=== PATIENT | male | born 1940 | race Caucasian/White ===

== ENCOUNTER → 2018-05-23 09:36 | Outpatient (CLI) | payer OTHER, SELFPAY ==
--- NOTE | 2018-05-23 | DI.MRI.S_ITS ---
PROCEDURE: MR LUMBAR SPINE WO CON INDICATIONS: CHRONIC BILATERAL LOW BACK PAIN WITH SCIATICA TECHNIQUE: Noncontrast sagittal T1 spin echo and T2 fast echo, sagittal STIR, axial T1 and T2 fast spin echo through the lumbar spine. In cases with scoliosis, additional coronal T2 fast spin echo may be performed. COMPARISON: [facility], CT, IVP (ABD & PEL WWO CONTRAST), 01/14/2016, 11:52. [facility], MR, L-SPINE WITHOUT CONTRAST, 04/28/2015, 12:31. FINDINGS: Image quality: Excellent. Alignment and Curvature: Trace anterolisthesis of L2 on L3. Bone Marrow: Marrow is of normal overall signal. No acute vertebral body compression fractures. Spinal Cord: Conus medullaris terminates at the L1 level. Visualized cord demonstrates normal signal and size. Paraspinous Soft Tissues: No paravertebral masses. Partially visualized infrarenal aortic aneurysm as before. L1-L2: Broad-based posterior disc bulge facet disease. No canal narrowing which appears unchanged. No definite foraminal stenosis. L2-L3: Broad-based posterior disc bulge bilateral facet arthropathy. Mild canal narrowing which is accentuated by dorsal epidural fat. Mild bilateral foraminal stenoses. No interval change L3-L4: Broad-based posterior disc bulge and facet arthropathy. Mild canal narrowing which accentuated by dorsal epidural fat. Moderate left and mild right foraminal narrowing, no interval change. L4-L5: Broad-based posterior disc bulge bilateral facet disease. No definite canal narrowing. No foraminal stenosis L5-S1: Broad-based posterior disc bulge and bilateral facet arthropathy severe bilateral foraminal narrowing, as before. IMPRESSION: Overall, no interval change since 08/29/15. Severe bilateral L5-S1 foraminal stenoses. No high-grade canal stenosis. Multilevel dorsal epidural lipomatosis. Trace anterolisthesis of L2 on L3 as before. Dictated by: Johnnie Cabral M.D. on 05/23/2018 at 13:07 Approved by: Johnnie Cabral M.D. on 05/23/2018 at 13:16
== END ==
PROVIDERS: PCP Internal Medicine; Visit Provider Orthopaedic Surgery
DX: M54.41 Lumbago with sciatica, right side (principal); M54.42 Lumbago with sciatica, left side; M48.07 Spinal stenosis, lumbosacral region; E88.2 Lipomatosis, not elsewhere classified
CPT/HCPCS: 72148

== ENCOUNTER → 2019-04-20 08:08 | Outpatient (CLI) | payer OTHER, SELFPAY ==
--- NOTE | 2019-04-20 | DI.US.S_ITS ---
PROCEDURE: US RENAL COMPLETE INDICATIONS: HEMATURIA TECHNIQUE: Real-time scanning was performed of the kidneys and bladder, with image documentation. COMPARISON: None. FINDINGS: Kidneys: Kidneys are normal in size. Right kidney measures 11.7 cm long; left kidney measures 10.9 cm long. Right renal cortical thickness is 1.5 cm; left renal cortical thickness is 1.3 cm. Renal cortical echotexture is normal. No hydronephrosis or nephrolithiasis. No suspicious solid mass lesions. Bilateral renal cysts are present measuring up 1.6 cm on the right. Additional right renal cyst measuring 1.4 x 1.4 x 1.2 cm demonstrates mildly ill-defined margin, and could be followed up with 6 month ultrasound. Left renal cyst measuring up to 1.3 cm Bladder: Pre-void bladder volume is 57 mL. Post-void residual is one mL. Pre-void images demonstrate no intraluminal masses or stones. On pre-void images, both of the ureteral jets are noted with color Doppler interrogation. (Of note, ureteral jets may not be detectable in up to 25% of cases due to insufficient differences in specific gravity between ureteral and bladder urine). Miscellaneous: No free pelvic fluid. IMPRESSION: Bilateral renal cysts, minimally complex on the right (Bosniak 2F). Followup with ultrasound in 6 months could be performed as clinically warranted. No hydronephrosis. Dictated by: Johnnie Cabral M.D. on 04/20/2019 at 8:59 Approved by: Johnnie Cabral M.D. on 04/20/2019 at 9:02
== END ==
PROVIDERS: PCP Internal Medicine; Visit Provider Specialist
DX: R31.9 Hematuria, unspecified (principal); N28.1 Cyst of kidney, acquired
CPT/HCPCS: 76770

== ENCOUNTER → 2019-05-01 12:39 | Outpatient (CLI) | payer OTHER, SELFPAY ==
[2019-05-01 13:21] LABS: Estimated Glomerular Filt Rate > 60.0 mL/min (>60)
--- NOTE | 2019-05-01 13:58 | DI.CT.S_ITS ---
PROCEDURE: CT ABDOMEN PELVIS WO/W CON INDICATIONS: GROSS HEMATURIA TECHNIQUE: Optional 5 mm thick noncontrast images acquired from the diaphragm to the symphysis pubis. After the administration of intravenous contrast, 5 mm thick images acquired from the diaphragm to the symphysis pubis after a 10-minute delay. 2 mm thick coronal and sagittal reformats were then performed of the kidneys and ureters. For radiation dose reduction, the following was used: automated exposure control, adjustment of mA and/or kV according to patient size. COMPARISON: [facility], CT, IVP (ABD & PEL WWO CONTRAST), 01/14/2016, 11:52. [facility], MR, MR LUMBAR SPINE WO CON, 05/23/2018, 10:03. [facility], US, US RENAL COMPLETE, 04/20/2019, 8:18. FINDINGS: Image quality: Excellent. Lung bases: Lung bases are clear. Heart size is normal. Punctate calcification of the papillary muscle. Urinary system: Both kidneys are normal in size, without hydronephrosis. A few punctate nonobstructing calculi in the left kidney, (2/36, 32), one of which is new compared to 2016. There is normal bilateral renal enhancement. Mid right kidney a cyst measuring 1.6 cm with single septation, (5/113), and inferior pole cyst measuring 1.3 cm, (5/131). Of note, mild complexity of the cyst was seen on the prior ultrasound. Overall these appear similar to the CT from 2016. A few additional cortical hypodensities which are to small to further characterize. No solid renal mass. Renal calyces appear normal in morphology when filled with contrast. Opacified portions of both ureters demonstrate normal caliber. Bladder wall thickness is normal. No calcified bladder stones. Other solid organs: Hepatic steatosis. No focal lesions. Gallbladder is normal. Biliary system is non dilated. Pancreas enhances normally. Spleen is normal in size and enhancement. No adrenal nodules. Peritoneum and bowel: Sigmoid colon diverticulosis. Bowel loops demonstrate normal wall thickness and caliber. No free fluid or air. Nodes and vessels: No retroperitoneal or mesenteric adenopathy by size criteria. Aneurysmal of the infrarenal abdominal aorta measuring up to 3.6 cm, (4/400). Aneurysmal dilatation of the right common iliac artery measuring approximately 1.7 cm, (4/400). Abdominal wall: No ventral hernias. Pelvis: No pathologic free pelvic fluid. Prostatomegaly. Bilateral fat containing inguinal hernias. Bones: No suspicious bony lesions. No vertebral body compression fractures. IMPRESSION: 1. No renal mass or upper urinary tract filling defect. A few nonobstructing renal calculi in the left kidney. 2. Abdominal aortic aneurysm measuring 3.6 cm. 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 Dictated by: Hamlet Barber M.D. on 05/01/2019 at 14:30 Approved by: Hamlet Barber M.D. on 05/01/2019 at 14:58
== END ==
PROVIDERS: PCP Internal Medicine; Visit Provider Urology
DX: R31.0 Gross hematuria (principal); R10.9 Unspecified abdominal pain; N20.0 Calculus of kidney; N28.1 Cyst of kidney, acquired; K57.30 Diverticulosis of large intestine without perforation or abscess without bleeding; I71.4 Abdominal aortic aneurysm, without rupture
CPT/HCPCS: 36415; 74178; 82565; Q9967

== ENCOUNTER 2022-02-15 10:05 | Emergency (ER) | payer OTHER, SELFPAY ==
[2022-02-15] VITALS (10 sets, daily range): BP systolic 151–183; BP diastolic 67–92; PULSE 47–84; RESP 14–27; TEMP 36.8; O2SAT 94–96; BMI 28.1
[2022-02-15 11:02] LABS: Appearance Urine UA TURBID; Bilirubin Urine UA NEGATIVE (NEGATIVE); Color Urine UA RED; Glucose Urine UA NEGATIVE (Negative); Ketones Urine UA NEGATIVE (NEGATIVE); Leukocyte Esterase Urine UA TRACE (NEGATIVE); Nitrite Urine UA NEGATIVE (Negative); Occult Blood Urine UA 3+ (Negative); Protein Urine UA 3+ (Negative); Specific Gravity Urine UA 1.025 (1.000-1.035); Urobilinogen Urine UA 0.2 E.U./dL (0.2); pH Urine UA 6.5 (4.5-8.0)
[2022-02-15 11:05] LABS: Bacteria Urine Many (>30); RBC Urine >100/HPF (0-5/HPF); WBC Urine 1-5/HPF (0-5/HPF)
[2022-02-15 11:06] LABS: Culture Indicated Urine Specimen Cultured
[2022-02-15 12:03] LABS: Add Manual Diff / Slide Review NO; Basophils Absolute Auto 0 /uL (0-100); Basophils Percent Auto 0.5 % (0-2); Eosinophils Absolute Auto 200 /uL (0-450); Eosinophils Percent Auto 2.1 % (2-4); Hematocrit 45.6 % (41-53); Hemoglobin 15.9 g/dL (13.5-17.5); Lymphocytes Absolute Auto 2700 /uL (1100-4500); Lymphocytes Percent Auto 35.4 % (25-40); Mean Corpuscular HGB Conc 34.9 % (30-36); Mean Corpuscular Hemoglobin 33.7 PG (26-34); Mean Corpuscular Volume 96.6 fL (80-100); Monocytes Absolute Auto 900 /uL (0-900); Monocytes Percent Auto 11.1 % (3-14); Neutrophils Absolute Auto 4000 /uL (1500-7000); Neutrophils Percent Auto 50.9 % (50-75); Platelet Count 176 X10^3/uL (150-400); Red Blood Cell Count 4.72 X10^6/uL (4.5-5.9); Red Cell Distribution Width 12.9 % (11.6-14.8); White Blood Cell Count 7.8 X10^3/uL (4.5-11.0)
[2022-02-15] MEDS: LIDOCAINE 2% (GLYDO) 6 ML GEL TOP (12:21)
[2022-02-15 12:22] LABS: Alanine Aminotransferase 35 IU/L (<50); Albumin 4.5 g/dL (3.5-5.0); Albumin Globulin Ratio 1.6 (1.0-2.8); Alkaline Phosphatase 66 U/L (38-126); Aspartate Aminotransferase 40 IU/L (17-59); BUN Creatinine Ratio 19.7 (6-22); Bilirubin Total 0.7 mg/dL (0.2-1.3); Blood Urea Nitrogen 15 mg/dL (9-20); Calcium 9.4 mg/dL (8.4-10.2); Carbon Dioxide 33 mmol/L (22-32); Chloride 105 mmol/L (98-107); Estimated Glomerular Filt Rate > 60 mL/min (>60); Globulin 2.9 g/dL (1.7-4.1); Glucose 99 mg/dL (80-110); HEMOLYSIS < 15 (0-50); Potassium 4.1 mmol/L (3.4-5.1); Sodium 142 mmol/L (137-145); Total Protein 7.4 g/dL (6.3-8.2)
--- NOTE | 2022-02-15 12:44 | ED_ITS ---
HPI - Male Genitourinary General Chief complaint: Urogenital-Male Stated complaint: Hematuria Time Seen by Provider: 02/15/22 11:51 Source: patient Mode of arrival: Ambulatory History of Present Illness HPI Narrative: Patient is a 81-year-old male with hit remote history of bladder cancer presenting today with hematuria. He has actually had hematuria for about 1 week. He was seen and evaluated [facility] on 02/10/2022. He brings his discharge papers which include his CT report. CT states that there are 2 nonobstructing left intrarenal calculi measuring 3 mm and 4 mm there are several partial exophytic renal lesions than a small saccular 3.7 cm mid abdominal aortic aneurysm. He presents today with ongoing hematuria. He brings a jar filled with gross blood which he collected yesterday. He denies any dizziness or lightheadedness. Catheter was placed and complete irrigated with water. Bleeding now seems to have cleared. He denies any fever chills nausea vomiting . He is having some lower abdominal discomfort. Related Data Home Medications Medication Instructions Recorded Confirmed ASPIRIN (Aspir-Low) 81 mg PO Q DAY #0 07/31/12 CA PANTOTHENATE/FOLIC ACID/VIT 1 tab PO Q DAY #0 07/31/12 (MULTIVITAMIN) [TENS UNIT] PRN #0 07/31/12 Previous Rx's Medication Instructions Recorded ipratropium 0.5 mg-albuterol 3 mg 1 dose NEB Q4-6H PRN #60 08/01/12 (2.5 mg base)/3 mL nebulization soln Allergies Allergy/AdvReac Type Severity Reaction Status Date / Time nicotine Allergy Mild RASH Verified 02/15/22 12:21 amoxicillin [From Augmentin] AdvReac Mild DIARRHEA Verified 02/15/22 12:21 bupropion AdvReac Mild HALLUCINATION, Verified 02/15/22 12:21 INSOMNIA citalopram AdvReac Mild FELT LIKE Verified 02/15/22 12:21 A ZOMBIE clavulanic acid AdvReac Mild DIARRHEA Verified 02/15/22 12:21 [From Augmentin] diphenhydramine AdvReac Mild MUSCLE Verified 02/15/22 12:21 TWITCHING tamsulosin AdvReac Mild DRY NOSE, Verified 02/15/22 12:21 EPISTAXIS varenicline AdvReac Mild ANXIETY Verified 02/15/22 12:21 Review of Systems Review of Systems Narrative: GENERAL: Denies chills, fatigue, malaise, fever, sweats, travel HEENT: Denies sinus pain, ear pain, sore throat, difficulty swallowing, neck pain RESPIRATORY: Denies dyspnea, cough, wheezing, hemoptysis, sputum. CARDIOVASCULAR: Denies chest pain, palpitations, orthopnea, edema GASTROINTESTINAL: Denies nausea, vomiting, abdominal pain, diarrhea, constipation, melena. : See HPI MUSCULOSKELETAL: Denies weakness, joint pain, or bony pain SKIN: No rash, no erythema, no pruritus NEUROLOGIC: Denies weakness, dizziness, headache, numbness, change in speech, confusion PSYCHIATRIC: No concerning psychosocial issues. 12 point review of systems is negative except for those stated above and HPI Patient History Social History Smoking Status: Current every day smoker Smoking Status: Current every day smoker Substance Use Type: does not use Exam Initial Vital Signs Initial Vital Signs: Vital Signs Temperature 98.3 F 02/15/22 10:21 Pulse Rate 64 02/15/22 10:21 Respiratory Rate 22 02/15/22 10:21 Blood Pressure 174/84 H 02/15/22 10:21 Pulse Oximetry 96 02/15/22 10:21 GENERAL: Alert well-appearing 81-year-old and in no acute distress. HEENT: Head atraumatic,EOMI, pupils reactive, face symmetric, moist mucous membranes CARDIOVASCULAR: Regular rate and rhythm without murmurs, rubs or gallops. RESPIRATORY: Breath sounds equal bilaterally, no wheezes rales or rhonchi. ABDOMEN: Soft, mild suprapubic pain lower abdominal discomfort no guarding no rebound :24F catheter in place clear hematuria EXTREMITIES: Normal range of motion, no clubbing or edema. Neurovascularly intact NEUROLOGICAL: Alert and oriented x4. SKIN: Warm, dry, no laceration, no petechiae, no rashes or lesions. Course Orders Ordered: ED Orders 02/15/22 11:45 CBC Auto Diff [Complete Blood Count AUTO DIFF] Stat CMP [Comprehensive Metabolic Panel] Stat Discontinued Medications Lidocaine HCl (Lidocaine 2% (Glydo) 6 Ml Gel) 6 ml TOP NOW ONE Stop: 02/15/22 12:13 Last Admin: 02/15/22 12:21 Dose: 6 ml Documented by: KEVAN Vital Signs Vital signs: Vital Signs - 8 hr 02/15/22 12:30 02/15/22 13:00 02/15/22 13:01 Pulse Rate 47 L 51 L 50 L Respiratory Rate 23 18 16 Blood Pressure 163/85 H 151/67 H Pulse Oximetry 95 94 94 02/15/22 13:30 02/15/22 14:00 Pulse Rate 49 L 57 L Respiratory Rate 14 18 Blood Pressure 154/73 H 174/92 H Pulse Oximetry 95 95 MDM - Male Genitourinary Lab Data Result diagrams: 02/15/22 11:45 02/15/22 11:45 Labs: Lab Results 02/15/22 02/15/22 02/15/22 Range/Units 10:25 11:45 11:45 WBC 7.8 (4.5-11.0) X10^3/uL RBC 4.72 (4.5-5.9) X10^6/uL Hgb 15.9 (13.5-17.5) g/dL Hct 45.6 (41-53) % MCV 96.6 (80-100) fL MCH 33.7 (26-34) PG MCHC 34.9 (30-36) % RDW 12.9 (11.6-14.8) % Plt Count 176 (150-400) X10^3/uL Neut % (Auto) 50.9 (50-75) % Lymph % (Auto) 35.4 (25-40) % [place] % (Auto) 11.1 (3-14) % Eos % (Auto) 2.1 (2-4) % Baso % (Auto) 0.5 (0-2) % Neut # (Auto) 4000 (9901-9954) /uL Lymph # (Auto) 2700 (6055-3720) /uL [place] # (Auto) 900 (0-900) /uL Eos # (Auto) 200 (0-450) /uL Baso # (Auto) 0 (0-100) /uL Sodium 142 (137-145) mmol/L Potassium 4.1 (3.4-5.1) mmol/L Chloride 105 (98-107) mmol/L Carbon Dioxide 33 H (22-32) mmol/L BUN 15 (9-20) mg/dL Creatinine 0.76 (0.66-1.25) mg/dL Estimated GFR > 60 (>60) mL/min BUN/Creatinine Ratio 19.7 (6-22) Glucose 99 (80-110) mg/dL Calcium 9.4 (8.4-10.2) mg/dL Total Bilirubin 0.7 (0.2-1.3) mg/dL AST 40 (17-59) IU/L ALT 35 (<50) IU/L Alkaline Phosphatase 66 (38-126) U/L Total Protein 7.4 (6.3-8.2) g/dL Albumin 4.5 (3.5-5.0) g/dL Globulin 2.9 (1.7-4.1) g/dL Albumin/Globulin Ratio 1.6 (1.0-2.8) Urine Color Red Urine Appearance Turbid Urine pH 6.5 (4.5-8.0) Ur Specific [place] 1.025 (1.000-1.035) Urine Protein 3+ H (Negative) Urine Glucose (UA) Negative (Negative) g/dL Urine Ketones Negative (NEGATIVE) Urine Occult Blood 3+ H (Negative) Urine Nitrate Negative (Negative) Urine Bilirubin Negative (NEGATIVE) Urine Urobilinogen 0.2 (0.2) E.U./dL Ur Leukocyte Esterase Trace H (NEGATIVE) Urine RBC >100/hpf H (0-5/HPF) Urine WBC 1-5/hpf (0-5/HPF) Urine Bacteria Many (>30) H (None) Ur Culture Indicated? Specimen cultured MDM Narrative Medical decision making narrative: Patient blood work is overall reassuring no leukocytosis or significant anemia. Patient was irrigated with water 600mL manually. It did clear to with serosanguineous like fluid. Patient did have some irritation with the Sen catheter in place. 1 blood clot was removed only. Patient requesting Sen catheter to be removed. I have explained to him why it needs to be stay and he understands that it may need to be replaced if he has worsening problems. I have instructed patient that he needs to call Urology and I have given him strict return precautions. Discharge Plan Departure Patient Disposition: Home Clinical Impression: Hematuria Instructions: DI for Hematuria Activity Restrictions/Additional Instructions: *You have been diagnosed with hematuria *What to do: At this time you do need to follow-up with urology. Please continue to monitor bleeding very closely. If it is extremely dark or your passing blood clots or unable to urinate a please return to nearest emergency department. Sen catheter will likely need to be replaced. *Continue to take medications as directed Hold aspirin until further instructions *Follow up with your primary care provider in 2-3 days or call [phone] Dr[address] Hernández or Dr. Conrad for Urology, or the urology clinic for scheduled with *Return to ER if you should have increasing blood, increasing abdominal pain, inability to urinate fever or any new, worsening or concerning symptoms Prescriptions: No Action ASPIRIN (Aspir-Low) 81 mg PO Q DAY Qty: 0 0RF [TENS UNIT] PRN Qty: 0 0RF CA PANTOTHENATE/FOLIC ACID/VIT (MULTIVITAMIN) 1 tab PO Q DAY Qty: 0 0RF ipratropium-albuterol 3 ML solution for nebulization 1 dose NEB Q4-6H PRN Qty: 60 1RF Referrals: Zac Phillips MD [Primary Care Provider] - Emily Hernández MD [Physician] - Melchor Conrad MD [Physician] -
== END 2022-02-15 14:27 | disposition home or self-care (01) ==
PROVIDERS: Emergency Provider Emergency Medicine; PCP Internal Medicine
DX: R31.9 Hematuria, unspecified (principal); F17.200 Nicotine dependence, unspecified, uncomplicated; Z96.0 Presence of urogenital implants
CPT/HCPCS: 36415; 51700; 80053; 81001; 85025; 87086; 93005; 93010; 99284

== ENCOUNTER → 2022-02-17 14:05 | Outpatient (CLI) | payer OTHER, SELFPAY | PROVIDERS: PCP Internal Medicine; Visit Provider Urology | DX: R30.0 Dysuria (principal); R31.0 Gross hematuria; Z85.51 Personal history of malignant neoplasm of bladder; Z98.890 Other specified postprocedural states; Z90.79 Acquired absence of other genital organ(s); Z87.891 Personal history of nicotine dependence | CPT/HCPCS: 87086; 99214 ==

== ENCOUNTER → 2022-04-21 10:26 | Outpatient (CLI) | payer OTHER, SELFPAY ==
[2022-04-21 11:24] LABS: COVID19 -Nasal RAPID Negative (Negative)
== END ==
PROVIDERS: PCP Internal Medicine; Visit Provider Urology
DX: C67.9 Malignant neoplasm of bladder, unspecified (principal); R39.9 Unspecified symptoms and signs involving the genitourinary system; R30.0 Dysuria; Z98.890 Other specified postprocedural states; Z90.79 Acquired absence of other genital organ(s); Z87.891 Personal history of nicotine dependence; Z20.822 Contact with and (suspected) exposure to COVID-19
CPT/HCPCS: 81002; 87086; 87635; 99214

== ENCOUNTER 2022-04-23 10:49 | Day surgery (SDC) | payer OTHER, SELFPAY ==
[2022-04-21 08:45] VITALS: BMI 30.4
[2022-04-23] VITALS (7 sets, daily range): BP systolic 129–157; BP diastolic 66–78; PULSE 52–70; RESP 12–20; TEMP 36.2–36.5; O2SAT 92–96; BMI 30.4
--- NOTE | 2022-04-23 | PATH_ITS ---
[facility] Accession Number: [id number] . 01 Material submitted: . bladder - LEFT LATERAL WALL BLADDER TUMOR . 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 MRV 04/26/2022 1521 Local . 01 Comment: As part of routine manufacturing quality technician, this case was also reviewed by Dr. Sue, who agrees with the interpretation. . 01 Electronically signed: . Anya Lizama MD, Pathologist NPI- [id number] . 01 Gross description: . LEFT LATERAL WALL BLADDER TUMOR: Received in formalin is 1 fragment(s) of gomez, soft tissue measuring 0.3 x 0.2 x 0.1 cm submitted entirely in 1 cassette(s) /CPE 04/24/2022 0455 Local . 01 Pathologist provided ICD-10: C67.9 . 01 CPT . 935147 Specimen Comment: A courtesy copy of this report has been sent to [phone] Performed at: 01 [facility] [address] [place] [address], [place], [place] [id number] MD Wolfgang Eubanks MD Phone: [phone]
[2022-04-23] MEDS: LACTATED RINGERS 1,000 ML 42 ML IV (11:35)
--- NOTE | 2022-04-23 12:00 | PM.PREOP ---
Pre-operative Note COVID-19 COVID-19 status: Negative Result date/Date tested (Pos, Neg/Pending): 04/21/22 Criteria for continued procedure: Non-surgical alternatives not available or appropriate per current SOC Interval Note History & Physical reviewed/Exam performed by Physician: Yes Changes to H&P: No
[2022-04-23] MEDS: CIPROFLOXACIN 400 MG/200 ML PIGGYBACK 200 MG IV (12:15)
--- NOTE | 2022-04-23 12:34 | SUR.OPER ---
Lithotomy on padded OR bed, head on pillow, arms secured on padded arm boards at <90 degrees abduction. Legs secured in padded yellow fins stirrups. Blankets under bilateral wrists.
--- NOTE | 2022-04-23 12:46 | P.OP_ITS ---
Procedure & Clinicians Procedure: Transurethral resection of bladder tumor small Same procedure as scheduled: Yes Indications: This is a 81-year-old male who has a history of carcinoma of the bladder specifically urothelial carcinoma. He was in for surveillance cystoscopy and found to have a recurrence on the left lateral wall he presents this time for resection of this bladder tumor. Surgeon: Melchor Conrad Click Yes if Unassisted: Yes Anesthesia Type: General Operative Notes Findings: Findings: Urethral meatus is normal the urethra is normal along its length with normal mucosa. The sphincter is well coapted and the prostatic fossa exhibits minimal to moderate obstructive character. The ureteral orifices are in normal position with clear efflux. There is a large scar from a previous resection noted on the posterior right aspect of the bladder floor. On the left lateral wall there is a small papillary tumor consistent with recurrent urothelial carcinoma. There are no other abnormalities in the mucosa or bladder. At the end of the procedure the tumor was completely resected by appearance and hemostasis was excellent Closure Type: not applicable Specimen(s): other (Left lateral wall bladder tumor) Prosthetic devices, grafts, tissues, transplants, or devices: None Estimated Blood Loss (mL): 0 Procedure in detail: Procedure in detail: After informed consent was obtained, the patient was identified and brought to the operating room. He was placed in supine position and anesthesia was induced and maintained. After ensuring an adequate level of anesthesia the patient was transitioned to the lithotomy position where he was prepped, prepared, draped for transurethral procedure. After prepping draping and assuring an adequate level of anesthesia had after time-out a 21 Kiswahili cystoscope was passed through the urethra and into the bladder where cystoscopy was performed with the 30 and 70 degree lens with the findings and hand and the bladder tumor noted a biopsy forceps was inserted and the tumor was resected. Bugbee electrode was then inserted and the base of the tumor resection was cauterized establishing a hemostasis the margin was then fulgurated to establish an adequate margin of resection. The bladder was then filled and drained filled and drained and hemostasis remained good. The bladder was drained the scope was removed the patient was awakened and transition to the postanesthesia care unit having tolerated the procedure well. There were no complications and the patient is to be discharged to home today. Complications: none Post-operative Condition: stable Disposition: PACU Plan for aftercare: Patient to follow-up in my office 10-14 days
== END 2022-04-23 13:43 | disposition home or self-care (01) ==
PROVIDERS: PCP Internal Medicine; Referring Provider Urology; Visit Provider Urology
PROC: 0TBB8ZZ Excision of Bladder, Via Natural or Artificial Opening Endoscopic (ICD-10-PCS; CPT 52234; principal; 2022-04-23 12:15)
DX: D30.3 Benign neoplasm of bladder (principal); K21.9 Gastro-esophageal reflux disease without esophagitis; F17.210 Nicotine dependence, cigarettes, uncomplicated
CPT/HCPCS: 52234; 00912; J0744; J2250; J2704; J3010

== ENCOUNTER → 2023-01-05 10:03 | Outpatient (CLI) | payer OTHER, SELFPAY | PROVIDERS: PCP Internal Medicine; Visit Provider Urology | DX: R39.9 Unspecified symptoms and signs involving the genitourinary system (principal); Z85.51 Personal history of malignant neoplasm of bladder; C67.9 Malignant neoplasm of bladder, unspecified; Z72.0 Tobacco use | CPT/HCPCS: 51798; 52000; 87086; 99214 ==

== ENCOUNTER 2023-01-11 06:44 | Day surgery (SDC) | payer OTHER, SELFPAY ==
[2023-01-05 14:43] VITALS: BMI 31.4
[2023-01-11] VITALS (7 sets, daily range): BP systolic 138–185; BP diastolic 67–74; PULSE 43–58; RESP 14–18; TEMP 36.5–36.7; O2SAT 93–97; BMI 28.8
--- NOTE | 2023-01-11 | PATH_ITS ---
[facility] Accession Number: [id number] No. of containers..01 Tissue . 01 Material submitted: . bladder - RIGHT LATERAL WALL . 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 Negative for dysplasia, neoplasia, and malignancy. MRV 01/14/2023 1341 Local . 01 Comment: Initial and deeper sections are obtained and reviewed. . 01 Electronically signed: . Katalina Riddle MD, Pathologist NPI- [id number] . 01 Gross description: . The specimen is received in formalin labeled with the patient's name, , and right lateral wall consists of a gomez soft tissue fragment measuring 0.5 x 0.3 x 0.2 cm. The presumed margin is inked blue. The specimen is submitted intact in cassette A1. ([id number]) /MRV 01/12/2023 1248 Local . 01 Pathologist provided ICD-10: N32.9 . 01 CPT . 479609 Specimen Comment: A courtesy copy of this report has been sent to [phone] Performed at: 01 [facility] [address] [place] [address] [address], [place], [place] [id number] MD Wolfgang Eubanks MD Phone: [phone]
[2023-01-11] MEDS: LACTATED RINGERS 1,000 ML 21 ML IV (07:13)
--- NOTE | 2023-01-11 07:35 | PM.PREOP ---
Pre-operative Note COVID-19 COVID-19 status: Not tested Criteria for continued procedure: Delay expected to result in less-positive ultimate med/surg outcome and Non-surgical alternatives not available or appropriate per current SOC Interval Note History & Physical reviewed/Exam performed by Physician: Yes Changes to H&P: No
[2023-01-11] MEDS: CEFAZOLIN 2 GM/100 ML PREMIX 100 ML IV (07:50)
--- NOTE | 2023-01-11 08:04 | SUR.OPER ---
Lithotomy on padded OR bed, head on pillow, arms secured on padded arm boards at <90 degrees abduction. Legs secured in padded yellow fins stirrups. Pt positioned per direction and supervision of Dr Conrad.
--- NOTE | 2023-01-11 08:25 | P.OP_ITS ---
Procedure & Clinicians Procedure: Cystoscopy with bladder biopsy and fulguration Same procedure as scheduled: Yes Indications: This is a very pleasant 82-year-old male with a known history of bladder cancer presents for surveillance cystoscopy and was found to have a erythematous raised lesion on the right lateral wall. He presents this time for biopsy and fulguration of this lesion. Surgeon: Melchor Conrad Click Yes if Unassisted: Yes Anesthesia Type: General Operative Notes Findings: Urethral meatus is normal. Urethra is normal along its length with normal mucosa the sphincter as well coapted and the prostate is resected in widely patent. Ureteral orifices right and left are in the normal position with clear efflux. On the right lateral wall there is a raised erythematous lesion which is biopsied and fulgurated. They are stellate scars on the right posterior bladder and a smaller 1 on the left lateral wall. Otherwise there are no mucosal lesions within the bladder. The lesion appeared to be removed and or fulgurated in its entirety. Closure Type: not applicable Specimen(s): other (Right lateral wall erythematous raised lesion bladder) Prosthetic devices, grafts, tissues, transplants, or devices: None Estimated Blood Loss (mL): 0 Blood products transfused: none Procedure in detail: Procedure in detail: After informed consent was obtained, the patient was identified and brought to the operating room where he was placed in a supine position on the table. Patient then had anesthesia induced and maintained. Showing an adequate level of anesthesia the patient was transition to the lithotomy position where he was prepped, draped, prepared for Transurethral procedure. With the patient prepped and draped and after time-out ensuring an adequate level of anesthesia the 22 Romansh cystoscope was passed through the urethra prostate and bladder were cystoscopy was performed with the 30 and 70 degree lens. Biopsy forceps was then inserted and the erythematous lesion was biopsied. Bugbee electrode was then inserted and hemostasis was achieved and a margin was fulgurated. The 70 degree lens was once again inserted and the bladder surveyed and no other lesions were noted. The bladder was drained and filled drained and filled hemostasis was good and stable and so the bladder was drained the scope was removed the patient was awakened and taken to the postanesthesia care unit for recovery. He tolerated the procedure well and there were no complications the specimen was forwarded to pathology in formalin. Complications: none Post-operative Condition: stable Disposition: PACU Plan for aftercare: Discharge to home to follow up my office in approximately 10-14 days
[2023-01-11] MEDS: OXYBUTYNIN 5 MG TABLET PO (08:47)
[2023-01-11] MEDS: PHENAZOPYRIDINE 100 MG TABLET 200 MG PO (08:47)
== END 2023-01-11 09:50 | disposition home or self-care (01) ==
PROVIDERS: PCP Internal Medicine; Referring Provider Urology; Visit Provider Urology
PROC: 0TBB8ZZ Excision of Bladder, Via Natural or Artificial Opening Endoscopic (ICD-10-PCS; CPT 52234; principal; 2023-01-11 07:45)
DX: N30.20 Other chronic cystitis without hematuria (principal); Z85.51 Personal history of malignant neoplasm of bladder; N32.9 Bladder disorder, unspecified
CPT/HCPCS: 52234; J0690; J2704; J3010

== ENCOUNTER → 2023-09-30 16:18 | Outpatient (CLI) | payer OTHER, SELFPAY | PROVIDERS: PCP Internal Medicine; Visit Provider Urology | DX: R39.9 Unspecified symptoms and signs involving the genitourinary system (principal); Z85.51 Personal history of malignant neoplasm of bladder | CPT/HCPCS: 52000; 81002; 87086 ==

== ENCOUNTER → 2023-10-20 12:06 | Outpatient (CLI) | payer OTHER, SELFPAY | PROVIDERS: PCP Internal Medicine; Visit Provider Urology | DX: C67.9 Malignant neoplasm of bladder, unspecified (principal); R39.9 Unspecified symptoms and signs involving the genitourinary system; Z90.79 Acquired absence of other genital organ(s); Z98.890 Other specified postprocedural states; Z87.891 Personal history of nicotine dependence | CPT/HCPCS: 81002; 87086; 99214 ==

== ENCOUNTER 2023-10-25 08:09 | Day surgery (SDC) | payer OTHER, SELFPAY ==
[2023-10-21 10:55] VITALS: BMI 32.3
--- NOTE | 2023-10-25 | PATH_ITS ---
[facility] Accession Number: [id number] No. of containers..01 Tissue . 01 Material submitted: . bladder - TUMOR LEFT LATERAL WALL . 01 Diagnosis: Bladder, Left Lateral Wall, Excision: Papillary urothelial fragments with no significant pathologic alterations. No dysplasia or malignancy identified. See comment. MRV 10/28/2023 1416 Local . 01 Comment: Patient's history is noted. There is no significant cytologic atypia, mitotic figures or loss of polarity identified. Occasional umbrella cells are identified. The findings favor benign squamous papilloma. . As part of ongoing quality assurance test program manager, this case is also reviewed by Dr. Morgan Moore, who concurs with the given interpretation. . 01 Electronically signed: . Ana Laura Cabezas MD, Pathologist NPI- [id number] . 01 Gross description: . TUMOR LEFT LATERAL WALL: Received in formalin are 2 fragment(s) of gomez, soft tissue measuring 0.1 x 0.1 x 0.1 cm to 0.2 x 0.2 x 0.2 cm submitted entirely in 1 cassette(s) /BAY 10/26/2023 2251 Local . 01 Pathologist provided ICD-10: D30.3 . 01 CPT . 351930 Specimen Comment: A courtesy copy of this report has been sent to [phone] Performed at: 01 [facility] [address] [place] [id number] MD Wolfgang Eubanks MD Phone: [phone]
[2023-10-25 08:45] VITALS: BMI 31.9
[2023-10-25] MEDS: ACETAMINOPHEN 325 MG TABLET 975 MG PO (08:49)
[2023-10-25] MEDS: LACTATED RINGERS 1,000 ML 42 ML IV (08:51)
[2023-10-25] MEDS: ALBUTEROL/IPRATROPIUM 3 ML AMPUL INH (08:58)
--- NOTE | 2023-10-25 09:02 | PM.PREOP ---
Pre-operative Note COVID-19 COVID-19 status: Not tested Interval Note History & Physical reviewed/Exam performed by Physician: Yes Changes to H&P: No
[2023-10-25 09:05] VITALS: BP 173/83; PULSE 53; RESP 18; TEMP 36.3; O2SAT 96
[2023-10-25] MEDS: CEFAZOLIN 2 GM/100 ML PREMIX 100 ML IV (09:30)
--- NOTE | 2023-10-25 09:52 | SUR.OPER ---
Lithotomy on padded OR bed, head on pillow, arms secured on padded arm boards at <90 degrees abduction. Legs secured in padded yellow fins stirrups.
[2023-10-25 10:13] VITALS: BP 131/82; PULSE 55; RESP 12; TEMP 37; O2SAT 93
--- NOTE | 2023-10-25 10:16 | PM.OP.1 ---
Procedure & Clinicians Procedure: Transurethral resection of bladder tumor small Same procedure as scheduled: Yes Indications: This 83-year-old male who has a history of bladder cancer was in for surveillance cystoscopy and was found to have a recurrence on the left lateral wall. He presents this time for resection of this small bladder tumor with fulguration and cauterization of the base of the tumor. Surgeon: Melchor Conrad Click Yes if Unassisted: Yes Anesthesia Type: General Operative Notes Findings: Urethral meatus is normal. The urethra is normal along its Length with normal mucosa. Sphincter as well coapted. The prostate is resected with some nodular regrowth. Ureteral orifices in normal position with clear efflux. On the left lateral wall there are 2 small papillary lesions consistent with urothelial carcinoma. On the right posterior there is a large stellate scar multiple other scars throughout the bladder no evidence of recurrences noted elsewhere. No other abnormality is noted. Closure Type: not applicable Specimen(s): other (Left lateral wall tumor small.) Prosthetic devices, grafts, tissues, transplants, or devices: None Estimated Blood Loss (mL): 5 Blood products transfused: none Procedure in detail: Procedure in detail: After informed consent was obtained, the patient was identified and brought to the operating room where he is placed in supine position on the table. Once there anesthesia was induced to maintain. Ensuring an adequate level of anesthesia the patient was transitioned to the lithotomy position where he was prepped, draped, prepared for Transurethral procedure. After prepping, draping, ensuring an adequate level of anesthesia, time-out and administration of antibiotics 22 Ethiopian cystoscope was passed through the urethra prostate and into bladder where cystoscopy was performed with the 30 and 70 degree lens. Then using the biopsy forceps the small tumor was sequentially resected. Directable Bugbee electrode was inserted in the points of bleeding controlled and the base and margin of the tumor were cauterized and fulgurated. Cystoscopy with 30 and 70 degree lens was once again performed and no other tumors were noted. The bladder was then drained filled drained and filled hemostasis remained good the bladder was drained the scope was removed and the patient was awakened having tolerated the procedure well. There were no complications he was transferred to the postanesthesia care unit for recovery and subsequently discharged to home. Complications: none Post-operative Condition: stable Disposition: PACU Plan for aftercare: Patient to follow up my office in approximately 10-14 days.
[2023-10-25 10:18] VITALS: BP 161/90; PULSE 60; RESP 19; O2SAT 92
[2023-10-25] MEDS: OXYCODONE IR 5 MG TABLET PO ×2 (10:20→10:23)
[2023-10-25 10:23] VITALS: BP 165/82; PULSE 61; RESP 13; O2SAT 93
[2023-10-25 10:32] VITALS: BP 144/82; PULSE 60; RESP 93; O2SAT 18
== END 2023-10-25 10:43 | disposition home or self-care (01) ==
PROVIDERS: PCP Internal Medicine; Referring Provider Urology; Visit Provider Urology
PROC: 0TBB8ZZ Excision of Bladder, Via Natural or Artificial Opening Endoscopic (ICD-10-PCS; CPT 52234; principal; 2023-10-25 09:45)
DX: Z85.51 Personal history of malignant neoplasm of bladder (principal); Z87.891 Personal history of nicotine dependence
CPT/HCPCS: 52234; 82962; J0690; J1100; J2405; J3010

== ENCOUNTER 2024-04-12 10:20 | Emergency (ER) | payer OTHER, SELFPAY ==
[2024-04-12] VITALS (10 sets, daily range): BP systolic 160–239; BP diastolic 73–102; PULSE 44–55; RESP 20–28; TEMP 36.6; O2SAT 92–96
--- NOTE | 2024-04-12 10:46 | EKG_ITS ---
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
[2024-04-12 10:54] LABS: Add Manual Diff / Slide Review NO; Basophils Absolute Auto 100 /uL (0-100); Basophils Percent Auto 0.9 % (0-2); Eosinophils Absolute Auto 1600 /uL (0-450); Eosinophils Percent Auto 17.6 % (2-4); Hematocrit 45.1 % (41-53); Hemoglobin 15.5 g/dL (13.5-17.5); Lymphocytes Absolute Auto 2500 /uL (1100-4500); Lymphocytes Percent Auto 28.3 % (25-40); Mean Corpuscular HGB Conc 34.3 % (30-36); Mean Corpuscular Hemoglobin 33.8 PG (26-34); Mean Corpuscular Volume 98.7 fL (80-100); Monocytes Absolute Auto 700 /uL (0-900); Monocytes Percent Auto 7.6 % (3-14); Neutrophils Absolute Auto 4000 /uL (1500-7000); Neutrophils Percent Auto 45.6 % (50-75); Platelet Count 194 X10^3/uL (150-400); Red Blood Cell Count 4.57 X10^6/uL (4.5-5.9); Red Cell Distribution Width 12.7 % (11.6-14.8); White Blood Cell Count 8.9 X10^3/uL (4.5-11.0)
--- NOTE | 2024-04-12 10:54 | ED.GENADULT ---
HPI - General Adult General Chief complaint: Shortness of Breath/Dyspnea Stated complaint: trouble bresthing bad cough since june Time Seen by Provider: 04/12/24 10:41 Source: patient Mode of arrival: Ambulatory History of Present Illness HPI narrative: Patient is an 83-year-old male. Does have history of COPD. Does not currently smoke but does have a significant smoking history. Quit about 1.5 years ago. Patient is here for evaluation of trouble breathing and a cough since last June. Has seen his primary doctor. Has had a chest x-ray. Has been on courses of steroids without improvement. He states he has a heaviness in the left side of his chest. He states he is having significant short of breath that he can not do his activities that he used to be able to do without having to sit. He has not having a productive cough. No fevers. No belly pain. Is on a proton pump inhibitor. He stated that his primary doctor wanted him to have a CT scan of his chest but insurance company denied this. He also states that he was always had high blood pressure but his primary doctors have never started him on any medications. Related Data Home Medications Medication Instructions Recorded Confirmed CA PANTOTHENATE/FOLIC ACID/VIT 1 tab PO Q DAY ##0 07/31/12 02/29/24 (MULTIVITAMIN) aspirin 81 mg tablet,delayed 81 mg PO DAILY ##0 07/31/12 02/29/24 release hydrocodone 10 mg-acetaminophen 2 tab PO BID 04/23/22 02/29/24 325 mg tablet albuterol sulfate 90 mcg/actuation 2 inh inhalation 10/25/23 02/29/24 aerosol inhaler budesonide 0.5 mg/2 mL suspension 0.5 mg inhalation BID 10/25/23 02/29/24 for nebulization Previous Rx's Medication Instructions Recorded budesonide 160 mcg-glycopyr 9 2 inh inhalation BID #5.9 grams 02/29/24 mcg-formot 4.8 mcg/actuation HFA inhaler (Breztri Aerosphere) guaifenesin 1,200 mg tablet, 1,200 mg PO BID #30 tabs 02/29/24 extended release 12 hr (Mucinex) ipratropium 0.5 mg-albuterol 3 mg 3 ml inhalation BID #180 mL 02/29/24 (2.5 mg base)/3 mL nebulization soln finasteride 5 mg tablet 5 mg PO DAILY #90 tabs 03/05/24 losartan 25 mg tablet 25 mg PO DAILY #30 tabs 04/12/24 Allergies Allergy/AdvReac Type Severity Reaction Status Date / Time No Known Drug Allergies Allergy Verified 04/12/24 10:30 Review of Systems Review of Systems ROS Unobtainable: All systems reviewed & are unremarkable except as noted in HPI and below Patient History Medical History Easy bruisability Bleeds easily Tobacco use 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 History of tobacco use History of bladder cancer Lower urinary tract symptoms Male circumcision Rheumatoid arthritis Kidney stones High blood pressure Cancer of bladder Surgical History (Updated 10/21/23 @ 10:58 by Maritza Tavera RN) Hx of cystoscopy (01/11/23) Hx of appendectomy History of urologic surgery (04/23/22) Hx of cystoscopy History of transurethral resection of prostate H/O hernia repair Social History marital status: number of children: 4 household members: spouse Smoking Status: Former smoker alcohol intake: current Smoking Status: Former smoker alcohol intake frequency: 0-2 drinks per day Substance Use Type: does not use Exam Initial Vital Signs Initial Vital Signs: Vital Signs Temperature 97.8 F 04/12/24 10:23 Pulse Rate 55 L 04/12/24 10:23 Respiratory Rate 28 H 04/12/24 10:23 Blood Pressure 239/102 H 04/12/24 10:23 Pulse Oximetry 96 04/12/24 10:23 Oxygen Delivery Method Room Air 04/12/24 10:23 Const General: cooperative, comfortable and No ill appearing HENMT Head: normal to inspection and normocephalic Resp Effort & Inspection: normal respiratory effort, cough, no grunting and not labored Auscultation: clear to auscultation bilaterally Cardio Rate: bradycardic Rhythm: regular rhythm GI Inspection: normal to inspection Skin General: no rashes or lesions noted Neuro General: patient alert, patient awake and moves all extremities Extrem General: No edema Course Orders Ordered: ED Orders 04/12/24 10:45 Complete Blood Count AUTO DIFF Stat Comprehensive Metabolic Panel Stat Lipase Stat NT-proBNP (BNP-Adult 18+) Stat Procalcitonin Stat Troponin & CK Cardiac Panel Stat 04/12/24 10:46 EKG-12 Lead Stat RT Consult Eval and Treat Now 04/12/24 10:53 CT angio chest PE protocol Stat 04/12/24 11:10 Respiratory Panel (Film Array) Stat Vital Signs Vital signs: Vital Signs - 8 hr 04/12/24 10:23 04/12/24 10:30 04/12/24 10:54 Temperature 97.8 F Pulse Rate 55 L 52 L Respiratory Rate 28 H Blood Pressure 239/102 H 215/88 H Pulse Oximetry 96 Oxygen Delivery Method Room Air 04/12/24 10:55 04/12/24 10:55 04/12/24 11:00 Temperature Pulse Rate 53 L Respiratory Rate 20 Blood Pressure 160/79 H 164/73 H Pulse Oximetry 95 Oxygen Delivery Method 04/12/24 11:00 04/12/24 11:30 04/12/24 12:00 Temperature Pulse Rate 53 L 50 L 47 L Respiratory Rate 20 21 20 Blood Pressure Pulse Oximetry 95 92 95 Oxygen Delivery Method 04/12/24 12:30 04/12/24 13:00 04/12/24 13:18 Temperature Pulse Rate 44 L 45 L Respiratory Rate 20 21 Blood Pressure 189/77 H Pulse Oximetry 95 96 Oxygen Delivery Method Room Air 04/12/24 13:18 Temperature Pulse Rate 44 L Respiratory Rate 20 Blood Pressure Pulse Oximetry 96 Oxygen Delivery Method Medical Decision Making Lab Data Lab results reviewed: Yes I reviewed the patient's lab results. 04/12/24 10:45 04/12/24 10:45 Labs: Lab Results 04/12/24 04/12/24 Range/Units 10:45 11:10 WBC 8.9 (4.5-11.0) X10^3/uL RBC 4.57 (4.5-5.9) X10^6/uL Hgb 15.5 (13.5-17.5) g/dL Hct 45.1 (41-53) % MCV 98.7 (80-100) fL MCH 33.8 (26-34) PG MCHC 34.3 (30-36) % RDW 12.7 (11.6-14.8) % Plt Count 194 (150-400) X10^3/uL Neut % (Auto) 45.6 L (50-75) % Lymph % (Auto) 28.3 (25-40) % Woodruff % (Auto) 7.6 (3-14) % Eos % (Auto) 17.6 H (2-4) % Baso % (Auto) 0.9 (0-2) % Neut # (Auto) 4000 (8103-1648) /uL Lymph # (Auto) 2500 (6547-8398) /uL Woodruff # (Auto) 700 (0-900) /uL Eos # (Auto) 1600 H (0-450) /uL Baso # (Auto) 100 (0-100) /uL Sodium 141 (137-145) mmol/L Potassium 4.6 (3.4-5.1) mmol/L Chloride 106 (98-107) mmol/L Carbon Dioxide 30 (22-32) mmol/L BUN 15 (9-20) mg/dL Creatinine 0.76 (0.66-1.25) mg/dL Estimated GFR > 60 (>60) mL/min BUN/Creatinine Ratio 19.7 (6-22) Glucose 158 H (80-110) mg/dL Calcium 9.4 (8.4-10.2) mg/dL Total Bilirubin 0.7 (0.2-1.3) mg/dL AST 63 H (17-59) IU/L ALT 55 H (<50) IU/L Alkaline Phosphatase 112 (38-126) U/L Total Creatine Kinase 200 H (55-170) U/L Troponin I < 0.012 (0.01-0.034) ng/mL NT-Pro-B Natriuret Pep 177 (<450) pg/mL Total Protein 7.4 (6.3-8.2) g/dL Albumin 4.3 (3.5-5.0) g/dL Globulin 3.1 (1.7-4.1) g/dL Albumin/Globulin Ratio 1.4 (1.0-2.8) Lipase 104 (23-300) U/L Procalcitonin 0.087 (<0.5) ng/mL Chlamy pneumoniae PCR Not detected (Not Detect) Adenovirus (PCR) Not detected (Not Detect) B.parapertussis DNA PCR Not detected (Not Detecte) Coronavirus OC43 (PCR) Not detected (Not Detect) Coronavirus HKU1 (PCR) Not detected (Not Detect) Coronavirus 229E (PCR) Not detected (Not Detect) SARS-CoV-2 (PCR) Not detected (Not Detecte) Coronavirus NL63 (PCR) Not detected (Not Detect) Human Metapneumovir PCR Not detected (Not Detect) Influenza Type A (PCR) Not detected (Not Detect) Influenza Type B (PCR) Not detected (Not Detect) M. pneumoniae (PCR) Not detected (Not Detect) Parainfluenza 1 (PCR) Not detected (Not Detect) Parainfluenza 2 (PCR) Not detected (Not Detect) Parainfluenza 3 (PCR) Not detected (Not Detect) Parainfluenza 4 (PCR) Not detected (Not Detect) RSV (PCR) Not detected (Not Detect) Entero/Rhino (PCR) Not detected (Not Detect) Imaging Data CT scan - chest: Radiologist's Impression: PROCEDURE: CT ANGIO CHEST PE PROTOCOL INDICATIONS: Chest pain, shortness of breath, tachycardia TECHNIQUE: After the administration of intravenous contrast, 2 mm thick sections acquired from the pulmonary apices to the posterior costophrenic angles. 3-dimensional maximum intensity projection (MIP) coronal and sagittal reformats were then acquired through the thorax. For radiation dose reduction, the following was used: automated exposure control, adjustment of mA and/or kV according to patient size. COMPARISON: None. FINDINGS: Image quality: Diagnostic. Pulmonary arteries: Pulmonary arteries are normal in size, and demonstrate no intraluminal filling defects to suggest central pulmonary embolism. Lower Neck: No enlarged lymph nodes. Thyroid: No thyroid nodules which require sonographic follow up, per consensus guidelines. Axillae: No enlarged lymph nodes. Chest Wall: Unremarkable. Bones: Unremarkable. Lungs and Pleura: No pneumothorax or pleural effusions. No consolidation or suspicious nodules. Atelectasis or parenchymal scarring involving the left upper lobe and right upper lobe. Heart: Heart size is normal. Atherosclerotic calcifications in the coronary vasculature. No pericardial effusion. Thoracic Vessels: No aortic aneurysm. Mediastinum and Bridget: No enlarged lymph nodes. Esophagus: No wall thickening. No hiatal hernia. Upper Abdomen: No acute disease process in the visualized abdomen. Diffuse fatty infiltration of the liver. IMPRESSION: No pulmonary embolus or aortic dissection. No lung consolidation or pleural effusions. ECG Data Attestation: I personally reviewed and interpreted this ECG as follows: Interpretation: Sinus rhythm Ventricular rate of [address] T wave changes MDM Narrative Medical decision making narrative: Patient had an extensive workup today. There was no signs of pneumonia, he was not fluid overloaded, low suspicion for ACS. Low suspicion for pulmonary embolism. He has not in heart failure. He was on a proton pump inhibitor. He does have history of COPD but he has not having any wheezing today. He has tried a course of steroids without any improvement of his symptoms. He does have a follow-up with his primary administrative fellow at the beginning of next month. He was hypertensive today. He states he is always hypertensive when he goes to the doctor's office but has never been started on a medications. The plan will be for him to take his blood pressure at home on a daily basis for the next 7-14 days. If he is persistently greater than 140 he will start taking a new blood pressure medicine that I prescribed him today. He will continue to take his nebulizer as needed. He most likely would benefit from pulmonary function testing but he would need to talk with his primary doctor about this. He was given return precautions. He expressed understanding and agreement. Discharge Plan Departure Patient Disposition: Home Clinical Impression: Shortness of breath, Hypertension Instructions: High Blood Pressure, DI for Shortness of Breath Activity Restrictions/Additional Instructions: Keep your scheduled appointment that you have with the administrative fellow coming up with the beginning of next month. I do recommend that you take your blood pressure at home on a daily basis. If your top blood pressure number is greater than 140 more consistently over the next 7-10 days start taking the blood pressure medication as directed. Return to the emergency department for new symptoms. Prescriptions: New losartan 25 mg tablet 25 mg PO DAILY Qty: 30 0RF No Action aspirin 81 mg Tablet,Delayed Release (Dr/Ec) 81 mg PO DAILY Qty: 0 CA PANTOTHENATE/FOLIC ACID/VIT (MULTIVITAMIN) 1 tab PO Q DAY Qty: 0 finasteride 5 mg tablet 5 mg PO DAILY Qty: 90 3RF budesonide 0.5 mg/2 mL suspension for nebulization 0.5 mg inhalation BID albuterol sulfate 90 mcg/actuation HFA aerosol inhaler 2 inh inhalation hydrocodone-acetaminophen 10-325 mg tablet 2 tab PO BID Patient Comments: TAKE 2 TABLETS BY MOUTH TWICE DAILY NEEDED Breztri Aerosphere 160-9-4.8 mcg/actuation HFA aerosol inhaler 2 inh inhalation BID Qty: 5.9 11RF ipratropium-albuterol 0.5 mg-3 mg(2.5 mg base)/3 mL solution for nebulization 3 ml inhalation BID Qty: 180 11RF guaifenesin [Mucinex] 1,200 mg tablet extended release 12hr 1,200 mg PO BID Qty: 30 5RF Referrals: Zac Phillips MD [Primary Care Provider] - Stand Alone Forms: Patient Portal/API
[2024-04-12 11:06] LABS: Alanine Aminotransferase 55 IU/L (<50); Albumin 4.3 g/dL (3.5-5.0); Albumin Globulin Ratio 1.4 (1.0-2.8); Alkaline Phosphatase 112 U/L (38-126); Aspartate Aminotransferase 63 IU/L (17-59); BUN Creatinine Ratio 19.7 (6-22); Bilirubin Total 0.7 mg/dL (0.2-1.3); Blood Urea Nitrogen 15 mg/dL (9-20); Calcium 9.4 mg/dL (8.4-10.2); Carbon Dioxide 30 mmol/L (22-32); Chloride 106 mmol/L (98-107); Creatine Kinase 200 U/L (55-170); Estimated Glomerular Filt Rate > 60 mL/min (>60); Globulin 3.1 g/dL (1.7-4.1); Glucose 158 mg/dL (80-110); HEMOLYSIS 25 (0-50); Lipase 104 U/L (23-300); Potassium 4.6 mmol/L (3.4-5.1); Sodium 141 mmol/L (137-145); Total Protein 7.4 g/dL (6.3-8.2)
[2024-04-12 11:17] LABS: NT-proBNP (BNP-Adult 18+) 177 pg/mL (<450); Troponin I < 0.012 ng/mL (0.01-0.034)
[2024-04-12 11:22] LABS: Procalcitonin 0.087 ng/mL (<0.5)
[2024-04-12 12:19] LABS: Adenovirus Not Detected (Not Detect); B. parapertussis Not Detected (Not Detecte); Bordetella pertussis Not Detected (Not Detect); Chlamydophila pneumoniae Not Detected (Not Detect); Coronavirus 229E Not Detected (Not Detect); Coronavirus HKU1 Not Detected (Not Detect); Coronavirus NL 63 Not Detected (Not Detect); Coronavirus OC43 Not Detected (Not Detect); Human Metapneumovirus Not Detected (Not Detect); Human Rhinovirus/Enterovirus Not Detected (Not Detect); Influenza A Not Detected (Not Detect); Influenza B Not Detected (Not Detect); Mycoplasma pneumoniae Not Detected (Not Detect); Parainfluenza Virus 1 Not Detected (Not Detect); Parainfluenza Virus 2 Not Detected (Not Detect); Parainfluenza Virus 3 Not Detected (Not Detect); Parainfluenza Virus 4 Not Detected (Not Detect); Respiratory Syncytial Virus Not Detected (Not Detect); SARS- CoV-2 Not Detected (Not Detecte)
== END 2024-04-12 13:30 | disposition home or self-care (01) ==
PROVIDERS: Emergency Provider Emergency Medicine; PCP Internal Medicine
DX: R06.02 Shortness of breath (principal); I10 Essential (primary) hypertension; Z87.891 Personal history of nicotine dependence
CPT/HCPCS: 36415; 71275; 80053; 82550; 83690; 83880; 84145; 84484; 85025; 87633; 93005; 99284; Q9967

== ENCOUNTER 2024-07-19 08:43 | Emergency (ER) | payer OTHER, SELFPAY ==
[2024-07-19] VITALS (16 sets, daily range): BP systolic 151–188; BP diastolic 67–93; PULSE 51–75; RESP 21–36; TEMP 36.9; O2SAT 91–97; BMI 29.9
--- NOTE | 2024-07-19 08:51 | EKG_ITS ---
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
--- NOTE | 2024-07-19 08:51 | DI.RAD.S_ITS ---
PROCEDURE: XR CHEST 1V INDICATIONS: sob TECHNIQUE: One view of the chest was acquired. COMPARISON: [facility], CT, CT ANGIO CHEST PE PROTOCOL, 04/12/2024, 11:41. FINDINGS: Surgical changes and devices: None. Lungs and pleura: Lungs are clear. No pleural effusions or pneumothorax. Mediastinum: Mediastinal contours appear normal. Heart size is normal. Bones and chest wall: No suspicious bony lesions. Overlying soft tissues appear unremarkable. IMPRESSION: No acute cardiopulmonary abnormality is seen. Dictated by: Danyelle Bass MD, PhD on 07/19/2024 at 9:10 Approved by: Danyelle Bass MD, PhD on 07/19/2024 at 9:12
--- NOTE | 2024-07-19 08:53 | ED.SOB ---
HPI - SOB/Dyspnea General Chief Complaint: Shortness of Breath/Dyspnea Stated Complaint: SOB Time Seen by Provider: 07/19/24 08:50 History of Present Illness HPI Narrative: Patient is a 83-year-old male history COPD who follows with Dr. Onofre, comes into the ED from home via EMS for evaluation of shortness of breath started getting worse approximately 5 days ago, he states that he was treated with steroids and antibiotics several weeks ago which did help but 5 days ago started having shortness of breath again therefore called EMS. According to medics when they arrived his pulse ox was 83% on room air, was given 125 Solu-Medrol, as well as 1 albuterol inhaler, patient with improved symptoms but still requiring 4 L nasal cannula. Time of initial evaluation patient is tachypneic but is protecting airway speaking in short sentences tolerating secretions. Review of records show that patient did see house carpenter approximate 1 month ago for increased shortness of breath as well as hypoxemia. He was treated with prednisone and azithromycin at that time and instructed to follow up in 2 months. Related Data Home Medications Medication Instructions Recorded Confirmed CA PANTOTHENATE/FOLIC ACID/VIT 1 tab PO Q DAY ##0 07/31/12 06/20/24 (MULTIVITAMIN) aspirin 81 mg tablet,delayed 81 mg PO DAILY ##0 07/31/12 06/20/24 release hydrocodone 10 mg-acetaminophen 2 tab PO BID 04/23/22 06/20/24 325 mg tablet albuterol sulfate 90 mcg/actuation 2 inh inhalation 10/25/23 06/20/24 aerosol inhaler budesonide 0.5 mg/2 mL suspension 0.5 mg inhalation BID 10/25/23 06/20/24 for nebulization Previous Rx's Medication Instructions Recorded budesonide 160 mcg-glycopyr 9 2 inh inhalation BID #5.9 grams 02/29/24 mcg-formot 4.8 mcg/actuation HFA inhaler (Breztri Aerosphere) guaifenesin 1,200 mg tablet, 1,200 mg PO BID #30 tabs 02/29/24 extended release 12 hr (Mucinex) ipratropium 0.5 mg-albuterol 3 mg 3 ml inhalation BID #180 mL 02/29/24 (2.5 mg base)/3 mL nebulization soln finasteride 5 mg tablet 5 mg PO DAILY #90 tabs 03/05/24 losartan 25 mg tablet 25 mg PO DAILY #30 tabs 04/12/24 azithromycin 250 mg tablet See Rx Instructions PO .COMPLEX #6 06/20/24 tabs prednisone 20 mg tablet 40 mg (2 x 20 mg) PO DAILY #10 tabs 06/20/24 azithromycin 250 mg tablet 250 mg PO DAILY 5 days #6 tabs 07/19/24 prednisone 20 mg tablet 40 mg (2 x 20 mg) PO BID 5 days 07/19/24 #20 tabs Allergies Allergy/AdvReac Type Severity Reaction Status Date / Time No Known Drug Allergies Allergy Verified 06/20/24 13:13 Review of Systems Review of Systems Narrative: General: Denies fever, chills, weight loss HEENT: Denies headache, eye drainage, eye irritation, head trauma, sore throat, voice change Cardiovascular: Denies any chest pain, palpitations, shortness of breath, tachycardia Respiratory: Positive for shortness of breath, cough, wheeze GI/: Denies any abdominal pain, nausea, vomiting, diarrhea, bright red blood per rectum, melanotic stools, urinary frequency, urinary retention, dysuria, hematuria MSK: Denies any joint pain, muscle pains, swelling Skin: Denies any rashes, lesions, discoloration Neuro: Denies any headache, lightheadedness, dizziness, fainting, weakness Psych: Denies SI/HI Patient History Medical History Easy bruisability Bleeds easily Tobacco use 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 History of tobacco use History of bladder cancer Lower urinary tract symptoms Male circumcision Rheumatoid arthritis Kidney stones High blood pressure Cancer of bladder Surgical History (Updated 10/21/23 @ 10:58 by Maritza Tavera RN) Hx of cystoscopy (01/11/23) Hx of appendectomy History of urologic surgery (04/23/22) Hx of cystoscopy History of transurethral resection of prostate H/O hernia repair Social History marital status: number of children: 4 household members: spouse Smoking Status: Former smoker alcohol intake: current Smoking Status: Former smoker alcohol intake frequency: 0-2 drinks per day Substance Use Type: does not use Exam Narrative Exam Narrative: General: Cooperative, comfortable, well-developed, not in acute distress HEENT: Normocephalic, atraumatic, PERRLA, normal sclera, eyelids normal, Neck: Active full range of motion, atraumatic Chest: Normal to inspection, negative crepitus, no overlying erythema ecchymosis Respiratory: Patient with bilateral expiratory wheezes, is requiring 4 L nasal cannula, speaking in short sentences but protecting airway no voice changes no stridor no trismus tolerating secretions Cardiology: Regular rate rhythm negative gallop, murmur, rubs GI/: Normal to inspection, soft, nonrigid, no tenderness to palpation, exam deferred MSK: Full range of active range of motion of all 4 extremities, atraumatic Skin: No rashes lesions noted Neuro: Alert awake oriented x3, moves all 4 extremities spontaneously, cranial nerves intact, able to answer all questions appropriately follows commands appropriately Psych: Cooperative, negative suicidal or homicidal ideations Initial Vital Signs Initial Vital Signs: Vital Signs Temperature 98.4 F 07/19/24 08:49 Pulse Rate 52 L 07/19/24 08:49 Respiratory Rate 24 07/19/24 08:49 Blood Pressure 188/93 H 07/19/24 08:49 Pulse Oximetry 91 07/19/24 08:49 Oxygen Delivery Method Room Air 07/19/24 08:49 Course Orders Ordered: ED Orders 07/19/24 08:51 XR chest 1V Stat EKG-12 Lead Stat 07/19/24 08:52 Complete Blood Count AUTO DIFF Stat Comprehensive Metabolic Panel Stat Lactate (Lactic Acid) Stat Lipase Stat MAG [Magnesium] Stat NT-proBNP (BNP-Adult 18+) Stat PTT Partial Thromboplastin Fabrizio Stat Pathologist Review (for CBC) Stat Prothrombin Time INR Stat Troponin & CK Cardiac Panel Stat 07/19/24 08:57 CT angio chest PE protocol Stat 07/19/24 09:00 Covid-19 + FLU A/B + RSV - PCR Stat 07/19/24 09:03 Arterial Blood Gas STAT RT Consult Eval and Treat NOW 07/19/24 09:18 Blood Culture Stat 07/19/24 11:24 Consult to Hospitalist Service Stat Discontinued Medications Albuterol/Ipratropium (Albuterol/Ipratropium 3 Ml Ampul) 3 ml INH NOW ONE Stop: 07/19/24 08:51 Last Admin: 07/19/24 09:07 Dose: 3 ml Documented By: MARGIE Magnesium Sulfate (Magnesium Sulfate) 2 gm in 50 mls @ 150 mls/hr IV NOW ONE Stop: 07/19/24 09:09 Last Infusion: 07/19/24 09:48 Dose: Infused Documented By: VITA Co-signed By: YOANA Admin: 07/19/24 09:05 Dose: 150 mls/hr Documented By: YAIR Co-signed By: VITA Vital Signs Vital signs: Vital Signs - 8 hr 07/19/24 08:49 07/19/24 08:52 07/19/24 09:00 Temperature 98.4 F Pulse Rate 52 L 52 L 51 L Respiratory Rate 24 Blood Pressure 188/93 H Pulse Oximetry 91 91 91 Oxygen Delivery Method Room Air Oxygen Flow Rate 07/19/24 09:00 07/19/24 09:07 07/19/24 09:40 Temperature Pulse Rate 58 L 61 Respiratory Rate 22 25 H Blood Pressure 180/84 H Pulse Oximetry 92 92 Oxygen Delivery Method Nasal Cannula Nasal Cannula Oxygen Flow Rate 2.5 2.5 07/19/24 09:40 07/19/24 09:45 07/19/24 10:00 Temperature Pulse Rate 73 75 Respiratory Rate 28 H 27 H Blood Pressure 173/70 H Pulse Oximetry 94 96 Oxygen Delivery Method Nasal Cannula Oxygen Flow Rate 2.5 07/19/24 10:00 07/19/24 10:15 07/19/24 10:30 Temperature Pulse Rate 58 L 67 Respiratory Rate 36 H 34 H Blood Pressure 151/88 H Pulse Oximetry 97 97 Oxygen Delivery Method Oxygen Flow Rate 07/19/24 10:30 07/19/24 10:45 07/19/24 11:00 Temperature Pulse Rate 66 59 L Respiratory Rate 30 H 28 H Blood Pressure 178/80 H Pulse Oximetry 97 93 Oxygen Delivery Method Oxygen Flow Rate 07/19/24 11:01 07/19/24 11:01 Temperature Pulse Rate 61 Respiratory Rate 21 Blood Pressure 153/67 H Pulse Oximetry 95 Oxygen Delivery Method Oxygen Flow Rate MDM - SOB/Dyspnea Differential Diagnosis Differential diagnosis: Likely acute exacerbation of chronic obstructive airways disease, congestive heart failure, community acquired pneumonia, pulmonary embolism and other (Electrolyte abnormality, COVID, flu) Medical Records Attestation: I reviewed the patient's medical records. Lab Data 07/19/24 08:52 07/19/24 08:52 Labs: Lab Results 07/19/24 07/19/24 07/19/24 Range/Units 08:52 09:00 10:17 WBC 15.5 H (4.5-11.0) X10^3/uL RBC 4.67 (4.5-5.9) X10^6/uL Hgb 16.0 (13.5-17.5) g/dL Hct 46.6 (41-53) % MCV 99.9 (80-100) fL MCH 34.3 H (26-34) PG MCHC 34.3 (30-36) % RDW 13.0 (11.6-14.8) % Plt Count 195 (150-400) X10^3/uL Neut % (Auto) Not Reportable Lymph % (Auto) Not Reportable [place] % (Auto) Not Reportable Eos % (Auto) Not Reportable Baso % (Auto) Not Reportable Lymph # (Auto) Not Reportable [place] # (Auto) Not Reportable Baso # (Auto) Not Reportable Total Counted 100 Seg Neutrophils % 36.0 L (38-70) % Lymphocytes % (Manual) 23.0 L (25-45) % Monocytes % (Manual) 4.0 (2-11) % Eosinophils % (Manual) 37.0 H (2-4) % Neutrophils # (Manual) 5580 (0478-0467) /uL RBC Morphology Normal morphology PT 13.7 H (9.4-12.5) SECONDS INR 1.2 (0.9-1.3) APTT 34 (25.1-36.5) SECONDS D-Dimer Cancelled ABG pH 7.43 (7.35-7.45) ABG pCO2 50.1 H (35-45) mmHg ABG pO2 82 (80-100) mmHg ABG HCO3 33 H (23-27) mmol/L ABG Total CO2 34 H (23-27) mmol/L ABG O2 Saturation 96 (95-100) % ABG Base Excess 7.3 H (-2-3) mmol/L Sodium 138 (137-145) mmol/L Potassium 3.9 (3.4-5.1) mmol/L Chloride 101 (98-107) mmol/L Carbon Dioxide 33 H (22-32) mmol/L BUN 14 (9-20) mg/dL Creatinine 0.78 (0.66-1.25) mg/dL Estimated GFR > 60 (>60) mL/min BUN/Creatinine Ratio 17.9 (6-22) Glucose 139 H (80-110) mg/dL Lactate 1.5 (0.7-2.1) mmol/L Calcium 9.4 (8.4-10.2) mg/dL Magnesium 2.0 (1.6-2.3) mg/dL Total Bilirubin 1.0 (0.2-1.3) mg/dL AST 46 (17-59) IU/L ALT 46 (<50) IU/L Alkaline Phosphatase 71 (38-126) U/L Total Creatine Kinase 90 (55-170) U/L Troponin I 0.032 (0.01-0.034) ng/mL NT-Pro-B Natriuret Pep 304 (<450) pg/mL Total Protein 7.5 (6.3-8.2) g/dL Albumin 4.2 (3.5-5.0) g/dL Globulin 3.3 (1.7-4.1) g/dL Albumin/Globulin Ratio 1.3 (1.0-2.8) Lipase 50 (23-300) U/L SARS-CoV-2 (PCR) Negative (Negative) Influenza A (RT-PCR) Flu a negative (NEGATIVE) Influenza B (RT-PCR) Flu b negative (NEGATIVE) RSV (PCR) Negative (Negative) Imaging Data Chest x-ray: Radiologist's Impression: PROCEDURE: XR CHEST 1V INDICATIONS: sob TECHNIQUE: One view of the chest was acquired. COMPARISON: [facility], CT, CT ANGIO CHEST PE PROTOCOL, 04/12/2024, 11:41. FINDINGS: Surgical changes and devices: None. Lungs and pleura: Lungs are clear. No pleural effusions or pneumothorax. Mediastinum: Mediastinal contours appear normal. Heart size is normal. Bones and chest wall: No suspicious bony lesions. Overlying soft tissues appear unremarkable. IMPRESSION: No acute cardiopulmonary abnormality is seen. CTA chest: Radiologist's Impression: PROCEDURE: CT ANGIO CHEST PE PROTOCOL INDICATIONS: SOB. Rule out PE TECHNIQUE: After the administration of intravenous contrast, 2 mm thick sections acquired from the pulmonary apices to the posterior costophrenic angles. 3-dimensional maximum intensity projection (MIP) coronal and sagittal reformats were then acquired through the thorax. For radiation dose reduction, the following was used: automated exposure control, adjustment of mA and/or kV according to patient size. COMPARISON: [facility], CT, CT ANGIO CHEST PE PROTOCOL, 04/12/2024, 11:41. FINDINGS: Image quality: Diagnostic. Pulmonary arteries: Pulmonary arteries are normal in size, and demonstrate no intraluminal filling defects to suggest central pulmonary embolism. Lower Neck: No enlarged lymph nodes. Thyroid: 1.6 centimeter left thyroid nodule.. Axillae: No enlarged lymph nodes. Chest Wall: Unremarkable. Bones: Unremarkable. Lungs and Pleura: No pneumothorax or pleural effusions. Atelectasis or parenchymal scarring involving the upper lobes is without significant change. Heart: Heart size is normal. No pericardial effusion. Thoracic Vessels: No aortic aneurysm. Atherosclerotic calcifications are noted in the aorta, great vessels and the coronary vasculature. Mediastinum and Bridget: No enlarged lymph nodes. Esophagus: No wall thickening. No hiatal hernia. Upper Abdomen: Visualized upper abdomen solid organs and bowel loops appear normal. Fatty infiltration of the visualized liver. IMPRESSION: No pulmonary embolus. No acute cardiopulmonary process. ECG Data Attestation: I personally reviewed and interpreted this ECG as follows: Interpretation: EKG interpreted ED physician sinus 83 beats per minute, QTC 493, normal axis, occasional PVC noted, nonspecific ST changes no STEMI MDM Narrative Medical decision making narrative: Patient is a 83-year-old male with history of COPD, comes into the ED from home for evaluation of shortness of breath, states he has been struggling with this for awhile, does see a house carpenter, saw him approximately 1 month ago was treated with steroids and azithromycin, however he states that he had a flare-up of shortness of breath proximally 5 days ago, medics noted him to be 83% on room air, was given 125 Solu-Medrol prior to arrival as well as 1 albuterol breathing treatment. Patient is still requiring 4 L nasal cannula at time of initial evaluation in the emergency department. Lab work was remarkable for leukocytosis of 15.5 however most likely secondary to acute COPD exacerbation, imaging of chest x-ray without any pneumonia, CTA chest without PE. 1155: Patient was evaluated by hospitalist Dr. Curtis for possible admission versus discharge. Upon evaluation by Dr. Curtis patient no longer requiring any supplemental oxygen, breathing has improved, risks benefits were discussed with the patient and patient states that he would prefer to go home we will send home on steroids and azithromycin strict return precautions given patient verbalized understanding of this and agrees to being discharged home with outpatient follow up Discharge Plan Departure Patient Disposition: Home Clinical Impression: Acute exacerbation of chronic obstructive pulmonary disease Activity Restrictions/Additional Instructions: Please follow-up with your house carpenter and your PCP Please read the discharge instructions sheet carefully and bring all papers to all doctor follow-up visits, as it may contain information that your doctor may want to see. Disease processes change and evolve, if your symptoms worsen or if you develop any new symptoms that are concerning to you please return for evaluation. Your evaluation today does not show any evidence of any life-threatening/serious illnesses requiring admission to the hospital or surgery. Please follow-up with your doctor for re-evaluation in approximately 1 day. Seek immediate medical attention for any worrisome symptoms. Prescriptions: New prednisone 20 mg tablet 40 mg PO BID 5 Days Qty: 20 0RF azithromycin 250 mg tablet 250 mg PO DAILY 5 Days Qty: 6 0RF No Action aspirin 81 mg Tablet,Delayed Release (Dr/Ec) 81 mg PO DAILY Qty: 0 CA PANTOTHENATE/FOLIC ACID/VIT (MULTIVITAMIN) 1 tab PO Q DAY Qty: 0 finasteride 5 mg tablet 5 mg PO DAILY Qty: 90 3RF budesonide 0.5 mg/2 mL suspension for nebulization 0.5 mg inhalation BID albuterol sulfate 90 mcg/actuation HFA aerosol inhaler 2 inh inhalation losartan 25 mg tablet 25 mg PO DAILY Qty: 30 0RF hydrocodone-acetaminophen 10-325 mg tablet 2 tab PO BID Patient Comments: TAKE 2 TABLETS BY MOUTH TWICE DAILY NEEDED azithromycin 250 mg tablet See Rx Instructions PO .COMPLEX Qty: 6 0RF Rx Instructions: For 250 mg dose pack: take 500 mg today (day 1), then 250 mg for 4 days (days 2-5) PO prednisone 20 mg tablet 40 mg PO DAILY Qty: 10 0RF Breztri Aerosphere 160-9-4.8 mcg/actuation HFA aerosol inhaler 2 inh inhalation BID Qty: 5.9 11RF ipratropium-albuterol 0.5 mg-3 mg(2.5 mg base)/3 mL solution for nebulization 3 ml inhalation BID Qty: 180 11RF guaifenesin [Mucinex] 1,200 mg tablet extended release 12hr 1,200 mg PO BID Qty: 30 5RF Referrals: Zac Phillips MD [Primary Care Provider] - Stand Alone Forms: Patient Portal/API
--- NOTE | 2024-07-19 08:57 | DI.CT.S_ITS ---
PROCEDURE: CT ANGIO CHEST PE PROTOCOL INDICATIONS: SOB. Rule out PE TECHNIQUE: After the administration of intravenous contrast, 2 mm thick sections acquired from the pulmonary apices to the posterior costophrenic angles. 3-dimensional maximum intensity projection (MIP) coronal and sagittal reformats were then acquired through the thorax. For radiation dose reduction, the following was used: automated exposure control, adjustment of mA and/or kV according to patient size. COMPARISON: [facility], CT, CT ANGIO CHEST PE PROTOCOL, 04/12/2024, 11:41. FINDINGS: Image quality: Diagnostic. Pulmonary arteries: Pulmonary arteries are normal in size, and demonstrate no intraluminal filling defects to suggest central pulmonary embolism. Lower Neck: No enlarged lymph nodes. Thyroid: 1.6 centimeter left thyroid nodule.. Axillae: No enlarged lymph nodes. Chest Wall: Unremarkable. Bones: Unremarkable. Lungs and Pleura: No pneumothorax or pleural effusions. Atelectasis or parenchymal scarring involving the upper lobes is without significant change. Heart: Heart size is normal. No pericardial effusion. Thoracic Vessels: No aortic aneurysm. Atherosclerotic calcifications are noted in the aorta, great vessels and the coronary vasculature. Mediastinum and Bridget: No enlarged lymph nodes. Esophagus: No wall thickening. No hiatal hernia. Upper Abdomen: Visualized upper abdomen solid organs and bowel loops appear normal. Fatty infiltration of the visualized liver. IMPRESSION: No pulmonary embolus. No acute cardiopulmonary process. Dictated by: Danyelle Bass MD, PhD on 07/19/2024 at 10:19 Approved by: Danyelle Bass MD, PhD on 07/19/2024 at 10:26
[2024-07-19 09:02] LABS: Hematocrit 46.6 % (41-53); Mean Corpuscular HGB Conc 34.3 % (30-36); Mean Corpuscular Hemoglobin 34.3 PG (26-34); Mean Corpuscular Volume 99.9 fL (80-100); Platelet Count 195 X10^3/uL (150-400); Red Blood Cell Count 4.67 X10^6/uL (4.5-5.9); White Blood Cell Count 15.5 X10^3/uL (4.5-11.0)
[2024-07-19 09:03] LABS: Add Manual Diff / Slide Review YES
[2024-07-19] MEDS: MAGNESIUM SULFATE 2 GM/50 ML PIGGYBACK IV (09:05)
[2024-07-19] MEDS: ALBUTEROL/IPRATROPIUM 3 ML AMPUL INH (09:07)
[2024-07-19 09:09] LABS: INR 1.2 (0.9-1.3); Prothrombin Time 13.7 SECONDS (9.4-12.5)
[2024-07-19 09:11] LABS: PTT Partial Thromboplastin Tim 34 SECONDS (25.1-36.5)
[2024-07-19 09:13] LABS: Alanine Aminotransferase 46 IU/L (<50); Albumin 4.2 g/dL (3.5-5.0); Albumin Globulin Ratio 1.3 (1.0-2.8); Alkaline Phosphatase 71 U/L (38-126); Aspartate Aminotransferase 46 IU/L (17-59); BUN Creatinine Ratio 17.9 (6-22); Blood Urea Nitrogen 14 mg/dL (9-20); Calcium 9.4 mg/dL (8.4-10.2); Carbon Dioxide 33 mmol/L (22-32); Chloride 101 mmol/L (98-107); Creatine Kinase 90 U/L (55-170); Estimated Glomerular Filt Rate > 60 mL/min (>60); Globulin 3.3 g/dL (1.7-4.1); Glucose 139 mg/dL (80-110); HEMOLYSIS 17 (0-50); Lipase 50 U/L (23-300); Potassium 3.9 mmol/L (3.4-5.1); Sodium 138 mmol/L (137-145); Total Protein 7.5 g/dL (6.3-8.2)
[2024-07-19 09:18] LABS: Lactate (Lactic Acid) 1.5 mmol/L (0.7-2.1)
[2024-07-19 09:19] LABS: Neutrophils Absolute Manual 5580 /uL (3000-5900); Total Cells Counted 100
[2024-07-19 09:21] LABS: RBC Morphology Normal Morphology
[2024-07-19 09:25] LABS: NT-proBNP (BNP-Adult 18+) 304 pg/mL (<450); Troponin I 0.032 ng/mL (0.01-0.034)
--- NOTE | 2024-07-19 09:30 | RT ---
pt kenny neb tx well, on 2.5 lpm nc no distress noted
[2024-07-19 09:43] LABS: Influenza A - CEPHEID Flu A NEGATIVE (NEGATIVE); Influenza B - CEPHEID Flu B NEGATIVE (NEGATIVE); Respiratory Syncytial Virus Negative (Negative)
[2024-07-19 09:44] LABS: COVID-19 CEPHEID 4-PLEX PCR Negative (Negative)
[2024-07-19 10:39] LABS: Base Excess ABG 7.3 mmol/L (-2-3); HCO3 ABG 33 mmol/L (23-27); Oxygen Saturation ABG 96 % (95-100); PCO2 ABG 50.1 mmHg (35-45); PO2 ABG 82 mmHg (80-100); TCO2 ABG 34 mmol/L (23-27); pH ABG 7.43 (7.35-7.45)
--- NOTE | 2024-07-19 11:58 | PM.CN ---
History of Present Illness Consult details Date Patient Seen: 07/19/24 Time Patient Seen: 11:58 Chief complaint: SOB Reason for consult: COPD exacerbation Requesting provider: Chaitanya Montes Narrative: This is an 83 year old male with PMH of COPD with chronic hypoxic respiratory failure, HTN who presents with 3 days of dyspnea and productive cough. O2 was reportedly 83% with EMS. He denies fever, chills, nausea, vomiting, or rash. He has no chest pain or palpitations. Denies orthopnea or LE edema. He see Dr. Onofre in our pulmonology clinic recently and was treated for COPD exacerbation with steroids and an antibiotic at that time. After a couple of days he felt better than he had in a long time, and he reports since then only intermittently using his new inhaler (breztri). In the emergency room, the patient's blood pressure was mildly elevated. Initial O2 evaluation on triage is documented as 91% on room air. According to vital sign documentation he was 91-96% on 2.5 L. laboratory evaluation showed a mild leukocytosis WBC 15.5 though he did receive steroids with EMS. ABG showed a pH 7.43 with a pCO2 of 50. Other than an elevated bicarb at 33, his chemistries were unremarkable including a normal lactate. Was within normal limits. EKG was unremarkable showing normal sinus rhythm with occasional PVC and a chronic LAFB. CT angiogram showed no PE, along with no other acute findings including pulmonary infiltrates. COVID, RSV, and flu was negative. Medicine was asked to evaluate for admission. The patient appeared quite comfortable, and I was able to turn off his oxygen during my encounter with O2 saturations hovering between 93-96% on room air. He chronically requires oxygen with activity up to 2 L according to pulmonology notes. The patient felt improved, and after discussion was agreeable with plan for discharge home. Meds Home Medications and Allergies Home Medications Medication Instructions Recorded Confirmed Type CA PANTOTHENATE/FOLIC ACID/VIT 1 tab PO Q DAY ##0 07/31/12 06/20/24 History (MULTIVITAMIN) aspirin 81 mg tablet,delayed 81 mg PO DAILY ##0 07/31/12 06/20/24 History release hydrocodone 10 mg-acetaminophen 2 tab PO BID 04/23/22 06/20/24 History 325 mg tablet albuterol sulfate 90 mcg/actuation 2 inh inhalation 10/25/23 06/20/24 History aerosol inhaler budesonide 0.5 mg/2 mL suspension 0.5 mg inhalation BID 10/25/23 06/20/24 History for nebulization budesonide 160 mcg-glycopyr 9 2 inh inhalation BID #5.9 grams 02/29/24 06/20/24 Rx mcg-formot 4.8 mcg/actuation HFA inhaler (Breztri Aerosphere) guaifenesin 1,200 mg tablet, 1,200 mg PO BID #30 tabs 02/29/24 06/20/24 Rx extended release 12 hr (Mucinex) ipratropium 0.5 mg-albuterol 3 mg 3 ml inhalation BID #180 mL 02/29/24 06/20/24 Rx (2.5 mg base)/3 mL nebulization soln finasteride 5 mg tablet 5 mg PO DAILY #90 tabs 03/05/24 06/20/24 Rx losartan 25 mg tablet 25 mg PO DAILY #30 tabs 04/12/24 06/20/24 Rx azithromycin 250 mg tablet See Rx Instructions PO .COMPLEX #6 06/20/24 06/20/24 Rx tabs prednisone 20 mg tablet 40 mg (2 x 20 mg) PO DAILY #10 tabs 06/20/24 06/20/24 Rx azithromycin 250 mg tablet 250 mg PO DAILY 5 days #6 tabs 07/19/24 Rx prednisone 20 mg tablet 40 mg (2 x 20 mg) PO BID 5 days 07/19/24 Rx #20 tabs Allergies Allergy/AdvReac Type Severity Reaction Status Date / Time No Known Drug Allergies Allergy Verified 06/20/24 13:13 Review of Systems Review of Systems Narrative: All other systems reviewed with the patient and are negative unless otherwise stated. Exam Vital Signs (past 8 hours): - 07/19/24 08:49 07/19/24 08:52 07/19/24 09:00 Temperature 98.4 F Pulse Rate 52 L 52 L 51 L Respiratory Rate 24 Blood Pressure 188/93 H Pulse Oximetry 91 91 91 Oxygen Delivery Method Room Air Oxygen Flow Rate 07/19/24 09:00 07/19/24 09:07 07/19/24 09:40 Temperature Pulse Rate 58 L 61 Respiratory Rate 22 25 H Blood Pressure 180/84 H Pulse Oximetry 92 92 Oxygen Delivery Method Nasal Cannula Nasal Cannula Oxygen Flow Rate 2.5 2.5 07/19/24 09:40 07/19/24 09:45 07/19/24 10:00 Temperature Pulse Rate 73 75 Respiratory Rate 28 H 27 H Blood Pressure 173/70 H Pulse Oximetry 94 96 Oxygen Delivery Method Nasal Cannula Oxygen Flow Rate 2.5 07/19/24 10:00 07/19/24 10:15 07/19/24 10:30 Temperature Pulse Rate 58 L 67 Respiratory Rate 36 H 34 H Blood Pressure 151/88 H Pulse Oximetry 97 97 Oxygen Delivery Method Oxygen Flow Rate 07/19/24 10:30 07/19/24 10:45 07/19/24 11:00 Temperature Pulse Rate 66 59 L Respiratory Rate 30 H 28 H Blood Pressure 178/80 H Pulse Oximetry 97 93 Oxygen Delivery Method Oxygen Flow Rate 07/19/24 11:01 07/19/24 11:01 Temperature Pulse Rate 61 Respiratory Rate 21 Blood Pressure 153/67 H Pulse Oximetry 95 Oxygen Delivery Method Oxygen Flow Rate Oxygen Delivery Method Nasal Cannula Oxygen Flow Rate 2.5 Narrative Exam Narrative: General:? Patient is well developed and well nourished, in no distress at this time. Chest:? Normal AP diameter and contour without kyphoscoliosis, no tachypnea, equal chest rise bilaterally. Lungs:? diffuse mild wheezing, no distress. Cardio:? Bradycardic with regular rhythm, no murmurs, rubs, or gallops. Abdomen: S NT ND. Extremities: No edema or joint effusions. No cyanosis or clubbing. Neuro:? Alert and orientated x3,? sensation to touch intact in all extremities, no gross deficits noted of cranial nerves. Psych:? Patient has a well-kept appearance, appropriate affect, mental status attitude thought context and judgment are appropriate for age. Objective ECG Impression: Sinus rhythm with frequent premature ventricular complexes Left anterior fascicular block Labs 07/19/24 08:52 07/19/24 08:52 Labs: Laboratory Results - last 24 hr 07/19/24 07/19/24 07/19/24 08:52 09:00 10:17 WBC 15.5 H RBC 4.67 Hgb 16.0 Hct 46.6 MCV 99.9 MCH 34.3 H MCHC 34.3 RDW 13.0 Plt Count 195 Neut % (Auto) Not Reportable Lymph % (Auto) Not Reportable [place] % (Auto) Not Reportable Eos % (Auto) Not Reportable Baso % (Auto) Not Reportable Lymph # (Auto) Not Reportable [place] # (Auto) Not Reportable Baso # (Auto) Not Reportable Total Counted 100 Seg Neutrophils % 36.0 L Lymphocytes % (Manual) 23.0 L Monocytes % (Manual) 4.0 Eosinophils % (Manual) 37.0 H Neutrophils # (Manual) 5580 RBC Morphology Normal morphology PT 13.7 H INR 1.2 APTT 34 D-Dimer Cancelled ABG pH 7.43 ABG pCO2 50.1 H ABG pO2 82 ABG HCO3 33 H ABG Total CO2 34 H ABG O2 Saturation 96 ABG Base Excess 7.3 H Sodium 138 Potassium 3.9 Chloride 101 Carbon Dioxide 33 H BUN 14 Creatinine 0.78 Estimated GFR > 60 BUN/Creatinine Ratio 17.9 Glucose 139 H Lactate 1.5 Calcium 9.4 Magnesium 2.0 Total Bilirubin 1.0 AST 46 ALT 46 Alkaline Phosphatase 71 Total Creatine Kinase 90 Troponin I 0.032 NT-Pro-B Natriuret Pep 304 Total Protein 7.5 Albumin 4.2 Globulin 3.3 Albumin/Globulin Ratio 1.3 Lipase 50 SARS-CoV-2 (PCR) Negative Influenza A (RT-PCR) Flu a negative Influenza B (RT-PCR) Flu b negative RSV (PCR) Negative PFSH Medical History Easy bruisability Bleeds easily Tobacco use 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 History of tobacco use History of bladder cancer Lower urinary tract symptoms Male circumcision Rheumatoid arthritis Kidney stones High blood pressure Cancer of bladder Surgical History (Updated 10/21/23 @ 10:58 by Maritza Tavera RN) Hx of cystoscopy (01/11/23) Hx of appendectomy History of urologic surgery (04/23/22) Hx of cystoscopy History of transurethral resection of prostate H/O hernia repair Social History marital status: number of children: 4 household members: spouse Tobacco & Substance Use Smoking Status: Former smoker alcohol intake: current Assessment & Plan Assessment & Plan narrative: 1. COPD with exacerbation - patient is stable for outpatient treatment after improvement in the emergency room - discharge with 5-7 days of prednisone and azithromycin. - counseled on reason for chronic Breztri use, patient was agreeable to take as prescribed every day. - no changes to as needed inhalers and nebulizers - instructed on home O2 use as well 2. Acute on Chronic respiratory failure with hypoxia, acute portion resolved. Chronic hypercapnic respiratory failure. - appears to now be at or very near his baseline after initial therapies in the ER. He is stable for discharge home. - ABG with mild hypercapnea PCO2 of 50 but normal pH. Likely chronic. 3. HTN - continue home medications without change Code: Full, surrogate is patient's spouse I have utilized all available immediate resources to obtain, update, or review the patient's current medications. Dispo: Discharge home from the ER. Additional history obtained via discussions with the ER provider. These discussions contributed to the creation of the above assessment and plan. I have reviewed patient's presenting documentation, labs, and imaging personally. Time-Based Coding :: [TOTAL MINUTES] spent with patient and on the chart (including review of chart, obtaining history, exam, reviewing outside data, placing orders, documenting exam and treatment plan, and counseling patient) on [DATE].
== END 2024-07-19 12:20 | disposition home or self-care (01) ==
PROVIDERS: Emergency Provider Student in an Organized Health Care Education/Training Program; PCP Internal Medicine
DX: J44.1 Chronic obstructive pulmonary disease with (acute) exacerbation (principal); R79.89 Other specified abnormal findings of blood chemistry; Z11.52 Encounter for screening for COVID-19
CPT/HCPCS: 0241U; 36415; 36600; 71045; 71275; 80053; 82550; 83605; 83690; 83735; 83880; 84484; 85007; 85025; 85610; 85730; 87040; 93005; 94640; 96360; 99285; J3475; Q9967

== ENCOUNTER 2024-08-14 11:26 | Emergency (ER) | payer OTHER, SELFPAY ==
[2024-08-14] VITALS (15 sets, daily range): BP systolic 120–208; BP diastolic 62–99; PULSE 67–106; RESP 25–39; TEMP 36.8; O2SAT 88–95; BMI 28.8
--- NOTE | 2024-08-14 11:41 | EKG_ITS ---
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
--- NOTE | 2024-08-14 11:49 | ED.SOB ---
HPI - SOB/Dyspnea General Chief Complaint: Shortness of Breath/Dyspnea Stated Complaint: difficulty breathing Time Seen by Provider: 08/14/24 11:47 Source: patient, RN notes reviewed and old records reviewed Mode of arrival: Ambulatory Limitations: no limitations History of Present Illness HPI Narrative: 83-year-old male history of COPD, hypertension who follows with Dr. Onofre for pulmonology. Presents with complaint of shortness of breath. Patient states very similar to his episode earlier in July. States he has been having flares every couple weeks. States no fevers, he has had a cough with productive brown sputum but states that is normal for him he has been coughing more frequently. He states he feels very tight in his chest. Denies any pain. Feel short of breath. No orthopnea. Denies any swelling in his extremities. No diaphoresis, no lightheadedness or passing out, no nausea or vomiting. No diarrhea constipation, no urinary symptoms. Patient states was discharged home with prednisone felt much better for about 3 weeks and then symptoms restarted. He states very similar course of events from his prior flare. He was supposed to be taking a steroid inhaler but states he can not afford it so has not been using it. States it has not aspirin 81 mg daily, medication for hypertension and uses inhalers at home for his COPD. States prior surgeries. Denies any drug allergies. Smoked for about 55 years quit about 18-19 months ago. Denies any regular alcohol, no recreational drugs. Zac Phillips is his primary care physician. Dr. Onofre is his occupancy specialist he has follow up in October. Used to see Dr. Villarreal with Hematology for phlebotomy for elevated iron was having blood drawn off initially monthly and tapered down to once a year. Was told follow up with his primary care have this. Related Data Home Medications Medication Instructions Recorded Confirmed CA PANTOTHENATE/FOLIC ACID/VIT 1 tab PO Q DAY ##0 07/31/12 08/14/24 (MULTIVITAMIN) aspirin 81 mg tablet,delayed 81 mg PO DAILY ##0 07/31/12 08/14/24 release hydrocodone 10 mg-acetaminophen 2 tab PO BID 04/23/22 08/14/24 325 mg tablet albuterol sulfate 90 mcg/actuation 2 inh inhalation DIRECTED 10/25/23 08/14/24 aerosol inhaler Previous Rx's Medication Instructions Recorded guaifenesin 1,200 mg tablet, 1,200 mg PO BID #30 tabs 02/29/24 extended release 12 hr (Mucinex) ipratropium 0.5 mg-albuterol 3 mg 3 ml inhalation BID #180 mL 02/29/24 (2.5 mg base)/3 mL nebulization soln finasteride 5 mg tablet 5 mg PO DAILY #90 tabs 03/05/24 losartan 25 mg tablet 25 mg PO DAILY #30 tabs 04/12/24 azithromycin 250 mg tablet See Rx Instructions PO .COMPLEX #6 08/14/24 tabs beclomethasone dipropionate 80 1 inh inhalation BID #10.6 grams 08/14/24 mcg/actuation HFA breath activated aerosol (Qvar RediHaler) prednisone 10 mg tablets in a dose See Rx Instructions PO .COMPLEX 08/14/24 pack #31 ea Allergies Allergy/AdvReac Type Severity Reaction Status Date / Time No Known Drug Allergies Allergy Verified 08/02/24 11:16 Review of Systems Review of Systems ROS Unobtainable: All systems reviewed & are unremarkable except as noted in HPI and below Patient History Medical History Easy bruisability Bleeds easily Tobacco use 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 History of tobacco use History of bladder cancer Lower urinary tract symptoms Male circumcision Rheumatoid arthritis Kidney stones High blood pressure Cancer of bladder Surgical History Hx of cystoscopy (01/11/23) Hx of appendectomy History of urologic surgery (04/23/22) Hx of cystoscopy History of transurethral resection of prostate H/O hernia repair Social History marital status: number of children: 4 household members: spouse Smoking Status: Former smoker alcohol intake: current Smoking Status: Former smoker alcohol intake frequency: 0-2 drinks per day Substance Use Type: does not use Exam Narrative Exam Narrative: GEN: Well-nourished male, alert and oriented x 3, patient appears to be in moderate distress. HEENT: Atraumatic, pupils are equal round reactive to light, extraocular movements are intact, nares are clear, there is no conjunctival pallor. Throat is clear without any exudates, erythema, tonsillar enlargement or uvular deviation HEART: Tachycardic but regular rate and rhythm without murmur, clicks, rubs. Cap refill less than 2 seconds bilateral lower extremities. No edema bilateral lower extremities. LUNGS:Lungs patient is slightly decreased with expiratory wheeze throughout, no rales, crackles, chest moves symmetrically, positive for tachypnea. 3-4 words. Patient is receiving nebulizer treatment during evaluation. ABD:bowel sounds normal, soft, non-tender, no guarding, rebound, rigidity, no masses noted, no hepatosplenomegaly :No CVA tenderness MSCL: Non-tender, no muscle atrophy, muscles strength 5/5 upper and lower extremities, full range of motion, normal gait NEURO:CN 2-12 intact, sensation normal Initial Vital Signs Initial Vital Signs: Vital Signs Temperature 98.2 F 08/14/24 11:34 Pulse Rate 88 08/14/24 11:34 Respiratory Rate 30 H 08/14/24 11:34 Blood Pressure 208/99 H 08/14/24 11:34 Pulse Oximetry 88 L 08/14/24 11:34 Oxygen Delivery Method Room Air 08/14/24 11:34 Course Orders Ordered: ED Orders 08/14/24 11:40 Complete Blood Count AUTO DIFF Stat Comprehensive Metabolic Panel Stat Lactate (Lactic Acid) Stat NT-proBNP (BNP-Adult 18+) Stat Prothrombin Time INR Stat Troponin I Stat 08/14/24 11:55 XR chest 1V Stat EKG-12 Lead Stat Measure peak expiratory flow ONCE RT Consult Eval and Treat NOW Discontinued Medications Albuterol/Ipratropium (Albuterol/Ipratropium 3 Ml Ampul) 3 ml INH NOW ONE Stop: 08/14/24 11:45 Last Admin: 08/14/24 11:51 Dose: 3 ml Documented By: JOEL Albuterol/Ipratropium (Albuterol/Ipratropium 3 Ml Ampul) 3 ml INH Q20M [facility] Stop: 08/14/24 12:56 Last Admin: 08/14/24 13:02 Dose: 3 ml Documented By: Admin: 08/14/24 12:35 Dose: 3 ml Documented By: Admin: 08/14/24 12:10 Dose: 3 ml Documented By: JOEL Albuterol/Ipratropium (Albuterol/Ipratropium 3 Ml Ampul) 3 ml INH Q1H PRN PRN Reason: Shortness Of Breath Last Admin: 08/14/24 14:06 Dose: 3 ml Documented By: JOEL Budesonide (Budesonide 0.5 Mg/2 Ml Neb) 0.5 mg INH NOW ONE Stop: 08/14/24 14:00 Last Admin: 08/14/24 14:16 Dose: 0.5 mg Documented By: JOEL Magnesium Sulfate (Magnesium Sulfate) 2 gm in 50 mls @ 150 mls/hr IV NOW ONE Stop: 08/14/24 12:39 Last Infusion: 08/14/24 13:00 Dose: Infused Documented By: Co-signed By: LENCHO Admin: 08/14/24 12:35 Dose: 150 mls/hr Documented By: Co-signed By: YOANA Methylprednisolone (Methylprednisolone 125 Mg/2 Ml Vial) 125 mg IV NOW ONE Stop: 08/14/24 12:07 Last Admin: 08/14/24 12:17 Dose: 125 mg Documented By: Vital Signs Vital signs: Vital Signs - 8 hr 08/14/24 11:34 08/14/24 11:43 08/14/24 11:51 Temperature 98.2 F Pulse Rate 88 106 H Respiratory Rate 30 H 29 H Blood Pressure 208/99 H Pulse Oximetry 88 L 91 91 Oxygen Delivery Method Room Air Room Air Room Air 08/14/24 12:00 08/14/24 12:01 08/14/24 12:01 Temperature Pulse Rate 87 91 H Respiratory Rate 39 H 39 H Blood Pressure 140/75 Pulse Oximetry 93 93 Oxygen Delivery Method 08/14/24 12:14 08/14/24 12:30 08/14/24 12:30 Temperature Pulse Rate 89 Respiratory Rate 30 H Blood Pressure 120/70 Pulse Oximetry 92 93 Oxygen Delivery Method Room Air 08/14/24 12:35 08/14/24 13:00 08/14/24 13:00 Temperature Pulse Rate 67 Respiratory Rate 33 H Blood Pressure 124/67 Pulse Oximetry 93 91 Oxygen Delivery Method Room Air Room Air 08/14/24 13:02 08/14/24 13:30 08/14/24 13:30 Temperature Pulse Rate 70 Respiratory Rate 25 H Blood Pressure 136/62 Pulse Oximetry 93 93 Oxygen Delivery Method Room Air 08/14/24 14:00 08/14/24 14:00 08/14/24 14:07 Temperature Pulse Rate 69 Respiratory Rate 30 H Blood Pressure 162/74 H Pulse Oximetry 94 95 Oxygen Delivery Method Room Air 08/14/24 14:30 08/14/24 14:30 08/14/24 15:00 Temperature Pulse Rate 69 Respiratory Rate 26 H Blood Pressure 145/70 H Pulse Oximetry 93 90 L Oxygen Delivery Method MDM - SOB/Dyspnea Lab Data 08/14/24 11:40 08/14/24 11:40 Labs: Lab Results 08/14/24 08/14/24 Range/Units 11:40 13:45 WBC 15.3 H (4.5-11.0) X10^3/uL RBC 4.47 L (4.5-5.9) X10^6/uL Hgb 15.3 (13.5-17.5) g/dL Hct 45.0 (41-53) % MCV 100.5 H (80-100) fL MCH 34.2 H (26-34) PG MCHC 34.0 (30-36) % RDW 12.7 (11.6-14.8) % Plt Count 221 (150-400) X10^3/uL Neut % (Auto) Not Reportable Lymph % (Auto) Not Reportable [place] % (Auto) Not Reportable Eos % (Auto) Not Reportable Baso % (Auto) Not Reportable Lymph # (Auto) Not Reportable [place] # (Auto) Not Reportable Baso # (Auto) Not Reportable Total Counted 100 Seg Neutrophils % 35.0 L (38-70) % Lymphocytes % (Manual) 15.0 L (25-45) % Atypical Lymphs % 7.0 H ( - 0) % Monocytes % (Manual) 4.0 (2-11) % Eosinophils % (Manual) 39.0 H (2-4) % Neutrophils # (Manual) 5355 (5991-9000) /uL RBC Morphology Normal morphology PT 13.3 H (9.4-12.5) SECONDS INR 1.2 (0.9-1.3) Sodium 137 (137-145) mmol/L Potassium 3.9 (3.4-5.1) mmol/L Chloride 98 (98-107) mmol/L Carbon Dioxide 33 H (22-32) mmol/L BUN 11 (9-20) mg/dL Creatinine 0.77 (0.66-1.25) mg/dL Estimated GFR > 60 (>60) mL/min BUN/Creatinine Ratio 14.3 (6-22) Glucose 208 H (80-110) mg/dL Lactate 2.3 H 2.9 H (0.7-2.1) mmol/L Calcium 9.8 (8.4-10.2) mg/dL Total Bilirubin 0.9 (0.2-1.3) mg/dL AST 41 (17-59) IU/L ALT 40 (<50) IU/L Alkaline Phosphatase 77 (38-126) U/L Troponin I < 0.012 (0.01-0.034) ng/mL NT-Pro-B Natriuret Pep 250 (<450) pg/mL Total Protein 7.4 (6.3-8.2) g/dL Albumin 4.3 (3.5-5.0) g/dL Globulin 3.1 (1.7-4.1) g/dL Albumin/Globulin Ratio 1.4 (1.0-2.8) Imaging Data Chest x-ray: Radiologist's Impression: Constantino Sumner??83??M??1940 ? Allergy/Adv: No Known Drug Allergies (More??) Close Chest X-Ray (Signed) Tristan Schwartz - 08/14/24 Chest CTA (Signed) Danyelle Bass - 07/19/24 Chest X-Ray (Signed) Danyelle Bass - 07/19/24 Chest CTA (Signed) Danyelle Bass - 04/12/24 DI Result CC 02/10/22 DI Result CC 02/10/22 Abdomen/Pelvis CT (Signed) Hamlet Barber - 05/01/19 Renal Ultrasound (Signed) Johnnie Cabral - 04/20/19 Lumbar Spine MRI (Signed) Johnnie Cabral - 05/23/18 Launch?[address] [address] XRay Report Signed Patient: Constantino Sumner MR#: [id number] : 1940 Acct:[id number] Age/Sex: 83 / M Date of Service: 08/14/24 Loc: ED Accession Number: [id number] Procedure: XR chest 1V Ordering Provider: Ryann Hill D.O. PROCEDURE: XR CHEST 1V INDICATIONS: Shortness of breath TECHNIQUE: One view of the chest was acquired. COMPARISON: [facility], , XR CHEST 1V, 07/19/2024, 8:50. FINDINGS: Surgical changes and devices: None. Lungs and pleura: Lungs are clear. No pleural effusions or pneumothorax. Mediastinum: Mediastinal contours appear normal. Heart size is normal. Bones and chest wall: No suspicious bony lesions. Overlying soft tissues appear unremarkable. IMPRESSION: No acute cardiopulmonary pathology. Dictated by: Tristan Schwartz M.D. on 08/14/2024 at 12:53 Approved by: Tristan Schwartz M.D. on 08/14/2024 at 12:54 ECG Data Attestation: I personally reviewed and interpreted this ECG as follows: Interpretation: Sinus tachycardia with frequent PVCs rate of 109 [place] 144 QRS of 100 QTC of 500. QRS is down words was upwards in 1 in the past, some nonspecific change more prominent T-waves in V4 5 and 6. Compared to prior from 07/19/2023. MDM Narrative Medical decision making narrative: 83-year-old presents with complaint of increased shortness of breath feels that is likely his COPD flaring. Patient notes he has been off of his steroid inhaler been able to afford it but feels significantly better when he is on oral prednisone and for about a week or 2 afterwards and then symptoms reoccur. Patient arrives tachypneic, hypoxic at 88% on room air hypertensive. Labs show white count of 15.3 consistent with prior earlier this month, patient had steroids about 3 weeks ago but has not had any additional since then, hemoglobin 16.3 with platelets of 221 patient was 7% atypical lymphocytes low segmented neutrophils with low lymphocytes. Electrolytes are appropriate except for a CO2 of 33 was similar on prior on 07/19/2024, creatinine 0.77 glucose is 208 with a lactate of 2.3 LFTs are normal troponins less than 0.012 with a BNP of 250. EKG shows sinus tachycardia with frequent PVCs right axis deviation, patient's QRS is downward rather than upward in 1 which has a change but otherwise similar appearing. Chest x-ray shows no acute change Patient politely refuses respiratory panel. Patient received Duoneb x 3, Albuterol x1, Solu-Medrol 125 mg, magnesium 2grams. On recheck patient is wheeze is improving in his able to speak for longer periods of time. Patient's workup seems most consistent with COPD exacerbation. Patient had to adjust himself from minor amount of the bed dropped his O2 sat became tachypneic again. Had 1 additional neb with budesonide. On recheck patient is feeling improved he would like to return home we did discuss observation. He states he has home O2, typically uses about 2 L, on room air he was able to ambulate at 90% states his breathing feels much better. He prefers for discharge home and felt appropriate this time with home O2 we will send for with prednisone taper, we will send with an alternative steroid inhaler as his insurance has been quite expensive. Discussed return precautions all questions answered. Discharge Plan Departure Patient Disposition: Home Clinical Impression: Acute exacerbation of chronic obstructive pulmonary disease Instructions: Chronic Obstructive Pulmonary Disease Activity Restrictions/Additional Instructions: Please follow up, I hope you continue to feel improved. Included as a prescription for prednisone, take daily until completed. There is also prescription for an antibiotic as this is sometimes helpful and COPD exacerbations. There has also an alternative steroid inhaler included, this 1 maybe better covered by insurance if it is not you can also call your primary care or your occupancy specialist to see if they can send prescriptions for alternatives as well. Prescriptions were printed included in your discharge packet. Please return for fevers, new or worsening chest pain, increasing shortness of breath, lightheadedness or passing out, vomiting, new swelling of your extremities or other new or concerning changes. Prescriptions: New prednisone 10 mg tablets,dose pack See Rx Instructions .ROUTE .COMPLEX Qty: 31 0RF Rx Instructions: Take 6 tablets p.o. x1 day, then 5 tablets p.o. x1 day, then 4 tablets p.o. x1 day, then 3 tablets p.o. x 2 days, then 2 tablets p.o. x2 days, then 1 tablet p.o. x2 days azithromycin 250 mg tablet See Rx Instructions .ROUTE .COMPLEX Qty: 6 0RF Rx Instructions: For 250 mg dose pack: take 500 mg today (day 1), then 250 mg for 4 days (days 2-5) Qvar RediHaler 80 mcg/actuation HFA aerosol breath activated 1 inh inhalation BID Qty: 10.6 0RF No Action aspirin 81 mg Tablet,Delayed Release (Dr/Ec) 81 mg PO DAILY Qty: 0 CA PANTOTHENATE/FOLIC ACID/VIT (MULTIVITAMIN) 1 tab PO Q DAY Qty: 0 finasteride 5 mg tablet 5 mg PO DAILY Qty: 90 3RF albuterol sulfate 90 mcg/actuation HFA aerosol inhaler 2 inh inhalation DIRECTED losartan 25 mg tablet 25 mg PO DAILY Qty: 30 0RF hydrocodone-acetaminophen 10-325 mg tablet 2 tab PO BID Patient Comments: TAKE 2 TABLETS BY MOUTH TWICE DAILY NEEDED ipratropium-albuterol 0.5 mg-3 mg(2.5 mg base)/3 mL solution for nebulization 3 ml inhalation BID Qty: 180 11RF guaifenesin [Mucinex] 1,200 mg tablet extended release 12hr 1,200 mg PO BID Qty: 30 5RF Referrals: Zac Phillips MD [Primary Care Provider] - Stand Alone Forms: Patient Portal/API/Survey
[2024-08-14] MEDS: ALBUTEROL/IPRATROPIUM 3 ML AMPUL INH ×5 (11:51→14:06)
--- NOTE | 2024-08-14 11:55 | DI.RAD.S_ITS ---
PROCEDURE: XR CHEST 1V INDICATIONS: Shortness of breath TECHNIQUE: One view of the chest was acquired. COMPARISON: [facility], CR, XR CHEST 1V, 07/19/2024, 8:50. FINDINGS: Surgical changes and devices: None. Lungs and pleura: Lungs are clear. No pleural effusions or pneumothorax. Mediastinum: Mediastinal contours appear normal. Heart size is normal. Bones and chest wall: No suspicious bony lesions. Overlying soft tissues appear unremarkable. IMPRESSION: No acute cardiopulmonary pathology. Dictated by: Tristan Schwartz M.D. on 08/14/2024 at 12:53 Approved by: Tristan Schwartz M.D. on 08/14/2024 at 12:54
[2024-08-14 12:04] LABS: INR 1.2 (0.9-1.3); Prothrombin Time 13.3 SECONDS (9.4-12.5)
[2024-08-14 12:07] LABS: Hemoglobin 15.3 g/dL (13.5-17.5); Mean Corpuscular Hemoglobin 34.2 PG (26-34); Mean Corpuscular Volume 100.5 fL (80-100); Platelet Count 221 X10^3/uL (150-400); Red Blood Cell Count 4.47 X10^6/uL (4.5-5.9); Red Cell Distribution Width 12.7 % (11.6-14.8); White Blood Cell Count 15.3 X10^3/uL (4.5-11.0)
[2024-08-14 12:08] LABS: Add Manual Diff / Slide Review YES
[2024-08-14 12:09] LABS: Alanine Aminotransferase 40 IU/L (<50); Albumin 4.3 g/dL (3.5-5.0); Albumin Globulin Ratio 1.4 (1.0-2.8); Alkaline Phosphatase 77 U/L (38-126); Aspartate Aminotransferase 41 IU/L (17-59); BUN Creatinine Ratio 14.3 (6-22); Bilirubin Total 0.9 mg/dL (0.2-1.3); Blood Urea Nitrogen 11 mg/dL (9-20); Calcium 9.8 mg/dL (8.4-10.2); Carbon Dioxide 33 mmol/L (22-32); Chloride 98 mmol/L (98-107); Estimated Glomerular Filt Rate > 60 mL/min (>60); Globulin 3.1 g/dL (1.7-4.1); Glucose 208 mg/dL (80-110); HEMOLYSIS < 15 (0-50); Lactate (Lactic Acid) 2.3 mmol/L (0.7-2.1); Potassium 3.9 mmol/L (3.4-5.1); Sodium 137 mmol/L (137-145); Total Protein 7.4 g/dL (6.3-8.2)
[2024-08-14] MEDS: methylPREDNISolone 125 MG/2 ML VIAL IV (12:17)
[2024-08-14 12:21] LABS: NT-proBNP (BNP-Adult 18+) 250 pg/mL (<450); Troponin I < 0.012 ng/mL (0.01-0.034)
[2024-08-14 12:32] LABS: Neutrophils Absolute Manual 5355 /uL (3000-5900); RBC Morphology Normal Morphology; Total Cells Counted 100
[2024-08-14] MEDS: MAGNESIUM SULFATE 2 GM/50 ML PIGGYBACK IV (12:35)
[2024-08-14 13:35] LABS: Reflexed Lactate in 2 Hours Y
[2024-08-14 14:10] LABS: Lactate 2HR (Lactic Acid Rflx) 2.9 mmol/L (0.7-2.1)
[2024-08-14] MEDS: BUDESONIDE 0.5 MG/2 ML NEB INH (14:16)
== END 2024-08-14 15:27 | disposition home or self-care (01) ==
PROVIDERS: Emergency Provider Emergency Medicine; PCP Internal Medicine
DX: J44.1 Chronic obstructive pulmonary disease with (acute) exacerbation (principal); R00.0 Tachycardia, unspecified; R79.89 Other specified abnormal findings of blood chemistry; Z79.899 Other long term (current) drug therapy
CPT/HCPCS: 36415; 71045; 80053; 83605; 83880; 84484; 85007; 85025; 85610; 93005; 94640; 96374; 99284; J2919; J3475

== ENCOUNTER → 2024-09-05 09:50 | Outpatient (CLI) | payer OTHER, SELFPAY | PROVIDERS: PCP Internal Medicine; Visit Provider Urology | DX: R39.9 Unspecified symptoms and signs involving the genitourinary system (principal) | CPT/HCPCS: 87086 ==

== ENCOUNTER 2024-09-14 09:59 | Observation (INO) | payer OTHER, SELFPAY ==
[2024-09-14] VITALS (24 sets, daily range): BP systolic 123–199; BP diastolic 56–93; PULSE 69–100; RESP 18–42; TEMP 36.4–36.8; O2SAT 90–98; BMI 28.8
--- NOTE | 2024-09-14 10:03 | DI.RAD.S_ITS ---
PROCEDURE: XR CHEST 1V INDICATIONS: Shortness of breath TECHNIQUE: One view of the chest was acquired. COMPARISON: [facility], CR, XR CHEST 1V, 08/14/2024, 12:07. [facility], CR, XR CHEST 1V, 07/19/2024, 8:50. FINDINGS: Surgical changes and devices: Postsurgical changes partially seen projecting over the lower neck. Lungs and pleura: Low lung volumes. Mild bibasilar opacities. No pleural effusions. Mediastinum: Heart size is at the upper limit of normal, unchanged. Prominent gas in the upper abdomen. Bones and chest wall: Degenerative findings. IMPRESSION: Mild bibasilar opacities could represent atelectasis or early airspace disease. Consider future imaging surveillance to assess for resolution. Prominent gas in the upper abdomen likely a distended stomach. Dictated by: Joaquín Dorsey M.D. on 09/14/2024 at 10:41 Approved by: Joaquín Dorsey M.D. on 09/14/2024 at 10:42
--- NOTE | 2024-09-14 10:08 | ED_ITS ---
HPI - URI/Sore Throat General Chief Complaint: Shortness of Breath/Dyspnea Stated Complaint: COPD Exacerbation Time Seen by Provider: 09/14/24 10:07 History of Present Illness HPI Narrative: 84-year-old male with history of COPD, prescribed 2 liters/minute oxygen at home, recent cough productive of clear white-yellow sputum recent days, increasing shortness of breath, this morning decided to take his oxygen off since he had a reassuring reading of 93%, then felt more short of breath, started his oxygen backup but still felt more short of breath, called 911. EMS arrival with DuoNeb treatment EN route, also given IV Solu-Medrol bolus, noted to be wheezing throughout. Transported on arrival with facemask transition to 2 L baseline nasal cannula oxygen. Related Data Home Medications Medication Instructions Recorded Confirmed CA PANTOTHENATE/FOLIC ACID/VIT 1 tab PO Q DAY ##0 07/31/12 09/14/24 (MULTIVITAMIN) aspirin 81 mg tablet,delayed 81 mg PO DAILY ##0 07/31/12 09/14/24 release hydrocodone 10 mg-acetaminophen 2 tab PO BID 04/23/22 09/14/24 325 mg tablet albuterol sulfate 90 mcg/actuation 2 inh inhalation DIRECTED 10/25/23 09/14/24 aerosol inhaler budesonide 160 mcg-glycopyr 9 2 inh inhalation BID 09/14/24 09/14/24 mcg-formot 4.8 mcg/actuation HFA inhaler (Breztri Aerosphere) Previous Rx's Medication Instructions Recorded guaifenesin 1,200 mg tablet, 1,200 mg PO BID #30 tabs 02/29/24 extended release 12 hr (Mucinex) ipratropium 0.5 mg-albuterol 3 mg 3 ml inhalation BID #180 mL 02/29/24 (2.5 mg base)/3 mL nebulization soln finasteride 5 mg tablet 5 mg PO DAILY #90 tabs 03/05/24 losartan 25 mg tablet 25 mg PO DAILY #30 tabs 04/12/24 beclomethasone dipropionate 80 1 inh inhalation BID #10.6 grams 08/14/24 mcg/actuation HFA breath activated aerosol (Qvar RediHaler) doxycycline hyclate 100 mg capsule 100 mg PO BID 10 days #20 caps 09/14/24 Allergies Allergy/AdvReac Type Severity Reaction Status Date / Time No Known Drug Allergies Allergy Verified 09/05/24 09:48 Review of Systems Review of Systems Narrative: See HPI Patient History Medical History Easy bruisability Bleeds easily Tobacco use 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 History of tobacco use History of bladder cancer Lower urinary tract symptoms Male circumcision Rheumatoid arthritis Kidney stones High blood pressure Cancer of bladder Surgical History Hx of cystoscopy (01/11/23) Hx of appendectomy History of urologic surgery (04/23/22) Hx of cystoscopy History of transurethral resection of prostate H/O hernia repair Social History marital status: number of children: 4 household members: spouse Smoking Status: Former smoker alcohol intake: current Smoking Status: Former smoker alcohol intake frequency: 0-2 drinks per day Substance Use Type: does not use Exam Narrative Exam Narrative: GENERAL: Well-developed patient, in mild distress. HEAD: Atraumatic. Normocephalic. EYES: Pupils equal round and reactive. Extraocular motions intact. No scleral icterus. No injection or drainage. ENT: Nose without bleeding, purulent drainage. Throat without erythema, tonsillar hypertrophy or exudate. Airway patent. NECK: Trachea midline. Non tender CARDIOVASCULAR: Regular rate and rhythm without murmurs, gallops, or rubs. RESPIRATORY: Wheezes bilateral, speaking in phrases just short of full, alert looking around, some intercostal and suprasternal retractions, no stridor GASTROINTESTINAL: Abdomen soft, non-tender, nondistended. EXTREMITIES: No edema or joint tenderness. BACK: Nontender without deformity or crepitance. No flank tenderness. NEURO: AOx3. Motor functions grossly nonfocal SKIN: No rash or erythema of visible areas Initial Vital Signs Initial Vital Signs: Vital Signs Pulse Rate 70 09/14/24 10:03 Pulse Oximetry 95 09/14/24 10:03 Oxygen Delivery Method Nasal Cannula 09/14/24 10:03 Oxygen Flow Rate 2 09/14/24 10:03 Course Orders Ordered: ED Orders 09/14/24 15:19 RT Consult Eval and Treat NOW 09/15/24 05:00 Basic Metabolic Panel DAILY Complete Blood Count AUTO DIFF DAILY Magnesium DAILY 09/16/24 05:00 Basic Metabolic Panel DAILY Complete Blood Count AUTO DIFF DAILY Magnesium DAILY 09/17/24 05:00 Basic Metabolic Panel DAILY Complete Blood Count AUTO DIFF DAILY Magnesium DAILY Acetaminophen (Acetaminophen 325 Mg Tablet) 650 mg PO Q6H PRN PRN Reason: Fever/Mild Pain (1-3) Hydrocodone Bitart/Acetaminophen (Hydrocodone/Acet 5/325 Tablet) 2 tab PO Q4H PRN PRN Reason: Pain, Severe (7-10) Albuterol (Albuterol 2.5 Mg/3 Ml Neb (Adult)) 2.5 mg INH [id number] PRN PRN Reason: Shortness Of Breath Last Admin: 09/14/24 16:45 Dose: 2.5 mg Documented By: JUAN LUIS Albuterol/Ipratropium (Albuterol/Ipratropium 3 Ml Ampul) 3 ml INH [id number] [facility] Last Admin: 09/14/24 19:13 Dose: 3 ml Documented By: JUAN LUIS Budesonide (Budesonide 0.5 Mg/2 Ml Neb) 0.5 mg INH RTBID [facility] Last Admin: 09/14/24 19:13 Dose: 0.5 mg Documented By: JUAN LUIS Doxycycline Hyclate (Doxycycline Hyclate 100 Mg Tablet) 100 mg PO BID [facility] Stop: 09/19/24 20:59 Enoxaparin Sodium (Enoxaparin 40 Mg/0.4 Ml Syringe) 40 mg SUBCUT DAILY [facility] Naloxone HCl (Naloxone 0.4 Mg/Ml Vial) 0.2 mg IV Q2MIN PRN PRN Reason: Opiate Reversal Ondansetron HCl (Ondansetron 4 Mg Odt) 4 mg PO Q8HR PRN PRN Reason: Nausea And Vomiting Prednisone (Prednisone 20 Mg Tablet) 40 mg PO DAILY MICKY Discontinued Medications Albuterol (Albuterol 2.5 Mg/3 Ml Neb (Adult)) 20 mg INH NOW ONE Stop: 09/14/24 10:08 Last Admin: 09/14/24 10:13 Dose: 20 mg Documented By: JUAN LUIS Albuterol/Ipratropium (Albuterol/Ipratropium 3 Ml Ampul) 3 ml INH NOW ONE Stop: 09/14/24 12:42 Last Admin: 09/14/24 13:04 Dose: Not Given Documented By: YOANA Doxycycline Hyclate (Doxycycline Hyclate 100 Mg Tablet) 100 mg PO NOW ONE Stop: 09/14/24 11:55 Last Admin: 09/14/24 12:16 Dose: 100 mg Documented By: YOANA Magnesium Sulfate (Magnesium Sulfate) 2 gm in 50 mls @ 150 mls/hr IV NOW ONE Stop: 09/14/24 10:27 Last Infusion: 09/14/24 10:25 Dose: Infused Documented By: YOANA Co-signed By: ANDREEA Infusion: 09/14/24 10:25 Dose: 0 mls/hr Documented By: YOANA Co-signed By: YAIR Admin: 09/14/24 10:14 Dose: 150 mls/hr Documented By: YAIR Co-signed By: ANDREEA Vital Signs Vital signs: Vital Signs - 8 hr 09/14/24 12:15 09/14/24 12:15 09/14/24 12:30 Pulse Rate 84 95 H Respiratory Rate 39 H 37 H Blood Pressure 153/85 H Pulse Oximetry 95 94 Oxygen Delivery Method Nasal Cannula Nasal Cannula Oxygen Flow Rate 2 2 09/14/24 12:31 09/14/24 12:31 09/14/24 12:46 Pulse Rate 95 H 86 Respiratory Rate 37 H 27 H Blood Pressure 184/81 H Pulse Oximetry 94 95 Oxygen Delivery Method Nasal Cannula Nasal Cannula Oxygen Flow Rate 2 2 09/14/24 12:46 09/14/24 13:00 09/14/24 13:00 Pulse Rate 100 H Respiratory Rate 36 H Blood Pressure 169/73 H 151/75 H Pulse Oximetry 95 Oxygen Delivery Method Nasal Cannula Oxygen Flow Rate 2 09/14/24 13:30 09/14/24 13:31 09/14/24 14:00 Pulse Rate 97 H 88 89 Respiratory Rate 36 H 35 H 42 H Blood Pressure 157/84 H Pulse Oximetry 90 L 95 91 Oxygen Delivery Method Nasal Cannula Nasal Cannula Room Air Oxygen Flow Rate 2 2 09/14/24 14:00 Pulse Rate Respiratory Rate Blood Pressure 161/90 H Pulse Oximetry Oxygen Delivery Method Oxygen Flow Rate MDM - URI/Sore Throat Lab Data Attestation: I reviewed the patient's lab results. Lab results narrative: White blood cell count 84673, hemoglobin 16, platelets [id number], basic metabolic panel unremarkable. Liver functions unremarkable. Respiratory panel negative. 09/14/24 10:07 09/14/24 10:07 Labs: Lab Results 09/14/24 Range/Units 10:07 WBC 15.8 H (4.5-11.0) X10^3/uL RBC 4.70 (4.5-5.9) X10^6/uL Hgb 16.0 (13.5-17.5) g/dL Hct 47.4 (41-53) % MCV 100.8 H (80-100) fL MCH 34.1 H (26-34) PG MCHC 33.8 (30-36) % RDW 12.9 (11.6-14.8) % Plt Count 193 (150-400) X10^3/uL Neut % (Auto) Not Reportable Lymph % (Auto) Not Reportable [place] % (Auto) Not Reportable Eos % (Auto) Not Reportable Baso % (Auto) Not Reportable Lymph # (Auto) Not Reportable [place] # (Auto) Not Reportable Baso # (Auto) Not Reportable Total Counted 100 Seg Neutrophils % 38.0 (38-70) % Lymphocytes % (Manual) 26.0 (25-45) % Monocytes % (Manual) 4.0 (2-11) % Eosinophils % (Manual) 31.0 H (2-4) % Basophils % (Manual) 1.0 (0-1) % Neutrophils # (Manual) 6004 H (1419-0376) /uL Smudge Cells 1+ H RBC Morphology See below Anisocytosis 1+ H PT 13.8 H (9.4-12.5) SECONDS INR 1.2 (0.9-1.3) Sodium 139 (137-145) mmol/L Potassium 4.4 (3.4-5.1) mmol/L Chloride 98 (98-107) mmol/L Carbon Dioxide 34 H (22-32) mmol/L BUN 15 (9-20) mg/dL Creatinine 0.87 (0.66-1.25) mg/dL Estimated GFR > 60 (>60) mL/min BUN/Creatinine Ratio 17.2 (6-22) Glucose 125 H (80-110) mg/dL Lactate 2.0 (0.7-2.1) mmol/L Calcium 9.6 (8.4-10.2) mg/dL Total Bilirubin 1.3 (0.2-1.3) mg/dL AST 73 H (17-59) IU/L ALT 61 H (<50) IU/L Alkaline Phosphatase 83 (38-126) U/L Troponin I 0.020 (0.01-0.034) ng/mL NT-Pro-B Natriuret Pep 491 H (<450) pg/mL Total Protein 7.8 (6.3-8.2) g/dL Albumin 4.4 (3.5-5.0) g/dL Globulin 3.4 (1.7-4.1) g/dL Albumin/Globulin Ratio 1.3 (1.0-2.8) Chlamy pneumoniae PCR Not detected (Not Detect) Adenovirus (PCR) Not detected (Not Detect) B. pertussis DNA (PCR) Not detected (Not Detect) B.parapertussis DNA PCR Not detected (Not Detecte) Coronavirus OC43 (PCR) Not detected (Not Detect) Coronavirus HKU1 (PCR) Not detected (Not Detect) Coronavirus 229E (PCR) Not detected (Not Detect) SARS-CoV-2 (PCR) Not detected (Not Detecte) Coronavirus NL63 (PCR) Not detected (Not Detect) Human Metapneumovir PCR Not detected (Not Detect) Influenza Type A (PCR) Not detected (Not Detect) Influenza Type B (PCR) Not detected (Not Detect) M. pneumoniae (PCR) Not detected (Not Detect) Parainfluenza 1 (PCR) Not detected (Not Detect) Parainfluenza 2 (PCR) Not detected (Not Detect) Parainfluenza 3 (PCR) Not detected (Not Detect) Parainfluenza 4 (PCR) Not detected (Not Detect) RSV (PCR) Not detected (Not Detect) Entero/Rhino (PCR) Not detected (Not Detect) Imaging Data Chest x-ray: Radiologist's Impression: [address] [address] XRay Report Signed Patient: Constantino Sumner MR#: [id number] : 1940 Acct:[id number] Age/Sex: 84 / M Date of Service: 09/14/24 Loc: ED Accession Number: [id number] Procedure: XR chest 1V Ordering Provider: Braden Velarde MD PROCEDURE: XR CHEST 1V INDICATIONS: Shortness of breath TECHNIQUE: One view of the chest was acquired. COMPARISON: [facility], CR, XR CHEST 1V, 08/14/2024, 12:07. [facility], CR, XR CHEST 1V, 07/19/2024, 8:50. FINDINGS: Surgical changes and devices: Postsurgical changes partially seen projecting over the lower neck. Lungs and pleura: Low lung volumes. Mild bibasilar opacities. No pleural effusions. Mediastinum: Heart size is at the upper limit of normal, unchanged. Prominent gas in the upper abdomen. Bones and chest wall: Degenerative findings. IMPRESSION: Mild bibasilar opacities could represent atelectasis or early airspace disease. Consider future imaging surveillance to assess for resolution. Prominent gas in the upper abdomen likely a distended stomach. Dictated by: Joaquín Dorsey M.D. on 09/14/2024 at 10:41 Approved by: Joaquín Dorsey M.D. on 09/14/2024 at 10:42 ECG Data Interpretation: Sinus rhythm likely sinus arrhythmia, ventricular rate 97, no obvious ST segment elevation or depression changes. Left anterior fascicular block. Artifact significant lateral leads. QRS 106, QTC 497. MDM Narrative Medical decision making narrative: 84-year-old male with history of COPD on chronic home oxygen 2 L baseline flow rate, increasing shortness of breath with productive cough last few days, took his oxygen off apparently due to reassuring 93% home pulse ox reading, then felt more short of breath, despite recurrence of oxygen, called 911, arrival by EMS given SVN DuoNeb and IV steroid en route. We will hold BiPAP for now, but start continuous SVN albuterol, add IV magnesium. Labs pending, EKG and chest x-ray pending, respiratory panel requested. Patient currently on his usual 2 L baseline with 93-95% sat noted. Chest x-ray with bibasilar atelectasis versus early infiltrate, per Radiology report. We will add oral doxycycline antibiotic for now. Respiratory panel negative. 1220, patient feels much improved, would like to go home, now at bedside seems unsure if he is well enough to go home, trial of oral fluids, trial of walking flat surface in the emergency department, he is on his usual 2 L nasal cannula now. 1300, wanted to go home, attempted ambulation, quite dyspneic even with just trying to get out of his gurney to walk around, placed back on [facility], additional SVN given. 1330, another trial post SVN, again becomes quite dyspneic with minimal exertion even trying to get down from the gurney and walk around within his room, reluctant to go home, we will contact hospitalist. PCP Alan. Discussed case with hospitalist Dr. Curtis, who will review case for possible admission, accepts patient for admission Discharge Plan Departure Patient Disposition: Admitted as Observation Clinical Impression: COPD exacerbation, Exertional shortness of breath Admit Date/Time: 09/14/24 14:02 Admit Provider: Chaitanya Curtis
[2024-09-14] MEDS: ALBUTEROL 2.5 MG/3 ML NEB (ADULT) 20 MG INH (10:13)
[2024-09-14] MEDS: MAGNESIUM SULFATE 2 GM/50 ML PIGGYBACK IV (10:14)
--- NOTE | 2024-09-14 10:17 | EKG_ITS ---
[address] [address] [place] [address] Test Date: 2024-09-14 Pat Name: Constantino Sumner Department: [facility] Room: Gender: Male Piece Hand: GREG : 1940 Requested By: Order Number: [id number] Reading MD: Chaitanya Curtis Measurements Intervals [place] Rate: 97 P: AL: QRS: -58 QRSD: 106 T: 83 QT: 392 QTc: 497 Interpretive Statements Sinus arrythmia Left anterior fascicular block Prolonged QT Electronically Signed On 09-15-2024 15:32:36 PST by Chaitanya Curtis
[2024-09-14 10:19] LABS: Hematocrit 47.4 % (41-53); Mean Corpuscular HGB Conc 33.8 % (30-36); Mean Corpuscular Hemoglobin 34.1 PG (26-34); Mean Corpuscular Volume 100.8 fL (80-100); Platelet Count 193 X10^3/uL (150-400); Red Cell Distribution Width 12.9 % (11.6-14.8); White Blood Cell Count 15.8 X10^3/uL (4.5-11.0)
[2024-09-14 10:22] LABS: Add Manual Diff / Slide Review YES
--- NOTE | 2024-09-14 10:22 | PC.NURSE ---
Pt arrived via [facility] for COPD exacerbation. Arrived to dept on 2L NC with o2 sat 96% and tachypneic w/RR 29. Pursed lip breathing and tripoding during triage. Bilateral wheezing on auscultation. Cannot speak in full sentences during triage. Dr Velarde and RT at bedside during triage. Pt states that he started feeling SOB 2 days ago and has been using his home duonebs without relief. Pt c/o chest congestion and cough with clear white-barbara mucus. Hx COPD, HTN, & AFib.
[2024-09-14 10:23] LABS: INR 1.2 (0.9-1.3); Prothrombin Time 13.8 SECONDS (9.4-12.5)
[2024-09-14 10:49] LABS: Neutrophils Absolute Manual 6004 /uL (3000-5900); Smudge Cells 1+; Total Cells Counted 100
[2024-09-14 10:50] LABS: Anisocytosis 1+
[2024-09-14 11:28] LABS: Adenovirus Not Detected (Not Detect); B. parapertussis Not Detected (Not Detecte); Bordetella pertussis Not Detected (Not Detect); Chlamydophila pneumoniae Not Detected (Not Detect); Coronavirus 229E Not Detected (Not Detect); Coronavirus HKU1 Not Detected (Not Detect); Coronavirus NL 63 Not Detected (Not Detect); Coronavirus OC43 Not Detected (Not Detect); Human Metapneumovirus Not Detected (Not Detect); Human Rhinovirus/Enterovirus Not Detected (Not Detect); Influenza A Not Detected (Not Detect); Influenza B Not Detected (Not Detect); Mycoplasma pneumoniae Not Detected (Not Detect); Parainfluenza Virus 1 Not Detected (Not Detect); Parainfluenza Virus 2 Not Detected (Not Detect); Parainfluenza Virus 3 Not Detected (Not Detect); Parainfluenza Virus 4 Not Detected (Not Detect); Respiratory Syncytial Virus Not Detected (Not Detect); SARS- CoV-2 Not Detected (Not Detecte)
[2024-09-14 11:53] LABS: Alanine Aminotransferase 61 IU/L (<50); Albumin 4.4 g/dL (3.5-5.0); Albumin Globulin Ratio 1.3 (1.0-2.8); Alkaline Phosphatase 83 U/L (38-126); Aspartate Aminotransferase 73 IU/L (17-59); BUN Creatinine Ratio 17.2 (6-22); Bilirubin Total 1.3 mg/dL (0.2-1.3); Blood Urea Nitrogen 15 mg/dL (9-20); Calcium 9.6 mg/dL (8.4-10.2); Carbon Dioxide 34 mmol/L (22-32); Chloride 98 mmol/L (98-107); Estimated Glomerular Filt Rate > 60 mL/min (>60); Globulin 3.4 g/dL (1.7-4.1); Glucose 125 mg/dL (80-110); HEMOLYSIS < 15 (0-50); Potassium 4.4 mmol/L (3.4-5.1); Sodium 139 mmol/L (137-145); Total Protein 7.8 g/dL (6.3-8.2)
[2024-09-14 12:05] LABS: NT-proBNP (BNP-Adult 18+) 491 pg/mL (<450)
[2024-09-14] MEDS: DOXYCYCLINE HYCLATE 100 MG TABLET PO ×2 (12:16→20:14)
--- NOTE | 2024-09-14 13:04 | PC.NURSE ---
Patient tolerated PO trial for fluid and food, took PO doxycycline first dose.
--- NOTE | 2024-09-14 13:29 | PC.NURSE ---
Patient attempted ambulation trial on 2L O2 via NC. Patient able to sit on EOB independently, then used FWW to stand. This exertion to just stand made patient remarkably SOB and patient unable to catch breath while standing and patient returned to sitting position. spO2 dropped to 89-90% on 2 L while standing. Patient reports his breathing has minimally improved while resting and states he is unable to ambulate because of the dyspnea. MD was updated on this failed ambulation trial and patient updated on plan to pursue hospitalization. Patient returned to lying on stretcher, placed back on cardiac monitoring.
--- NOTE | 2024-09-14 14:05 | PM.HP.1 ---
History of Present Illness History of Present Illness Date Patient Seen: 09/14/24 Time Patient Seen: 14:05 Chief complaint: COPD Exacerbation Narrative: This is an 84 year old male with PMH of COPD with chronic hypoxic respiratory failure, HTN who presents with 3 days of dyspnea and productive cough. He has had frequent ER visits, I saw him early last month and he was recommended for discharge from the ER at that time. He denies recent weight gain, LE edema or orthopnea. His shortness of breath kept worsening despite albuterol and duo-nebs at home so he came to the ER with EMS. He was given solumedrol en route. He feels improved, but is still severely dyspnic with minimal movement. He feels worse than the last time he was here. He is still at baseline O2 use, saturating in the mid 90s. I was able to turn off his supplemental O2 at rest and he was in the low 90s in the ER still. He continues to use his Breztri twice daily. He reports compliance with medications. The patient does not smoke however his spouse still does. Denies fever, chills, recent sick contacts or travel. 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 History of tobacco use History of bladder cancer Lower urinary tract symptoms Male circumcision Rheumatoid arthritis Kidney stones High blood pressure Cancer of bladder Surgical History Hx of cystoscopy (01/11/23) Hx of appendectomy History of urologic surgery (04/23/22) Hx of cystoscopy History of transurethral resection of prostate H/O hernia repair Social History marital status: number of children: 4 household members: spouse Smoking Status: Former smoker alcohol intake: current Meds Home Medications and Allergies Home Medications Medication Instructions Recorded Confirmed Type CA PANTOTHENATE/FOLIC ACID/VIT 1 tab PO Q DAY ##0 07/31/12 09/05/24 History (MULTIVITAMIN) aspirin 81 mg tablet,delayed 81 mg PO DAILY ##0 07/31/12 09/05/24 History release hydrocodone 10 mg-acetaminophen 2 tab PO BID 04/23/22 09/05/24 History 325 mg tablet albuterol sulfate 90 mcg/actuation 2 inh inhalation DIRECTED 10/25/23 09/05/24 History aerosol inhaler guaifenesin 1,200 mg tablet, 1,200 mg PO BID #30 tabs 02/29/24 09/05/24 Rx extended release 12 hr (Mucinex) ipratropium 0.5 mg-albuterol 3 mg 3 ml inhalation BID #180 mL 02/29/24 09/05/24 Rx (2.5 mg base)/3 mL nebulization soln finasteride 5 mg tablet 5 mg PO DAILY #90 tabs 03/05/24 09/05/24 Rx losartan 25 mg tablet 25 mg PO DAILY #30 tabs 04/12/24 09/05/24 Rx beclomethasone dipropionate 80 1 inh inhalation BID #10.6 grams 08/14/24 09/05/24 Rx mcg/actuation HFA breath activated aerosol (Qvar RediHaler) doxycycline hyclate 100 mg capsule 100 mg PO BID #20 caps 09/14/24 Rx doxycycline hyclate 100 mg capsule 100 mg PO BID 10 days #20 caps 09/14/24 Rx methylprednisolone 4 mg tablets in See Rx Instructions PO .COMPLEX 09/14/24 Rx a dose pack (Medrol (Devyn)) #21 ea methylprednisolone 4 mg tablets in See Rx Instructions PO .COMPLEX 09/14/24 Rx a dose pack (Medrol (Devyn)) #21 ea Allergies Allergy/AdvReac Type Severity Reaction Status Date / Time No Known Drug Allergies Allergy Verified 09/05/24 09:48 Review of Systems Review of Systems Narrative: All other systems reviewed with the patient and are negative unless otherwise stated. Exam Vital Signs (past 8 hours): - 09/14/24 10:03 09/14/24 10:05 09/14/24 10:05 Temperature Pulse Rate 70 77 Respiratory Rate Blood Pressure 199/92 H Pulse Oximetry 95 96 Oxygen Delivery Method Nasal Cannula Nasal Cannula Oxygen Flow Rate 2 2 09/14/24 10:09 09/14/24 10:09 09/14/24 10:09 Temperature 98.2 F Pulse Rate 71 80 Respiratory Rate 27 H 32 H Blood Pressure 199/92 H 154/81 H Pulse Oximetry 98 94 Oxygen Delivery Method Nasal Cannula Nasal Cannula Oxygen Flow Rate 2 2 09/14/24 10:14 09/14/24 10:30 09/14/24 10:30 Temperature Pulse Rate 83 69 Respiratory Rate 20 25 H Blood Pressure 152/74 H Pulse Oximetry 95 95 Oxygen Delivery Method Nasal Cannula Nasal Cannula Oxygen Flow Rate 2 2 09/14/24 10:45 09/14/24 10:45 09/14/24 11:00 Temperature Pulse Rate 72 76 Respiratory Rate 30 H 22 Blood Pressure 131/63 Pulse Oximetry 95 95 Oxygen Delivery Method Nasal Cannula Oxygen Flow Rate 2 09/14/24 11:00 09/14/24 11:15 09/14/24 11:15 Temperature Pulse Rate 71 Respiratory Rate 25 H Blood Pressure 155/70 H 162/72 H Pulse Oximetry 94 Oxygen Delivery Method Nasal Cannula Oxygen Flow Rate 2 09/14/24 11:30 09/14/24 11:30 09/14/24 11:45 Temperature Pulse Rate 76 78 Respiratory Rate 26 H 26 H Blood Pressure 163/93 H Pulse Oximetry 96 95 Oxygen Delivery Method Nasal Cannula Nasal Cannula Oxygen Flow Rate 2 2 09/14/24 11:45 09/14/24 12:00 09/14/24 12:00 Temperature Pulse Rate 78 Respiratory Rate 29 H Blood Pressure 167/79 H 154/70 H Pulse Oximetry 96 Oxygen Delivery Method Nasal Cannula Oxygen Flow Rate 2 09/14/24 12:15 09/14/24 12:15 09/14/24 12:30 Temperature Pulse Rate 84 95 H Respiratory Rate 39 H 37 H Blood Pressure 153/85 H Pulse Oximetry 95 94 Oxygen Delivery Method Nasal Cannula Nasal Cannula Oxygen Flow Rate 2 2 09/14/24 12:31 09/14/24 12:31 09/14/24 12:46 Temperature Pulse Rate 95 H 86 Respiratory Rate 37 H 27 H Blood Pressure 184/81 H Pulse Oximetry 94 95 Oxygen Delivery Method Nasal Cannula Nasal Cannula Oxygen Flow Rate 2 2 09/14/24 12:46 09/14/24 13:00 09/14/24 13:00 Temperature Pulse Rate 100 H Respiratory Rate 36 H Blood Pressure 169/73 H 151/75 H Pulse Oximetry 95 Oxygen Delivery Method Nasal Cannula Oxygen Flow Rate 2 09/14/24 13:30 09/14/24 13:31 Temperature Pulse Rate 97 H 88 Respiratory Rate 36 H 35 H Blood Pressure 157/84 H Pulse Oximetry 90 L 95 Oxygen Delivery Method Nasal Cannula Nasal Cannula Oxygen Flow Rate 2 2 Oxygen Delivery Method Nasal Cannula Oxygen Flow Rate 2 Narrative Exam Narrative: General:? Patient is well developed and well nourished, in no distress at this time. Chest:? Normal AP diameter and contour without kyphoscoliosis, no tachypnea, equal chest rise bilaterally. Lungs:? Clear to auscultation bilaterally, without wheezes, rhonchi, or rales. Slightly tachypnea, short of breath with prolonged sentences. Cardio:? RRR, no murmurs, rubs, or gallops. Abdomen: S NT ND. Extremities: No edema or joint effusions. No cyanosis or clubbing. Neuro:? Alert and orientated x3,? sensation to touch intact in all extremities, no gross deficits noted of cranial nerves. Psych:? Patient has a well-kept appearance, appropriate affect, mental status attitude thought context and judgment are appropriate for age. Objective ECG Impression: Likely sinus arrythmia, no acute ischemia as interpreted by me. Labs 09/14/24 10:07 09/14/24 10:07 Labs: Laboratory Results - last 24 hr 09/14/24 10:07 WBC 15.8 H RBC 4.70 Hgb 16.0 Hct 47.4 MCV 100.8 H MCH 34.1 H MCHC 33.8 RDW 12.9 Plt Count 193 Neut % (Auto) Not Reportable Lymph % (Auto) Not Reportable [place] % (Auto) Not Reportable Eos % (Auto) Not Reportable Baso % (Auto) Not Reportable Lymph # (Auto) Not Reportable [place] # (Auto) Not Reportable Baso # (Auto) Not Reportable Total Counted 100 Seg Neutrophils % 38.0 Lymphocytes % (Manual) 26.0 Monocytes % (Manual) 4.0 Eosinophils % (Manual) 31.0 H Basophils % (Manual) 1.0 Neutrophils # (Manual) 6004 H Smudge Cells 1+ H RBC Morphology See below Anisocytosis 1+ H PT 13.8 H INR 1.2 Sodium 139 Potassium 4.4 Chloride 98 Carbon Dioxide 34 H BUN 15 Creatinine 0.87 Estimated GFR > 60 BUN/Creatinine Ratio 17.2 Glucose 125 H Lactate 2.0 Calcium 9.6 Total Bilirubin 1.3 AST 73 H ALT 61 H Alkaline Phosphatase 83 Troponin I 0.020 NT-Pro-B Natriuret Pep 491 H Total Protein 7.8 Albumin 4.4 Globulin 3.4 Albumin/Globulin Ratio 1.3 Chlamy pneumoniae PCR Not detected Adenovirus (PCR) Not detected B. pertussis DNA (PCR) Not detected B.parapertussis DNA PCR Not detected Coronavirus OC43 (PCR) Not detected Coronavirus HKU1 (PCR) Not detected Coronavirus 229E (PCR) Not detected SARS-CoV-2 (PCR) Not detected Coronavirus NL63 (PCR) Not detected Human Metapneumovir PCR Not detected Influenza Type A (PCR) Not detected Influenza Type B (PCR) Not detected M. pneumoniae (PCR) Not detected Parainfluenza 1 (PCR) Not detected Parainfluenza 2 (PCR) Not detected Parainfluenza 3 (PCR) Not detected Parainfluenza 4 (PCR) Not detected RSV (PCR) Not detected Entero/Rhino (PCR) Not detected Assessment & Plan Assessment & Plan narrative: 1. COPD with exacerbation - respiratory panel is negative. - continue prednisone 40 mg daily - replace home inhalers with formulary nebs - albuterol as needed - continue doxycycline for antiinflammatory effect. - check TTE to rule out possible cardiac component to his recurrent exacerbations. - troponin within normal limits, no chest pain and unremarkable EKG. ACS is deemed ruled out. - counseled patient and spouse on second hand smoke - mild leukocytosis, but appears somewhat chronic with intermittent steroid use. Given no fever, and presentation will hold on empiric antibiotics at this time other than above doxycycline. 2. Acute on Chronic respiratory failure with hypoxia, acute portion resolved. Chronic hypercapnic respiratory failure. - appears to now be at or very near his baseline after initial therapies in the ER. - goal O2 89-96% on supplemental therapy. - intermittently on 2L at home. 3. HTN - continue home medications without change, losartan 25 mg daily Code: Full, surrogate is patient's spouse I have utilized all available immediate resources to obtain, update, or review the patient's current medications. Dispo: Admit observation. Hopeful for discharge home tomorrow. Additional history obtained via discussions with the ER provider. These discussions contributed to the creation of the above assessment and plan. I have reviewed patient's presenting documentation, labs, and imaging personally. Time-Based Coding :: [TOTAL MINUTES] spent with patient and on the chart (including review of chart, obtaining history, exam, reviewing outside data, placing orders, documenting exam and treatment plan, and counseling patient) on [DATE].
--- NOTE | 2024-09-14 14:56 | PC.NURSE ---
attempted to call with update patient is going upstairs and which room, Unable to reach . Called [phone] twice first attempt phone answered/picked up but no person came online/talked, second attempt call not answered and went immediatly to voicemailbox. no message left. Then called [phone] no answer and message from cell # stated voicemail not set up.
[2024-09-14] MEDS: ALBUTEROL 2.5 MG/3 ML NEB (ADULT) INH (16:45)
[2024-09-14] MEDS: BUDESONIDE 0.5 MG/2 ML NEB INH (19:13)
[2024-09-14] MEDS: ALBUTEROL/IPRATROPIUM 3 ML AMPUL INH (19:13)
[2024-09-14] MEDS: ZOLPIDEM 5 MG TABLET PO (20:58)
[2024-09-14] MEDS: SODIUM CHLORIDE 0.9% FLUSH 10 ML IV (20:58)
[2024-09-15] VITALS (9 sets, daily range): BP systolic 127–150; BP diastolic 59–80; PULSE 61–94; RESP 16–26; TEMP 36.2–36.6; O2SAT 94–97
[2024-09-15 05:59] LABS: Add Manual Diff / Slide Review NO; Basophils Absolute Auto 100 /uL (0-100); Basophils Percent Auto 0.5 % (0-2); Eosinophils Absolute Auto 0 /uL (0-450); Eosinophils Percent Auto 0.1 % (2-4); Hematocrit 45.3 % (41-53); Hemoglobin 15.2 g/dL (13.5-17.5); Lymphocytes Absolute Auto 2200 /uL (1100-4500); Lymphocytes Percent Auto 14.9 % (25-40); Mean Corpuscular HGB Conc 33.6 % (30-36); Mean Corpuscular Volume 101.2 fL (80-100); Monocytes Absolute Auto 1000 /uL (0-900); Monocytes Percent Auto 6.9 % (3-14); Neutrophils Absolute Auto 11400 /uL (1500-7000); Neutrophils Percent Auto 77.6 % (50-75); Platelet Count 204 X10^3/uL (150-400); Red Blood Cell Count 4.47 X10^6/uL (4.5-5.9); Red Cell Distribution Width 12.8 % (11.6-14.8); White Blood Cell Count 14.7 X10^3/uL (4.5-11.0)
[2024-09-15 06:19] LABS: BUN Creatinine Ratio 29.6 (6-22); Blood Urea Nitrogen 24 mg/dL (9-20); Calcium 9.5 mg/dL (8.4-10.2); Carbon Dioxide 33 mmol/L (22-32); Chloride 100 mmol/L (98-107); Estimated Glomerular Filt Rate > 60 mL/min (>60); Glucose 140 mg/dL (80-110); HEMOLYSIS < 15 (0-50); Magnesium 2.4 mg/dL (1.6-2.3); Potassium 4.5 mmol/L (3.4-5.1); Sodium 136 mmol/L (137-145)
--- NOTE | 2024-09-15 06:19 | PC.NURSE ---
Pt. SPO2 in 2 liters 98%, turned 02 down to 1 liter & SPO2 93-94%. Did not C/O pain, still sleepy from the 5 mg. of Ambien. But he roused with verbal & tactile stimuli. Been sleeping prone position all shift, will monitor.
[2024-09-15] MEDS: ALBUTEROL/IPRATROPIUM 3 ML AMPUL INH ×3 (08:52→19:31)
[2024-09-15] MEDS: BUDESONIDE 0.5 MG/2 ML NEB INH ×2 (08:52→19:31)
[2024-09-15] MEDS: ENOXAPARIN 40 MG/0.4 ML SYRINGE SUBCUT (10:15)
[2024-09-15] MEDS: DOXYCYCLINE HYCLATE 100 MG TABLET PO (10:15)
[2024-09-15] MEDS: predniSONE 20 MG TABLET 40 MG PO (10:15)
[2024-09-15] MEDS: SODIUM CHLORIDE 0.9% FLUSH 10 ML IV ×2 (10:16→20:04)
--- NOTE | 2024-09-15 14:56 | PM.PN.1 ---
Subjective Subjective Interval history: Maybe slight improvement today per patient but he still is severely dyspnic with ambulation to the bathroom. Continues to have mild productive cough. No dizziness or chest pain. No nausea and he is tolerating a diet. Exam Vital Signs (past 8 hours): - 09/15/24 08:00 09/15/24 08:53 09/15/24 10:00 Temperature 97.4 F L Pulse Rate 62 94 H Respiratory Rate 18 20 Blood Pressure 135/59 L Pulse Oximetry 94 94 Oxygen Delivery Method Nasal Cannula Nasal Cannula Oxygen Flow Rate 2 1 09/15/24 12:00 09/15/24 13:23 Temperature 97.8 F Pulse Rate 61 70 Respiratory Rate 16 20 Blood Pressure 127/65 Pulse Oximetry 96 96 Oxygen Delivery Method Nasal Cannula Oxygen Flow Rate 2 1 Oxygen Delivery Method Nasal Cannula Oxygen Flow Rate 1 Narrative Exam Narrative: General:? Patient is well developed and well nourished, in no distress at this time. Chest:? Normal AP diameter and contour without kyphoscoliosis, no tachypnea, equal chest rise bilaterally. Lungs:? Clear to auscultation bilaterally, without wheezes, rhonchi, or rales. Slightly tachypnea, short of breath with prolonged sentences. Cardio:? RRR, no murmurs, rubs, or gallops. Abdomen: S NT ND. Extremities: No edema or joint effusions. No cyanosis or clubbing. Neuro:? Alert and orientated x3,? sensation to touch intact in all extremities, no gross deficits noted of cranial nerves. Psych:? Patient has a well-kept appearance, appropriate affect, mental status attitude thought context and judgment are appropriate for age. Objective Labs 09/15/24 05:24 09/15/24 05:24 Labs: Laboratory Results - last 24 hr 09/15/24 05:24 WBC 14.7 H RBC 4.47 L Hgb 15.2 Hct 45.3 MCV 101.2 H MCH 34.0 MCHC 33.6 RDW 12.8 Plt Count 204 Neut % (Auto) 77.6 H Lymph % (Auto) 14.9 L [place] % (Auto) 6.9 Eos % (Auto) 0.1 L Baso % (Auto) 0.5 Neut # (Auto) 49950 H Lymph # (Auto) 2200 [place] # (Auto) 1000 H Eos # (Auto) 0 Baso # (Auto) 100 Sodium 136 L Potassium 4.5 Chloride 100 Carbon Dioxide 33 H BUN 24 H Creatinine 0.81 Estimated GFR > 60 BUN/Creatinine Ratio 29.6 H Glucose 140 H Calcium 9.5 Magnesium 2.4 H PFSH Medical History Easy bruisability Bleeds easily Tobacco use 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 COPD with exacerbation - respiratory panel is negative. - continue prednisone 40 mg daily - replace home inhalers with formulary nebs - albuterol as needed - continue doxycycline for antiinflammatory effect. - check TTE to rule out possible cardiac component to his recurrent exacerbations. - troponin within normal limits, no chest pain and unremarkable EKG. ACS is deemed ruled out. - counseled patient and spouse on second hand smoke - mild leukocytosis, but appears somewhat chronic with intermittent steroid use. Given continued symptoms today will change to oral levofloxacin for possible bacterial pneumonia. 2. Acute on Chronic respiratory failure with hypoxia, acute portion resolved. Chronic hypercapnic respiratory failure. - appears to now be at or very near his baseline after initial therapies in the ER. - goal O2 89-96% on supplemental therapy. - intermittently on 2L at home. 3. HTN - continue home medications without change, losartan 25 mg daily 4. Possible bacterial pneumonia - with mild leukocytosis on presentation, will cover for CAP with change from doxy to levofloxacin for 5 days. Code: Full, surrogate is patient's spouse I have utilized all available immediate resources to obtain, update, or review the patient's current medications. Dispo: Admitted observation. Hopeful for discharge home tomorrow depending on TTE and improvement still in dyspnea. Additional history obtained via discussions with case management and bedside nurse. These discussions contributed to the creation of the above assessment and plan. I have reviewed patient's presenting documentation, labs, and imaging personally. Time-Based Coding :: [TOTAL MINUTES] spent with patient and on the chart (including review of chart, obtaining history, exam, reviewing outside data, placing orders, documenting exam and treatment plan, and counseling patient) on [DATE].
--- NOTE | 2024-09-15 14:58 | DI.ECHO.S_ITS ---
[facility] : : [id number] : [place] : : [id number] : : Phone: [phone] Echocardiogram Report + + :Name: ANA ZAFAR Study Date: 09/16/2024 Height: 68 in : :[facility] ReadingLocation: Weight: 190 lb: : Gender: Male BSA: 2.0 m2 : :: 1940 Age: 84 yrs : :Reason For Study: DYSPNEA : : Performed By: Anh Carlos : :Referring: LOIDA BURCH : + + Interpretation Summary Left ventricular systolic function is normal. The ejection fraction is estimated to be 60-65%. Diastolic function could not be accurately assessed due to atrial fibrillation. The right ventricle is not well visualized. The right ventricle grossly appears normal in size with probable normal systolic function. The right ventricular systolic pressure is estimated to be at least 32 mmHg based on an estimated right atrial pressure of 8 mm Hg. There is significant lipomatous interatrial septum more likely than myoxma in right atrial chamber whic is best visualized in subcostal window. It measures 2.1 cm x 2.5 cm. This is should not be the cause of dyspnea but does require outpatient BIRD or follow up with cardiology. There is no Doppler evidence for an interatrial shunt. The aortic root is normal size. Procedure: A two-dimensional transthoracic echocardiogram with color flow and Doppler was performed. The study quality is difficult and somewhat limited due to COPD. There is no prior echocardiogram noted for this patient. The patient was in atrial fibrillation with heart rates between 77-117 bpm during the exam. Left Ventricle: Unable to accurately measure left ventricular inner dimensions due to beat to beat variability and poor image quality. Left ventricular systolic function is normal. The ejection fraction is estimated to be 60-65%. Diastolic function could not be accurately assessed due to atrial fibrillation. Right Ventricle: The right ventricle is not well visualized. The right ventricle grossly appears normal in size with probable normal systolic function. Atria: The left atrium is not well visualized. Right atrium not well visualized. There is no Doppler evidence for an interatrial shunt. There is significant lipomatous interatrial septum more likely than myoxma in right atrial chamber whic is best visualized in subcostal window. It measures 2.1 cm x 2.5 cm. This is should not be the cause of dyspnea but does require outpatient BIRD or follow up with cardiology. Mitral Valve: The mitral valve is grossly normal. Aortic Valve: The aortic valve is trileaflet. The aortic valve is moderately calcified. No aortic regurgitation is present. Tricuspid Valve: The tricuspid valve is normal in structure and function. There is mild tricuspid regurgitation. The right ventricular systolic pressure is estimated to be at least 32 mmHg based on an estimated right atrial pressure of 8 mm Hg. Pulmonic Valve: The pulmonic valve is not well visualized. Great Vessels: The aortic root is normal size. The ascending aorta could not be visualized. The aortic arch could not be visualized. The pulmonary is not well visualized. The IVC is dilated (diameter is greater than 2.1 cm) yet it collapses greater than 50% with a sniff. This suggests a right atrial pressure of 8 mm Hg. Pericardium/ Pleura There is a trivial pericardial effusion noted. MMode/2D Measurements & Calculations EPSS: 0.14 cm LVOT diam: 2.0 cm Ao root diam: 3.5 cm Doppler Measurements & Calculations Ao V2 max: 154.7 cm/sec LVOT Max Yoandy: 125.9 cm/sec Ao V2 mean: 104.7 cm/sec LV V1 max P.4 mmHg Ao max P.8 mmHg LV V1 VTI: 20.9 cm Ao mean P.8 mmHg JENN(I,D): 2.7 cm2 Ao V2 VTI: 23.4 cm JENN(V,D): 2.5 cm2 sev ratio: 0.89 JENN indexed to BSA (cm^2/m^2): 1.4 TR max yoandy: 243.0 cm/sec SV(LVOT): 63.3 ml TR max P.8 mmHg Reading Physician:10:14 AM
--- NOTE | 2024-09-15 15:29 | CM.DANOTE ---
Patient is an 84 yo male who was admitted OBS Status on 09/14/24 for COPD Exac. Pt has REG MCR ADV for insurance and his PCP is Dr. Zac Phillips. EMR was reviewed. Per MD, pt with hx of COPD and has home O2 2L at baseline and currently close to baseline O2 but still very dyspnic with exertion. Pt not yet medically stable to discharge yet today. Per RN, currently no PT needs identified today and between 1-2LO2 currently when resting. No concerns noted. SW met briefly bedside with pt and explained role and he confirms he lives in [place] with his and both are fairly independent at baseline and pt has his home oxygen he thinks with [facility]. Pt does not recall any hx of HH or SNF and his preference is to d/c home when medically stable and does not anticipate any discharge planning needs at this time. SW encouraged pt to bring in a copy of his POA pwk to scan into his EMR and pt will talk to his spouse about it. Plan: SW to follow for plan of discharge home when medically stable and any further identified discharge planning needs. ANDREW Yu Discharge Planning/Care Management CM Discharge Assessment Start: 09/15/24 15:25 Freq: Status: Active Protocol: Document 09/15/24 15:25 BF (Rec: 09/15/24 15:29 BF [id number]) Discharge Planning Assessment Assigned Neuroscientist ANDREW Curiel DPOA/Assigned Designee Name spouse Leslee Contact Information [phone] Advance Directives? No Advance Directives on File No History Provided By Patient,Medical Record Has Patient been admitted in last 30 No days? Prior Living Arrangements House Household Members spouse Type of transporation used prior to Drives own vehicle admit Independent with ADL's Yes Is patient alert and oriented? Yes Needs Assistance With Home Chores / Shopping Caregiver for Another No Barriers to Discharge No Discharge Plan Home Transportation Arrangement Likely spouse to transport home at d/c Referrals Initiated None needed Additional Comment Pending progress Whiteboard Updated in Patient Room with Yes name and ext. # of Neuroscientist Review Status In Process Please Provide Date Initial DC 09/15/24 Assessment Was Performed Next Review Type Continued Stay Review
[2024-09-15] MEDS: levoFLOXacin 250 MG TABLET 750 MG PO (15:32)
[2024-09-15] MEDS: HYDROCODONE/ACET 5/325 TABLET 2 TAB PO (17:35)
[2024-09-15] MEDS: ZOLPIDEM 5 MG TABLET PO (20:04)
[2024-09-16] VITALS (10 sets, daily range): BP systolic 125–148; BP diastolic 65–81; PULSE 64–80; RESP 16–22; TEMP 36.2–36.8; O2SAT 93–98
[2024-09-16] MEDS: levoFLOXacin 250 MG TABLET 750 MG PO (06:16)
[2024-09-16] MEDS: HYDROCODONE/ACET 5/325 TABLET 2 TAB PO ×2 (06:19→17:41)
[2024-09-16 06:22] LABS: Add Manual Diff / Slide Review NO; Basophils Absolute Auto 0 /uL (0-100); Basophils Percent Auto 0.3 % (0-2); Eosinophils Absolute Auto 100 /uL (0-450); Eosinophils Percent Auto 0.7 % (2-4); Hematocrit 46.6 % (41-53); Hemoglobin 15.8 g/dL (13.5-17.5); Lymphocytes Absolute Auto 3200 /uL (1100-4500); Lymphocytes Percent Auto 25.1 % (25-40); Mean Corpuscular HGB Conc 33.9 % (30-36); Mean Corpuscular Hemoglobin 34.4 PG (26-34); Mean Corpuscular Volume 101.3 fL (80-100); Monocytes Absolute Auto 1000 /uL (0-900); Neutrophils Absolute Auto 8500 /uL (1500-7000); Neutrophils Percent Auto 65.9 % (50-75); Platelet Count 211 X10^3/uL (150-400)
[2024-09-16 06:39] LABS: BUN Creatinine Ratio 31.9 (6-22); Blood Urea Nitrogen 29 mg/dL (9-20); Calcium 9.4 mg/dL (8.4-10.2); Carbon Dioxide 33 mmol/L (22-32); Chloride 99 mmol/L (98-107); Estimated Glomerular Filt Rate > 60 mL/min (>60); Glucose 122 mg/dL (80-110); HEMOLYSIS 17 (0-50); Magnesium 2.3 mg/dL (1.6-2.3); Potassium 4.1 mmol/L (3.4-5.1); Sodium 137 mmol/L (137-145)
[2024-09-16] MEDS: ALBUTEROL/IPRATROPIUM 3 ML AMPUL INH ×3 (09:06→19:33)
[2024-09-16] MEDS: BUDESONIDE 0.5 MG/2 ML NEB INH ×2 (09:06→19:33)
[2024-09-16] MEDS: ENOXAPARIN 40 MG/0.4 ML SYRINGE SUBCUT (10:02)
[2024-09-16] MEDS: predniSONE 20 MG TABLET 40 MG PO (10:02)
[2024-09-16] MEDS: SODIUM CHLORIDE 0.9% FLUSH 10 ML IV ×2 (10:02→20:13)
[2024-09-16] MEDS: CODEINE/GUAIFENESIN LIQUID 5ML UDC 10 ML PO ×2 (11:35→17:41)
--- NOTE | 2024-09-16 13:22 | CM.DPNOTE ---
DCP note HUMAN RESOURCE CONSULTANT reviewed EMR. per hospitalist in morning rounds, pt nauseated overnight. no new DCP/CM concerns from provider/RN report. per chart, currently on 1.5ltrs. (2ltrs O2 at baseline?) Per UR RN, changed to INPT status as of today, 09/16. P: anticipate return home when medically stable with spouse support. no CM needs at this time. CM team will continue to follow as needed ANDREW Coates
--- NOTE | 2024-09-16 13:39 | P.PN_ITS ---
Subjective Subjective Interval history: Maybe slight improvement today per patient but he still is severely dyspnic with ambulation to the bathroom. Continues to have mild productive cough. No dizziness or chest pain. No nausea and he is tolerating a diet. Exam Vital Signs (past 8 hours): - 09/16/24 08:00 09/16/24 09:06 09/16/24 10:00 Temperature 97.6 F Pulse Rate 69 80 Respiratory Rate 16 20 Blood Pressure 148/77 H Pulse Oximetry 93 98 Oxygen Delivery Method Nasal Cannula Nasal Cannula Oxygen Flow Rate 1.5 1 09/16/24 11:40 Temperature 98.2 F Pulse Rate 66 Respiratory Rate 18 Blood Pressure 147/80 H Pulse Oximetry 93 Oxygen Delivery Method Oxygen Flow Rate 1.5 Oxygen Delivery Method Nasal Cannula Oxygen Flow Rate 1.5 Narrative Exam Narrative: General:? Patient is well developed and well nourished, in no distress at this time. Chest:? Normal AP diameter and contour without kyphoscoliosis, no tachypnea, equal chest rise bilaterally. Lungs:? Clear to auscultation bilaterally, without wheezes, rhonchi, or rales. Slightly tachypnea, short of breath with prolonged sentences. Cardio:? RRR, no murmurs, rubs, or gallops. Abdomen: S NT ND. Extremities: No edema or joint effusions. No cyanosis or clubbing. Neuro:? Alert and orientated x3,? sensation to touch intact in all extremities, no gross deficits noted of cranial nerves. Psych:? Patient has a well-kept appearance, appropriate affect, mental status attitude thought context and judgment are appropriate for age. Objective Labs 09/16/24 05:38 09/16/24 05:38 Labs: Laboratory Results - last 24 hr 09/16/24 05:38 WBC 13.0 H RBC 4.60 Hgb 15.8 Hct 46.6 MCV 101.3 H MCH 34.4 H MCHC 33.9 RDW 13.0 Plt Count 211 Neut % (Auto) 65.9 Lymph % (Auto) 25.1 [place] % (Auto) 8.0 Eos % (Auto) 0.7 L Baso % (Auto) 0.3 Neut # (Auto) 8500 H Lymph # (Auto) 3200 [place] # (Auto) 1000 H Eos # (Auto) 100 Baso # (Auto) 0 Sodium 137 Potassium 4.1 Chloride 99 Carbon Dioxide 33 H BUN 29 H Creatinine 0.91 Estimated GFR > 60 BUN/Creatinine Ratio 31.9 H Glucose 122 H Calcium 9.4 Magnesium 2.3 PFSH Medical History Easy bruisability Bleeds easily Tobacco use 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 COPD with exacerbation - respiratory panel is negative. - continue prednisone 40 mg daily - replace home inhalers with formulary nebs - albuterol as needed - changed from doxycycline to levofloxacin for CAP as noted below. - check TTE to rule out possible cardiac component to his recurrent exacerbations. Ordered but not done yet. - troponin within normal limits, no chest pain and unremarkable EKG. ACS is deemed ruled out. - counseled patient and spouse on second hand smoke - mild leukocytosis, but appears somewhat chronic with intermittent steroid use. Given continued symptoms added levofloxacin will continue 2. Acute on Chronic respiratory failure with hypoxia, acute portion resolved. Chronic hypercapnic respiratory failure. - appears to now be at or very near his baseline after initial therapies in the ER. - goal O2 89-96% on supplemental therapy. - intermittently on 2L at home. 3. HTN - continue home medications without change, losartan 25 mg daily 4. Possible bacterial pneumonia - with mild leukocytosis on presentation, will cover for CAP with change from doxy to levofloxacin for 5 days. WBC is slightly improved today. Code: Full, surrogate is patient's spouse I have utilized all available immediate resources to obtain, update, or review the patient's current medications. Dispo: Change to inpatient, likely home in 1-3 more days, he is slow to improve from his COPD exacerbation. Additional history obtained via discussions with case management and bedside nurse. These discussions contributed to the creation of the above assessment and plan. I have reviewed patient's presenting documentation, labs, and imaging personally. Time-Based Coding :: [TOTAL MINUTES] spent with patient and on the chart (including review of chart, obtaining history, exam, reviewing outside data, placing orders, documenting exam and treatment plan, and counseling patient) on [DATE].
[2024-09-16] MEDS: ZOLPIDEM 5 MG TABLET PO (20:13)
[2024-09-17 03:00] VITALS: BP 136/75; PULSE 61; RESP 20; TEMP 36.6; O2SAT 96
[2024-09-17 05:58] LABS: Add Manual Diff / Slide Review NO; Basophils Absolute Auto 100 /uL (0-100); Basophils Percent Auto 0.7 % (0-2); Eosinophils Absolute Auto 100 /uL (0-450); Eosinophils Percent Auto 0.8 % (2-4); Hematocrit 46.9 % (41-53); Hemoglobin 15.8 g/dL (13.5-17.5); Lymphocytes Absolute Auto 3300 /uL (1100-4500); Lymphocytes Percent Auto 27.6 % (25-40); Mean Corpuscular HGB Conc 33.7 % (30-36); Mean Corpuscular Hemoglobin 34.1 PG (26-34); Mean Corpuscular Volume 101.3 fL (80-100); Monocytes Absolute Auto 1200 /uL (0-900); Monocytes Percent Auto 10.3 % (3-14); Neutrophils Absolute Auto 7200 /uL (1500-7000); Neutrophils Percent Auto 60.6 % (50-75); Platelet Count 198 X10^3/uL (150-400); Red Blood Cell Count 4.63 X10^6/uL (4.5-5.9); Red Cell Distribution Width 13.1 % (11.6-14.8); White Blood Cell Count 11.8 X10^3/uL (4.5-11.0)
[2024-09-17 06:19] LABS: BUN Creatinine Ratio 37.5 (6-22); Blood Urea Nitrogen 33 mg/dL (9-20); Calcium 9.5 mg/dL (8.4-10.2); Carbon Dioxide 34 mmol/L (22-32); Chloride 101 mmol/L (98-107); Estimated Glomerular Filt Rate > 60 mL/min (>60); Glucose 115 mg/dL (80-110); HEMOLYSIS 16 (0-50); Magnesium 2.3 mg/dL (1.6-2.3); Potassium 4.3 mmol/L (3.4-5.1); Sodium 138 mmol/L (137-145)
[2024-09-17] MEDS: levoFLOXacin 250 MG TABLET 750 MG PO (06:30)
[2024-09-17] MEDS: ALBUTEROL/IPRATROPIUM 3 ML AMPUL INH (06:37)
[2024-09-17] MEDS: BUDESONIDE 0.5 MG/2 ML NEB INH (06:37)
[2024-09-17 06:38] VITALS: PULSE 72; RESP 18; O2SAT 95
[2024-09-17 07:00] VITALS: BP 128/70; PULSE 75; RESP 18; TEMP 35.6; O2SAT 94
--- NOTE | 2024-09-17 08:22 | P.DS_ITS ---
History of Present Illness History of Present Illness Date Patient Seen: 09/17/24 Time Patient Seen: 08:24 Chief complaint: COPD Exacerbation Narrative: This is an 84 year old male with PMH of COPD with chronic hypoxic respiratory failure, HTN who presents with 3 days of dyspnea and productive cough. He has had frequent ER visits, I saw him early last month and he was recommended for discharge from the ER at that time. He denies recent weight gain, LE edema or orthopnea. His shortness of breath kept worsening despite albuterol and duo-nebs at home so he came to the ER with EMS. He was given solumedrol en route. He feels improved, but is still severely dyspnic with minimal movement. He feels worse than the last time he was here. He is still at baseline O2 use, saturating in the mid 90s. I was able to turn off his supplemental O2 at rest and he was in the low 90s in the ER still. He continues to use his Breztri twice daily. He reports compliance with medications. The patient does not smoke however his spouse still does. Denies fever, chills, recent sick contacts or travel. Discharge Providers Provider Date of admission: 09/16/24 10:14 Discharge Date: 09/17/24 Primary care physician: Zac Phillips MD Discharge provider: Chaitanya Curtis DO Summary Hospital Course Discharge Diagnosis: 1. COPD with exacerbation 2. Acute on Chronic respiratory failure with hypoxia, acute portion resolved. Chronic hypercapnic respiratory failure. 3. HTN 4. Possible bacterial pneumonia Hospital Course: This is an 84 year old male with PMH of COPD with chronic hypoxic respiratory failure, HTN who presented with 3 days of dyspnea and productive cough. He was slightly more hypoxic than his usual baseline, but severely dyspnic and tachypnic on admission. He was started on steroids with slow but minimal improvement. Doxycycline was started on admission, but was changed to levofloxacin given lack of improvement and leukocytosis that had not resolved. After levofloxacin was intiated he did begin to feel a bit better. TTE was performed which showed a normal EF. 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 Simmons. He was discharged feeling improved, almost near his baseline dyspnea. 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 Another possibility for his recurrent exacerbations may be that his spouse still smokes, both were counseled on importance of avoiding second hand smoke exposure on admission. No other changes to his home medications were recommended at the time of discharge. Time Spent with Patient Time spent: Greater than 30 minutes Exam Vital Signs (past 8 hours): - 09/17/24 03:00 09/17/24 06:38 09/17/24 07:00 Temperature 97.9 F 96.0 F L Pulse Rate 61 72 75 Respiratory Rate 20 18 18 Blood Pressure 136/75 128/70 Pulse Oximetry 96 95 94 Oxygen Delivery Method Nasal Cannula Oxygen Flow Rate 1.5 1.5 1.5 Oxygen Delivery Method Nasal Cannula Oxygen Flow Rate 1.5 Narrative Exam Narrative: General:? Patient is well developed and well nourished, in no distress at this time. Chest:? Normal AP diameter and contour without kyphoscoliosis, no tachypnea, equal chest rise bilaterally. Lungs:? Clear to auscultation bilaterally, without wheezes, rhonchi, or rales. Slightly tachypnea, short of breath with prolonged sentences. Cardio:? RRR, no murmurs, rubs, or gallops. Abdomen: S NT ND. Extremities: No edema or joint effusions. No cyanosis or clubbing. Neuro:? Alert and orientated x3,? sensation to touch intact in all extremities, no gross deficits noted of cranial nerves. Psych:? Patient has a well-kept appearance, appropriate affect, mental status attitude thought context and judgment are appropriate for age. Objective Labs 09/17/24 05:31 09/17/24 05:31 Labs: Laboratory Results - last 24 hr 09/17/24 05:31 WBC 11.8 H RBC 4.63 Hgb 15.8 Hct 46.9 MCV 101.3 H MCH 34.1 H MCHC 33.7 RDW 13.1 Plt Count 198 Neut % (Auto) 60.6 Lymph % (Auto) 27.6 [place] % (Auto) 10.3 Eos % (Auto) 0.8 L Baso % (Auto) 0.7 Neut # (Auto) 7200 H Lymph # (Auto) 3300 [place] # (Auto) 1200 H Eos # (Auto) 100 Baso # (Auto) 100 Sodium 138 Potassium 4.3 Chloride 101 Carbon Dioxide 34 H BUN 33 H Creatinine 0.88 Estimated GFR > 60 BUN/Creatinine Ratio 37.5 H Glucose 115 H Calcium 9.5 Magnesium 2.3 PFSH Medical History Easy bruisability Bleeds easily Tobacco use 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 History of tobacco use History of bladder cancer Lower urinary tract symptoms Male circumcision Rheumatoid arthritis Kidney stones High blood pressure Cancer of bladder Surgical History Hx of cystoscopy (01/11/23) Hx of appendectomy History of urologic surgery (04/23/22) Hx of cystoscopy History of transurethral resection of prostate H/O hernia repair Social History marital status: number of children: 4 household members: spouse Smoking Status: Former smoker alcohol intake: current Discharge Plan Discharge Plan Patient Disposition: Home Provider Discharge Comment: You were admitted to the hospital with a COPD exacerbation, improved with time. 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 Keep in mind any smoke exposure can lead to exacerbations. 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 Discharge orders & Medications Prescriptions: New levofloxacin 750 mg tablet 750 mg PO 0700 5 Days Qty: 5 0RF prednisone 10 mg tablet See Rx Instructions .ROUTE .COMPLEX Qty: 50 0RF Rx Instructions: take 40 mg daily x5 days, 30 mg daily x5 days, 20 mg daily x5 days, 10 mg daily x 5 days Continued aspirin 81 mg Tablet,Delayed Release (Dr/Ec) 81 mg PO DAILY Qty: 0 CA PANTOTHENATE/FOLIC ACID/VIT (MULTIVITAMIN) 1 tab PO Q DAY Qty: 0 finasteride 5 mg tablet 5 mg PO DAILY Qty: 90 3RF albuterol sulfate 90 mcg/actuation HFA aerosol inhaler 2 inh inhalation DIRECTED losartan 25 mg tablet 25 mg PO DAILY Qty: 30 0RF hydrocodone-acetaminophen 10-325 mg tablet 2 tab PO BID Patient Comments: TAKE 2 TABLETS BY MOUTH TWICE DAILY NEEDED Qvar RediHaler 80 mcg/actuation HFA aerosol breath activated 1 inh inhalation BID Qty: 10.6 0RF Breztri Aerosphere 160-9-4.8 mcg/actuation HFA aerosol inhaler 2 inh INHALATION BID ipratropium-albuterol 0.5 mg-3 mg(2.5 mg base)/3 mL solution for nebulization 3 ml inhalation BID Qty: 180 11RF guaifenesin [Mucinex] 1,200 mg tablet extended release 12hr 1,200 mg PO BID Qty: 30 5RF Follow up/Referrals: Zac Phillips MD [Primary Care Provider] - Diet/Activity/Treatments Diet: Diet as Tolerated and Regular Activity: As tolerated, no restriction Visit Report/Discharge Packet Instructions: DI for Chronic Obstructive Pulmonary Disease Stand Alone Forms: Patient Portal/API, Stroke Signs & Symptoms Discharge Data Primary Care Provider: Zac Phillips
[2024-09-17] MEDS: predniSONE 20 MG TABLET 40 MG PO (09:50)
[2024-09-17] MEDS: SODIUM CHLORIDE 0.9% FLUSH 10 ML IV (09:51)
--- NOTE | 2024-09-17 13:13 | CM.DPC ---
DCP Discharge Home Per MD, pt back to his home O2 needs and medically stable to discharge home today and no identified barriers to discharge. SW met bedside and confirmed pt agreeable with d/c home today and spouse will provide transport and pt does not anticipate any further needs at this time. RN provided d/c instructions and no concerns noted. ANDREW Yu
== END 2024-09-17 11:34 | disposition home or self-care (01) ==
LOC: ED 13:59 → AC 14:08
PROVIDERS: Admitting Provider Internal Medicine; Emergency Provider Emergency Medicine; PCP Internal Medicine; Referring Provider Emergency Medicine; Visit Provider Internal Medicine
DX: J44.1 Chronic obstructive pulmonary disease with (acute) exacerbation (principal); J15.9 Unspecified bacterial pneumonia; J96.21 Acute and chronic respiratory failure with hypoxia; J96.12 Chronic respiratory failure with hypercapnia; I10 Essential (primary) hypertension; Z77.22 Contact with and (suspected) exposure to environmental tobacco smoke (acute) (chronic); Z87.891 Personal history of nicotine dependence
CPT/HCPCS: 36415; 71045; 80048; 80053; 83605; 83735; 83880; 84484; 85007; 85025; 85610; 87633; 93005; 93306; 94640; 94762; 96374; 99285; G0378; J1650; J3475; J7613

== ENCOUNTER 2025-02-28 10:54 | Emergency (ER) | payer MEDICARE, SELFPAY ==
[2024-09-14 15:19] VITALS: BMI 28.8
[2025-02-28 11:08] VITALS: BP 139/99; PULSE 60; RESP 18; TEMP 36.6; O2SAT 97; BMI 27.3
--- NOTE | 2025-02-28 11:16 | DI.RAD.S_ITS ---
PROCEDURE: XR ANKLE RT MIN 3V INDICATIONS: felt a pop/can't walk x 4 days TECHNIQUE: 3 views of the ankle were acquired. COMPARISON: None. FINDINGS: Bones: No acute fractures or dislocations. Ankle mortise is normally aligned. No suspicious bony lesions. Small plantar calcaneal enthesophyte. Soft tissues: No tibiotalar joint effusion. Achilles tendon appears normal. IMPRESSION: No acute osseous abnormality. If there is continued clinical concern or persistent symptoms, repeat radiographs or cross-sectional imaging (e.g. CT, MRI) may be helpful for further evaluation. Approved by: Leno Anaya M.D. on 02/28/2025 at 11:55
--- NOTE | 2025-02-28 13:06 | ED.LOWEXIN ---
HPI - Extremity Injury (Lower) <Micaela Friedman PA-C - Last Filed: 02/28/25 14:38> General Chief Complaint: Extremity Injury, Lower Stated Complaint: Hurt Achilles non Weight bearing right foot x 4 Time Seen by Provider: 02/28/25 12:44 Source: patient Mode of arrival: Wheelchair History of Present Illness HPI Narrative: Mr. Sumner is a pleasant 84-year-old male with a past medical history of COPD on 2 L nasal cannula at home, prior left ankle fracture, hypertension who presents to the emergency department for right ankle pain and pop that occurred on Tuesday. Patient states that he was stepping down when he heard and felt a pop of his right ankle and has been having pain in his Achilles tendon ever since. Describes pain on the back of the right ankle that is worse with plantar flexion and dorsiflexion. No open wounds. He has been using a wheelchair and is normal chronic pain medications. His noticed some bruising in the lateral aspect of the right ankle. No fall or other injuries. Related Data Home Medications Medication Instructions Recorded Confirmed CA PANTOTHENATE/FOLIC ACID/VIT 1 tab PO Q DAY ##0 07/31/12 09/14/24 (MULTIVITAMIN) aspirin 81 mg tablet,delayed 81 mg PO DAILY ##0 07/31/12 09/14/24 release hydrocodone 10 mg-acetaminophen 2 tab PO BID 04/23/22 09/14/24 325 mg tablet albuterol sulfate 90 mcg/actuation 2 inh inhalation DIRECTED 10/25/23 09/14/24 aerosol inhaler budesonide 160 mcg-glycopyr 9 2 inh inhalation BID 09/14/24 09/14/24 mcg-formot 4.8 mcg/actuation HFA inhaler (Breztri Aerosphere) Previous Rx's Medication Instructions Recorded guaifenesin 1,200 mg tablet, 1,200 mg PO BID #30 tabs 02/29/24 extended release 12 hr (Mucinex) ipratropium 0.5 mg-albuterol 3 mg 3 ml inhalation BID #180 mL 02/29/24 (2.5 mg base)/3 mL nebulization soln finasteride 5 mg tablet 5 mg PO DAILY #90 tabs 03/05/24 losartan 25 mg tablet 25 mg PO DAILY #30 tabs 06/27/24 beclomethasone dipropionate 80 1 inh inhalation BID #10.6 grams 08/14/24 mcg/actuation HFA breath activated aerosol (Qvar RediHaler) prednisone 10 mg tablet See Rx Instructions .Route 09/17/24 .COMPLEX #50 tabs Allergies Allergy/AdvReac Type Severity Reaction Status Date / Time No Known Drug Allergies Allergy Verified 09/05/24 09:48 Review of Systems <Micaela Friedman PA-C - Last Filed: 02/28/25 14:38> Review of Systems ROS Unobtainable: All systems reviewed & are unremarkable except as noted in HPI and below Patient History <Micaela Friedman PA-C - Last Filed: 02/28/25 14:38> Medical History Easy bruisability Bleeds easily Tobacco use 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 History of tobacco use History of bladder cancer Lower urinary tract symptoms Male circumcision Rheumatoid arthritis Kidney stones High blood pressure Cancer of bladder Surgical History Hx of cystoscopy (01/11/23) Hx of appendectomy History of urologic surgery (04/23/22) Hx of cystoscopy History of transurethral resection of prostate H/O hernia repair Social History marital status: number of children: 4 household members: spouse alcohol intake: current Smoking Status: Never smoker alcohol intake frequency: 0-2 drinks per day Alcohol type: hard liquor Exam <Micaela Friedman PA-C - Last Filed: 02/28/25 14:38> Narrative Exam Narrative: GENERAL: 84 year old patient appears stated age. In no acute distress, sitting in wheelchair, does not want to be moved from wheelchair HEAD: Atraumatic. Normocephalic. RESPIRATORY: ?Nonlabored respirations. ?Speaking in clear, full sentences. ? EXTREMITIES: Patient has ecchymosis on the lateral aspect of the right ankle and foot. There is tenderness to palpation of the right Achilles tendon, there is somewhat of a soft defect in the posterior right ankle, unable to do proper Velarde test as patient is unable to tolerate a prone position. Patient is able to actively dorsiflex and plantar flex his right ankle however. No focal tenderness to palpation of the lateral or medial ankle, foot or phalanxes. He has a strong DP and PT pulse and brisk capillary refill on both feet. No right calf tenderness. No wounds. NEURO: AOx3. ?Clear speech. ?Moves all 4 extremities appropriately. SKIN: No rash or erythema of visible areas Initial Vital Signs Initial Vital Signs: Vital Signs Temperature 98 F 02/28/25 11:08 Pulse Rate 60 02/28/25 11:08 Respiratory Rate 18 02/28/25 11:08 Blood Pressure 139/99 H 02/28/25 11:08 Pulse Oximetry 97 02/28/25 11:08 Oxygen Delivery Method Room Air 02/28/25 11:08 <Melchor Hernández MD - Last Filed: 03/05/25 10:26> Initial Vital Signs Initial Vital Signs: Vital Signs Temperature 98 F 02/28/25 11:08 Pulse Rate 60 02/28/25 11:08 Respiratory Rate 18 02/28/25 11:08 Blood Pressure 139/99 H 02/28/25 11:08 Pulse Oximetry 97 02/28/25 11:08 Oxygen Delivery Method Room Air 02/28/25 11:08 Course <Micaela Friedman PA-C - Last Filed: 02/28/25 14:38> Orders Ordered: ED Orders 02/28/25 11:16 XR ankle RT min 3V Stat Vital Signs Vital signs: Vital Signs - 8 hr 02/28/25 11:08 02/28/25 13:47 02/28/25 13:47 Temperature 98 F Pulse Rate 60 89 Pulse Rate [Right Dorsalis Pedis] 64 Respiratory Rate 18 20 Blood Pressure 139/99 H 146/76 H Pulse Oximetry 97 95 Oxygen Delivery Method Room Air Room Air <Melchor Hernández MD - Last Filed: 03/05/25 10:26> Orders Ordered: ED Orders 02/28/25 11:16 XR ankle RT min 3V Stat Vital Signs Vital signs: Vital Signs - 8 hr 02/28/25 11:08 02/28/25 13:47 02/28/25 13:47 Temperature 98 F Pulse Rate 60 89 Pulse Rate [Right Dorsalis Pedis] 64 Respiratory Rate 18 20 Blood Pressure 139/99 H 146/76 H Pulse Oximetry 97 95 Oxygen Delivery Method Room Air Room Air MDM - Extremity Injury (Lower) <Micaela Friedman PA-C - Last Filed: 02/28/25 14:38> Medical Records Attestation: I reviewed the patient's medical records. Imaging Data Right Ankle X-Ray: My Impression: On my independent interpretation of right ankle x-ray, I do not see a fracture of the medial or lateral malleolus. Radiologist's Impression: PROCEDURE: XR ANKLE RT MIN 3V INDICATIONS: felt a pop/can't walk x 4 days TECHNIQUE: 3 views of the ankle were acquired. COMPARISON: None. FINDINGS: Bones: No acute fractures or dislocations. Ankle mortise is normally aligned. No suspicious bony lesions. Small plantar calcaneal enthesophyte. Soft tissues: No tibiotalar joint effusion. Achilles tendon appears normal. IMPRESSION: No acute osseous abnormality. If there is continued clinical concern or persistent symptoms, repeat radiographs or cross-sectional imaging (e.g. CT, MRI) may be helpful for further evaluation. Approved by: Leno Anaya M.D. on 02/28/2025 at 11:55 [facility] Narrative Medical decision making narrative: 84-year-old male with a past medical history of COPD on 2 L nasal cannula at home, prior left ankle fracture, hypertension who presents to the emergency department for right ankle pain and pop that occurred on Tuesday. Differential diagnosis includes but is not limited to right ankle ligament sprain, strain, fracture, Achilles tendon rupture, etc. On exam the patient is in no acute distress, nontoxic appearing, vital signs appropriate. His lower extremities are neurovascularly intact with good sensation and pulses. He does have some chronic changes of his left ankle because of prior surgeries, his right ankle reveals ecchymosis on the lateral aspect, tenderness to palpation of the posterior Achilles tendon. Unable to place patient in the prone position to do proper Velarde test however he still does have plantar dorsiflexion intact of the right ankle but I do feel perhaps a small defect in the Achilles tendon. X-ray obtained reveals no acute osseous abnormality, Achilles tendon appears normal. At this time I suspect patient's pain is related to right ankle sprain, possible injury to Achilles tendon this well. Discussed splinting versus orthopedic boot with the patient and his , he will do best with an orthopedic boot which he was placed into in the emergency department. He has not interested in crutches and will instead use a wheelchair at home. Advised prompt follow up with Orthopedics for further evaluation of right ankle soft tissue injury. Discussed strict ED return precautions, rice therapy. Patient his verbalized understanding of all information agreeable with the plan. He is stable for discharge home. Discharge Plan Departure Patient Disposition: Home Clinical Impression: Achilles tendon pain Right ankle sprain Qualifiers: Encounter type: initial encounter Involved ligament of ankle: unspecified ligament Qualified Code(s): S93.401A - Sprain of unspecified ligament of right ankle, initial encounter Instructions: DI for Ankle Sprain, DI for Achilles Tendon Rupture Activity Restrictions/Additional Instructions: Dear Mr. Sumner, Thank you for coming to the emergency department. Today you were evaluated for right ankle injury. X-ray revealed no bony abnormalities, and your Achilles tendon appears normal on x-ray however ligaments and tendons are best visualized on more advanced imaging such as MRI. You do have some bruising on the lateral aspect of your ankle that is concerning for possible ankle ligament sprain. It is very important to follow up with the orthopedic surgeon for further management evaluation of your right ankle injury. Please use the orthopedic boot and avoid bearing weight on the right ankle if possible. Please use RICE therapy for your pain in addition to ibuprofen/acetaminophen. Rest the painful area. Ice the area of pain/swelling for at least 15 minutes, 4x a day. Compress the area of swelling using a brace, wrap, or splint if applied. Elevate the painful or swollen extremity by supporting it above the level of the heart with pillows when sitting or laying. You may call to schedule an appointment with [facility], I did send your information to their office. Please follow up with your primary care doctor within the next 2-3 days for ER follow-up. (If you do not have a PCP you can call [phone]. ?to schedule an appointment with an [facility] Primary Care Provider) IF YOU DEVELOP ANY NEW OR WORSENING SYMPTOMS, RETURN TO THE ER! Please read the attached instructions, they highlight more specific treatments and interventions for you at home. Thank you for letting me participate in your care, Micaela Friedman PA-C Prescriptions: No Action aspirin 81 mg Tablet,Delayed Release (Dr/Ec) 81 mg PO DAILY Qty: 0 CA PANTOTHENATE/FOLIC ACID/VIT (MULTIVITAMIN) 1 tab PO Q DAY Qty: 0 finasteride 5 mg tablet 5 mg PO DAILY Qty: 90 3RF albuterol sulfate 90 mcg/actuation HFA aerosol inhaler 2 inh inhalation DIRECTED losartan 25 mg tablet 25 mg PO DAILY Qty: 30 0RF hydrocodone-acetaminophen 10-325 mg tablet 2 tab PO BID Patient Comments: TAKE 2 TABLETS BY MOUTH TWICE DAILY NEEDED Qvar RediHaler 80 mcg/actuation HFA aerosol breath activated 1 inh inhalation BID Qty: 10.6 0RF Breztri Aerosphere 160-9-4.8 mcg/actuation HFA aerosol inhaler 2 inh INHALATION BID prednisone 10 mg tablet See Rx Instructions .ROUTE .COMPLEX Qty: 50 0RF Rx Instructions: take 40 mg daily x5 days, 30 mg daily x5 days, 20 mg daily x5 days, 10 mg daily x 5 days ipratropium-albuterol 0.5 mg-3 mg(2.5 mg base)/3 mL solution for nebulization 3 ml inhalation BID Qty: 180 11RF guaifenesin [Mucinex] 1,200 mg tablet extended release 12hr 1,200 mg PO BID Qty: 30 5RF Referrals: Zac Phillips MD [Primary Care Provider] - Marty Sam MD [Physician] - (R ankle injury seen in ER, sprain or possible Achilles injury ) Stand Alone Forms: Patient Portal/API/Survey ED Sign-out <Melchor Hernández MD - Last Filed: 03/05/25 10:26> Cosign ED Attending Cosignature Attestation: I was immediately available in the department for consultation. ?This documentation has been reviewed and I agree with assessment and plan. Supervised by Melchor Hernández MD
[2025-02-28 13:47] VITALS: BP 146/76; PULSE 64; PULSE 89; RESP 20; O2SAT 95
== END 2025-02-28 13:55 | disposition home or self-care (01) ==
PROVIDERS: Emergency Provider Physician Assistant; PCP Internal Medicine
DX: S93.401A Sprain of unspecified ligament of right ankle, initial encounter (principal); X58.XXXA Exposure to other specified factors, initial encounter
CPT/HCPCS: 73610; 99282; 99283

== ENCOUNTER → 2025-03-22 11:08 | Outpatient (CLI) | payer MEDICARE, SELFPAY ==
[2024-09-14 15:19] VITALS: BMI 28.8
--- NOTE | 2025-03-22 11:09 | EKG_ITS ---
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
== END ==
PROVIDERS: PCP Internal Medicine; Referring Provider Orthopaedic Surgery; Visit Provider Orthopaedic Surgery
DX: Z01.818 Encounter for other preprocedural examination (principal)
CPT/HCPCS: 93005

== ENCOUNTER 2025-07-23 08:04 | Inpatient (IN) | payer MEDICARE, SELFPAY ==
[2024-09-14 15:19] VITALS: BMI 28.8
[2025-07-23] VITALS (145 sets, daily range): BP systolic 63–175; BP diastolic 38–126; PULSE 84–180; RESP 16–40; TEMP 36.7–36.8; O2SAT 87–99; BMI 30.4
--- NOTE | 2025-07-23 08:13 | EKG_ITS ---
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
--- NOTE | 2025-07-23 08:13 | ED_ITS ---
HPI - SOB/Dyspnea General Chief Complaint: Shortness of Breath/Dyspnea Stated Complaint: COPD Exacerbation Time Seen by Provider: 07/23/25 08:05 History of Present Illness HPI Narrative: 84-year-old gentleman past medical history of COPD on 2 L nasal cannula, chronic respiratory failure, prior left ankle fracture, hypertension presents with shortness breath, dyspnea on exertion, palpation, diarrhea for the past few days brought in via EMS given dilatiazem and solumedrol prior to arrival here in ER. Other than what is stated 14 pt ROS is negative. Related Data Home Medications ?Medication ?Instructions ?Recorded ?Confirmed CA PANTOTHENATE/FOLIC ACID/VIT 1 tab PO Q DAY ##0 07/1704/11/25 (MULTIVITAMIN) aspirin 81 mg tablet,delayed 81 mg PO DAILY ##0 04/11/25 release hydrocodone 10 mg-acetaminophen 2 tab PO BID 04/23/22 04/11/25 325 mg tablet albuterol sulfate 90 mcg/actuation 2 inh inhalation DIRECTED 10/25/23 04/11/25 aerosol inhaler Previous Rx's ?Medication ?Instructions ?Recorded guaifenesin 1,200 mg tablet, 1,200 mg PO BID #30 tabs 02/29/24 extended release 12 hr (Mucinex) ipratropium 0.5 mg-albuterol 3 mg 3 ml inhalation BID #180 mL 02/29/24 (2.5 mg base)/3 mL nebulization soln losartan 25 mg tablet 25 mg PO DAILY #30 tabs 03/18 05/09 beclomethasone dipropionate 80 1 inh inhalation BID #1 0.6 grams 08/14/24 mcg/actuation HFA breath activated aerosol (Qvar RediHaler) prednisone 10 mg tablet See Rx Instructions .Route 1 11/18/23 .COMPLEX #50 tabs budesonide 160 mcg-glycopyr 9 2 inh PO BID #10.7 grams 03/22/25 mcg-formot 4.8 mcg/actuation HFA inhaler (Breztri Aerosphere) finasteride 5 mg tablet 5 mg PO DAILY #90 tabs 06/03 Allergies Allergy/AdvReac Type Severity Reaction Status Date / Time No Known Drug Allergies Allergy Verified 07/23/25 08:16 Review of Systems Review of Systems ROS Unobtainable: All systems reviewed & are unremarkable except as noted in HPI and below Patient History Medical History (Updated 07/23/25 @ 12:06 by George Eugene DO) History of shortness of breath Left anterior fascicular block Atrial tachycardia Heart failure with mid-range ejection fraction Anesthesia complication Easy bruisability Bleeds easily Tobacco use 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 History of tobacco use History of bladder cancer Lower urinary tract symptoms Male circumcision Rheumatoid arthritis Kidney stones High blood pressure Cancer of bladder Surgical History (Updated 03/22/25 @ 10:03 by Maritza Tavera RN) S/P cervical spinal fusion History of ankle surgery (10/2024) H/O transurethral resection of bladder tumor (TURBT) (10/25/23) Hx of cystoscopy (01/11/23) Hx of appendectomy History of urologic surgery (04/23/22) Hx of cystoscopy History of transurethral resection of prostate H/O hernia repair Social History marital status: number of children: 4 household members: spouse alcohol intake: current alcohol intake frequency: 0-2 drinks per day Alcohol type: hard liquor Exam Narrative Exam Narrative: GENERAL: [84] year old patient appears stated age. Well-developed patient, in mild distress. HEAD: Atraumatic. Normocephalic. EYES: Pupils equal round and reactive. Extraocular motions intact. No scleral icterus. No injection or drainage. ENT: Nose without bleeding, purulent drainage. Throat without erythema, tonsillar hypertrophy or exudate. Airway patent. NECK: Trachea midline. Non tender CARDIOVASCULAR: Tachycardic irregularly irregular rate and rhythm without murmurs, gallops, or rubs. RESPIRATORY: Clear to auscultation. Breath sounds equal bilaterally. No wheezes, rales, or rhonchi. GASTROINTESTINAL: Abdomen soft, non-tender, nondistended. EXTREMITIES: No edema or joint tenderness. BACK: Nontender without deformity or crepitance. No flank tenderness. NEURO: AOx3. SKIN: No rash or erythema of visible areas Initial Vital Signs Initial Vital Signs: Vital Signs Pulse Rate 174 H 07/23/25 08:09 Respiratory Rate 36 H 07/23/25 08:09 Pulse Oximetry 87 L 07/23/25 08:09 Procedures Cardioversion Time of Cardioversion: 15:09 Consent Signed: Yes Indication: Rapid Afib RVR Stability: Unstable Number of attempts (shocks): 3 Joules used: 100, 150 and 200 Cardiac rhythm post-cardioversion: Afib Additional Comments: Patient tolerated procedure with no complication Course Orders Ordered: ED Orders 07/23/25 08:25 XR chest 1V Stat [facility] Creatine Kinase MB Routine EKG-12 Lead Stat 07/23/25 08:26 CT angio chest PE protocol Stat Venous Blood Gas STAT 07/23/25 08:30 Complete Blood Count AUTO DIFF Stat Comprehensive Metabolic Panel Stat Covid-19 + FLU A/B + RSV - PCR Stat Lactate (Lactic Acid) Stat Lipase Stat Magnesium Stat NT-proBNP (BNP-Adult 18+) Stat Troponin I Stat 07/23/25 09:10 BiPAP Ventilatory Support RT PROTOCOL 07/23/25 09:37 Blood Culture Stat 07/23/25 10:30 Urine Culture Stat Urine Microscopic Stat 07/23/25 10:36 Trop I [Troponin I] Stat 07/23/25 11:03 Trop I [Troponin I] Stat Diltiazem HCl 125 mg/ Sodium (Chloride) 125 mls @ 5 mls/hr IV TITRATE MICKY; Protocol Last Titration: 07/23/25 09:30 Dose: 15 mg/hr, 15 mls/hr Documented By: Titration: 07/23/25 09:23 Dose: 0 mg/hr, 0 mls/hr Documented By: Titration: 07/23/25 09:04 Dose: 15 mg/hr, 15 mls/hr Documented By: Titration: 07/23/25 08:59 Dose: 10 mg/hr, 10 mls/hr Documented By: Admin: 07/23/25 08:58 Dose: 5 mg/hr, 5 mls/hr Documented By: ANAMARIA Heparin Sodium/Dextrose (Heparin Drip) 25,000 unit in 500 mls @ 20.139 mls/hr IV CONT MICKY; Protocol Last Admin: 07/23/25 10:30 Dose: 11.1 units/kg/hr, 20.139 mls/hr Documented By: ANAMARIA Co-signed By: YISSEL Discontinued Medications Adenosine (Adenosine 6 Mg/2 Ml Vial) 6 mg IV NOW ONE Stop: 07/23/25 08:25 Last Admin: 07/23/25 08:41 Dose: 6 mg Documented By: ES Adenosine (Adenosine 6 Mg/2 Ml Vial) 12 mg IV NOW ONE Stop: 07/23/25 08:25 Last Admin: 07/23/25 08:42 Dose: 12 mg Documented By: ES Adenosine (Adenosine 6 Mg/2 Ml Vial) 12 mg IV NOW ONE Stop: 07/23/25 09:03 Last Admin: 07/23/25 08:46 Dose: 12 mg Documented By: ES Albuterol/Ipratropium (Albuterol/Ipratropium 3 Ml Ampul) 3 ml INH Q20M MICKY Stop: 07/23/25 09:41 Last Admin: 07/23/25 09:39 Dose: 3 ml Documented By: Admin: 07/23/25 09:25 Dose: 3 ml Documented By: Admin: 07/23/25 09:11 Dose: 3 ml Documented By: JOEL Diltiazem HCl (Diltiazem 25 Mg/5 Ml Sdv) 10 mg IV NOW ONE Stop: 07/23/25 08:49 Last Admin: 07/23/25 08:52 Dose: 10 mg Documented By: ANAMARIA Furosemide (Furosemide 40 Mg/4 Ml Vial) 40 mg IV NOW ONE Stop: 07/23/25 08:56 Last Admin: 07/23/25 08:59 Dose: 40 mg Documented By: ANAMARIA Heparin Sodium (Porcine) (Heparin 5,000 Unit/Ml Vial) 4,500 unit 50 unit/kg (4500 unit) IV NOW ONE Stop: 07/23/25 09:38 Last Admin: 07/23/25 10:29 Dose: 4,500 unit Documented By: ANAMARIA Amiodarone HCl/Dextrose (Nexterone) 150 mg in 100 mls @ 600 mls/hr IV NOW ONE; Protocol Stop: 07/23/25 09:26 Last Infusion: 07/23/25 10:15 Dose: Infused Documented By: Admin: 07/23/25 09:20 Dose: 600 mls/hr Documented By: YISSEL Vital Signs Vital signs: Vital Signs - 8 hr 07/23/25 08:09 07/23/25 08:11 07/23/25 08:11 Temperature Pulse Rate 174 H 174 H Respiratory Rate 36 H 31 H Blood Pressure 134/94 H Pulse Oximetry 87 L 90 L Oxygen Delivery Method Nasal Cannula Oxygen Flow Rate 2 Fraction of Inspired Oxygen 07/23/25 08:16 07/23/25 08:30 07/23/25 08:38 Temperature 98.0 F Pulse Rate 171 H 176 H Respiratory Rate 24 30 H Blood Pressure 134/94 H 142/93 H Pulse Oximetry 92 94 Oxygen Delivery Method Nasal Cannula Nasal Cannula Oxygen Flow Rate 2 2 Fraction of Inspired Oxygen 07/23/25 08:38 07/23/25 08:52 07/23/25 08:58 Temperature Pulse Rate 174 H 180 H 180 H Respiratory Rate 38 H Blood Pressure 142/90 H 142/93 H Pulse Oximetry 94 Oxygen Delivery Method Nasal Cannula Oxygen Flow Rate 4 Fraction of Inspired Oxygen 07/23/25 09:00 07/23/25 09:00 07/23/25 09:01 Temperature Pulse Rate 178 H Respiratory Rate 29 H Blood Pressure 154/111 H 175/90 H Pulse Oximetry Oxygen Delivery Method Oxygen Flow Rate Fraction of Inspired Oxygen 07/23/25 09:01 07/23/25 09:06 07/23/25 09:06 Temperature Pulse Rate 180 H 179 H Respiratory Rate 26 H 28 H Blood Pressure 131/88 Pulse Oximetry 90 L 95 Oxygen Delivery Method Oxygen Flow Rate Fraction of Inspired Oxygen 07/23/25 09:10 07/23/25 09:12 07/23/25 09:14 Temperature Pulse Rate 176 H Respiratory Rate 24 Blood Pressure 131/88 136/108 H Pulse Oximetry 94 Oxygen Delivery Method Oxygen Flow Rate Fraction of Inspired Oxygen 35 07/23/25 09:14 07/23/25 09:15 07/23/25 09:15 Temperature Pulse Rate 177 H 176 H Respiratory Rate 29 H 29 H Blood Pressure 134/112 H Pulse Oximetry 94 94 Oxygen Delivery Method BiPAP Oxygen Flow Rate Fraction of Inspired Oxygen 07/23/25 09:21 07/23/25 09:21 07/23/25 09:30 Temperature Pulse Rate 176 H 166 H Respiratory Rate 29 H 28 H Blood Pressure 149/126 H Pulse Oximetry 94 93 Oxygen Delivery Method BiPAP Oxygen Flow Rate Fraction of Inspired Oxygen 07/23/25 09:30 07/23/25 09:35 07/23/25 09:35 Temperature Pulse Rate 162 H Respiratory Rate 29 H Blood Pressure 138/88 120/85 Pulse Oximetry 93 Oxygen Delivery Method BiPAP Oxygen Flow Rate Fraction of Inspired Oxygen 07/23/25 09:40 07/23/25 09:40 07/23/25 09:46 Temperature Pulse Rate 161 H 163 H Respiratory Rate 31 H 31 H Blood Pressure 121/94 H Pulse Oximetry 94 91 Oxygen Delivery Method BiPAP Oxygen Flow Rate Fraction of Inspired Oxygen 07/23/25 09:46 07/23/25 09:50 07/23/25 09:50 Temperature Pulse Rate 163 H Respiratory Rate 30 H Blood Pressure 132/103 H 140/105 H Pulse Oximetry Oxygen Delivery Method Oxygen Flow Rate Fraction of Inspired Oxygen 07/23/25 09:55 07/23/25 09:55 07/23/25 09:59 Temperature Pulse Rate 166 H 164 H Respiratory Rate 31 H 29 H Blood Pressure 135/94 H Pulse Oximetry 95 97 Oxygen Delivery Method BiPAP Oxygen Flow Rate Fraction of Inspired Oxygen 07/23/25 09:59 07/23/25 10:00 07/23/25 10:10 Temperature Pulse Rate 165 H 157 H Respiratory Rate 32 H 25 H Blood Pressure 157/117 H Pulse Oximetry 96 94 Oxygen Delivery Method Oxygen Flow Rate Fraction of Inspired Oxygen 07/23/25 10:10 07/23/25 10:16 07/23/25 10:16 Temperature Pulse Rate 160 H Respiratory Rate 30 H Blood Pressure 114/83 159/91 H Pulse Oximetry 92 Oxygen Delivery Method BiPAP Oxygen Flow Rate Fraction of Inspired Oxygen 07/23/25 10:20 07/23/25 10:20 07/23/25 10:24 Temperature Pulse Rate 166 H 156 H Respiratory Rate 38 H 24 Blood Pressure 145/98 H Pulse Oximetry 95 Oxygen Delivery Method Oxygen Flow Rate Fraction of Inspired Oxygen 07/23/25 10:30 07/23/25 10:36 07/23/25 10:36 Temperature Pulse Rate 164 H 168 H Respiratory Rate 22 21 Blood Pressure 121/90 Pulse Oximetry 93 94 Oxygen Delivery Method BiPAP Oxygen Flow Rate Fraction of Inspired Oxygen 07/23/25 10:40 07/23/25 10:40 Temperature Pulse Rate 162 H Respiratory Rate 25 H Blood Pressure 110/86 Pulse Oximetry 94 Oxygen Delivery Method BiPAP Oxygen Flow Rate Fraction of Inspired Oxygen MDM - SOB/Dyspnea Lab Data 07/23/25 08:30 07/23/25 08:30 Labs: Lab Results 07/23/25 07/23/25 07/23/25 Range/Units 08:30 10:30 11:03 WBC 15.0 H (4.5-11.0) X10^3/uL RBC 4.67 (4.5-5.9) X10^6/uL Hgb 14.4 (13.5-17.5) g/dL Hct 44.2 (41-53) % MCV 94.6 (80-100) fL MCH 30.8 (26-34) PG MCHC 32.6 (30-36) % RDW 15.2 H (11.6-14.8) % Plt Count 281 (150-400) X10^3/uL Neut % (Auto) 73.0 (50-75) % Lymph % (Auto) 18.8 L (25-40) % [place] % (Auto) 7.4 (3-14) % Eos % (Auto) 0.4 L (2-4) % Baso % (Auto) 0.4 (0-2) % Neut # (Auto) 38493 H (2450-5594) /uL Lymph # (Auto) 2800 (8869-6339) /uL [place] # (Auto) 1100 H (0-900) /uL Eos # (Auto) 100 (0-450) /uL Baso # (Auto) 100 (0-100) /uL Sodium 138 (137-145) mmol/L Potassium 4.2 (3.4-5.1) mmol/L Chloride 96 L (98-107) mmol/L Carbon Dioxide 34 H (22-32) mmol/L BUN 29 H (9-20) mg/dL Creatinine 0.80 (0.66-1.25) mg/dL Estimated GFR > 60 (>60) mL/min BUN/Creatinine Ratio 36.3 H (6-22) Glucose 165 H (70-99) mg/dL Lactate 1.7 (0.7-2.1) mmol/L Calcium 9.7 (8.4-10.2) mg/dL Magnesium 2.1 (1.6-2.3) mg/dL Total Bilirubin 1.3 (0.2-1.3) mg/dL AST 53 (17-59) IU/L ALT 63 H (<50) IU/L Alkaline Phosphatase 89 (38-126) U/L Troponin I 0.191 H* 0.180 H* (0.01-0.034) ng/mL NT-Pro-B Natriuret Pep 4150 H (<450) pg/mL Total Protein 7.5 (6.3-8.2) g/dL Albumin 4.5 (3.5-5.0) g/dL Globulin 3.0 (1.7-4.1) g/dL Albumin/Globulin Ratio 1.5 (1.0-2.8) Lipase 57 (23-300) U/L Urine RBC 10-30/hpf H (0-5/HPF) Urine WBC 1-5/hpf (0-5/HPF) Ur Squamous Epith Cells 0-1 /hpf (0-5/HPF) Urine Bacteria None seen (None) Ur Culture Indicated? Cult not indicated Vol Urine Centrifuged 10ml (spun) SARS-CoV-2 (PCR) Negative (Negative) Influenza A (RT-PCR) Flu a negative (NEGATIVE) Influenza B (RT-PCR) Flu b negative (NEGATIVE) RSV (PCR) Negative (Negative) Urine Dip Bedside Urine Glucose Negative Bedside Urine Bilirubin - Negative Bedside Urine Ketone - Negative Urine Specific [place] 1.015 Bedside Urine Occult Blood +++ Bedside Urine pH 5.5 Bedside Urine Protein - Negative Bedside Urine Urobilinogen - Negative Bedside Urine Nitrite - Negative Bedside Urine Leukocytes - Negative Esterase Imaging Data Chest x-ray: Radiologist's Impression: [address] [address] XRay Report Signed Patient: Constantino Sumner MR#: [id number] : 1940 Acct:[id number] Age/Sex: 84 / M Date of Service: 07/23/25 Loc: ED Accession Number: [id number] Procedure: XR chest 1V Ordering Provider: George Eugene D.O. PROCEDURE: XR CHEST 1V INDICATIONS: sob TECHNIQUE: One view of the chest was acquired. COMPARISON: [facility], , XR CHEST 1V, 09/14/2024, 10:20. FINDINGS: Surgical changes and devices: None. Lungs and pleura: Minimal appearance of increased pulmonary vascularity. No pleural effusions or pneumothorax. Mediastinum: Mediastinal contours appear normal. Heart size is enlarged. Bones and chest wall: No suspicious bony lesions. Overlying soft tissues appear unremarkable. IMPRESSION: Minimal increased vascularity suggestive of edema. CT scan - chest: Radiologist's Impression: [address] [place] [address] CT Scan Report Signed Patient: Constantino Sumner MR#: [id number] : 1940 Acct:[id number] Age/Sex: 84 / M Date of Service: 07/23/25 Loc: ED Accession Number: [id number] Procedure: CT angio chest PE protocol Ordering Provider: George Eugene D.O. PROCEDURE: CT ANGIO CHEST PE PROTOCOL INDICATIONS: sob afib TECHNIQUE: After the administration of intravenous contrast, 2 mm thick sections acquired from the pulmonary apices to the posterior costophrenic angles. 3-dimensional maximum intensity projection (MIP) coronal and sagittal reformats were then acquired through the thorax. For radiation dose reduction, the following was used: automated exposure control, adjustment of mA and/or kV according to patient size. COMPARISON: [facility], CT, CT ANGIO CHEST PE PROTOCOL, 07/19/2024, 9:19. FINDINGS: Image quality: Diagnostic. Some images are limited by beam hardening, patient motion or other artifacts. Pulmonary arteries: Pulmonary arteries are normal in size, and demonstrate no intraluminal filling defects to suggest central pulmonary embolism. Pulmonary venous congestion, CHF with mild right greater than left bilateral pleural effusions and mild interstitial edema. Moderate cardiomegaly with four-chamber enlargement. Moderate calcifications of the aortic valve, coronary arteries, aortic arch and descending aorta. Moderate bilateral diffuse peribronchial thickening and mild patchy right middle lobe, inferior lingula and bilateral lower lobe opacities with subsegmental atelectasis, some of which may be related expiratory result; however, bronchitis, viral infection, bronchopneumonia, or other process should be considered. Lower Neck: No enlarged lymph nodes. Thyroid: No thyroid nodules which require sonographic follow up, per consensus guidelines. Axillae: No enlarged lymph nodes. Chest Wall: Unremarkable. Bones: Moderate degenerative changes lower cervical, thoracic spine. Decreased height with sclerotic changes superior endplate of T11 vertebral body compression fracture likely chronic but has occurred in the interval since the prior CT. Mild dextroscoliosis unchanged. Lungs and Pleura: No pneumothorax. Thoracic Vessels: No aortic aneurysm. Mediastinum and Bridget: No enlarged lymph nodes. Esophagus: No wall thickening. No hiatal hernia. Upper Abdomen: Visualized upper abdomen solid organs and bowel loops appear normal. IMPRESSION: No CT evidence of pulmonary embolism. Cardiomegaly, pulmonary vascular congestion, CHF with mild bilateral pleural effusions. Peribronchial thickening and patchy opacities as discussed above. Follow-up is needed ECG Data Interpretation: Afib RVR HR 158 CA undetermined QRS [address]-t wave change Change compared to 09/14/24 MDM Narrative Medical decision making narrative: All lab work, vital signs, nurse triage note, medication list, previous ER visits, and all imaging studies reviewed. Chest x-ray minimal increased vascularity suggestive of edema. CTA chest no evidence of pulmonary embolism. Cardiomegaly or pulmonary vascular congestion CHF with mild bilateral pleural effusion. Peribronchial thickening and patchy opacities as discussed above. WBC 15 hemoglobin 14.4 platelet 281 sodium 138 potassium 4.2 chloride 96 BUN 29 creatinine 0.8 glucose 165 lactic acid 1.7 magnesium 2.1 troponin 0.191 and second trop 0.180 BNP 41 50 urine shows 10 30 RBC otherwise normal. Patient was given 125 of Solu-Medrol and 22 mg of diltiazem by EMS prior to arrival here. Patient was in AFib RVR when he came in heart rate 150s to 180s he was initially given 6 mg of adenosine followed by 12 mg and another repeat a 12 mg at this did not convert to sinus rhythm. He was given an additional 10 mg IV bolus of diltiazem and started on a diltiazem drip at 5,10, and now [address] Buckner consulted requesting amiodarone 150 mg over 10 minutes. And now started on heparin bolus and drip as well. Differential diagnosis CHF COPD NSTEMI STEMI unstable angina PE pneumonia sepsis. Case discussed with who has graciously accepted the patient for inpatient admission Airway assessed prior to start of procedure? 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] Bedside and IV Secured: [Y] Fentanyl Dose (mcg): [] IV Propofol Dose (mg): 100 ED Sedation Level: [moderate] Patient Tolerated Procedure: [well] Complications: [none] Discharge Plan Departure Patient Disposition: Admitted As Inpatient Clinical Impression: Acute non-ST elevation myocardial infarction (NSTEMI), Atrial fibrillation with rapid ventricular response CHF (congestive heart failure) Qualifiers: Heart failure type: unspecified Heart failure chronicity: acute Qualified Code(s): I50.9 - Heart failure, unspecified Pneumonia Qualifiers: Pneumonia type: due to unspecified organism Laterality: bilateral Lung location: lower lobe of lung Qualified Code(s): J18.9 - Pneumonia, unspecified organism Admit Date/Time: 07/23/25 12:08 Admit Provider: Rhett Cabral
--- NOTE | 2025-07-23 08:25 | DI.RAD.S_ITS ---
PROCEDURE: XR CHEST 1V INDICATIONS: sob TECHNIQUE: One view of the chest was acquired. COMPARISON: [facility], CR, XR CHEST 1V, 09/14/2024, 10:20. FINDINGS: Surgical changes and devices: None. Lungs and pleura: Minimal appearance of increased pulmonary vascularity. No pleural effusions or pneumothorax. Mediastinum: Mediastinal contours appear normal. Heart size is enlarged. Bones and chest wall: No suspicious bony lesions. Overlying soft tissues appear unremarkable. IMPRESSION: Minimal increased vascularity suggestive of edema. Dictated by: Palak Cruz M.D. on 07/23/2025 at 8:49 Approved by: Palak Cruz M.D. on 07/23/2025 at 8:49
--- NOTE | 2025-07-23 08:26 | DI.CT.S_ITS ---
PROCEDURE: CT ANGIO CHEST PE PROTOCOL INDICATIONS: sob afib TECHNIQUE: After the administration of intravenous contrast, 2 mm thick sections acquired from the pulmonary apices to the posterior costophrenic angles. 3-dimensional maximum intensity projection (MIP) coronal and sagittal reformats were then acquired through the thorax. For radiation dose reduction, the following was used: automated exposure control, adjustment of mA and/or kV according to patient size. COMPARISON: [facility], CT, CT ANGIO CHEST PE PROTOCOL, 07/19/2024, 9:19. FINDINGS: Image quality: Diagnostic. Some images are limited by beam hardening, patient motion or other artifacts. Pulmonary arteries: Pulmonary arteries are normal in size, and demonstrate no intraluminal filling defects to suggest central pulmonary embolism. Pulmonary venous congestion, CHF with mild right greater than left bilateral pleural effusions and mild interstitial edema. Moderate cardiomegaly with four-chamber enlargement. Moderate calcifications of the aortic valve, coronary arteries, aortic arch and descending aorta. Moderate bilateral diffuse peribronchial thickening and mild patchy right middle lobe, inferior lingula and bilateral lower lobe opacities with subsegmental atelectasis, some of which may be related expiratory result; however, bronchitis, viral infection, bronchopneumonia, or other process should be considered. Lower Neck: No enlarged lymph nodes. Thyroid: No thyroid nodules which require sonographic follow up, per consensus guidelines. Axillae: No enlarged lymph nodes. Chest Wall: Unremarkable. Bones: Moderate degenerative changes lower cervical, thoracic spine. Decreased height with sclerotic changes superior endplate of T11 vertebral body compression fracture likely chronic but has occurred in the interval since the prior CT. Mild dextroscoliosis unchanged. Lungs and Pleura: No pneumothorax. Thoracic Vessels: No aortic aneurysm. Mediastinum and Bridget: No enlarged lymph nodes. Esophagus: No wall thickening. No hiatal hernia. Upper Abdomen: Visualized upper abdomen solid organs and bowel loops appear normal. IMPRESSION: No CT evidence of pulmonary embolism. Cardiomegaly, pulmonary vascular congestion, CHF with mild bilateral pleural effusions. Peribronchial thickening and patchy opacities as discussed above. Follow-up is needed Dictated by: Alex Pastrana M.D. on 07/23/2025 at 10:45 Approved by: Alex Pastrana M.D. on 07/23/2025 at 10:57
[2025-07-23] MEDS: ADENOSINE 6 MG/2 ML VIAL IV (08:41)
[2025-07-23] MEDS: ADENOSINE 6 MG/2 ML VIAL 12 MG IV ×2 (08:42→08:46)
[2025-07-23 08:56] LABS: Add Manual Diff / Slide Review NO; Hematocrit 44.2 % (41-53); Hemoglobin 14.4 g/dL (13.5-17.5); Lymphocytes Absolute Auto 2800 /uL (1100-4500); Mean Corpuscular HGB Conc 32.6 % (30-36); Mean Corpuscular Hemoglobin 30.8 PG (26-34); Mean Corpuscular Volume 94.6 fL (80-100); Platelet Count 281 X10^3/uL (150-400)
[2025-07-23] MEDS: FUROSEMIDE 40 MG/4 ML VIAL IV (08:59)
[2025-07-23] MEDS: ALBUTEROL/IPRATROPIUM 3 ML AMPUL INH ×4 (09:11→19:04)
[2025-07-23 09:15] LABS: Alanine Aminotransferase 63 IU/L (<50); Albumin 4.5 g/dL (3.5-5.0); Albumin Globulin Ratio 1.5 (1.0-2.8); Alkaline Phosphatase 89 U/L (38-126); Blood Urea Nitrogen 29 mg/dL (9-20); Calcium 9.7 mg/dL (8.4-10.2); Carbon Dioxide 34 mmol/L (22-32); Chloride 96 mmol/L (98-107); Estimated Glomerular Filt Rate > 60 mL/min (>60); Globulin 3.0 g/dL (1.7-4.1); Glucose 165 mg/dL (70-99); HEMOLYSIS < 15 (0-50); Lactate (Lactic Acid) 1.7 mmol/L (0.7-2.1); Lipase 57 U/L (23-300); Magnesium 2.1 mg/dL (1.6-2.3); Potassium 4.2 mmol/L (3.4-5.1); Sodium 138 mmol/L (137-145); Total Protein 7.5 g/dL (6.3-8.2)
--- NOTE | 2025-07-23 09:16 | PC.NURSE ---
Addendum entered by Mere Arroyo RN 07/23/25 09:33: Correction: Pt given adenosine 03/28/12 not amiodarone Original Note: Pt presents to ED with COPD exacerbation with A fib and RVR. Tachy in 170s-180s on arrival. Received Amiodarone 6mg/12mg/12mg (see MAR for times). Received Dilt bolus and started on drip, titrated up to 15mg per MD order at bedside (see MAR for time). On 2L O2 at home and place on 2L on arrival, RT increased to 4L, then placed on BiPAP (see RT/VS charting for times). Pt received bolus of Lasix as well. Remains in 170s/180s at this time.
[2025-07-23] MEDS: AMIODARONE 150 MG/100 ML PIGGYBACK 600 MG IV (09:20)
[2025-07-23 09:26] LABS: NT-proBNP (BNP-Adult 18+) 4150 pg/mL (<450)
[2025-07-23 09:27] LABS: Troponin I 0.191 ng/mL (0.01-0.034)
[2025-07-23 09:31] LABS: Influenza A - CEPHEID Flu A NEGATIVE (NEGATIVE); Influenza B - CEPHEID Flu B NEGATIVE (NEGATIVE)
[2025-07-23 09:32] LABS: COVID-19 CEPHEID 4-PLEX PCR Negative (Negative)
[2025-07-23] MEDS: HEPARIN 5,000 UNIT/ML VIAL 4500 UNIT IV (10:29)
[2025-07-23] MEDS: HEPARIN DRIP 25,000 UNIT/500 ML IV.SOLN 20.139 UNIT IV (10:30)
[2025-07-23 11:00] LABS: Culture Indicated Urine Cult Not Indicated
[2025-07-23 11:42] LABS: Troponin I 0.180 ng/mL (0.01-0.034)
[2025-07-23] MEDS: AZITHROMYCIN 500 MG in DEXTROSE 5% IN WATER 250 ML 250 MG IV (13:05)
[2025-07-23] MEDS: SODIUM CHLORIDE 0.9% 500 ML 1000 ML IV (13:50)
--- NOTE | 2025-07-23 14:05 | EKG_ITS ---
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
--- NOTE | 2025-07-23 14:10 | EKG_ITS ---
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
[2025-07-23] MEDS: AMIODARONE 360 MG/200 ML PIGGYBACK 33.33 MG IV (14:51)
--- NOTE | 2025-07-23 16:05 | DI.ECHO.S_ITS ---
[facility] : : [id number] : : [place] : : [id number] : : Phone: [phone] Echocardiogram Report + + :Name: ANA ZAFAR Study Date: 07/24/2025 Height: 68 in : :[facility] ReadingLocation: Weight: 200 lb : : Gender: Male BSA: 2.0 m2 : :: 1940 Age: 84 yrs BP: 134/83 mmHg: :Reason For Study: ATRIAL FIBRILLATION WITH RAPID VENTRICULAR : :RESPONSE : :Ordering Physician: CATHRYN : :ANISHA Performed By: Marielena Gleason : :Referring: ANISHA LOCKETT : + + Interpretation Summary The left ventricle is moderately dilated. The ejection fraction is estimated to be 20-25%. Left ventricular function has markedly worsened compared to the previous exam. There is severe global hypokinesis of the left ventricle. Diastolic function could not be accurately assessed due to atrial fibrillation. The right ventricle is normal size. Right ventricular systolic function is mildly reduced. Right ventricular systolic pressure is estimated to be 38 mmHg plus the clinically estimated CVP which cannot be estimated on this exam. The left atrium is moderately dilated. There is no Doppler evidence for an interatrial shunt. Lipomatous hypertrophy of the interatrial septum is noted and chronic since prior study. There is mild mitral regurgitation. There is discrete nodular thickening of the right coronary cusp. There is no aortic valve stenosis. The ascending aorta is mildly enlarged. Procedure: A two-dimensional transthoracic echocardiogram with color flow and Doppler was performed. The study quality was technically difficult. Comparison is made with the echocardiogram of 09/16/2024. The patient was in atrial fibrillation with heart rates between 75-111 bpm during the exam. Left Ventricle: The left ventricle is moderately dilated. Left ventricular wall thickness is mildly increased. The ejection fraction is estimated to be 20-25%. Left ventricular function has markedly worsened compared to the previous exam. There is severe global hypokinesis of the left ventricle. Diastolic function could not be accurately assessed due to atrial fibrillation. Right Ventricle: The right ventricle is normal size. Right ventricular systolic function is mildly reduced. Atria: The left atrium is moderately dilated. Right atrial size is normal. Lipomatous hypertrophy of the interatrial septum is noted. There is no Doppler evidence for an interatrial shunt. Mitral Valve: The mitral valve leaflets appear mildly thickened. There is mild mitral annular calcification. There is mild mitral regurgitation. Aortic Valve: The aortic valve is trileaflet. There is discrete nodular thickening of the right coronary cusp. The aortic valve is mildly calcified. There is no aortic valve stenosis. Tricuspid Valve: The tricuspid valve leaflets are thin and pliable. There is mild tricuspid regurgitation. Right ventricular systolic pressure is estimated to be 38 mmHg plus the clinically estimated CVP which cannot be estimated on this exam. Pulmonic Valve: The pulmonic valve leaflets are thin and pliable; valve motion is normal. There is no pulmonic valvular regurgitation. Great Vessels: The aortic root is normal size. The ascending aorta is mildly enlarged. The inferior vena cava was not visualized. Pericardium/ Pleura There is no pericardial effusion. There is no pleural effusion. MMode/2D Measurements & Calculations LVIDd: 6.8 cm LVOT diam: 2.0 cm LVIDs: 6.1 cm Ao root diam: 3.4 cm FS: 10.0 % asc Aorta Diam: 3.9 cm EPSS: 2.3 cm IVSd: 1.0 cm LVPWd: 1.1 cm LV leos. diameter/BSA (cm/m^2): 3.3 LV sys. diameter/BSA (cm/m^2): 3.0 LA A2 area: 27.6 cm2 RA long axis: 6.2 cm LA A4 area: 24.3 cm2 RA area: 22.3 cm2 LA length (vol): 6.9 cm RA vol: 67.9 ml LA vol: 82.4 ml RA : 33.2 ml/m2 LA vol index: 40.3 ml/m2 RVD1 (basal): 3.5 cm RVD2 (mid): 2.4 cm TAPSE: 1.7 cm Doppler Measurements & Calculations Ao V2 max: 146.2 cm/sec LVOT Max Yoandy: 65.3 cm/sec Ao V2 mean: 101.1 cm/sec LV V1 max P.7 mmHg Ao max P.6 mmHg LV V1 VTI: 11.6 cm Ao mean P.6 mmHg JENN(I,D): 1.5 cm2 Ao V2 VTI: 24.2 cm JENN(V,D): 1.4 cm2 sev ratio: 0.48 JENN indexed to BSA (cm^2/m^2): 0.72 MV E max yoandy: 99.4 cm/sec TR max yoandy: 307.0 cm/sec Med Peak E' Yoandy: 3.5 cm/sec TR max P.7 mmHg E/E' med: 28.1 PA V2 max: 82.4 cm/sec Lat Peak E' Yoandy: 4.8 cm/sec PA V2 mean: 56.6 cm/sec E/E' lat: 20.5 PA mean P.4 mmHg E/e' average: 24.3 PA pr(Accel): 43.9 mmHg MV dec time: 0.19 sec SV(LVOT): 35.7 ml Reading Physician:08:21 AM
--- NOTE | 2025-07-23 16:08 | P.HP_ITS ---
History of Present Illness History of Present Illness Date Patient Seen: 07/23/25 Chief complaint: COPD Exacerbation Narrative: Chief complaint: Dyspnea palpitations shortness for breath with pulmonary infiltrate and AFib rapid ventricular response History of present illness: 07/23: 84-year-old male with a history of COPD on chronic oxygen had increasing shortness of breath dyspnea on exertion palpitations and diarrhea for the past few days EMS was called and gave IV diltiazem for tachycardia rate greater than 170 and Solu-Medrol on route. Placed on BiPAP in the emergency department Patient had refractory tachycardia with atrial fibrillation despite IV diltiazem titrated up to 15 milligrams/hour and bolus with IV amiodarone. Patient was given IV heparin and cardioverted taking 3 DC cardioversions at increasing current. The patient remained in atrial fibrillation but the rate was controlled at about 70-110. Patient was admitted to the intensive care unit Findings in the emergency department workup significant for: Chest x-ray showing enlarged cardiac silhouette bilateral airspace opacities suggesting infiltrates and or pulmonary edema EKG showing atrial fibrillation rapid ventricular response with ST segment and T-wave changes related to rate CT angio negative for pulmonary edema but shows multifocal infiltrates and [place] [address] with 73% neutrophils Sodium 138 potassium 4.2 BUN 34 creatinine 29 Lactate 1.7 Initial troponin 0.19 3-hour 0.18 Review of systems: Patient unable to give a review of systems as sedated on BiPAP Physical exam: Obese elderly male chronically ill-appearing on BiPAP sedated HEENT unremarkable Heart irregularly irregular rhythm Lungs was shortened respiratory phases with rhonchus bilaterally and rales at lower 1/2 bilaterally Abdomen is obese distended nontender scant bowel sounds 2 to 3+ lower extremity edema from the knee distally Patient's moves all limbs nonfocal unable to participate mental status Assessment and plan: Acute hypoxic respiratory failure with multiple factors component: * Bilateral pneumonia * 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 atrial fibrillation * Acute pulmonary edema * COPD exacerbation * Non STEMI likely related to perfusion demand mismatch * Morbid obesity * Ceftriaxone and doxycycline * Solu-Medrol 40 q.12 * Amiodarone and diltiazem infusion * Heparin infusion * Aspirin * BiPAP support until patient can be weaned * Consult with cardiology * Echocardiogram * Gentle diuresis DVT prophylaxis: * Covered with heparin infusion Code status: * Full code blue Disposition: * Admit to ICU inpatient expect 3 days or more of hospitalization Time based billing: * 75 minutes were involved in the evaluation of this patient including participating in acute management of initial ER stabilization discussion with Cardiology and ER provider direct evaluation of the patient [id number] review of records and current objective laboratory and imaging findings including direct viewing of images, discussion with treatment staff nursing staff in ICU [facility] Medical History (Updated 07/23/25 @ 12:06 by George Eugene, ) History of shortness of breath Left anterior fascicular block Atrial tachycardia Heart failure with mid-range ejection fraction Anesthesia complication Easy bruisability Bleeds easily Tobacco use 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 History of tobacco use History of bladder cancer Lower urinary tract symptoms Male circumcision Rheumatoid arthritis Kidney stones High blood pressure Cancer of bladder Surgical History (Updated 03/22/25 @ 10:03 by Maritza Tavera RN) S/P cervical spinal fusion History of ankle surgery (10/2024) H/O transurethral resection of bladder tumor (TURBT) (10/25/23) Hx of cystoscopy (01/11/23) Hx of appendectomy History of urologic surgery (04/23/22) Hx of cystoscopy History of transurethral resection of prostate H/O hernia repair Social History marital status: number of children: 4 household members: spouse alcohol intake: current Meds Home Medications and Allergies Home Medications ?Medication ?Instructions ?Recorded ?Confirmed ?Type CA PANTOTHENATE/FOLIC ACID/VIT 1 tab PO Q DAY ##0 07/1704/11/25 History (MULTIVITAMIN) aspirin 81 mg tablet,delayed 81 mg PO DAILY ##0 04/11/25 History release hydrocodone 10 mg-acetaminophen 2 tab PO BID 04/23/22 04/11/25 History 325 mg tablet albuterol sulfate 90 mcg/actuation 2 inh inhalation DIRECTED 10/25/23 04/11/25 History aerosol inhaler guaifenesin 1,200 mg tablet, 1,200 mg PO BID #30 tabs 02/29/24 04/11/25 Rx extended release 12 hr (Mucinex) ipratropium 0.5 mg-albuterol 3 mg 3 ml inhalation BID #180 mL 02/29/24 04/11/25 Rx (2.5 mg base)/3 mL nebulization soln losartan 25 mg tablet 25 mg PO DAILY #30 tabs 03/1804/11/25 Rx beclomethasone dipropionate 80 1 inh inhalation BID #1 0.6 grams 08/14/24 04/11/25 Rx mcg/actuation HFA breath activated aerosol (Qvar RediHaler) prednisone 10 mg tablet See Rx Instructions .Route 1 11/18/23 04/11/25 Rx .COMPLEX #50 tabs budesonide 160 mcg-glycopyr 9 2 inh PO BID #10.7 grams 03/22/25 04/11/25 Rx mcg-formot 4.8 mcg/actuation HFA inhaler (Breztri Aerosphere) finasteride 5 mg tablet 5 mg PO DAILY #90 tabs 06/03 Rx Allergies Allergy/AdvReac Type Severity Reaction Status Date / Time No Known Drug Allergies Allergy Verified 07/23/25 08:16 Exam Vital Signs (past 8 hours): - 07/23/25 08:09 07/23/25 08:11 07/23/25 08:11 Temperature Pulse Rate 174 H 174 H Respiratory Rate 36 H 31 H Blood Pressure 134/94 H Pulse Oximetry 87 L 90 L Oxygen Delivery Method Nasal Cannula Oxygen Flow Rate 2 Fraction of Inspired Oxygen 07/23/25 08:16 07/23/25 08:30 07/23/25 08:38 Temperature 98.0 F Pulse Rate 171 H 176 H Respiratory Rate 24 30 H Blood Pressure 134/94 H 142/93 H Pulse Oximetry 92 94 Oxygen Delivery Method Nasal Cannula Nasal Cannula Oxygen Flow Rate 2 2 Fraction of Inspired Oxygen 07/23/25 08:38 07/23/25 08:52 07/23/25 08:58 Temperature Pulse Rate 174 H 180 H 180 H Respiratory Rate 38 H Blood Pressure 142/90 H 142/93 H Pulse Oximetry 94 Oxygen Delivery Method Nasal Cannula Oxygen Flow Rate 4 Fraction of Inspired Oxygen 07/23/25 09:00 07/23/25 09:00 07/23/25 09:01 Temperature Pulse Rate 178 H Respiratory Rate 29 H Blood Pressure 154/111 H 175/90 H Pulse Oximetry Oxygen Delivery Method Oxygen Flow Rate Fraction of Inspired Oxygen 07/23/25 09:01 07/23/25 09:06 07/23/25 09:06 Temperature Pulse Rate 180 H 179 H Respiratory Rate 26 H 28 H Blood Pressure 131/88 Pulse Oximetry 90 L 95 Oxygen Delivery Method Oxygen Flow Rate Fraction of Inspired Oxygen 07/23/25 09:10 07/23/25 09:12 07/23/25 09:14 Temperature Pulse Rate 176 H Respiratory Rate 24 Blood Pressure 131/88 136/108 H Pulse Oximetry 94 Oxygen Delivery Method Oxygen Flow Rate Fraction of Inspired Oxygen 35 07/23/25 09:14 07/23/25 09:15 07/23/25 09:15 Temperature Pulse Rate 177 H 176 H Respiratory Rate 29 H 29 H Blood Pressure 134/112 H Pulse Oximetry 94 94 Oxygen Delivery Method BiPAP Oxygen Flow Rate Fraction of Inspired Oxygen 07/23/25 09:21 07/23/25 09:21 07/23/25 09:30 Temperature Pulse Rate 176 H 166 H Respiratory Rate 29 H 28 H Blood Pressure 149/126 H Pulse Oximetry 94 93 Oxygen Delivery Method BiPAP Oxygen Flow Rate Fraction of Inspired Oxygen 07/23/25 09:30 07/23/25 09:35 07/23/25 09:35 Temperature Pulse Rate 162 H Respiratory Rate 29 H Blood Pressure 138/88 120/85 Pulse Oximetry 93 Oxygen Delivery Method BiPAP Oxygen Flow Rate Fraction of Inspired Oxygen 07/23/25 09:40 07/23/25 09:40 07/23/25 09:46 Temperature Pulse Rate 161 H 163 H Respiratory Rate 31 H 31 H Blood Pressure 121/94 H Pulse Oximetry 94 91 Oxygen Delivery Method BiPAP Oxygen Flow Rate Fraction of Inspired Oxygen 07/23/25 09:46 07/23/25 09:50 07/23/25 09:50 Temperature Pulse Rate 163 H Respiratory Rate 30 H Blood Pressure 132/103 H 140/105 H Pulse Oximetry Oxygen Delivery Method Oxygen Flow Rate Fraction of Inspired Oxygen 07/23/25 09:55 07/23/25 09:55 07/23/25 09:59 Temperature Pulse Rate 166 H 164 H Respiratory Rate 31 H 29 H Blood Pressure 135/94 H Pulse Oximetry 95 97 Oxygen Delivery Method BiPAP Oxygen Flow Rate Fraction of Inspired Oxygen 07/23/25 09:59 07/23/25 10:00 07/23/25 10:10 Temperature Pulse Rate 165 H 157 H Respiratory Rate 32 H 25 H Blood Pressure 157/117 H Pulse Oximetry 96 94 Oxygen Delivery Method Oxygen Flow Rate Fraction of Inspired Oxygen 07/23/25 10:10 07/23/25 10:16 07/23/25 10:16 Temperature Pulse Rate 160 H Respiratory Rate 30 H Blood Pressure 114/83 159/91 H Pulse Oximetry 92 Oxygen Delivery Method BiPAP Oxygen Flow Rate Fraction of Inspired Oxygen 07/23/25 10:20 07/23/25 10:20 07/23/25 10:24 Temperature Pulse Rate 166 H 156 H Respiratory Rate 38 H 24 Blood Pressure 145/98 H Pulse Oximetry 95 Oxygen Delivery Method Oxygen Flow Rate Fraction of Inspired Oxygen 07/23/25 10:30 07/23/25 10:36 07/23/25 10:36 Temperature Pulse Rate 164 H 168 H Respiratory Rate 22 21 Blood Pressure 121/90 Pulse Oximetry 93 94 Oxygen Delivery Method BiPAP Oxygen Flow Rate Fraction of Inspired Oxygen 07/23/25 10:40 07/23/25 10:40 07/23/25 10:45 Temperature Pulse Rate 162 H Respiratory Rate 25 H Blood Pressure 110/86 108/92 H Pulse Oximetry 94 Oxygen Delivery Method BiPAP Oxygen Flow Rate Fraction of Inspired Oxygen 07/23/25 10:45 07/23/25 10:50 07/23/25 10:50 Temperature Pulse Rate 166 H 165 H Respiratory Rate 22 24 Blood Pressure 119/92 H Pulse Oximetry 94 96 Oxygen Delivery Method BiPAP Oxygen Flow Rate Fraction of Inspired Oxygen 07/23/25 10:56 07/23/25 10:56 07/23/25 11:00 Temperature Pulse Rate 171 H 171 H Respiratory Rate 21 22 Blood Pressure 154/85 H Pulse Oximetry 95 93 Oxygen Delivery Method BiPAP Oxygen Flow Rate Fraction of Inspired Oxygen 07/23/25 11:01 07/23/25 11:01 07/23/25 11:06 Temperature Pulse Rate 168 H 173 H Respiratory Rate 24 24 Blood Pressure 126/86 Pulse Oximetry 93 93 Oxygen Delivery Method BiPAP Oxygen Flow Rate Fraction of Inspired Oxygen 07/23/25 11:06 07/23/25 11:11 07/23/25 11:11 Temperature Pulse Rate 170 H Respiratory Rate 24 Blood Pressure 141/79 H 153/99 H Pulse Oximetry 94 Oxygen Delivery Method Oxygen Flow Rate Fraction of Inspired Oxygen 07/23/25 11:15 07/23/25 11:15 07/23/25 11:20 Temperature Pulse Rate 171 H Respiratory Rate 21 Blood Pressure 137/75 135/77 Pulse Oximetry 93 Oxygen Delivery Method BiPAP Oxygen Flow Rate Fraction of Inspired Oxygen 07/23/25 11:20 07/23/25 11:30 07/23/25 11:30 Temperature Pulse Rate 169 H 164 H Respiratory Rate 22 24 Blood Pressure 122/85 Pulse Oximetry 93 95 Oxygen Delivery Method Oxygen Flow Rate Fraction of Inspired Oxygen 07/23/25 11:37 07/23/25 11:37 07/23/25 11:45 Temperature Pulse Rate 168 H 173 H Respiratory Rate 25 H 21 Blood Pressure 118/78 Pulse Oximetry 95 93 Oxygen Delivery Method BiPAP Oxygen Flow Rate Fraction of Inspired Oxygen 07/23/25 11:45 07/23/25 11:51 07/23/25 11:51 Temperature Pulse Rate 170 H Respiratory Rate 27 H Blood Pressure 123/96 H 117/80 Pulse Oximetry 96 Oxygen Delivery Method Oxygen Flow Rate Fraction of Inspired Oxygen 07/23/25 12:00 07/23/25 12:09 07/23/25 12:09 Temperature Pulse Rate 177 H 170 H Respiratory Rate 27 H 25 H Blood Pressure 100/82 Pulse Oximetry 95 96 Oxygen Delivery Method BiPAP Oxygen Flow Rate Fraction of Inspired Oxygen 07/23/25 12:11 07/23/25 12:15 07/23/25 12:15 Temperature Pulse Rate 166 H Respiratory Rate 25 H Blood Pressure 123/96 H 112/84 Pulse Oximetry 96 Oxygen Delivery Method BiPAP Oxygen Flow Rate Fraction of Inspired Oxygen 30 07/23/25 12:20 07/23/25 12:20 07/23/25 12:25 Temperature Pulse Rate 170 H 170 H Respiratory Rate 23 27 H Blood Pressure 105/81 Pulse Oximetry 94 95 Oxygen Delivery Method BiPAP Oxygen Flow Rate Fraction of Inspired Oxygen 07/23/25 12:25 07/23/25 12:30 07/23/25 12:30 Temperature Pulse Rate 176 H Respiratory Rate 22 Blood Pressure 108/85 119/97 H Pulse Oximetry 95 Oxygen Delivery Method Oxygen Flow Rate Fraction of Inspired Oxygen 07/23/25 12:35 07/23/25 12:35 07/23/25 12:40 Temperature Pulse Rate 163 H Respiratory Rate 23 Blood Pressure 107/90 111/95 H Pulse Oximetry 94 Oxygen Delivery Method BiPAP Oxygen Flow Rate Fraction of Inspired Oxygen 07/23/25 12:40 07/23/25 12:45 07/23/25 12:45 Temperature Pulse Rate 171 H 165 H Respiratory Rate 27 H 25 H Blood Pressure 123/88 Pulse Oximetry 95 94 Oxygen Delivery Method BiPAP Oxygen Flow Rate Fraction of Inspired Oxygen 07/23/25 12:50 07/23/25 12:50 07/23/25 12:55 Temperature Pulse Rate 170 H Respiratory Rate 23 Blood Pressure 111/80 117/80 Pulse Oximetry 93 Oxygen Delivery Method Oxygen Flow Rate Fraction of Inspired Oxygen 07/23/25 12:55 07/23/25 13:00 07/23/25 13:00 Temperature Pulse Rate 166 H 173 H Respiratory Rate 26 H 24 Blood Pressure 114/89 Pulse Oximetry 94 95 Oxygen Delivery Method BiPAP Oxygen Flow Rate Fraction of Inspired Oxygen 07/23/25 13:05 07/23/25 13:05 07/23/25 13:20 Temperature Pulse Rate 169 H Respiratory Rate 25 H Blood Pressure 103/86 119/95 H Pulse Oximetry 95 Oxygen Delivery Method BiPAP Oxygen Flow Rate Fraction of Inspired Oxygen 07/23/25 13:20 07/23/25 13:26 07/23/25 13:26 Temperature Pulse Rate 167 H 166 H Respiratory Rate 27 H 25 H Blood Pressure 135/86 Pulse Oximetry 94 95 Oxygen Delivery Method BiPAP Oxygen Flow Rate Fraction of Inspired Oxygen 07/23/25 13:30 07/23/25 13:33 07/23/25 13:33 Temperature Pulse Rate 169 H 166 H Respiratory Rate 22 23 Blood Pressure 136/88 Pulse Oximetry 95 95 Oxygen Delivery Method Oxygen Flow Rate Fraction of Inspired Oxygen 07/23/25 13:35 07/23/25 13:35 07/23/25 13:40 Temperature Pulse Rate 170 H 167 H Respiratory Rate 23 23 Blood Pressure 101/63 Pulse Oximetry 93 93 Oxygen Delivery Method Oxygen Flow Rate Fraction of Inspired Oxygen 07/23/25 13:40 07/23/25 13:45 07/23/25 13:45 Temperature Pulse Rate 167 H Respiratory Rate 23 Blood Pressure 108/79 110/88 Pulse Oximetry 94 Oxygen Delivery Method BiPAP Oxygen Flow Rate Fraction of Inspired Oxygen 07/23/25 13:51 07/23/25 13:51 07/23/25 13:54 Temperature Pulse Rate 164 H 164 H Respiratory Rate 31 H 29 H Blood Pressure 91/75 Pulse Oximetry 94 95 Oxygen Delivery Method Nasal Cannula Oxygen Flow Rate 4 Fraction of Inspired Oxygen 07/23/25 13:54 07/23/25 13:56 07/23/25 13:56 Temperature Pulse Rate 96 H Respiratory Rate 31 H Blood Pressure 111/71 103/76 Pulse Oximetry 92 Oxygen Delivery Method Nasal Cannula Oxygen Flow Rate 6 Fraction of Inspired Oxygen 07/23/25 14:00 07/23/25 14:01 07/23/25 14:01 Temperature Pulse Rate 120 H 111 H Respiratory Rate 26 H 27 H Blood Pressure 129/57 L Pulse Oximetry 94 96 Oxygen Delivery Method BiPAP Oxygen Flow Rate Fraction of Inspired Oxygen 07/23/25 14:03 07/23/25 14:03 07/23/25 14:05 Temperature Pulse Rate 101 H 103 H Respiratory Rate 22 Blood Pressure 129/63 Pulse Oximetry 98 98 Oxygen Delivery Method BiPAP Nasal Cannula Oxygen Flow Rate 6 Fraction of Inspired Oxygen 07/23/25 14:05 07/23/25 14:08 07/23/25 14:08 Temperature Pulse Rate 113 H Respiratory Rate Blood Pressure 101/55 L 120/66 Pulse Oximetry 97 Oxygen Delivery Method BiPAP Oxygen Flow Rate Fraction of Inspired Oxygen 07/23/25 14:11 07/23/25 14:11 07/23/25 14:12 Temperature Pulse Rate 99 H 102 H Respiratory Rate 25 H Blood Pressure 124/72 Pulse Oximetry 90 L 94 Oxygen Delivery Method BiPAP Oxygen Flow Rate Fraction of Inspired Oxygen 07/23/25 14:12 07/23/25 14:16 07/23/25 14:16 Temperature Pulse Rate 116 H Respiratory Rate 24 Blood Pressure 117/64 119/86 Pulse Oximetry 99 Oxygen Delivery Method BiPAP Oxygen Flow Rate Fraction of Inspired Oxygen 07/23/25 14:20 07/23/25 14:20 07/23/25 14:23 Temperature Pulse Rate 113 H 110 H Respiratory Rate 24 16 Blood Pressure 129/77 Pulse Oximetry 97 Oxygen Delivery Method BiPAP Oxygen Flow Rate Fraction of Inspired Oxygen 07/23/25 14:24 07/23/25 14:24 07/23/25 14:29 Temperature Pulse Rate 126 H 119 H Respiratory Rate 27 H 23 Blood Pressure 130/66 Pulse Oximetry 98 98 Oxygen Delivery Method BiPAP BiPAP Oxygen Flow Rate Fraction of Inspired Oxygen 07/23/25 14:29 07/23/25 14:30 07/23/25 14:33 Temperature Pulse Rate 116 H Respiratory Rate 22 Blood Pressure 91/72 124/95 H Pulse Oximetry 98 Oxygen Delivery Method Oxygen Flow Rate Fraction of Inspired Oxygen 07/23/25 14:33 07/23/25 14:37 07/23/25 14:37 Temperature Pulse Rate 109 H 112 H Respiratory Rate 22 23 Blood Pressure 126/67 Pulse Oximetry 98 98 Oxygen Delivery Method Oxygen Flow Rate Fraction of Inspired Oxygen 07/23/25 14:40 07/23/25 14:40 07/23/25 14:44 Temperature Pulse Rate 111 H 115 H Respiratory Rate 22 22 Blood Pressure 138/71 Pulse Oximetry 98 97 Oxygen Delivery Method BiPAP Oxygen Flow Rate Fraction of Inspired Oxygen 07/23/25 14:44 07/23/25 14:48 07/23/25 14:48 Temperature Pulse Rate 106 H Respiratory Rate 23 Blood Pressure 133/73 141/65 H Pulse Oximetry 97 Oxygen Delivery Method Oxygen Flow Rate Fraction of Inspired Oxygen 07/23/25 14:53 07/23/25 14:53 07/23/25 14:56 Temperature Pulse Rate 103 H 97 H Respiratory Rate 21 22 Blood Pressure 103/72 Pulse Oximetry 98 98 Oxygen Delivery Method BiPAP Oxygen Flow Rate Fraction of Inspired Oxygen 07/23/25 14:56 07/23/25 15:00 07/23/25 15:01 Temperature Pulse Rate 113 H 109 H Respiratory Rate 22 24 Blood Pressure 111/74 Pulse Oximetry 97 97 Oxygen Delivery Method BiPAP Oxygen Flow Rate Fraction of Inspired Oxygen 07/23/25 15:01 07/23/25 15:05 07/23/25 15:05 Temperature Pulse Rate 111 H Respiratory Rate 23 Blood Pressure 117/66 147/78 H Pulse Oximetry 97 Oxygen Delivery Method Oxygen Flow Rate Fraction of Inspired Oxygen 07/23/25 15:08 07/23/25 15:08 Temperature Pulse Rate 111 H Respiratory Rate 24 Blood Pressure 128/71 Pulse Oximetry 97 Oxygen Delivery Method BiPAP Oxygen Flow Rate Fraction of Inspired Oxygen Fraction of Inspired Oxygen 30 Oxygen Delivery Method BiPAP Oxygen Flow Rate 6 Objective Labs 07/23/25 08:30 07/23/25 08:30 Labs: Laboratory Results - last 24 hr 07/23/25 07/23/25 07/23/25 08:30 10:30 11:03 WBC 15.0 H RBC 4.67 Hgb 14.4 Hct 44.2 MCV 94.6 MCH 30.8 MCHC 32.6 RDW 15.2 H Plt Count 281 Neut % (Auto) 73.0 Lymph % (Auto) 18.8 L Tama % (Auto) 7.4 Eos % (Auto) 0.4 L Baso % (Auto) 0.4 Neut # (Auto) 14048 H Lymph # (Auto) 2800 Tama # (Auto) 1100 H Eos # (Auto) 100 Baso # (Auto) 100 Sodium 138 Potassium 4.2 Chloride 96 L Carbon Dioxide 34 H BUN 29 H Creatinine 0.80 Estimated GFR > 60 BUN/Creatinine Ratio 36.3 H Glucose 165 H Lactate 1.7 Calcium 9.7 Magnesium 2.1 Total Bilirubin 1.3 AST 53 ALT 63 H Alkaline Phosphatase 89 Troponin I 0.191 H* 0.180 H* NT-Pro-B Natriuret Pep 4150 H Total Protein 7.5 Albumin 4.5 Globulin 3.0 Albumin/Globulin Ratio 1.5 Lipase 57 Urine RBC 10-30/hpf H Urine WBC 1-5/hpf Ur Squamous Epith Cells 0-1 /hpf Urine Bacteria None seen Ur Culture Indicated? Cult not indicated Vol Urine Centrifuged 10ml (spun) SARS-CoV-2 (PCR) Negative Influenza A (RT-PCR) Flu a negative Influenza B (RT-PCR) Flu b negative RSV (PCR) Negative Assessment & Plan Time-Based Coding :: [TOTAL MINUTES] spent with patient and on the chart (including review of chart, obtaining history, exam, reviewing outside data, placing orders, documenting exam and treatment plan, and counseling patient) on [DATE].
[2025-07-23 17:00] LABS: PTT Partial Thromboplastin Tim 49 SECONDS (25.1-36.5)
[2025-07-23 17:16] LABS: Troponin I 0.174 ng/mL (0.01-0.034)
--- NOTE | 2025-07-23 18:41 | PC.NURSE ---
Pt brought up from ED on BIPAP 16/ 50%. Able to come off BIPAP and on 5L NC for food and water. Heparin, dilt and amio gtt. HR afib with rate 100-140. BP stable. Pt voiding in urinal. at bedside. 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
[2025-07-23] MEDS: DOXYCYCLINE HYCLATE 100 MG TABLET PO (20:04)
[2025-07-23] MEDS: AMIODARONE 360 MG/200 ML PIGGYBACK 16.7 MG IV (20:09)
[2025-07-23] MEDS: BUDESONIDE 0.5 MG/2 ML NEB INH (20:29)
--- NOTE | 2025-07-23 20:45 | RT ---
Dr. Beltrán notified regarding pt's current respiratory status at 2020. No ABGs or VBGs ordered. The pt is currently declining BiPAP at time of 2028 stating that it would be difficult to sleep with it on. Mental status: A&Ox4. He is currently supported on 3L NC with SpO2 WNLs. Noting improvement in WOB. RN notified. Will continue to monitor pt closely.
[2025-07-23] MEDS: methylPREDNISolone succ 40 MG/ML VIAL IV (23:52)
[2025-07-24] VITALS (117 sets, daily range): BP systolic 88–160; BP diastolic 51–99; PULSE 47–149; RESP 15–43; TEMP 36.4–36.9; O2SAT 87–100
[2025-07-24 00:17] LABS: PTT Partial Thromboplastin Tim 53 SECONDS (25.1-36.5)
[2025-07-24 00:30] LABS: Troponin I 0.156 ng/mL (0.01-0.034)
[2025-07-24 01:16] LABS: MRSA (Nasal) PCR NOT DETECTED (Not Detect)
[2025-07-24 06:36] LABS: Labcorp Creatine Kinase MB 6.9 ng/mL (0.0-10.4)
[2025-07-24 06:52] LABS: Add Manual Diff / Slide Review NO; Hematocrit 40.9 % (41-53); Hemoglobin 13.2 g/dL (13.5-17.5); Lymphocytes Absolute Auto 1100 /uL (1100-4500); Mean Corpuscular HGB Conc 32.3 % (30-36); Mean Corpuscular Hemoglobin 30.6 PG (26-34); Mean Corpuscular Volume 94.5 fL (80-100); Platelet Count 263 X10^3/uL (150-400)
[2025-07-24] MEDS: ALBUTEROL/IPRATROPIUM 3 ML AMPUL INH ×4 (07:00→22:37)
[2025-07-24] MEDS: BUDESONIDE 0.5 MG/2 ML NEB INH ×2 (07:00→19:32)
[2025-07-24 07:03] LABS: PTT Partial Thromboplastin Tim 54 SECONDS (25.1-36.5)
[2025-07-24 07:04] LABS: Blood Urea Nitrogen 34 mg/dL (9-20); Calcium 9.4 mg/dL (8.4-10.2); Carbon Dioxide 34 mmol/L (22-32); Chloride 93 mmol/L (98-107); Estimated Glomerular Filt Rate > 60 mL/min (>60); Glucose 203 mg/dL (70-99); HEMOLYSIS < 15 (0-50); Potassium 4.6 mmol/L (3.4-5.1); Sodium 135 mmol/L (137-145)
--- NOTE | 2025-07-24 07:46 | PM.PN.1 ---
Subjective Subjective Interval history: Summary: 07/23: 84-year-old male with a history of COPD on chronic oxygen had increasing shortness of breath dyspnea on exertion palpitations and diarrhea for the past few days EMS was called and gave IV diltiazem for tachycardia rate greater than 170 and Solu-Medrol on route. Placed on BiPAP in the emergency department Patient had refractory tachycardia with atrial fibrillation despite IV diltiazem titrated up to 15 milligrams/hour and bolus with IV amiodarone. Patient was given IV heparin and cardioverted taking 3 DC cardioversions at increasing current. The patient remained in atrial fibrillation but the rate was controlled at about 70-110. Patient was admitted to the intensive care unit Findings in the emergency department workup significant for: Chest x-ray showing enlarged cardiac silhouette bilateral airspace opacities suggesting infiltrates and or pulmonary edema EKG showing atrial fibrillation rapid ventricular response with ST segment and T-wave changes related to rate CT angio negative for pulmonary edema but shows multifocal infiltrates and [place] [id number] with 73% neutrophils Sodium 138 potassium 4.2 BUN 34 creatinine 29 Lactate 1.7 Initial troponin 0.19 3-hour 0.18 S: Sitting in chair, some dyspnea with transitioning. His legs are improved. His breathing feels somewhat better. He continues on adjuvant antibiotics, amiodarone drip, and a heparin infusion. O: NAD, alert and oriented. Fluent speech. Lungs are clear, normal rate and effort. Heart is regular, no murmur gallop or rub. Abdomen is soft, non distended. Extremities are free of edema. ECHO: The left ventricle is moderately dilated. The ejection fraction is estimated to be 20-25%. Left ventricular function has markedly worsened compared to the previous exam. There is severe global hypokinesis of the left ventricle. Diastolic function could not be accurately assessed due to atrial fibrillation. The right ventricle is normal size. Right ventricular systolic function is mildly reduced. Right ventricular systolic pressure is estimated to be 38 mmHg plus the clinically estimated CVP which cannot be estimated on this exam. The left atrium is moderately dilated. There is no Doppler evidence for an interatrial shunt. Lipomatous hypertrophy of the interatrial septum is noted and chronic since prior study. There is mild mitral regurgitation. There is discrete nodular thickening of the right coronary cusp. There is no aortic valve stenosis. The ascending aorta is mildly enlarged. A/P: Acute hypoxic respiratory failure with multiple factors component: Bilateral pneumonia Acute systolic heart failure Atrial fibrillation with RVR, improved. Acute pulmonary edema NSTEMI Morbid obesity PLAN: Ceftriaxone and doxycycline, continue. Solu-Medrol 40 q.12, continue. Amiodarone and diltiazem infusion, transition to PO amiodarone today, Heparin infusion Aspirin daily. BiPAP support until patient can be weaned Consult with cardiology, appreciated. Echocardiogram Gentle diuresis BRADLY; 07/26. DVT prophylaxis: Covered with heparin infusion Exam Vital Signs (past 8 hours): - 07/24/25 00:00 07/24/25 00:00 07/24/25 00:15 Pulse Rate 114 H 109 H Respiratory Rate 23 24 Blood Pressure 127/77 Pulse Oximetry 91 90 L Oxygen Delivery Method Oxygen Flow Rate Fraction of Inspired Oxygen 07/24/25 00:30 07/24/25 00:31 07/24/25 00:31 Pulse Rate 123 H 117 H Respiratory Rate 23 23 Blood Pressure 145/93 H Pulse Oximetry 90 L 89 L Oxygen Delivery Method Oxygen Flow Rate Fraction of Inspired Oxygen 07/24/25 00:45 07/24/25 00:47 07/24/25 01:00 Pulse Rate 125 H Respiratory Rate 31 H Blood Pressure Pulse Oximetry 89 L Oxygen Delivery Method Oxygen Flow Rate Fraction of Inspired Oxygen 30 35 07/24/25 01:00 07/24/25 01:00 07/24/25 01:15 Pulse Rate 105 H 125 H Respiratory Rate 22 Blood Pressure 131/87 131/87 Pulse Oximetry 89 L Oxygen Delivery Method Oxygen Flow Rate Fraction of Inspired Oxygen 07/24/25 01:15 07/24/25 01:30 07/24/25 01:31 Pulse Rate 120 H 118 H 123 H Respiratory Rate 21 20 20 Blood Pressure Pulse Oximetry 91 93 93 Oxygen Delivery Method Oxygen Flow Rate Fraction of Inspired Oxygen 07/24/25 01:31 07/24/25 01:45 07/24/25 02:00 Pulse Rate 118 H 118 H Respiratory Rate 21 22 Blood Pressure 117/92 H Pulse Oximetry 92 92 Oxygen Delivery Method Oxygen Flow Rate Fraction of Inspired Oxygen 07/24/25 02:01 07/24/25 02:01 07/24/25 02:15 Pulse Rate 108 H 101 H Respiratory Rate 20 23 Blood Pressure 145/90 H Pulse Oximetry 92 93 Oxygen Delivery Method Oxygen Flow Rate Fraction of Inspired Oxygen 07/24/25 02:30 07/24/25 02:31 07/24/25 02:31 Pulse Rate 106 H 117 H Respiratory Rate 21 20 Blood Pressure 140/75 Pulse Oximetry 92 92 Oxygen Delivery Method Oxygen Flow Rate Fraction of Inspired Oxygen 07/24/25 02:45 07/24/25 03:00 07/24/25 03:00 Pulse Rate 101 H 105 H Respiratory Rate 21 23 Blood Pressure 108/76 Pulse Oximetry 94 92 Oxygen Delivery Method Oxygen Flow Rate Fraction of Inspired Oxygen 07/24/25 03:09 07/24/25 03:15 07/24/25 03:30 Pulse Rate 118 H 126 H Respiratory Rate 22 19 Blood Pressure Pulse Oximetry 92 92 Oxygen Delivery Method Oxygen Flow Rate Fraction of Inspired Oxygen 35 07/24/25 03:35 07/24/25 03:35 07/24/25 03:45 Pulse Rate 103 H 96 H Respiratory Rate 22 22 Blood Pressure 118/75 Pulse Oximetry 92 91 Oxygen Delivery Method Oxygen Flow Rate Fraction of Inspired Oxygen 07/24/25 04:00 07/24/25 04:00 07/24/25 04:01 Pulse Rate 87 Respiratory Rate 21 Blood Pressure 129/70 Pulse Oximetry 91 Oxygen Delivery Method BiPAP Oxygen Flow Rate Fraction of Inspired Oxygen 07/24/25 04:01 07/24/25 04:15 07/24/25 04:30 Pulse Rate 93 H 101 H 103 H Respiratory Rate 22 20 23 Blood Pressure Pulse Oximetry 91 92 93 Oxygen Delivery Method Oxygen Flow Rate Fraction of Inspired Oxygen 07/24/25 04:31 07/24/25 04:31 07/24/25 04:45 Pulse Rate 96 H 91 H Respiratory Rate 22 22 Blood Pressure 130/61 Pulse Oximetry 93 92 Oxygen Delivery Method Oxygen Flow Rate Fraction of Inspired Oxygen 07/24/25 05:00 07/24/25 05:00 07/24/25 05:15 Pulse Rate 93 H 82 Respiratory Rate 24 23 Blood Pressure 122/81 Pulse Oximetry 90 L 91 Oxygen Delivery Method Oxygen Flow Rate Fraction of Inspired Oxygen 07/24/25 05:19 07/24/25 05:30 07/24/25 05:30 Pulse Rate 89 92 H Respiratory Rate 24 25 H Blood Pressure 127/72 Pulse Oximetry 91 91 Oxygen Delivery Method Nasal Cannula Oxygen Flow Rate 3 Fraction of Inspired Oxygen 32 07/24/25 05:45 07/24/25 06:00 07/24/25 06:00 Pulse Rate 92 H 93 H Respiratory Rate 24 21 Blood Pressure 134/83 Pulse Oximetry 88 L 90 L Oxygen Delivery Method Oxygen Flow Rate Fraction of Inspired Oxygen 07/24/25 06:15 07/24/25 06:30 07/24/25 06:30 Pulse Rate 96 H 93 H Respiratory Rate 23 22 Blood Pressure 128/73 Pulse Oximetry 91 90 L Oxygen Delivery Method Oxygen Flow Rate Fraction of Inspired Oxygen 07/24/25 07:00 07/24/25 07:00 07/24/25 07:00 Pulse Rate 89 90 Respiratory Rate 22 25 H Blood Pressure 125/91 H Pulse Oximetry 92 90 L Oxygen Delivery Method Nasal Cannula Oxygen Flow Rate 4 Fraction of Inspired Oxygen 36 07/24/25 07:15 Pulse Rate 86 Respiratory Rate 23 Blood Pressure Pulse Oximetry 92 Oxygen Delivery Method Oxygen Flow Rate Fraction of Inspired Oxygen Fraction of Inspired Oxygen 36 SaO2/FiO2 Ratio 250 Oxygen Delivery Method Nasal Cannula Oxygen Flow Rate 4 Objective Labs 07/24/25 06:40 07/24/25 06:40 Labs: Laboratory Results - last 24 hr 07/23/25 07/23/25 07/23/25 08:30 10:30 11:03 WBC 15.0 H RBC 4.67 Hgb 14.4 Hct 44.2 MCV 94.6 MCH 30.8 MCHC 32.6 RDW 15.2 H Plt Count 281 Neut % (Auto) 73.0 Lymph % (Auto) 18.8 L Dougherty % (Auto) 7.4 Eos % (Auto) 0.4 L Baso % (Auto) 0.4 Neut # (Auto) 17747 H Lymph # (Auto) 2800 Dougherty # (Auto) 1100 H Eos # (Auto) 100 Baso # (Auto) 100 APTT Sodium 138 Potassium 4.2 Chloride 96 L Carbon Dioxide 34 H BUN 29 H Creatinine 0.80 Estimated GFR > 60 BUN/Creatinine Ratio 36.3 H Glucose 165 H POC Whole Bld Glucose Lactate 1.7 Calcium 9.7 Magnesium 2.1 Total Bilirubin 1.3 AST 53 ALT 63 H Alkaline Phosphatase 89 CK-MB (CK-2) 6.9 Troponin I 0.191 H* 0.180 H* NT-Pro-B Natriuret Pep 4150 H Total Protein 7.5 Albumin 4.5 Globulin 3.0 Albumin/Globulin Ratio 1.5 Lipase 57 Urine RBC 10-30/hpf H Urine WBC 1-5/hpf Ur Squamous Epith Cells 0-1 /hpf Urine Bacteria None seen Ur Culture Indicated? Cult not indicated Vol Urine Centrifuged 10ml (spun) Nasal Screen MRSA (PCR) SARS-CoV-2 (PCR) Negative Influenza A (RT-PCR) Flu a negative Influenza B (RT-PCR) Flu b negative RSV (PCR) Negative 07/23/25 07/23/25 07/23/25 16:40 17:18 23:30 WBC RBC Hgb Hct MCV MCH MCHC RDW Plt Count Neut % (Auto) Lymph % (Auto) Dougherty % (Auto) Eos % (Auto) Baso % (Auto) Neut # (Auto) Lymph # (Auto) Dougherty # (Auto) Eos # (Auto) Baso # (Auto) APTT 49 H 53 H Sodium Potassium Chloride Carbon Dioxide BUN Creatinine Estimated GFR BUN/Creatinine Ratio Glucose POC Whole Bld Glucose 223 H 195 H Lactate Calcium Magnesium Total Bilirubin AST ALT Alkaline Phosphatase CK-MB (CK-2) Troponin I 0.174 H* 0.156 H* NT-Pro-B Natriuret Pep Total Protein Albumin Globulin Albumin/Globulin Ratio Lipase Urine RBC Urine WBC Ur Squamous Epith Cells Urine Bacteria Ur Culture Indicated? Vol Urine Centrifuged Nasal Screen MRSA (PCR) Not detected SARS-CoV-2 (PCR) Influenza A (RT-PCR) Influenza B (RT-PCR) RSV (PCR) 07/24/25 06:40 WBC 14.2 H RBC 4.32 L Hgb 13.2 L Hct 40.9 L MCV 94.5 MCH 30.6 MCHC 32.3 RDW 14.9 H Plt Count 263 Neut % (Auto) 89.3 H Lymph % (Auto) 7.5 L Dougherty % (Auto) 2.9 L Eos % (Auto) 0.1 L Baso % (Auto) 0.2 Neut # (Auto) 64228 H Lymph # (Auto) 1100 Dougherty # (Auto) 400 Eos # (Auto) 0 Baso # (Auto) 0 APTT 54 H Sodium 135 L Potassium 4.6 Chloride 93 L Carbon Dioxide 34 H BUN 34 H Creatinine 0.79 Estimated GFR > 60 BUN/Creatinine Ratio 43.0 H Glucose 203 H POC Whole Bld Glucose Lactate Calcium 9.4 Magnesium Total Bilirubin AST ALT Alkaline Phosphatase CK-MB (CK-2) Troponin I NT-Pro-B Natriuret Pep Total Protein Albumin Globulin Albumin/Globulin Ratio Lipase Urine RBC Urine WBC Ur Squamous Epith Cells Urine Bacteria Ur Culture Indicated? 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 History of tobacco use History of bladder cancer Lower urinary tract symptoms Male circumcision Rheumatoid arthritis Kidney stones High blood pressure Cancer of bladder Surgical History (Updated 03/22/25 @ 10:03 by Maritza Tavera RN) S/P cervical spinal fusion History of ankle surgery (10/2024) H/O transurethral resection of bladder tumor (TURBT) (10/25/23) Hx of cystoscopy (01/11/23) Hx of appendectomy History of urologic surgery (04/23/22) Hx of cystoscopy History of transurethral resection of prostate H/O hernia repair Social History marital status: number of children: 4 household members: spouse alcohol intake: current Assessment & Plan Time-Based Coding :: [TOTAL MINUTES] spent with patient and on the chart (including review of chart, obtaining history, exam, reviewing outside data, placing orders, documenting exam and treatment plan, and counseling patient) on [DATE].
[2025-07-24] MEDS: AMIODARONE 180 MG/100 ML PIGGYBACK 16.7 MG IV (08:05)
--- NOTE | 2025-07-24 08:31 | CM.DANOTE ---
Initial DCP Assessment Note. Review EMR and PT Interview. Met with patient at bedside to discuss discharge needs.PT is alert x 4. Per patient, he spends most of his time on the couch or WC, home oxygen and nebulizer next to his couch. Patient sleeps on the couch. Lives with his . will be able to take patient home upon discharge. Payor:? [employer]AN[employer] PCP: Dr. Phillips Summary & Plan:?84 y/o Male arrived to ED via EMS. Admitted INPT ICU Dx. NSTEMI, COPD, A. Fib w/ RVR. Plan: Cardiology consult, Dilt gtt, Heparin gtt, PT and OT eval. Prior ankle injury. Discharge Planning/Care Management CM Discharge Assessment Start: 07/23/25 12:10 Freq: Status: Active Protocol: Document 07/24/25 08:24 SM (Rec: 07/24/25 08:30 SM [id number]) Discharge Planning Assessment Assigned Discharge Bridget Alcaraz RN CM Taxation Consultant Provider Dr. Phillips [facility] Advance Directives? No Advance Directives No on File History Provided By Patient,Family Member,Medical Record Prior Living House Arrangements Household Members spouse Type of Relies on Others transporation used prior to admit Comment usually drives Independent with ADL No 's Is patient alert and Yes oriented? Needs Assistance Bathing,Meal Prep,Toileting,Home Chores / Shopping With Caregiver for No Another Community Services Oxygen Therapy used prior to admission: DME Already Rented / Bath Bench,Wheelchair,FWW / Walker,Cane,Oxygen, Owned Nebulizer Comment Patient not able to recall the name of Oxygen supply company Barriers to No Discharge Discharge Plan Home Community Services Oxygen Therapy Transportation Likely spouse to transport home at d/c Arrangement Referrals Initiated None needed Additional Comment Pending progress. Likely HH at minimum Review Status In Process Please Provide Date 07/24/25 Initial DC Assessment Was Performed Next Review Type Continued Stay Review
[2025-07-24] MEDS: ASPIRIN EC 81 MG TABLET PO (09:05)
[2025-07-24] MEDS: FINASTERIDE 5 MG TABLET PO (09:05)
[2025-07-24] MEDS: PANTOPRAZOLE DR 40 MG TABLET PO (09:05)
[2025-07-24] MEDS: LOSARTAN 25 MG TABLET PO (09:05)
[2025-07-24] MEDS: DOXYCYCLINE HYCLATE 100 MG TABLET PO ×2 (09:05→20:36)
[2025-07-24] MEDS: SODIUM CHLORIDE 0.9% FLUSH 10 ML IV ×2 (09:08→20:38)
[2025-07-24] MEDS: HEPARIN DRIP 25,000 UNIT/500 ML IV.SOLN 20.139 UNIT IV (10:44)
[2025-07-24] MEDS: methylPREDNISolone succ 40 MG/ML VIAL IV (12:01)
[2025-07-24] MEDS: METOPROLOL IR 25 MG TABLET PO ×2 (13:42→21:32)
[2025-07-24] MEDS: AMIODARONE 200 MG TABLET 400 MG PO (14:07)
[2025-07-24] MEDS: INSULIN GLARGINE 100 UNIT/ML 3ML PEN 10 UNIT SUBCUT (15:27)
[2025-07-24] MEDS: FUROSEMIDE 40 MG/4 ML VIAL IV (15:27)
[2025-07-24] MEDS: INSULIN LISPRO 100 UNIT/ML 3ML VIAL SUBCUT ×2 (16:59→20:23)
[2025-07-24] MEDS: ATORVASTATIN 20 MG TABLET PO (20:36)
[2025-07-25] VITALS (110 sets, daily range): BP systolic 87–141; BP diastolic 53–77; PULSE 41–116; RESP 13–38; TEMP 36.1–36.9; O2SAT 87–96
[2025-07-25] MEDS: methylPREDNISolone succ 40 MG/ML VIAL IV ×2 (00:50→12:09)
[2025-07-25] MEDS: ALBUTEROL/IPRATROPIUM 3 ML AMPUL INH ×6 (03:17→23:37)
[2025-07-25 05:16] LABS: Hemoglobin A1C% w Est Avg Glu 6.9 % (4.0-6.0)
[2025-07-25 05:27] LABS: PTT Partial Thromboplastin Tim 52 SECONDS (25.1-36.5)
[2025-07-25 05:28] LABS: Blood Urea Nitrogen 58 mg/dL (9-20); Calcium 9.3 mg/dL (8.4-10.2); Carbon Dioxide 30 mmol/L (22-32); Chloride 92 mmol/L (98-107); Estimated Glomerular Filt Rate 46 mL/min (>60); Glucose 210 mg/dL (70-99); HEMOLYSIS < 15 (0-50); Potassium 4.6 mmol/L (3.4-5.1); Sodium 130 mmol/L (137-145)
[2025-07-25] MEDS: FUROSEMIDE 40 MG/4 ML VIAL IV ×2 (05:43→17:29)
--- NOTE | 2025-07-25 07:37 | PM.PN.1 ---
Subjective Subjective Interval history: Interval history: Summary: 07/23: 84-year-old male with a history of COPD on chronic oxygen had increasing shortness of breath dyspnea on exertion palpitations and diarrhea for the past few days EMS was called and gave IV diltiazem for tachycardia rate greater than 170 and Solu-Medrol on route. Placed on BiPAP in the emergency department Patient had refractory tachycardia with atrial fibrillation despite IV diltiazem titrated up to 15 milligrams/hour and bolus with IV amiodarone. Patient was given IV heparin and cardioverted taking 3 DC cardioversions at increasing current. The patient remained in atrial fibrillation but the rate was controlled at about 70-110. Patient was admitted to the intensive care unit Findings in the emergency department workup significant for: Chest x-ray showing enlarged cardiac silhouette bilateral airspace opacities suggesting infiltrates and or pulmonary edema EKG showing atrial fibrillation rapid ventricular response with ST segment and T-wave changes related to rate CT angio negative for pulmonary edema but shows multifocal infiltrates [place] [address] with 73% neutrophils Sodium 138 potassium 4.2 BUN 34 creatinine 29 Lactate 1.7 Initial troponin 0.19 3-hour 0.18 07/24: Chest x-ray reveals pulmonary edema, diuresis started. Patient had persistent RVR despite diltiazem drip at 15 mg an hour and amiodarone infusion. He was converted to amiodarone tablets of 400 b.i.d., and IV diuretics were started with Lasix 40 IV q.12 hours. Metoprolol 20 5q8 was added with improved rate control. The patient does have a depressed EF of 20-25% which appears to be a change from his prior echo. S: He feels better this morning. Less dyspneic. He does use home oxygen at 2 L. He denies any chest pain. He was less leg edema. O: NAD, alert and oriented. Fluent speech. Lungs minimal rhonchi and wheezing. Heart is regular, no murmur gallop or rub. Abdomen is soft, non distended. Extremities are free of edema. IMAGING: ECHO: The left ventricle is moderately dilated. The ejection fraction is estimated to be 20-25%. Left ventricular function has markedly worsened compared to the previous exam. There is severe global hypokinesis of the left ventricle. Diastolic function could not be accurately assessed due to atrial fibrillation. The right ventricle is normal size. Right ventricular systolic function is mildly reduced. Right ventricular systolic pressure is estimated to be 38 mmHg plus the clinically estimated CVP which cannot be estimated on this exam. The left atrium is moderately dilated. There is no Doppler evidence for an interatrial shunt. Lipomatous hypertrophy of the interatrial septum is noted and chronic since prior study. There is mild mitral regurgitation. There is discrete nodular thickening of the right coronary cusp. There is no aortic valve stenosis. The ascending aorta is mildly enlarged. CXR: Pulmonary edema. Chest CTA: No CT evidence of pulmonary embolism. Cardiomegaly, pulmonary vascular congestion, CHF with mild bilateral pleural effusions. Peribronchial thickening and patchy opacities as discussed above. A/P: 1. Acute hypoxic respiratory failure, active. 2. Acute systolic heart failure, active. 3. Atrial fibrillation with rapid response, improving. 4. NSTEMI, active. 5. Doubt COPD exacerbation or pneumonia. 6. COPD, stable. 7. Obesity class 1 with BMI of 31.6. PLAN: -continue diuresis and wean oxygen as able. -stop heparin and convert to apixaban. -cardiology is consulted and recommend continuing amiodarone at 400 b.i.d., and adding Jardiance 10 daily. We will consolidate metoprolol to 50 b.i.d. and stopped diltiazem altogether. Exam Vital Signs (past 8 hours): - 07/24/25 23:45 07/25/25 00:00 07/25/25 00:00 Temperature 98.3 F Pulse Rate 63 61 59 L Respiratory Rate 19 18 18 Blood Pressure 114/72 Pulse Oximetry 94 95 94 Oxygen Delivery Method Fraction of Inspired Oxygen 35 07/25/25 00:02 07/25/25 00:02 07/25/25 00:15 Temperature Pulse Rate 70 64 Respiratory Rate 16 19 Blood Pressure 114/72 Pulse Oximetry 95 95 Oxygen Delivery Method Fraction of Inspired Oxygen 07/25/25 00:30 07/25/25 00:45 07/25/25 01:00 Temperature Pulse Rate 74 60 74 Respiratory Rate 17 19 18 Blood Pressure 110/66 Pulse Oximetry 95 95 95 Oxygen Delivery Method Fraction of Inspired Oxygen 35 07/25/25 01:00 07/25/25 01:00 07/25/25 01:15 Temperature Pulse Rate 74 64 Respiratory Rate 17 19 Blood Pressure 110/66 Pulse Oximetry 95 94 Oxygen Delivery Method Fraction of Inspired Oxygen 07/25/25 01:30 07/25/25 01:45 07/25/25 02:00 Temperature Pulse Rate 61 56 L 56 L Respiratory Rate 25 H 16 16 Blood Pressure Pulse Oximetry 94 92 95 Oxygen Delivery Method Fraction of Inspired Oxygen 35 07/25/25 02:00 07/25/25 02:01 07/25/25 02:01 Temperature Pulse Rate 65 64 Respiratory Rate 17 16 Blood Pressure 105/61 Pulse Oximetry 94 94 Oxygen Delivery Method Fraction of Inspired Oxygen 07/25/25 02:15 07/25/25 02:30 07/25/25 02:45 Temperature Pulse Rate 62 50 L 64 Respiratory Rate 19 20 18 Blood Pressure Pulse Oximetry 92 92 93 Oxygen Delivery Method Fraction of Inspired Oxygen 07/25/25 03:00 07/25/25 03:00 07/25/25 03:00 Temperature 98.4 F Pulse Rate 49 L 54 L Respiratory Rate 16 15 Blood Pressure 120/72 120/72 Pulse Oximetry 96 92 Oxygen Delivery Method Fraction of Inspired Oxygen 35 07/25/25 03:15 07/25/25 03:18 07/25/25 03:22 Temperature Pulse Rate 53 L 63 Respiratory Rate 15 16 Blood Pressure 120/72 Pulse Oximetry 93 93 Oxygen Delivery Method BiPAP Fraction of Inspired Oxygen 35 35 07/25/25 03:30 07/25/25 03:45 07/25/25 04:00 Temperature Pulse Rate 65 58 L 67 Respiratory Rate 20 29 H 18 Blood Pressure 98/62 Pulse Oximetry 94 96 96 Oxygen Delivery Method Fraction of Inspired Oxygen 35 07/25/25 04:00 07/25/25 04:00 07/25/25 04:01 Temperature Pulse Rate 65 51 L Respiratory Rate 17 17 Blood Pressure Pulse Oximetry 94 95 Oxygen Delivery Method BiPAP Fraction of Inspired Oxygen 07/25/25 04:01 07/25/25 04:15 07/25/25 04:30 Temperature Pulse Rate 56 L 65 Respiratory Rate 19 17 Blood Pressure 98/62 Pulse Oximetry 96 96 Oxygen Delivery Method Fraction of Inspired Oxygen 07/25/25 04:45 07/25/25 05:00 07/25/25 05:06 Temperature Pulse Rate 53 L 76 Respiratory Rate 19 16 Blood Pressure 106/61 Pulse Oximetry 96 95 Oxygen Delivery Method Fraction of Inspired Oxygen 07/25/25 05:06 07/25/25 05:15 07/25/25 05:30 Temperature Pulse Rate 64 59 L 58 L Respiratory Rate 16 20 18 Blood Pressure Pulse Oximetry 95 93 95 Oxygen Delivery Method Fraction of Inspired Oxygen 07/25/25 05:45 07/25/25 07:00 07/25/25 07:15 Temperature Pulse Rate 41 L 51 L 42 L Respiratory Rate 16 19 22 Blood Pressure 106/61 Pulse Oximetry 96 95 96 Oxygen Delivery Method Fraction of Inspired Oxygen 35 07/25/25 07:30 Temperature Pulse Rate 62 Respiratory Rate 18 Blood Pressure Pulse Oximetry 93 Oxygen Delivery Method Fraction of Inspired Oxygen Fraction of Inspired Oxygen 35 SaO2/FiO2 Ratio 265 Oxygen Delivery Method BiPAP Oxygen Flow Rate 3 Objective Labs 07/24/25 06:40 07/25/25 05:01 Labs: Laboratory Results - last 24 hr 07/24/25 07/24/25 07/24/25 08:06 11:54 16:38 APTT Sodium Potassium Chloride Carbon Dioxide BUN Creatinine Estimated GFR BUN/Creatinine Ratio Glucose POC Whole Bld Glucose 204 H 204 H 229 H Hemoglobin A1c Calcium 07/24/25 07/25/25 20:17 05:01 APTT 52 H Sodium 130 L Potassium 4.6 Chloride 92 L Carbon Dioxide 30 BUN 58 H Creatinine 1.50 H Estimated GFR 46 L BUN/Creatinine Ratio 38.7 H Glucose 210 H POC Whole Bld Glucose 242 H Hemoglobin A1c 6.9 H Calcium 9.3 PFSH Medical History (Updated 07/25/25 @ 10:36 by Sanket Buckner MD) History of shortness of breath Left anterior fascicular block Atrial tachycardia Heart failure with mid-range ejection fraction Anesthesia complication Easy bruisability Bleeds easily Tobacco use 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 History of tobacco use History of bladder cancer Lower urinary tract symptoms Male circumcision Rheumatoid arthritis Kidney stones High blood pressure Cancer of bladder Surgical History S/P cervical spinal fusion History of ankle surgery (10/2024) H/O transurethral resection of bladder tumor (TURBT) (10/25/23) Hx of cystoscopy (01/11/23) Hx of appendectomy History of urologic surgery (04/23/22) Hx of cystoscopy History of transurethral resection of prostate H/O hernia repair Social History marital status: number of children: 4 household members: spouse Smoking Status: Former smoker Tobacco: How many years used: 50 alcohol intake: former Type(s) of exercise: independent ambulation Assessment & Plan Time-Based Coding :: [TOTAL MINUTES] spent with patient and on the chart (including review of chart, obtaining history, exam, reviewing outside data, placing orders, documenting exam and treatment plan, and counseling patient) on [DATE].
[2025-07-25] MEDS: BUDESONIDE 0.5 MG/2 ML NEB INH ×2 (07:55→20:05)
[2025-07-25] MEDS: INSULIN LISPRO 100 UNIT/ML 3ML VIAL SUBCUT ×5 (08:15→20:50)
[2025-07-25] MEDS: DOXYCYCLINE HYCLATE 100 MG TABLET PO ×2 (08:16→20:49)
[2025-07-25] MEDS: ASPIRIN EC 81 MG TABLET PO (08:16)
[2025-07-25] MEDS: FINASTERIDE 5 MG TABLET PO (08:17)
[2025-07-25] MEDS: PANTOPRAZOLE DR 40 MG TABLET PO (08:17)
[2025-07-25] MEDS: SODIUM CHLORIDE 0.9% FLUSH 10 ML IV ×2 (08:21→21:00)
--- NOTE | 2025-07-25 09:48 | P.CONS_ITS ---
History of Present Illness Consult details Date Patient Seen: 07/25/25 Time Patient Seen: 10:15 Chief complaint: COPD Exacerbation Reason for consult: NSTEMI Requesting provider: Harvey Lyles Narrative: This is a 84-year-old man past medical history of chronic smoking quit smoking 3 years ago, COPD on bronchodilators, paroxysmal atrial fibrillation, hypertension, hyperlipidemia, status post left ankle surgery, right Achilles tendon repair recent hospitalization to [facility]. Patient reported that he sees Dr. Braden Simmons from [facility]. He manages his paroxysmal atrial fibrillation and atrial arrhythmias. He informed me that he had a recent workup in February of 2025 with an echocardiogram and a myocardial perfusion scintigraphic study. Patient states that approximately a week ago he was started feeling poorly complaints of nausea vomiting generalized weakness and shortness of breath. Day prior to admission to the hospital he was experiencing respiratory distress with rapid ventricular rate and heart palpitations. On Tuesday night he took his to call 911. He was brought here in acute respiratory distress atrial fibrillation with rapid ventricular rate. Hospital course: Patient was admitted yesterday by Dr. Rhett Cabral for COPD exacerbation, atrial fibrillation, AFib with rapid ventricular rate. He was cardioverted in the emergency room.. Patient was started on IV antibiotics, steroids, IV heparin drip. I consulted this morning and reviewed his history and his medical records from [facility]. I also spoke to Dr. Harvey Lyles to ask me to consult the management of atrial fibrillation and new onset systolic heart failure. As noted above patient has progressive symptoms of nausea vomiting exhaustion fatigue shortness of breath and respiratory distress prior to arriving to the hospital. He denied any fever no dysuria of blood per rectum though PND orthopnea. Day prior to admission he had intermittent episodes of chest discomfort we which he did not pay much attention however did speak to his about it. When his respiratory distress got to a point where he could not tolerate 911 was called. He did report history of intermittent leg swelling prior to this admission. Meds Home Medications and Allergies Home Medications ?Medication ?Instructions ?Recorded ?Confirmed ?Type CA PANTOTHENATE/FOLIC ACID/VIT 1 tab PO Q DAY ##0 07/1707/23/25 History (MULTIVITAMIN) aspirin 81 mg tablet,delayed 81 mg PO DAILY ##0 07/23/25 History release hydrocodone 10 mg-acetaminophen 2 tab PO BID 04/23/22 07/23/25 History 325 mg tablet albuterol sulfate 90 mcg/actuation 2 inh inhalation DIRECTED 10/25/23 07/23/25 History aerosol inhaler guaifenesin 1,200 mg tablet, 1,200 mg PO BID #30 tabs 02/29/24 07/23/25 Rx extended release 12 hr (Mucinex) Held on 07/23/25. Instructions: Order Change ipratropium 0.5 mg-albuterol 3 mg 3 ml inhalation BID #180 mL 02/29/24 07/23/25 Rx (2.5 mg base)/3 mL nebulization soln losartan 25 mg tablet 25 mg PO DAILY #30 tabs 03/1807/23/25 Rx beclomethasone dipropionate 80 1 inh inhalation BID #1 0.6 grams 08/14/24 07/23/25 Rx mcg/actuation HFA breath activated aerosol (Qvar RediHaler) prednisone 10 mg tablet See Rx Instructions .Route 1 11/18/23 07/23/25 Rx .COMPLEX #50 tabs budesonide 160 mcg-glycopyr 9 2 inh PO BID #10.7 grams 03/22/25 07/23/25 Rx mcg-formot 4.8 mcg/actuation HFA inhaler (Breztri Aerosphere) finasteride 5 mg tablet 5 mg PO DAILY #90 tabs 06/0307/23/25 Rx atorvastatin 20 mg tablet 20 mg PO QPM 07/23/25 History diltiazem HCl 180 mg 180 mg PO DAILY 07/23/2505/10 History capsule,extended release 24 hr empagliflozin 10 mg tablet 10 mg PO DAILY 07/23/2505/10 History (Jardiance) Allergies Allergy/AdvReac Type Severity Reaction Status Date / Time No Known Drug Allergies Allergy Verified 07/23/25 08:16 Review of Systems Review of Systems ROS: Yes All systems reviewed with the patient and are negative except as otherwise documented Cardiovascular Cardiovascular: Reports chest pain at rest, Reports dyspnea, Reports dyspnea on exertion and Reports orthopnea Respiratory Respiratory: Reports system reviewed and no additional complaints, except as documented, Reports cough, Reports dyspnea and Reports dyspnea on exertion Gastrointestinal Gastrointestinal: Reports vomiting Genitourinary Genitourinary: Reports nocturia Musculoskeletal Musculoskeletal: Reports arthralgias Comments: Left ankle surgery, Right heel tendon tear Exam Vital Signs (past 8 hours): - 07/25/25 02:00 07/25/25 02:00 07/25/25 02:01 Temperature Pulse Rate 56 L 65 64 Respiratory Rate 16 17 16 Blood Pressure Pulse Oximetry 95 94 94 Oxygen Delivery Method Oxygen Flow Rate Fraction of Inspired Oxygen 35 07/25/25 02:01 07/25/25 02:15 07/25/25 02:30 Temperature Pulse Rate 62 50 L Respiratory Rate 19 20 Blood Pressure 105/61 Pulse Oximetry 92 92 Oxygen Delivery Method Oxygen Flow Rate Fraction of Inspired Oxygen 07/25/25 02:45 07/25/25 03:00 07/25/25 03:00 Temperature 98.4 F Pulse Rate 64 49 L Respiratory Rate 18 16 Blood Pressure 120/72 120/72 Pulse Oximetry 93 96 Oxygen Delivery Method Oxygen Flow Rate Fraction of Inspired Oxygen 35 07/25/25 03:00 07/25/25 03:15 07/25/25 03:18 Temperature Pulse Rate 54 L 53 L Respiratory Rate 15 15 Blood Pressure 120/72 Pulse Oximetry 92 93 Oxygen Delivery Method Oxygen Flow Rate Fraction of Inspired Oxygen 35 07/25/25 03:22 07/25/25 03:30 07/25/25 03:45 Temperature Pulse Rate 63 65 58 L Respiratory Rate 16 20 29 H Blood Pressure Pulse Oximetry 93 94 96 Oxygen Delivery Method BiPAP Oxygen Flow Rate Fraction of Inspired Oxygen 35 07/25/25 04:00 07/25/25 04:00 07/25/25 04:00 Temperature Pulse Rate 67 65 Respiratory Rate 18 17 Blood Pressure 98/62 Pulse Oximetry 96 94 Oxygen Delivery Method BiPAP Oxygen Flow Rate Fraction of Inspired Oxygen 35 07/25/25 04:01 07/25/25 04:01 07/25/25 04:15 Temperature Pulse Rate 51 L 56 L Respiratory Rate 17 19 Blood Pressure 98/62 Pulse Oximetry 95 96 Oxygen Delivery Method Oxygen Flow Rate Fraction of Inspired Oxygen 07/25/25 04:30 07/25/25 04:45 07/25/25 05:00 Temperature Pulse Rate 65 53 L 76 Respiratory Rate 17 19 16 Blood Pressure Pulse Oximetry 96 96 95 Oxygen Delivery Method Oxygen Flow Rate Fraction of Inspired Oxygen 07/25/25 05:06 07/25/25 05:06 07/25/25 05:15 Temperature Pulse Rate 64 59 L Respiratory Rate 16 20 Blood Pressure 106/61 Pulse Oximetry 95 93 Oxygen Delivery Method Oxygen Flow Rate Fraction of Inspired Oxygen 07/25/25 05:30 07/25/25 05:45 07/25/25 07:00 Temperature Pulse Rate 58 L 41 L 51 L Respiratory Rate 18 16 19 Blood Pressure 106/61 Pulse Oximetry 95 96 95 Oxygen Delivery Method Oxygen Flow Rate Fraction of Inspired Oxygen 35 07/25/25 07:15 07/25/25 07:30 07/25/25 07:45 Temperature 97.0 F L Pulse Rate 42 L 62 66 Respiratory Rate 22 18 20 Blood Pressure Pulse Oximetry 96 93 94 Oxygen Delivery Method Oxygen Flow Rate Fraction of Inspired Oxygen 07/25/25 07:48 07/25/25 08:00 07/25/25 08:00 Temperature 97.0 F L Pulse Rate 69 Respiratory Rate 29 H Blood Pressure Pulse Oximetry 93 Oxygen Delivery Method Nasal Cannula Oxygen Flow Rate Fraction of Inspired Oxygen 07/25/25 08:02 07/25/25 08:15 07/25/25 08:20 Temperature Pulse Rate 55 L 66 Respiratory Rate 25 H 28 H Blood Pressure Pulse Oximetry 91 93 93 Oxygen Delivery Method Nasal Cannula Oxygen Flow Rate 5 Fraction of Inspired Oxygen 40 07/25/25 08:20 07/25/25 08:30 07/25/25 08:45 Temperature Pulse Rate 95 H 71 Respiratory Rate 35 H 31 H Blood Pressure 109/55 L Pulse Oximetry 89 L 91 Oxygen Delivery Method Oxygen Flow Rate Fraction of Inspired Oxygen 07/25/25 09:00 Temperature Pulse Rate 55 L Respiratory Rate 28 H Blood Pressure Pulse Oximetry 91 Oxygen Delivery Method Oxygen Flow Rate Fraction of Inspired Oxygen Fraction of Inspired Oxygen 40 SaO2/FiO2 Ratio 227 Oxygen Delivery Method Nasal Cannula Oxygen Flow Rate 5 Const General: cooperative, well developed and in distress Nutritional Appearance: average body habitus, well nourished and obese [facility] Head: normal to inspection Eyes General: appearance normal, both eyes and all related structures Neck Neck: normal visual inspection Chest Chest: normal inspection of the chest Other: Barrel shaped chest with increased AP diameter Resp Effort & Inspection: nasal flaring, uses accessory muscles and prolonged expiratory phase Auscultation: bronchial breath sounds Cardio Palpation: normal PMI Rate: other Rhythm: regular rhythm Heart Sounds: S1 normal and S2 normal GI Inspection: normal to inspection Other: Large pendulous belly. Back/Spine/Pelvis Back: normal to inspection Skin General: no rashes or lesions noted Neuro General: patient oriented x3 Objective Labs 07/24/25 06:40 07/25/25 05:01 Labs: Laboratory Results - last 24 hr 07/24/25 07/24/25 07/24/25 11:54 16:38 20:17 APTT Sodium Potassium Chloride Carbon Dioxide BUN Creatinine Estimated GFR BUN/Creatinine Ratio Glucose POC Whole Bld Glucose 204 H 229 H 242 H Hemoglobin A1c Calcium 07/25/25 07/25/25 05:01 07:37 APTT 52 H Sodium 130 L Potassium 4.6 Chloride 92 L Carbon Dioxide 30 BUN 58 H Creatinine 1.50 H Estimated GFR 46 L BUN/Creatinine Ratio 38.7 H Glucose 210 H POC Whole Bld Glucose 191 H Hemoglobin A1c 6.9 H Calcium 9.3 PFSH Medical History (Updated 07/25/25 @ 10:36 by Sanket Buckner MD) History of shortness of breath Left anterior fascicular block Atrial tachycardia Heart failure with mid-range ejection fraction Anesthesia complication Easy bruisability Bleeds easily Tobacco use 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 History of tobacco use History of bladder cancer Lower urinary tract symptoms Male circumcision Rheumatoid arthritis Kidney stones High blood pressure Cancer of bladder Surgical History S/P cervical spinal fusion History of ankle surgery (10/2024) H/O transurethral resection of bladder tumor (TURBT) (10/25/23) Hx of cystoscopy (01/11/23) Hx of appendectomy History of urologic surgery (04/23/22) Hx of cystoscopy History of transurethral resection of prostate H/O hernia repair Social History marital status: number of children: 4 household members: spouse Tobacco & Substance Use Smoking Status: Former smoker Tobacco: How many years used: 50 alcohol intake: former Diet and Exercise Type(s) of exercise: independent ambulation Assessment & Plan Assessment and plan (1) Pneumonia: Qualifiers: Laterality: bilateral Lung location: lower lobe of lung Pneumonia type: due to unspecified organism Qualified Code(s): J18.9 - Pneumonia, unspecified organism Status: Acute (2) Atrial fibrillation with rapid ventricular response: Status: Acute (3) Acute non-ST elevation myocardial infarction (NSTEMI): Status: Acute (4) COPD exacerbation: Status: Acute (5) Chronic respiratory failure: Qualifiers: Respiratory failure complication: unspecified whether with hypoxia or hypercapnia Qualified Code(s): J96.10 - Chronic respiratory failure, unspecified whether with hypoxia or hypercapnia Status: Acute (6) Tobacco use: Status: Acute Plan Heparin can be stopped Apixaban 5 mg twice daily Amiodarone 400 mg b.i.d. Jardiance 10 mg daily Metoprolol succinate 50 mg twice daily Diltiazem can be stopped given his underlying acute systolic heart failure. Continue with bronchodilator therapy Lasix 40 mg IV twice daily Patient informed me that he had an extensive cardiac workup at [facility] including echocardiogram, pharmacological stress test-Lexiscan. Obtain records from [facility]: Addendum: February 2025 ejection fraction 57% Nuclear medicine stress test a moderate-sized 3 segment perfusion defect summed stress score of 4 sum rest score of 2. Total percentage deficit was 3% distal anterior, distal septum, apex infarct with kenn-infarct ischemia post-stress ejection fraction of 51%. History of atrial arrhythmias and PACs. Previous ZIO patch evaluation showed 13% PAC load. Assessment & Plan narrative: 1. Atrial fibrillation with rapid ventricular rate status post cardioversion times. Patient is currently in sinus rhythm with atrial bigeminy atrial couplets. Clinically stable 2. New onset acute systolic heart failure: Ischemic heart disease can not be ruled out. 3. Non ST-elevation myocardial infarction. Patient had elevated troponin levels and are now trending down. Patient reported an episode of chest discomfort prior to coming to the hospital. Based on his presentation patient needs a diagnostic coronary angiography perhaps getting this hospital admission or as an outpatient when clinically stable. Personally I prefer patient to be stable prior to any taken for coronary angiography procedure. Patient is currently in COPD exacerbation and community-acquired pneumonia on antibiotics. 4. COPD exacerbation: Patient is currently on bronchodilators, antibiotics, Solu-Medrol. He seems to be responding to therapy. Will follow up to titrate his medication tomorrow. Time-Based Coding :: [TOTAL MINUTES] spent with patient and on the chart (including review of chart, obtaining history, exam, reviewing outside data, placing orders, documenting exam and treatment plan, and counseling patient) on [DATE].
[2025-07-25] MEDS: APIXABAN 5 MG TABLET PO ×2 (10:17→20:49)
[2025-07-25] MEDS: HEPARIN DRIP 25,000 UNIT/500 ML IV.SOLN 20.139 UNIT IV (10:27)
--- NOTE | 2025-07-25 12:08 | CM.DPNOTE ---
DCP note [facility] reviewed EMR per cardiology note, will titrate meds tomorrow. per RN, HR better today but not quite ready for DC. per RN hasn't been able to mobilize much besides to bedside chair. per provider in rounds, okay with adding PT/OT today. PT/OT evals pending. uses WC at baseline. P: anticipate dc home pending therapy evals/when rate controlled. home with spouse support. CM team will continue to follow closely for DCP coordination ANDREW Coates
--- NOTE | 2025-07-25 13:54 | OT.IPNOTE ---
Pt refusing OT eval at this time due to states able to do it prior and insists that he is fine. Able to convince pt to do PT eval later. OT to check on pt again tomorrow for OT eval.
--- NOTE | 2025-07-25 16:16 | PT.IIE ---
Current Diagnoses Non-ST elevation (NSTEMI) myocardial infarction (07/23/25) Unspecified atrial fibrillation (07/23/25) Pneumonia, unspecified organism (07/23/25) Chronic obstructive pulmonary disease with (acute) exacerbation (07/23/25) Acute respiratory failure with hypoxia (07/23/25) Chronic respiratory failure, unspecified whether with hypoxia or hypercapnia (07/23/25) Tobacco use (07/23/25) Surgical History (Last Reviewed 07/25/25 @ 10:27 by Sanket Buckner MD) H/O hernia repair H/O transurethral resection of bladder tumor (TURBT) (10/25/23) History of ankle surgery (10/2024) History of transurethral resection of prostate History of urologic surgery (04/23/22) Hx of appendectomy Hx of cystoscopy Hx of cystoscopy (01/11/23) S/P cervical spinal fusion Medical History Anesthesia complication Atrial tachycardia Bleeds easily Cancer of bladder Easy bruisability Heart failure with mid-range ejection fraction High blood pressure History of bladder cancer History of shortness of breath History of tobacco use Inverted papilloma of bladder Kidney stones 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 Pt rides a riding network strategist in his yard Activities of Daily Pt was IND with all ADL's including cooking Living and IADL's Social History Household Members spouse Living Arrangements House Number of Floors ( One Floor Floors) Home Equipment Front Wheel Walker,Straight Cane,Manual Wheelchair Employment Status Retired M2 PT-IP Current Condition Start: 07/25/25 15:50 Freq: NEEDED Status: Active Protocol: Document 07/25/25 15:51 [facility] (Rec: 07/25/25 16:16 [facility] [id number]) Physical Therapy Current Condition Current Condition Evaluation Date 07/25/25 Treatment Diagnosis COPD exacerbation, NSTEMI, BPNA Onset Date 07/23/25 M3 PT-IP Subjective Start: 07/25/25 15:50 Freq: NEEDED Status: Active Protocol: Document 07/25/25 15:51 [facility] (Rec: 07/25/25 16:16 [facility] [id number]) Subjective Physical Therapy Visit Type Type Initial Evaluation Visit Start Time 15:15 Visit Stop Time 15:45 Physical Therapy Visit Comments Patient Comments Constantino reports his mobility has not changed with this COPD exacerbation and MO. He reports hx of left ankle fx and right Achilles tendon so for mobility he primarily uses a wheel chair at home and riding network strategist in the yard. He states he uses a cane and fww to ambulate in a store parking lot to store where he will then use an electric cart if available. M4 PT-IP Mobility and Gait Start: 07/25/25 15:50 Freq: NEEDED Status: Active Protocol: Document 07/25/25 15:51 [facility] (Rec: 07/25/25 16:16 [facility] [id number]) PT-Transfer Assessment Sit to and From Stand Sit to and from Contact Guard Assistance Stand Equipment Transfer Assistive Gait Belt,Front Wheeled Walker Device Orthotic/Prosthetic No Devices or Brace: Transfers Transfer Destination Chair Transfer Technique Stand Step Pivot Transfer Ability Level of Assist Contact Guard Assistance Comments Mobility Comments pt is CGA for transfers and is on 3 liters of O2 so needs assist for set up Gait Assessment Gait Gait Assistance Contact Guard Assist Required: Distance (Feet) 5 Able to Maintain Yes Weight Bearing Status During Gait Assistive Devices Assistive Device Gait Belt,Front Wheeled Walker Gait Deviations General Gait Pattern Wide Based Gait Factors Limiting Gait Function Factors Limiting Respiratory Distress Gait Function Comments Gait Comments some SOB with standing but feels he is better than yesterday, needs CGA for support at this time with gait PT-Balance Assessment Sitting Balance and Reactions Static Sitting Good Balance Ability Dynamic Sitting Good Balance Ability Standing Balance and Reactions Static Standing Poor Balance Ability Dynamic Standing Poor Balance Ability M5 PT-IP Objective Assessments Start: 07/25/25 15:50 Freq: NEEDED Status: Active Protocol: Document 07/25/25 15:51 [facility] (Rec: 07/25/25 16:16 [facility] [id number]) Orientation Orientation/Cognition Level of Alertness Alert Orientation Name,Age,Birthday,Month,Date,Year,Day of Week,Place, Situation Language Function No Deficits Noted Ability Safety Awareness Understands Safety Issues Gross Range of Motion Upper Extremity ROM Assessment Within Functional Limits Lower Extremity ROM Assessment Bilaterally Impaired Impairments B ankle weakness with decreased ankle DF ROM Strength Upper Extremity Strength Assessment Within Functional Limits Lower Extremity Strength Assessment Bilaterally Impaired Ankle decreased ankle strength B Comments Strength Comments Decreased ankle strength B with DF 2+/5 due to hx of left ankle fx and right achilles repair Coordination Assessment Gross Coordination Gross Coordination WNL Sensation Assessment Sensation Light Touch Impaired Comments Sensation Comments decreased sensation to light touch B plantar aspect of the feet B Muscle Tone Muscle Tone WNL Yes M7 PT-IP Assessment and Plan Start: 07/25/25 15:50 Freq: NEEDED Status: Active Protocol: Document 07/25/25 15:51 [facility] (Rec: 07/25/25 16:16 [facility] [id number]) PT Summary Assessment and Plan Potential Rehabilitation Good Potential Status of Condition Evolving at Evaluation Summary Impairments ROM,Strength,Balance,Sensation,Activity Tolerance Assessment Summary 84 year old male with exacerbation of COPD and NSTEMI. Pt's prior level of function was using a WC at home primarily and a fww and cane for transfers and community ambulation as needed. He prefers to use a electric cart at the grocery stores but will walk in with a cane or FWW. Pt also enjoys riding on his riding network strategist in his yard. Pt has a history of left ankle fracture and right achilles repair and weakness in his ankles is his primary strength deficit. He agreed to PT today but did not feel he needed PT. I did talk to him about 1 xm per day PT to keep up his cardio and strength when in the hospital. He is on chronic O2 at home and is at 3 liters now. Pt is CGA for transfers and gait with fww and gait belt and requires assist for set up at this time with O2 to portable tank. Pt would benefit from PT 1 time per day for strength and exercise and balance. Goals Bed Mobility Goal Independent Transfer Goal Independent Gait Goal Independent Days to Meet Goals 10 Frequency of Treatment Frequency Of Once a Day Treatment Treatment Plan Physical Therapy Gait Training,Therapeutic Exercise,Balance Retraining Treatment Plan Weight Bearing Status Weight Bearing Full Weight Bearing Status Recommendations To Nursing Amount of Assist 1 Person Assist Needed Discharge Recommendations PT Discharge Home Recommendations Transportation Needs Private Vehicle at Discharge
[2025-07-25] MEDS: AMIODARONE 200 MG TABLET 400 MG PO (17:28)
[2025-07-25] MEDS: METOPROLOL IR 50 MG TABLET PO (20:48)
[2025-07-25] MEDS: ATORVASTATIN 20 MG TABLET PO (20:49)
[2025-07-25] MEDS: INSULIN GLARGINE 100 UNIT/ML 3ML PEN 10 UNIT SUBCUT (20:50)
[2025-07-26] VITALS (21 sets, daily range): BP systolic 88–126; BP diastolic 54–78; PULSE 48–107; RESP 16–41; TEMP 36.1–36.8; O2SAT 89–96
[2025-07-26] MEDS: methylPREDNISolone succ 40 MG/ML VIAL IV (01:05)
[2025-07-26] MEDS: FUROSEMIDE 40 MG/4 ML VIAL IV ×2 (05:35→17:16)
[2025-07-26] MEDS: BUDESONIDE 0.5 MG/2 ML NEB INH ×2 (06:38→18:21)
[2025-07-26] MEDS: ALBUTEROL/IPRATROPIUM 3 ML AMPUL INH ×4 (06:38→23:45)
[2025-07-26] MEDS: METOPROLOL IR 50 MG TABLET PO ×2 (08:04→20:06)
[2025-07-26] MEDS: PANTOPRAZOLE DR 40 MG TABLET PO (08:05)
[2025-07-26] MEDS: LOSARTAN 25 MG TABLET PO (08:05)
[2025-07-26] MEDS: APIXABAN 5 MG TABLET PO ×2 (08:05→20:06)
[2025-07-26] MEDS: DOXYCYCLINE HYCLATE 100 MG TABLET PO (08:05)
[2025-07-26] MEDS: FINASTERIDE 5 MG TABLET PO (08:05)
[2025-07-26] MEDS: ASPIRIN EC 81 MG TABLET PO (08:05)
--- NOTE | 2025-07-26 08:09 | P.PN_ITS ---
Subjective Subjective Interval history: Hospital course: 84-year-old male with COPD and chronic hypoxia was admitted with question of COPD and pneumonia. X-ray indicated pulmonary edema. He initially received bronchodilators and steroids. He was in atrial fibrillation with rapid response and was cardioverted for a heart rate of greater than 170. He was on BiPAP in the ED. he would refractory tachycardia in IV diltiazem was attempted with minimal improvement. He was also heparinized and placed on amiodarone infusion. 07/24: Amiodarone infusions were completed and he was converted to oral amiodarone. Metoprolol orally was started and up titrated. Diltiazem drip was stopped. Oral diltiazem was continued. Cardiology consultation was requested. Echo revealed systolic heart failure with an EF of 20-25%. Lasix started. 07/25: Much improved and in sinus bradycardia. Metoprolol dose adjusted to 50 b.i.d.. Amiodarone adjusted to 400 b.i.d.. IV diuresis continued. Heparin stopped and apixaban started. S: He continues to improve, no chest pain. Less dyspnea. He would like to try to go home by Tuesday. Records were reviewed from [facility] and he underwent a catheterization in April of 2025 revealing 50 % mid RCA lesion and a 40% lad lesion. O: NAD, alert and oriented. Fluent speech. Comfortable on O2. Lungs are clear, normal rate and effort. Heart is regular, no murmur gallop or rub. Abdomen is soft, non distended. Extremities with 1+ edema. IMAGING: A/P: 1. Acute hypoxic respiratory failure, improved. 2. Acute systolic heart failure, active. 3. Atrial fibrillation with rapid response, improving. 4. NSTEMI, active. 5. Doubt COPD exacerbation or pneumonia. 6. COPD, stable. 7. Obesity class 1 with BMI of 31.6. PLAN: -continue diuresis and wean oxygen as able. 2L chronically. -Continue apixaban. -stop PO diltiazem. -Stop Abx -PO prednisone -bronchodilators. BRADLY: 07/27. Exam Vital Signs (past 8 hours): - 07/26/25 00:15 07/26/25 00:30 07/26/25 00:45 Pulse Rate 71 75 78 Respiratory Rate 21 20 18 Blood Pressure Pulse Oximetry 95 94 94 07/26/25 01:00 07/26/25 01:00 07/26/25 01:15 Pulse Rate 88 89 Respiratory Rate 18 19 Blood Pressure 88/54 L Pulse Oximetry 94 95 07/26/25 01:30 07/26/25 01:45 07/26/25 02:00 Pulse Rate 73 107 H 85 Respiratory Rate 28 H 28 H 26 H Blood Pressure Pulse Oximetry 95 89 L 92 07/26/25 02:01 07/26/25 02:01 07/26/25 02:15 Pulse Rate 98 H 90 Respiratory Rate 27 H 25 H Blood Pressure 106/55 L Pulse Oximetry 92 93 07/26/25 02:30 07/26/25 02:45 07/26/25 05:00 Pulse Rate 80 63 77 Respiratory Rate 21 20 18 Blood Pressure 95/69 Pulse Oximetry 93 95 95 Fraction of Inspired Oxygen 35 SaO2/FiO2 Ratio 290 Oxygen Delivery Method Nasal Cannula,BiPAP Oxygen Flow Rate 3 Objective Labs 07/26/25 08:49 07/26/25 09:10 Labs: Laboratory Results - last 24 hr 07/25/25 07/25/25 07/25/25 11:35 16:35 20:22 POC Whole Bld Glucose 205 H 195 H 223 H 07/26/25 07:46 POC Whole Bld Glucose 174 H PFSH Medical History (Updated 07/25/25 @ 10:36 by Sanket Buckner MD) History of shortness of breath Left anterior fascicular block Atrial tachycardia Heart failure with mid-range ejection fraction Anesthesia complication Easy bruisability Bleeds easily Tobacco use 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 History of tobacco use History of bladder cancer Lower urinary tract symptoms Male circumcision Rheumatoid arthritis Kidney stones High blood pressure Cancer of bladder Surgical History S/P cervical spinal fusion History of ankle surgery (10/2024) H/O transurethral resection of bladder tumor (TURBT) (10/25/23) Hx of cystoscopy (01/11/23) Hx of appendectomy History of urologic surgery (04/23/22) Hx of cystoscopy History of transurethral resection of prostate H/O hernia repair Social History marital status: number of children: 4 household members: spouse Smoking Status: Former smoker Tobacco: How many years used: 50 alcohol intake: former Type(s) of exercise: independent ambulation Assessment & Plan Time-Based Coding :: [TOTAL MINUTES] spent with patient and on the chart (including review of chart, obtaining history, exam, reviewing outside data, placing orders, documenting exam and treatment plan, and counseling patient) on [DATE].
[2025-07-26] MEDS: INSULIN LISPRO 100 UNIT/ML 3ML VIAL SUBCUT ×6 (08:10→17:00)
[2025-07-26] MEDS: SODIUM CHLORIDE 0.9% FLUSH 10 ML IV ×2 (08:25→20:10)
[2025-07-26] MEDS: AMIODARONE 200 MG TABLET 400 MG PO ×2 (08:43→17:16)
[2025-07-26 09:28] LABS: Add Manual Diff / Slide Review NO; Hematocrit 40.8 % (41-53); Hemoglobin 13.8 g/dL (13.5-17.5); Lymphocytes Absolute Auto 700 /uL (1100-4500); Mean Corpuscular HGB Conc 33.7 % (30-36); Mean Corpuscular Hemoglobin 31.3 PG (26-34); Mean Corpuscular Volume 92.7 fL (80-100); Platelet Count 259 X10^3/uL (150-400)
--- NOTE | 2025-07-26 09:31 | OT.IPNOTE ---
Checked on pt for OT needs and pt insistent no OT needs. Therefore discharge OT eval orders.
[2025-07-26 09:33] LABS: PTT Partial Thromboplastin Tim 29 SECONDS (25.1-36.5)
[2025-07-26 09:35] LABS: Blood Urea Nitrogen 71 mg/dL (9-20); Calcium 9.4 mg/dL (8.4-10.2); Carbon Dioxide 32 mmol/L (22-32); Chloride 89 mmol/L (98-107); Estimated Glomerular Filt Rate 51 mL/min (>60); Glucose 215 mg/dL (70-99); HEMOLYSIS 17 (0-50); Magnesium 2.0 mg/dL (1.6-2.3); Potassium 4.2 mmol/L (3.4-5.1); Sodium 131 mmol/L (137-145)
--- NOTE | 2025-07-26 10:19 | CM.DPNOTE ---
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 per PT, rec home at this time. per provider in morning rounds, anticipate dc home tomorrow. P: no new needs identified at this time. will continue to follow closely in case any additional DCP needs should arise ANDREW Coates
--- NOTE | 2025-07-26 13:09 | PT.IPTN ---
Current Diagnoses Non-ST elevation (NSTEMI) myocardial infarction (07/23/25) Unspecified atrial fibrillation (07/23/25) Pneumonia, unspecified organism (07/23/25) Chronic obstructive pulmonary disease with (acute) exacerbation (07/23/25) Acute respiratory failure with hypoxia (07/23/25) Chronic respiratory failure, unspecified whether with hypoxia or hypercapnia (07/23/25) Tobacco use (07/23/25) Physical Therapy Treatment Note M2 PT-IP Current Condition Start: 07/25/25 15:50 Freq: NEEDED Status: Active Protocol: Document 07/25/25 15:51 [facility] (Rec: 07/25/25 16:16 AM[facility] [id number]) Physical Therapy Current Condition Current Condition Evaluation Date 07/25/25 Treatment Diagnosis COPD exacerbation, NSTEMI, BPNA Onset Date 07/23/25 M3 PT-IP Subjective Start: 07/25/25 15:50 Freq: NEEDED Status: Active Protocol: Document 07/26/25 13:07 AB (Rec: 07/26/25 13:09 AB [id number]) Subjective Physical Therapy Visit Type Type Administrative Note Notes checked on pt and pt refused PT. pt stated that he does not need PT and wants to be d/c'd from PT. informed pt regarding benefits PT and pt stated that there is nothing wrong with his mobility and continues to refuse PT. nurse and case managers aware. M7 PT-IP Assessment and Plan Start: 07/25/25 15:50 Freq: NEEDED Status: Active Protocol: Document 07/26/25 13:07 AB (Rec: 07/26/25 13:09 AB [id number]) PT Summary Assessment and Plan Frequency of Treatment Frequency Of Discharge Treatment
--- NOTE | 2025-07-26 13:10 | PT-IP ANOTE ---
pt refused PT want does not want any PT. will d/c PT as per pt's request.
[2025-07-26] MEDS: ATORVASTATIN 20 MG TABLET PO (20:06)
[2025-07-26] MEDS: INSULIN GLARGINE 100 UNIT/ML 3ML PEN 12 UNIT SUBCUT (20:10)
[2025-07-27] VITALS (8 sets, daily range): BP systolic 104–138; BP diastolic 51–69; PULSE 40–73; RESP 17–24; TEMP 36.2–36.7; O2SAT 90–96
[2025-07-27] MEDS: FUROSEMIDE 40 MG/4 ML VIAL IV ×2 (05:53→17:52)
[2025-07-27 07:13] LABS: Add Manual Diff / Slide Review NO; Hematocrit 39.7 % (41-53); Hemoglobin 13.1 g/dL (13.5-17.5); Lymphocytes Absolute Auto 1000 /uL (1100-4500); Mean Corpuscular HGB Conc 33.0 % (30-36); Mean Corpuscular Hemoglobin 30.9 PG (26-34); Mean Corpuscular Volume 93.6 fL (80-100); Platelet Count 263 X10^3/uL (150-400)
[2025-07-27 07:26] LABS: Blood Urea Nitrogen 79 mg/dL (9-20); Calcium 9.3 mg/dL (8.4-10.2); Carbon Dioxide 34 mmol/L (22-32); Chloride 90 mmol/L (98-107); Estimated Glomerular Filt Rate 50 mL/min (>60); Glucose 139 mg/dL (70-99); HEMOLYSIS < 15 (0-50); Potassium 3.9 mmol/L (3.4-5.1); Sodium 134 mmol/L (137-145)
[2025-07-27] MEDS: ASPIRIN EC 81 MG TABLET PO (08:34)
[2025-07-27] MEDS: AMIODARONE 200 MG TABLET 400 MG PO (08:34)
[2025-07-27] MEDS: APIXABAN 5 MG TABLET PO ×2 (08:34→20:51)
[2025-07-27] MEDS: FINASTERIDE 5 MG TABLET PO (08:34)
[2025-07-27] MEDS: INSULIN LISPRO 100 UNIT/ML 3ML VIAL SUBCUT ×6 (08:35→20:52)
[2025-07-27] MEDS: PANTOPRAZOLE DR 40 MG TABLET PO (08:36)
[2025-07-27] MEDS: ALBUTEROL/IPRATROPIUM 3 ML AMPUL INH ×3 (09:50→18:13)
[2025-07-27] MEDS: BUDESONIDE 0.5 MG/2 ML NEB INH ×2 (09:51→18:13)
--- NOTE | 2025-07-27 11:47 | PM.PN.1 ---
Subjective Subjective Date Patient Seen: 07/27/25 Time Patient Seen: 11:47 Interval history: This is a 84-year-old man past medical history of chronic smoking quit smoking 3 years ago, COPD on bronchodilators, paroxysmal atrial fibrillation, hypertension, hyperlipidemia, status post left ankle surgery, right Achilles tendon repair recent hospitalization to [facility]. History: In the interim patient has responded well to therapy steroid treatment. He was cardioverted and has maintained sinus rhythm. He was started on metoprolol and amiodarone 400 mg twice daily. I received a phone call regarding his rhythm strip and concerns for bradycardia. Exam Vital Signs (past 8 hours): - 07/27/25 05:00 07/27/25 07:00 07/27/25 08:00 Temperature 97.2 F L 97.6 F Pulse Rate 42 L 44 L Respiratory Rate 18 17 Blood Pressure 104/51 L 105/57 L Pulse Oximetry 92 94 Oxygen Delivery Method Nasal Cannula BiPAP Oximask Oxygen Flow Rate 3 3 Fraction of Inspired Oxygen 07/27/25 09:55 Temperature Pulse Rate 55 L Respiratory Rate 20 Blood Pressure Pulse Oximetry 92 Oxygen Delivery Method Nasal Cannula Oxygen Flow Rate 3 Fraction of Inspired Oxygen 32 Fraction of Inspired Oxygen 32 SaO2/FiO2 Ratio 284 Oxygen Delivery Method Nasal Cannula Oxygen Flow Rate 3 Const General: cooperative and comfortable HENUT Head: normal to inspection Eyes General: appearance normal, both eyes and all related structures Neck Neck: normal visual inspection Chest Other: Barrel shaped chest with increased AP diameter. Resp Effort & Inspection: uses accessory muscles and prolonged expiratory phase Cardio Palpation: normal PMI Rate: regular rate Other: Telemetry shows underlying sinus rhythm with sinus bradycardia, PACs, atrial bigeminy, atrial couplets and triplets. Patient is asymptomatic. Back/Spine/Pelvis Back: normal to inspection Skin General: no rashes or lesions noted Objective Labs 07/27/25 06:55 07/27/25 06:55 Labs: Laboratory Results - last 24 hr 07/26/25 07/26/25 07/27/25 16:49 20:08 06:55 WBC 17.0 H RBC 4.25 L Hgb 13.1 L Hct 39.7 L MCV 93.6 MCH 30.9 MCHC 33.0 RDW 14.5 Plt Count 263 Neut % (Auto) 85.5 H Lymph % (Auto) 6.0 L [place] % (Auto) 8.2 Eos % (Auto) 0.0 L Baso % (Auto) 0.3 Neut # (Auto) 36056 H Lymph # (Auto) 1000 L [place] # (Auto) 1400 H Eos # (Auto) 0 Baso # (Auto) 0 Sodium 134 L Potassium 3.9 Chloride 90 L Carbon Dioxide 34 H BUN 79 H Creatinine 1.40 H Estimated GFR 50 L BUN/Creatinine Ratio 56.4 H Glucose 139 H POC Whole Bld Glucose 212 H 165 H Calcium 9.3 07/27/25 08:27 WBC RBC Hgb Hct MCV MCH MCHC RDW Plt Count Neut % (Auto) Lymph % (Auto) [place] % (Auto) Eos % (Auto) Baso % (Auto) Neut # (Auto) Lymph # (Auto) [place] # (Auto) Eos # (Auto) Baso # (Auto) Sodium Potassium Chloride Carbon Dioxide BUN Creatinine Estimated GFR BUN/Creatinine Ratio Glucose POC Whole Bld Glucose 117 H Calcium PFSH Medical History History of shortness of breath Left anterior fascicular block Atrial tachycardia Heart failure with mid-range ejection fraction Anesthesia complication Easy bruisability Bleeds easily Tobacco use 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 History of tobacco use History of bladder cancer Lower urinary tract symptoms Male circumcision Rheumatoid arthritis Kidney stones High blood pressure Cancer of bladder Surgical History S/P cervical spinal fusion History of ankle surgery (10/2024) H/O transurethral resection of bladder tumor (TURBT) (10/25/23) Hx of cystoscopy (01/11/23) Hx of appendectomy History of urologic surgery (04/23/22) Hx of cystoscopy History of transurethral resection of prostate H/O hernia repair Social History marital status: number of children: 4 household members: spouse Smoking Status: Former smoker Tobacco: How many years used: 50 alcohol intake: former Type(s) of exercise: independent ambulation Assessment & Plan Assessment and plan (1) Atrial fibrillation with rapid ventricular response: Status: Acute (2) Acute non-ST elevation myocardial infarction (NSTEMI): Status: Acute (3) COPD exacerbation: Status: Acute (4) Chronic respiratory failure: Qualifiers: Respiratory failure complication: unspecified whether with hypoxia or hypercapnia Qualified Code(s): J96.10 - Chronic respiratory failure, unspecified whether with hypoxia or hypercapnia Status: Acute (5) Acute systolic heart failure: Status: Acute (6) Pneumonia: Qualifiers: Laterality: bilateral Lung location: lower lobe of lung Pneumonia type: due to unspecified organism Qualified Code(s): J18.9 - Pneumonia, unspecified organism Status: Acute Plan Reduce Amiodarone to 200mg PO BID Lasix 20mg PO daily Assessment & Plan narrative: 1. Atrial fibrillation status post cardioversion. Currently on amiodarone 400 mg b.i.d. and metoprolol. Patient is having sinus bradycardia with PAC, atrial bigeminy and atrial couplets and triplets. 2. Azotemia. Patient is having rising BUN and creatinine probably due to prerenal azotemia and medications. 3. Non ST-elevation myocardial infarction. Patient was admitted to the hospital with elevated troponins that was initially thought to be due to respiratory distress and demand ischemia. However we reviewed his notes from [facility]. He had a normal LV systolic function along with a small perfusion defect consistent with infarct with kenn-infarct ischemia. Troponins have trended down. Patient is asymptomatic at this point if clinically indicated by his outpatient dye range feeder, coronary angiography can be offered. 4. COPD exacerbation: Patient is clinically much improved and demonstrates no respiratory distress. Total time spent 25 minutes which include seen the patient, reviewing his telemetry, interval diagnostic lab results and clinical decision-making. Time-Based Coding :: [TOTAL MINUTES] spent with patient and on the chart (including review of chart, obtaining history, exam, reviewing outside data, placing orders, documenting exam and treatment plan, and counseling patient) on [DATE].
--- NOTE | 2025-07-27 13:14 | CM.DPNOTE ---
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 no plans to dc today. cardiology input pending. P: no new needs identified at this time. will continue to follow closely in case any additional DCP needs should arise. anticipate eventual dc home when medically stable with family support ANDREW Coates
--- NOTE | 2025-07-27 18:04 | PC.NURSE ---
Pt declines to have his PIV changed, states that he is leaving tomorrow and doesn't want to have it changed. This nurse educated pt on the importance of changing PIV every 4 days, pt states that he understands and still does not want to change PIV. No further needs at this time, call light within reach, care ongoing
--- NOTE | 2025-07-27 19:23 | P.PN_ITS ---
Subjective Subjective Interval history: 84-year-old gentleman with hypertension, COPD, history of tobacco dependence, hyperlipidemia, admitted with acute hypoxic respiratory failure, acute systolic congestive heart failure, AFib with RVR, and acute non ST elevation PA. CT and chest x-ray revealed evidence of congestive heart failure. He was placed empirically on Rocephin and doxy cyclin for possible underlying pneumonia. He was also initiated on steroids. He is now on oral prednisone 40 mg. Cardiology consulted and placed him on a high-dose amiodarone as well as metoprolol for rate control. Over the past 2 days he has had episodes of bradycardia down into the 30s. He denies any specific symptomatology, but these have been occurring while he has been in bed. This morning, his heart rate is 27-35. It is sustained. He was initially asleep upon my arrival into his room. After a awakened him, he denied any chest pain, shortness and breath, dizziness or lightheadedness. He insisted he would be discharging home today. He stated that ?for doctors? told him he could go home. I discussed with him that his bradycardia was dangerous and that he would need to remain in the hospital until this was improved. He remained quite irritable and insistent that he would be discharging home. Exam Vital Signs (past 8 hours): - 07/27/25 12:00 07/27/25 15:16 07/27/25 16:00 Temperature 97.6 F 97.8 F Pulse Rate 61 40 L 49 L Respiratory Rate 24 18 24 Blood Pressure 135/63 109/51 L Pulse Oximetry 95 90 L 95 Oxygen Delivery Method Nasal Cannula Oxygen Flow Rate 3 3 3 Fraction of Inspired Oxygen 32 07/27/25 18:13 Temperature Pulse Rate 73 Respiratory Rate 18 Blood Pressure Pulse Oximetry 91 Oxygen Delivery Method Nasal Cannula Oxygen Flow Rate 3 Fraction of Inspired Oxygen 32 Fraction of Inspired Oxygen 32 SaO2/FiO2 Ratio 284 Oxygen Delivery Method Nasal Cannula Oxygen Flow Rate 3 Narrative Exam Narrative: GEN: Elderly male, appears chronically ill, Alert and oriented x 3, NAD HEENT:NC, Face symmetric CHEST: Respiratory excursions symmetric, CTAB CV: Severely bradycardic with regular rhythm, no M/R/G ABD: Soft, NT/moderately distended with tinkling bowel tones, body habitus limits exam EXTR: warm, well perfused, no C/C/1+ bilateral lower extremity edema SKIN: warm and dry, no rash NEURO: Alert and oriented x 3, nonfocal Objective Labs 07/27/25 06:55 07/27/25 06:55 Labs: Laboratory Results - last 24 hr 07/26/25 07/27/25 07/27/25 20:08 06:55 08:27 WBC 17.0 H RBC 4.25 L Hgb 13.1 L Hct 39.7 L MCV 93.6 MCH 30.9 MCHC 33.0 RDW 14.5 Plt Count 263 Neut % (Auto) 85.5 H Lymph % (Auto) 6.0 L [place] % (Auto) 8.2 Eos % (Auto) 0.0 L Baso % (Auto) 0.3 Neut # (Auto) 78923 H Lymph # (Auto) 1000 L [place] # (Auto) 1400 H Eos # (Auto) 0 Baso # (Auto) 0 Sodium 134 L Potassium 3.9 Chloride 90 L Carbon Dioxide 34 H BUN 79 H Creatinine 1.40 H Estimated GFR 50 L BUN/Creatinine Ratio 56.4 H Glucose 139 H POC Whole Bld Glucose 165 H 117 H Calcium 9.3 07/27/25 07/27/25 12:16 16:44 WBC RBC Hgb Hct MCV MCH MCHC RDW Plt Count Neut % (Auto) Lymph % (Auto) [place] % (Auto) Eos % (Auto) Baso % (Auto) Neut # (Auto) Lymph # (Auto) [place] # (Auto) Eos # (Auto) Baso # (Auto) Sodium Potassium Chloride Carbon Dioxide BUN Creatinine Estimated GFR BUN/Creatinine Ratio Glucose POC Whole Bld Glucose 172 H 279 H D Calcium PFSH Medical History History of shortness of breath Left anterior fascicular block Atrial tachycardia Heart failure with mid-range ejection fraction Anesthesia complication Easy bruisability Bleeds easily Tobacco use 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 History of tobacco use History of bladder cancer Lower urinary tract symptoms Male circumcision Rheumatoid arthritis Kidney stones High blood pressure Cancer of bladder Surgical History S/P cervical spinal fusion History of ankle surgery (10/2024) H/O transurethral resection of bladder tumor (TURBT) (10/25/23) Hx of cystoscopy (01/11/23) Hx of appendectomy History of urologic surgery (04/23/22) Hx of cystoscopy History of transurethral resection of prostate H/O hernia repair Social History marital status: number of children: 4 household members: spouse Smoking Status: Former smoker Tobacco: How many years used: 50 alcohol intake: former Type(s) of exercise: independent ambulation Assessment & Plan Assessment & Plan narrative: 1. Paroxysmal atrial fibrillation now with significant bradycardia Will hold metoprolol this morning. I did contact Dr. Buckner with regard to the patient's severe bradycardia. I discussed with him my concern regarding the patient's being adamant that he would go home today. Dr. Buckner kindly agreed to speak with him further. At this point, he believes the cause of the profound bradycardia may be the higher dose of amiodarone. He plans to decrease the dose from 400 mg twice daily to 200 mg twice daily. We will continue to monitor and hold metoprolol as well as needed. 2. Acute systolic congestive heart failure He is getting progressively more azotemic. Concern for contraction alkalosis. Will discontinue IV diuresis and transition to oral furosemide 40 mg. He did receive both IV doses of furosemide today. Therefore, his labs tomorrow morning may reflect ongoing evidence of contraction alkalosis. 3. Acute hypoxic respiratory failure O2 sats remain on the lower side at 91% on 3 L of oxygen. Will likely need to discharge on supplemental O2. 4. NSTEMI Likely will need an outpatient heart catheterization. Ongoing management per Dr. Buckner. 5. COPD No evidence of exacerbation. Tomorrow will be day 5 of steroids. Plan to discontinue prednisone after that 6. Class 1 obesity BMI is 31.6. He would benefit from weight reduction once his cardiac status has been cleared. Might benefit from cardiac rehab. 7. Steroid induced hyperglycemia Will check a hemoglobin A1c. Anticipate blood sugars will improve off steroids. Code status Full Prophylaxis On apixaban Disposition Discharged home once his bradycardia has improved Time-Based Coding :: [TOTAL MINUTES] spent with patient and on the chart (including review of chart, obtaining history, exam, reviewing outside data, placing orders, documenting exam and treatment plan, and counseling patient) on [DATE].
[2025-07-27] MEDS: ATORVASTATIN 20 MG TABLET PO (20:51)
[2025-07-27] MEDS: INSULIN GLARGINE 100 UNIT/ML 3ML PEN 12 UNIT SUBCUT (20:52)
[2025-07-27] MEDS: SODIUM CHLORIDE 0.9% FLUSH 10 ML IV (20:53)
[2025-07-28] VITALS (7 sets, daily range): BP systolic 100–144; BP diastolic 55–85; PULSE 34–104; RESP 17–38; TEMP 36.4; O2SAT 88–98
[2025-07-28 05:20] LABS: Add Manual Diff / Slide Review NO; Hematocrit 40.0 % (41-53); Hemoglobin 13.3 g/dL (13.5-17.5); Lymphocytes Absolute Auto 1100 /uL (1100-4500); Mean Corpuscular HGB Conc 33.4 % (30-36); Mean Corpuscular Hemoglobin 31.1 PG (26-34); Mean Corpuscular Volume 93.3 fL (80-100); Platelet Count 239 X10^3/uL (150-400)
[2025-07-28 05:24] LABS: Blood Urea Nitrogen 70 mg/dL (9-20); Calcium 9.1 mg/dL (8.4-10.2); Chloride 93 mmol/L (98-107); Estimated Glomerular Filt Rate > 60 mL/min (>60); Glucose 145 mg/dL (70-99); Potassium 3.7 mmol/L (3.4-5.1); Sodium 137 mmol/L (137-145)
[2025-07-28 05:30] LABS: Carbon Dioxide 37 mmol/L (22-32); HEMOLYSIS 25 (0-50)
--- NOTE | 2025-07-28 06:29 | PC.NURSE ---
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
[2025-07-28] MEDS: ALBUTEROL/IPRATROPIUM 3 ML AMPUL INH ×2 (07:25→13:25)
[2025-07-28] MEDS: BUDESONIDE 0.5 MG/2 ML NEB INH (07:25)
[2025-07-28] MEDS: APIXABAN 5 MG TABLET PO (08:55)
[2025-07-28] MEDS: FUROSEMIDE 40 MG TABLET PO (08:55)
[2025-07-28] MEDS: PANTOPRAZOLE DR 40 MG TABLET PO (08:55)
[2025-07-28] MEDS: AMIODARONE 200 MG TABLET PO (08:55)
[2025-07-28] MEDS: FINASTERIDE 5 MG TABLET PO (08:56)
[2025-07-28] MEDS: ASPIRIN EC 81 MG TABLET PO (08:56)
[2025-07-28] MEDS: INSULIN LISPRO 100 UNIT/ML 3ML VIAL SUBCUT ×4 (08:57→12:25)
[2025-07-28] MEDS: SODIUM CHLORIDE 0.9% FLUSH 10 ML IV (12:28)
--- NOTE | 2025-07-28 12:35 | P.DS_ITS ---
History of Present Illness History of Present Illness Chief complaint: COPD Exacerbation Narrative: Per H&P: 07/23: 84-year-old male with a history of COPD on chronic oxygen had increasing shortness of breath dyspnea on exertion palpitations and diarrhea for the past few days EMS was called and gave IV diltiazem for tachycardia rate greater than 170 and Solu-Medrol on route. Placed on BiPAP in the emergency department Patient had refractory tachycardia with atrial fibrillation despite IV diltiazem titrated up to 15 milligrams/hour and bolus with IV amiodarone. Patient was given IV heparin and cardioverted taking 3 DC cardioversions at increasing current. The patient remained in atrial fibrillation but the rate was controlled at about 70-110. Patient was admitted to the intensive care unit Findings in the emergency department workup significant for: Chest x-ray showing enlarged cardiac silhouette bilateral airspace opacities suggesting infiltrates and or pulmonary edema EKG showing atrial fibrillation rapid ventricular response with ST segment and T-wave changes related to rate CT angio negative for pulmonary edema but shows multifocal infiltrates and [place] [address] with 73% neutrophils Sodium 138 potassium 4.2 BUN 34 creatinine 29 Lactate 1.7 Initial troponin 0.19 3-hour 0.18 Discharge Providers Provider Date of admission: 07/23/25 12:08 Discharge Date: 07/28/25 Primary care physician: Zac Phillips MD Consults: 07/23/25 21:28 Consult to Pharmacy Routine Comment: Protocol 07/25/25 10:13 Consult to Cardiology Routine Comment: Consulting Provider: Harvey Lyles Reason for consultation: NEW AFIB 07/25/25 10:53 Consult to Occupational Therapy Evaluate & Treat Comment: Physician Instructions: Evaluate and treat Consult to Physical Therapy Evaluate & Treat Comment: Physician Instructions: Evaluate and Treat Discharge provider: Abbi Lopez MD Summary Hospital Course Discharge Diagnosis: 1. Paroxysmal atrial fibrillation 2. Medication induced sinus bradycardia with PACs, couplets and triplets 3. Acute systolic congestive heart failure 4. Acute hypoxic respiratory failure 5. NSTEMI 6. COPD without exacerbation 7. Class 1 obesity with BMI of 31.6 8. Steroid induced hyperglycemia in the setting of diabetes mellitus type 2 Hospital Course: 84-year-old gentleman with hypertension, COPD, history of tobacco dependence, hyperlipidemia, admitted with acute hypoxic respiratory failure, acute systolic congestive heart failure, AFib with RVR, and acute non ST elevation MS. CT and chest x-ray revealed evidence of congestive heart failure. He was placed empirically on Rocephin and doxy cyclin for possible underlying pneumonia. He was also initiated on steroids. He was then transitioned to oral prednisone 40 mg. Cardiology consulted and placed him on a high-dose amiodarone as well as metoprolol for rate control. In the 72 hours prior to hospital discharge, he developed episodes of bradycardia down into the 20s and 30s. He denied any symptoms related to the bradycardia, but had not been out of bed. It was felt the bradycardia was related to high dose amiodarone and metoprolol. The metoprolol was discontinued and the amiodarone was decreased from 400 mg twice daily to 200 mg twice daily. His discharge from the hospital was delayed in additional 24 hours. His heart rate did show some improvement up from the 20s and 30s to the 40s at the lowest. He remained asymptomatic. He was able to mobilize without symptoms. After further discussion with Dr. Buckner, cardiology, it was felt he was safe to discharge. He is discharged in stable condition and will follow-up w/Dr. Buckner on an outpatient basis in the next week or so. Status at Discharge Cognitive/behavioral status at discharge: at baseline, oriented Functional status at discharge: independent ambulation Overall status at discharge: patient is progressing back to baseline Time Spent with Patient Time spent: Greater than 30 minutes Exam Vital Signs (past 8 hours): - 07/27/25 12:00 07/27/25 15:16 07/27/25 16:00 Temperature 97.6 F 97.8 F Pulse Rate 61 40 L 49 L Respiratory Rate 24 18 24 Blood Pressure 135/63 109/51 L Pulse Oximetry 95 90 L 95 Oxygen Delivery Method Nasal Cannula Oxygen Flow Rate 3 3 3 Fraction of Inspired Oxygen 32 07/27/25 18:13 Temperature Pulse Rate 73 Respiratory Rate 18 Blood Pressure Pulse Oximetry 91 Oxygen Delivery Method Nasal Cannula Oxygen Flow Rate 3 Fraction of Inspired Oxygen 32 Fraction of Inspired Oxygen 32 SaO2/FiO2 Ratio 284 Oxygen Delivery Method Nasal Cannula Oxygen Flow Rate 3 Narrative Exam Narrative: GEN: Elderly male, appears chronically ill, Alert and oriented x 3, NAD HEENT:NC, Face symmetric CHEST: Respiratory excursions symmetric, CTAB CV: Severely bradycardic with regular rhythm, no M/R/G ABD: Soft, NT/moderately distended with tinkling bowel tones, body habitus limits exam EXTR: warm, well perfused, no C/C/1+ bilateral lower extremity edema SKIN: warm and dry, no rash NEURO: Alert and oriented x 3, nonfocal Objective Labs 07/28/25 04:12 07/28/25 04:12 Labs: Laboratory Results - last 24 hr 07/26/25 07/27/25 07/27/25 20:08 06:55 08:27 WBC 17.0 H RBC 4.25 L Hgb 13.1 L Hct 39.7 L MCV 93.6 MCH 30.9 MCHC 33.0 RDW 14.5 Plt Count 263 Neut % (Auto) 85.5 H Lymph % (Auto) 6.0 L [place] % (Auto) 8.2 Eos % (Auto) 0.0 L Baso % (Auto) 0.3 Neut # (Auto) 79722 H Lymph # (Auto) 1000 L [place] # (Auto) 1400 H Eos # (Auto) 0 Baso # (Auto) 0 Sodium 134 L Potassium 3.9 Chloride 90 L Carbon Dioxide 34 H BUN 79 H Creatinine 1.40 H Estimated GFR 50 L BUN/Creatinine Ratio 56.4 H Glucose 139 H POC Whole Bld Glucose 165 H 117 H Calcium 9.3 07/27/25 07/27/25 12:16 16:44 WBC RBC Hgb Hct MCV MCH MCHC RDW Plt Count Neut % (Auto) Lymph % (Auto) [place] % (Auto) Eos % (Auto) Baso % (Auto) Neut # (Auto) Lymph # (Auto) [place] # (Auto) Eos # (Auto) Baso # (Auto) Sodium Potassium Chloride Carbon Dioxide BUN Creatinine Estimated GFR BUN/Creatinine Ratio Glucose POC Whole Bld Glucose 172 H 279 H D Calcium [facility] Medical History History of shortness of breath Left anterior fascicular block Atrial tachycardia Heart failure with mid-range ejection fraction Anesthesia complication Easy bruisability Bleeds easily Tobacco use 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 History of tobacco use History of bladder cancer Lower urinary tract symptoms Male circumcision Rheumatoid arthritis Kidney stones High blood pressure Cancer of bladder Surgical History S/P cervical spinal fusion History of ankle surgery (10/2024) H/O transurethral resection of bladder tumor (TURBT) (10/25/23) Hx of cystoscopy (01/11/23) Hx of appendectomy History of urologic surgery (04/23/22) Hx of cystoscopy History of transurethral resection of prostate H/O hernia repair Social History marital status: number of children: 4 household members: spouse Smoking Status: Former smoker Tobacco: How many years used: 50 alcohol intake: former Type(s) of exercise: independent ambulation Discharge Plan Discharge Plan Patient Disposition: Home Provider Discharge Comment: You were admitted with atrial fibrillation with a fast heart rate. You have been placed on amiodarone which helps control that fast heart rate. He will continue that twice a day. Atrial fibrillation puts you at an increased risk for stroke. You have therefore been placed on anticoagulation (blood thinners). This does increase your risk for bleeding. Please monitor your stool for occult blood. If you observe black or tarry stool, maroon stools or clot in your stool, please hold your anticoagulation and present to the emergency department right away. You were also diagnosed with congestive heart failure. You have been initiated on a diuretic, furosemide. You should take this each morning as early as possible as it will make you have increased urination. You have also been initiated on potassium as the diuretic will cause your potassium levels to go down. You were on steroids while you were in the hospital which pause your blood sugar to run high. Your hemoglobin A1c was 6.9%, consistent with overall good control of your diabetes. You are now off of the steroids, so your blood sugars should normalize. You will not need any insulin when you return home. Return to the ED: Increased shortness of breath/chest pain. Inability to hold down food/fluids/medications. Fevers/chills. Discharge orders & Medications Prescriptions: New furosemide 40 mg Tablet 40 mg PO DAILY Qty: 30 0RF amiodarone 200 mg Tablet 200 mg PO BIDWM Qty: 60 0RF Eliquis 5 mg Tablet 5 mg PO BID Qty: 60 0RF potassium chloride 20 mEq tablet extended release 20 meq PO DAILY Qty: 30 0RF Continued aspirin 81 mg Tablet,Delayed Release (Dr/Ec) 81 mg PO DAILY Qty: 0 CA PANTOTHENATE/FOLIC ACID/VIT (MULTIVITAMIN) 1 tab PO Q DAY Qty: 0 Breztri Aerosphere 160-9-4.8 mcg/actuation HFA aerosol inhaler 2 inh PO BID Qty: 10.7 11RF finasteride 5 mg tablet 5 mg PO DAILY Qty: 90 0RF albuterol sulfate 90 mcg/actuation HFA aerosol inhaler 2 inh inhalation DIRECTED losartan 25 mg tablet 25 mg PO DAILY Qty: 30 0RF hydrocodone-acetaminophen 10-325 mg tablet 2 tab PO BID Patient Comments: TAKE 2 TABLETS BY MOUTH TWICE DAILY NEEDED Qvar RediHaler 80 mcg/actuation HFA aerosol breath activated 1 inh inhalation BID Qty: 10.6 0RF atorvastatin 20 mg tablet 20 mg PO QPM Jardiance 10 mg tablet 10 mg PO DAILY ipratropium-albuterol 0.5 mg-3 mg(2.5 mg base)/3 mL solution for nebulization 3 ml inhalation BID Qty: 180 11RF Discontinued prednisone 10 mg tablet See Rx Instructions .ROUTE .COMPLEX Qty: 50 0RF Rx Instructions: take 40 mg daily x5 days, 30 mg daily x5 days, 20 mg daily x5 days, 10 mg daily x 5 days diltiazem HCl 180 mg capsule,extended release 24hr 180 mg PO DAILY guaifenesin [Mucinex] 1,200 mg tablet extended release 12hr 1,200 mg PO BID Qty: 30 5RF Follow up/Referrals: Sanket Buckner MD [Physician, Cardiology] - 1 Week Zac Phillips MD [Primary Care Provider, Internal Medicine] Discharge Health Status Multidrug resistant organism: No MDRO Diet/Activity/Treatments Diet: Diet as Tolerated and Low-sodium Diet comment: 2000 CC fluid restriction Activity: As tolerated Oxygen: N/A Visit Report/Discharge Packet Instructions: DI for Heart Failure, Low-Sodium Diet Stand Alone Forms: Patient Portal/API, Stroke Signs & Symptoms Discharge Data Primary Care Provider: Zac Phillips
--- NOTE | 2025-07-28 15:45 | PC.NURSE ---
Discharge: Pt and spouse agreeable to discharge. Confirmed pt uses home oxygen at baseline, supplies brought to bedside by spouse. Education provided to pt on low sodium diet, fluid restriction diet, weight monitoring d/t CHF, CHF information and warning signs to return to the ED, stroke s/s, and questions answered. Pt and spouse given paper scripts by provider, pt spouse ensured prescription availability at preferred pharmacy. IV discontinued, telemetry removed. O2 tubing attached to pt's home portable oxygen concentrator. Pt wheeled to private vehicle via w/c by PCT and spouse at approximately 1515.
== END 2025-07-28 15:15 | disposition home or self-care (01) | DRG 280 ==
LOC: ED 12:06 → AC 12:09 → ICU 12:30
PROVIDERS: Family Medicine; Hospitalist; Admitting Provider Internal Medicine; Emergency Provider Family Medicine; PCP Internal Medicine; Referring Provider Family Medicine; Visit Provider Internal Medicine
DX: I48.0 Paroxysmal atrial fibrillation (principal); I50.21 Acute systolic (congestive) heart failure; I21.4 Non-ST elevation (NSTEMI) myocardial infarction; J96.21 Acute and chronic respiratory failure with hypoxia; I11.0 Hypertensive heart disease with heart failure; E66.01 Morbid (severe) obesity due to excess calories; E66.811 Obesity, class 1; R00.1 Bradycardia, unspecified; J44.9 Chronic obstructive pulmonary disease, unspecified; T38.0X5A Adverse effect of glucocorticoids and synthetic analogues, initial encounter; I49.1 Atrial premature depolarization; E11.65 Type 2 diabetes mellitus with hyperglycemia; M06.9 Rheumatoid arthritis, unspecified; Z99.81 Dependence on supplemental oxygen; Z68.31 Body mass index [BMI] 31.0-31.9, adult; Z79.84 Long term (current) use of oral hypoglycemic drugs; Z87.891 Personal history of nicotine dependence
CPT/HCPCS: 36415; 71045; 71275; 80048; 80053; 81003; 81015; 82553; 82962; 83036; 83605; 83690; 83735; 83880; 84484; 85025; 85730; 87040; 87086; 87637; 87797; 92960; 93005; 93306; 94640; 94660; 94762; 96365; 96367; 96375; 97162; 99152; 99285; J0153; J0282; J0696; J1644; J1815; J1938; J2704; J2919; J7040; J7050; J7060; Q9967

== ENCOUNTER 2025-09-19 10:11 | Inpatient (IN) | payer MEDICARE, SELFPAY ==
[2025-07-23 12:10] VITALS: BMI 30.4
[2025-07-26 00:05] VITALS: PULSE 69; RESP 19; O2SAT 95
[2025-09-19] VITALS (30 sets, daily range): BP systolic 107–160; BP diastolic 42–75; PULSE 34–91; RESP 17–25; TEMP 35.9–36.9; O2SAT 91–99; BMI 25.8
[2025-09-19 11:09] LABS: Appearance Urine UA CLOUDY; Bilirubin Urine UA NEGATIVE (NEGATIVE); Color Urine UA RED; Glucose Urine UA 3+ g/dL (Negative); Ketones Urine UA 2+ (NEGATIVE); Leukocyte Esterase Urine UA 2+ (NEGATIVE); Nitrite Urine UA POSITIVE (Negative); Occult Blood Urine UA 3+ (Negative); Protein Urine UA 3+ (Negative); Specific Gravity Urine UA 1.010 (1.000-1.035); Urobilinogen Urine UA >=8.0 E.U./dL (0.2); pH Urine UA 7.0 (4.5-8.0)
[2025-09-19 11:15] LABS: Culture Indicated Urine Specimen Cultured
--- NOTE | 2025-09-19 11:48 | ED.MALEGU ---
HPI - Male Genitourinary General Chief complaint: Urogenital-Male Stated complaint: Peeing blood, 4 days Time Seen by Provider: 09/19/25 11:02 Source: patient Mode of arrival: Family Vehicle History of Present Illness HPI Narrative: Mr. Sumner is a pleasant 85-year-old male with a past medical history of NSTEMI, AFib on Eliquis, COPD, CHF, bladder cancer who presents to the emergency department for 5 days of urinating blood and small clots. He is urinating more frequently but is still able to relieve himself and denies any difficulties passing the clots. States that this did happen to him in the past and he was supposed to have a cystoscopy for bladder cancer last November but due to other medical problems he never had a cystoscopy. He is having some mild left-sided flank pain. He denies fevers, chills, chest pain, shortness of breath or any other concerns. He does take Eliquis. Related Data Home Medications ?Medication ?Instructions ?Recorded ?Confirmed CA PANTOTHENATE/FOLIC ACID/VIT 1 tab PO Q DAY ##0 07/31/12 07/23/25 (MULTIVITAMIN) aspirin 81 mg tablet,delayed 81 mg PO DAILY ##0 07/31/12 07/23/25 release hydrocodone 10 mg-acetaminophen 2 tab PO BID 04/23/22 07/23/25 325 mg tablet albuterol sulfate 90 mcg/actuation 2 inh inhalation DIRECTED 10/25/23 07/23/25 aerosol inhaler atorvastatin 20 mg tablet 20 mg PO QPM 07/23/25 07/23/25 empagliflozin 10 mg tablet 10 mg PO DAILY 07/23/25 07/23/25 (Jardiance) Previous Rx's ?Medication ?Instructions ?Recorded ipratropium 0.5 mg-albuterol 3 mg 3 ml inhalation BID #180 mL 02/29/24 (2.5 mg base)/3 mL nebulization soln losartan 25 mg tablet 25 mg PO DAILY #30 tabs 04/12/24 beclomethasone dipropionate 80 1 inh inhalation BID #10.6 grams 08/14/24 mcg/actuation HFA breath activated aerosol (Qvar RediHaler) budesonide 160 mcg-glycopyr 9 2 inh PO BID #10.7 grams 03/22/25 mcg-formot 4.8 mcg/actuation HFA inhaler (Breztri Aerosphere) finasteride 5 mg tablet 5 mg PO DAILY #90 tabs 06/03/25 amiodarone 200 mg tablet 200 mg PO BIDWM #60 tabs 07/28/25 apixaban 5 mg tablet (Eliquis) 5 mg PO BID #60 tabs 07/28/25 furosemide 40 mg tablet 40 mg PO DAILY #30 tabs 07/28/25 potassium chloride 20 mEq 20 meq PO DAILY #30 tabs 07/28/25 tablet,extended release Allergies Allergy/AdvReac Type Severity Reaction Status Date / Time No Known Drug Allergies Allergy Verified 09/19/25 10:34 Review of Systems Review of Systems ROS Unobtainable: All systems reviewed & are unremarkable except as noted in HPI and below Patient History Medical History History of shortness of breath Left anterior fascicular block Atrial tachycardia Heart failure with mid-range ejection fraction Anesthesia complication Easy bruisability Bleeds easily Tobacco use 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 History of tobacco use History of bladder cancer Lower urinary tract symptoms Male circumcision Rheumatoid arthritis Kidney stones High blood pressure Cancer of bladder Surgical History S/P cervical spinal fusion History of ankle surgery (10/2024) H/O transurethral resection of bladder tumor (TURBT) (10/25/23) Hx of cystoscopy (01/11/23) Hx of appendectomy History of urologic surgery (04/23/22) Hx of cystoscopy History of transurethral resection of prostate H/O hernia repair Social History marital status: number of children: 4 household members: spouse Smoking Status: Former smoker Tobacco: How many years used: 50 alcohol intake: former Type(s) of exercise: independent ambulation Smoking Status: Former smoker tobacco type: cigarettes alcohol intake frequency: 0-2 drinks per day Alcohol type: hard liquor Exam Narrative Exam Narrative: GENERAL: 85 year old patient appears stated age. Well-developed patient, in no acute distress. HEAD: Atraumatic. Normocephalic. EYES: No scleral icterus. No injection or drainage. NECK: Trachea midline. Cervical ROM intact. CARDIOVASCULAR: Regular rate and rhythm. RESPIRATORY: ?Nonlabored respirations. ?Speaking in clear, full sentences. Normal inspiratory breath sounds, occasional mild expiratory wheeze. GASTROINTESTINAL: Abdomen soft, non-tender. Abdomen is protuberant. Bowel sounds are present. EXTREMITIES: No LE edema. BACK: BL CVA tenderness present. NEURO: AOx3. ?Clear speech. ?Moves all 4 extremities appropriately. SKIN: No rash or erythema of visible areas Initial Vital Signs Initial Vital Signs: Vital Signs Temperature 98.4 F 09/19/25 10:34 Pulse Rate 53 L 09/19/25 10:34 Respiratory Rate 17 09/19/25 10:34 Blood Pressure 132/62 09/19/25 10:34 Pulse Oximetry 96 09/19/25 10:34 Oxygen Delivery Method Room Air 09/19/25 10:34 Course Orders Ordered: ED Orders 09/19/25 10:49 Urinalysis and Microscopic Stat Urine Culture Stat 09/19/25 12:00 CT abdomen pelvis w con Stat 09/19/25 12:40 Complete Blood Count AUTO DIFF Stat Comprehensive Metabolic Panel Stat Lipase Stat PT [Prothrombin Time INR] Stat PTT Partial Thromboplastin Fabrizio Stat 09/19/25 13:46 EKG-12 Lead Stat 09/19/25 13:59 XR chest 1V Stat 09/19/25 14:04 CT angio chest PE protocol Stat 09/19/25 14:20 Blood Culture Stat 09/19/25 14:30 BNP [NT-proBNP (BNP-Adult 18+)] Stat Lactate (Lactic Acid) Stat MG [Magnesium] Stat Procalcitonin Stat Troponin & CK Cardiac Panel Stat Discontinued Medications Hydrocodone Bitart/Acetaminophen (Hydrocodone/Acet 10/325 Tablet) 1 tab PO NOW ONE Stop: 09/19/25 15:55 Last Admin: 09/19/25 16:15 Dose: 1 tab Documented By: JERI Sodium Chloride (Normal Saline 0.9%) 1,000 mls @ 1,000 mls/hr IV BOLUS ONE Stop: 09/19/25 14:58 Last Infusion: 09/19/25 17:20 Dose: Infused Documented By: Admin: 09/19/25 15:12 Dose: 1,000 mls/hr Documented By: GABBI Ceftriaxone Sodium 2,000 mg/ (Sodium Chloride) 100 mls @ 200 mls/hr IV NOW ONE Stop: 09/19/25 14:03 Last Infusion: 09/19/25 16:16 Dose: Infused Documented By: Admin: 09/19/25 15:12 Dose: 200 mls/hr Documented By: GABBI Vital Signs Vital signs: Vital Signs - 8 hr 09/19/25 10:34 09/19/25 12:17 09/19/25 12:18 Temperature 98.4 F Pulse Rate 53 L 51 L 47 L Respiratory Rate 17 24 Blood Pressure 132/62 Pulse Oximetry 96 94 95 Oxygen Delivery Method Room Air Oxygen Flow Rate 09/19/25 12:18 09/19/25 12:30 09/19/25 12:30 Temperature Pulse Rate 46 L Respiratory Rate 19 Blood Pressure 122/61 112/59 L Pulse Oximetry 99 Oxygen Delivery Method Oxygen Flow Rate 09/19/25 13:00 09/19/25 13:00 09/19/25 13:36 Temperature Pulse Rate 43 L 46 L Respiratory Rate 21 Blood Pressure 118/75 Pulse Oximetry 92 92 Oxygen Delivery Method Room Air Oxygen Flow Rate 09/19/25 13:37 09/19/25 13:37 09/19/25 14:00 Temperature Pulse Rate 37 L 35 L Respiratory Rate 24 21 Blood Pressure 107/53 L Pulse Oximetry 93 92 Oxygen Delivery Method Oxygen Flow Rate 09/19/25 14:02 09/19/25 14:02 09/19/25 14:30 Temperature Pulse Rate 36 L 37 L Respiratory Rate 17 19 Blood Pressure 122/59 L Pulse Oximetry 94 Oxygen Delivery Method Oxygen Flow Rate 09/19/25 14:53 09/19/25 14:53 09/19/25 15:00 Temperature Pulse Rate 40 L 91 H Respiratory Rate 20 17 Blood Pressure 140/66 Pulse Oximetry 94 Oxygen Delivery Method Oxygen Flow Rate 09/19/25 15:01 09/19/25 15:01 09/19/25 15:16 Temperature Pulse Rate 59 L 38 L Respiratory Rate 23 21 Blood Pressure 150/70 H Pulse Oximetry 94 Oxygen Delivery Method Oxygen Flow Rate 09/19/25 15:16 09/19/25 15:30 09/19/25 15:30 Temperature Pulse Rate 34 L Respiratory Rate 20 Blood Pressure 139/64 135/61 Pulse Oximetry 94 Oxygen Delivery Method Oxygen Flow Rate 09/19/25 15:45 09/19/25 15:45 09/19/25 16:00 Temperature Pulse Rate 35 L Respiratory Rate 17 Blood Pressure 125/58 L 130/60 Pulse Oximetry 92 Oxygen Delivery Method Oxygen Flow Rate 09/19/25 16:00 09/19/25 16:16 09/19/25 16:16 Temperature Pulse Rate 38 L 38 L Respiratory Rate 20 23 Blood Pressure 144/63 H Pulse Oximetry 97 98 Oxygen Delivery Method Oxygen Flow Rate 09/19/25 16:30 09/19/25 16:31 09/19/25 16:31 Temperature Pulse Rate 39 L 40 L Respiratory Rate 21 22 Blood Pressure 150/67 H Pulse Oximetry 94 96 Oxygen Delivery Method Oxygen Flow Rate 09/19/25 16:45 09/19/25 16:45 09/19/25 17:00 Temperature Pulse Rate 40 L 43 L Respiratory Rate 25 H 25 H Blood Pressure 152/65 H Pulse Oximetry 92 95 Oxygen Delivery Method Nasal Cannula Oxygen Flow Rate 1 09/19/25 17:00 Temperature Pulse Rate Respiratory Rate Blood Pressure 151/67 H Pulse Oximetry Oxygen Delivery Method Oxygen Flow Rate MDM - Male Genitourinary Medical Records Attestation: I reviewed the patient's medical records. Lab Data 09/19/25 12:40 09/19/25 12:40 Labs: Lab Results 09/19/25 09/19/25 09/19/25 Range/Units 10:49 12:40 14:30 WBC 14.8 H (4.5-11.0) X10^3/uL RBC 3.87 L (4.5-5.9) X10^6/uL Hgb 12.4 L (13.5-17.5) g/dL Hct 36.3 L (41-53) % MCV 94.0 (80-100) fL MCH 32.0 (26-34) PG MCHC 34.1 (30-36) % RDW 15.2 H (11.6-14.8) % Plt Count 305 (150-400) X10^3/uL Neut % (Auto) 66.6 (50-75) % Lymph % (Auto) 18.8 L (25-40) % [place] % (Auto) 6.8 (3-14) % Eos % (Auto) 7.4 H (2-4) % Baso % (Auto) 0.4 (0-2) % Neut # (Auto) 9800 H (2634-2366) /uL Lymph # (Auto) 2800 (2830-4389) /uL [place] # (Auto) 1000 H (0-900) /uL Eos # (Auto) 1100 H (0-450) /uL Baso # (Auto) 100 (0-100) /uL PT 22.9 H (9.4-12.5) SECONDS INR 2.1 H (0.9-1.3) APTT 36 (25.1-36.5) SECONDS Sodium 139 (137-145) mmol/L Potassium 4.1 (3.4-5.1) mmol/L Chloride 98 (98-107) mmol/L Carbon Dioxide 32 (22-32) mmol/L BUN 26 H (9-20) mg/dL Creatinine 1.21 (0.66-1.25) mg/dL Estimated GFR 59 L (>60) mL/min BUN/Creatinine Ratio 21.5 (6-22) Glucose 178 H (70-99) mg/dL Lactate 1.9 (0.7-2.1) mmol/L Calcium 10.1 (8.4-10.2) mg/dL Magnesium 2.4 H (1.6-2.3) mg/dL Total Bilirubin 0.6 (0.2-1.3) mg/dL AST 35 (17-59) IU/L ALT 34 (<50) IU/L Alkaline Phosphatase 92 (38-126) U/L Total Creatine Kinase 25 L (55-170) U/L Troponin I 0.019 (0.01-0.034) ng/mL NT-Pro-B Natriuret Pep 311 (<450) pg/mL Total Protein 7.7 (6.3-8.2) g/dL Albumin 4.4 (3.5-5.0) g/dL Globulin 3.3 (1.7-4.1) g/dL Albumin/Globulin Ratio 1.3 (1.0-2.8) Lipase 69 (23-300) U/L Procalcitonin 0.110 (<0.5) ng/mL Urine Color Red Urine Appearance Cloudy Urine pH 7.0 (4.5-8.0) Ur Specific [place] 1.010 (1.000-1.035) Urine Protein 3+ H (Negative) Urine Glucose (UA) 3+ H (Negative) g/dL Urine Ketones 2+ H (NEGATIVE) Urine Occult Blood 3+ H (Negative) Urine Nitrate Positive H (Negative) Urine Bilirubin Negative (NEGATIVE) Urine Urobilinogen >=8.0 (0.2) E.U./dL Ur Leukocyte Esterase 2+ H (NEGATIVE) Urine RBC 10-30/hpf H (0-5/HPF) Urine WBC 10-30/hpf H (0-5/HPF) Ur Squamous Epith Cells 0-1 /hpf (0-5/HPF) Urine Bacteria Moderate (10-30) H (None) Ur Culture Indicated? Specimen cultured Vol Urine Centrifuged 10ml (spun) Imaging Data Chest CTA: Radiologist's Impression: PROCEDURE: CT ANGIO CHEST PE PROTOCOL INDICATIONS: concern PE, new mets TECHNIQUE: After the administration of intravenous contrast, 2 mm thick sections acquired from the pulmonary apices to the posterior costophrenic angles. 3-dimensional maximum intensity projection (MIP) coronal and sagittal reformats were then acquired through the thorax. For radiation dose reduction, the following was used: automated exposure control, adjustment of mA and/or kV according to patient size. COMPARISON: [facility], CT, CT ANGIO CHEST PE PROTOCOL, 07/19/2024, 9:19. [facility], CT, CT ANGIO CHEST PE PROTOCOL, 07/23/2025, 10:04. FINDINGS: Image quality: Diagnostic. Pulmonary arteries: Pulmonary arteries are normal in size, and demonstrate no intraluminal filling defects to suggest central pulmonary embolism. Lower Neck: No enlarged lymph nodes. Thyroid: No thyroid nodules which require sonographic follow up, per consensus guidelines. Axillae: No enlarged lymph nodes. Chest Wall: Unremarkable. Bones: Unremarkable. Lungs and Pleura: No pneumothorax or pleural effusions. There is definite pulmonary metastatic disease which was not present in July,. It is possible that the largest single metastatic lesion, in the posterior right lung base on image 223 of current series 5, may have been obscured by pleural fluid on the recent prior study. It measures 1.6 x 1.1 cm. There is a lesion more anteriorly in the left lung base on the same image which was not present 2 months ago, measuring 0.8 cm, and is a new metastatic lesion in the right lung. 3 inferior basilar left pulmonary nodules are present on axial image 225, measuring 0.6, 1.0, and 0.8 cm respectively. These are all likely new as well. Multiple other pulmonary nodules are present. On the current study, there is no pulmonary edema. There is no pleural fluid identified. Heart: Heart size is normal. Moderate to severe coronary artery calcifications. Trace pericardial effusion. Thoracic Vessels: Mild aneurysmal dilatation of the ascending aorta, measuring 4.1 cm. Mediastinum and Bridget: No enlarged lymph nodes. Esophagus: No wall thickening. No hiatal hernia. Upper Abdomen: Visualized upper abdomen solid organs and bowel loops appear normal. IMPRESSION: 1. No acute pulmonary emboli. 2. Rapid progression of pulmonary metastatic disease. 3. Currently, there is no congestive heart failure. There is cardiomegaly and moderate to severe coronary artery calcification. Dictated by: Lico Reno M.D. on 09/19/2025 at 16:06 Approved by: Lico Reno M.D. on 09/19/2025 at 16:14 CT scan - abdomen/pelvis: Radiologist's Impression: PROCEDURE: CT ABDOMEN PELVIS W CON INDICATIONS: hematuria; L flank pain TECHNIQUE: After the administration of intravenous contrast, axial sections acquired from the lung bases to the pubic symphysis. Coronal and sagittal reformats were performed. For radiation dose reduction, the following was used: automated exposure control, adjustment of mA and/or kV according to patient size. COMPARISON: [facility], CT, CT ANGIO CHEST PE PROTOCOL, 07/23/2025, 10:04. FINDINGS: Image quality: Diagnostic. Lower Chest: Rapid interval development of numerous pulmonary nodules bilaterally. The largest right-sided pulmonary nodule is a multilobulated nodule on image 19 of series 3 measuring approximately 1.3 x 1.6 cm. Some of the larger left-sided nodules include a 1.1 cm extreme inferior lateral nodule on image 23 of series 3, a 0.8 cm nodule in the extreme left lung base on image 21, and 2 nodules in the posterior basal left lower lobe on image 18 measuring 6 mm each. Numerous other small pulmonary nodules have developed. Suspect rapidly developing pulmonary metastatic disease. ABDOMEN: Liver: No solid mass. Gallbladder: No radiopaque gallstones or wall thickening. Biliary ducts: No biliary dilation. Pancreas: No ductal dilation. Spleen: Size is within normal limits. Adrenal Glands: No adrenal nodules. Kidneys and Ureters: No hydronephrosis. No solid mass. No complex renal cystic lesion which requires follow up. Stomach and Bowel: There is a suggestion of possible mild circumferential thickening in the region of the cecum and proximal ascending colon. Moderate sigmoid diverticulosis. Peritoneum: No abnormal intraperitoneal fluid. No free air. Ventral Wall: No significant ventral hernia. Abdominal Nodes: No retroperitoneal or mesenteric adenopathy by size criteria. Vessels: Moderate aneurysmal dilatation of the infrarenal abdominal aorta measuring 4.4 x 4.0 cm. PELVIS: Pelvic Organs: Unremarkable. Bladder: Malignant right base of bladder mass with necrotic center measuring approximately 2.5 x 3.4 x 2.6 cm. There is also either a left base of bladder mass or more likely products of hemorrhage. Pelvic Nodes: No enlarged lymph nodes. Miscellaneous: Bilateral inguinal hernias. The right inguinal hernia contains a small amount of the bladder. Bones: No aggressive osseous abnormality. Old T11 compression. IMPRESSION: 1. There is a malignant right base of bladder mass. 2. Rapid interval development of extensive pulmonary metastatic disease. 3. 4.5 cm maximum diameter infrarenal abdominal aortic aneurysm. 4. Question possible malignant lesion involving the cecum and proximal ascending colon, not definite. Comments: Recommend cystoscopy for tissue diagnosis of the bladder lesion. Recommend colonoscopy to evaluate the cecum and proximal ascending colon. Alternatively, this might be evaluated with PET-CT to be followed by colonoscopy if a suspicious area is identified. Dictated by: Lico Reno M.D. on 09/19/2025 at 13:45 Approved by: Lico Reno M.D. on 09/19/2025 at 13:56 [facility] Narrative Medical decision making narrative: 85-year-old male with a past medical history of NSTEMI, AFib on Eliquis, COPD, CHF, bladder cancer who presents to the emergency department for 5 days of urinating blood and small clots. Differential diagnosis includes but is not limited to UTI, nephrolithiasis, ureterolithiasis, urinary retention, bladder malignancy, etc. On initial examination patient is in no acute distress, nontoxic appearing, heart rate slightly low 53 beats per minute. Patient's abdomen is protuberant/distended but soft, no focal tenderness but he is having some left flank pain and reproducible CVA tenderness. We will obtain CT abdomen pelvis with IV contrast, urinalysis, abdominal lab work. Postvoid residual was negative, he is not retaining urine. He is not having any difficulty passing his bloody urine, he reports small clots but no large clots. Once patient was placed into a room and on a monitor, his heart rate was actually found to be in the 30s. He is not currently having any dizziness or lightheadedness, he is mentating appropriately. ED physician Dr. Melo made aware and evaluated patient. Cardiac pads were placed on the patient's chest. EKG cardiac labs added. 1511: Discussed the case with the cardiology, Dr. Samuel. In July patient was cardioverted and started on amiodarone due to tachycardia. At this time he recommends stopping amiodorone, start beta blockers if needed for rebound tachycardia however Amiodorone half life is 13 days. Patient can be admitted to this hospital, emergent pacemaker not advised. Patient's labs reveal elevated WBC count 14.8, hemoglobin slightly decreased 12.5 hematocrit 36.3. Platelets normal 305. PT elevated to 2.9. INR 2.1. Normal sodium 139, potassium 4.1. BUN 26 creatinine 1.21 with a GFR 59. Glucose 178. Troponin 0.019. Negative BNP 311. Progress done and negative. Lipase normal 69. Urinalysis is consistent with infection, nitrite positive, RBCs, WBCs, bacteria. 1 L of fluids and 2 g ceftriaxone ordered. Blood cultures and urine cultures pending. Normal lactate 1.9. Unfortunately CT abdomen and pelvis does reveal malignant right base of bladder mass and rapid interval development of extensive pulmonary metastatic disease. 4.5 cm infrarenal abdominal aortic aneurysm. Possible malignant lesion involving the cecum and proximal ascending colon. Patient his made aware of metastatic disease. We will add on CTA to further evaluate lungs, evaluate for PE. CTA chest does not reveal PE, there is rapid progression of pulmonary metastatic disease. 1655: Discussed case with the hospitalist Dr. Rojas who graciously accepts the patient for admission, inpatient for further management of hematuria, UTI, and continued monitoring of bradycardia. I will consult with Dr. Myrick, urology given patient's bladder cancer and hematuria and UTI. 1717: Discussed the case with Urology Dr. Myrick. Because the patient has an active UTI, he can not have a cystoscopy currently however he could schedule him for an outpatient cystoscopy in about 1 week. He will consult on the patient during admission. Patient is stable for admission and transfer to the floor at this time. Urine and blood cultures pending. He has received home with pain medication, ceftriaxone and IV fluids. Discharge Plan Departure Patient Disposition: Admitted As Inpatient Clinical Impression: Bradycardia, Acute UTI Metastatic cancer Qualifiers: Area of secondary neoplastic involvement: unspecified site Qualified Code(s): C79.9 - Secondary malignant neoplasm of unspecified site Admit Date/Time: 09/19/25 17:31
--- NOTE | 2025-09-19 12:00 | DI.CT.S_ITS ---
PROCEDURE: CT ABDOMEN PELVIS W CON INDICATIONS: hematuria; L flank pain TECHNIQUE: After the administration of intravenous contrast, axial sections acquired from the lung bases to the pubic symphysis. Coronal and sagittal reformats were performed. For radiation dose reduction, the following was used: automated exposure control, adjustment of mA and/or kV according to patient size. COMPARISON: [facility], CT, CT ANGIO CHEST PE PROTOCOL, 07/23/2025, 10:04. FINDINGS: Image quality: Diagnostic. Lower Chest: Rapid interval development of numerous pulmonary nodules bilaterally. The largest right-sided pulmonary nodule is a multilobulated nodule on image 19 of series 3 measuring approximately 1.3 x 1.6 cm. Some of the larger left-sided nodules include a 1.1 cm extreme inferior lateral nodule on image 23 of series 3, a 0.8 cm nodule in the extreme left lung base on image 21, and 2 nodules in the posterior basal left lower lobe on image 18 measuring 6 mm each. Numerous other small pulmonary nodules have developed. Suspect rapidly developing pulmonary metastatic disease. ABDOMEN: Liver: No solid mass. Gallbladder: No radiopaque gallstones or wall thickening. Biliary ducts: No biliary dilation. Pancreas: No ductal dilation. Spleen: Size is within normal limits. Adrenal Glands: No adrenal nodules. Kidneys and Ureters: No hydronephrosis. No solid mass. No complex renal cystic lesion which requires follow up. Stomach and Bowel: There is a suggestion of possible mild circumferential thickening in the region of the cecum and proximal ascending colon. Moderate sigmoid diverticulosis. Peritoneum: No abnormal intraperitoneal fluid. No free air. Ventral Wall: No significant ventral hernia. Abdominal Nodes: No retroperitoneal or mesenteric adenopathy by size criteria. Vessels: Moderate aneurysmal dilatation of the infrarenal abdominal aorta measuring 4.4 x 4.0 cm. PELVIS: Pelvic Organs: Unremarkable. Bladder: Malignant right base of bladder mass with necrotic center measuring approximately 2.5 x 3.4 x 2.6 cm. There is also either a left base of bladder mass or more likely products of hemorrhage. Pelvic Nodes: No enlarged lymph nodes. Miscellaneous: Bilateral inguinal hernias. The right inguinal hernia contains a small amount of the bladder. Bones: No aggressive osseous abnormality. Old T11 compression. IMPRESSION: 1. There is a malignant right base of bladder mass. 2. Rapid interval development of extensive pulmonary metastatic disease. 3. 4.5 cm maximum diameter infrarenal abdominal aortic aneurysm. 4. Question possible malignant lesion involving the cecum and proximal ascending colon, not definite. Comments: Recommend cystoscopy for tissue diagnosis of the bladder lesion. Recommend colonoscopy to evaluate the cecum and proximal ascending colon. Alternatively, this might be evaluated with PET-CT to be followed by colonoscopy if a suspicious area is identified. Dictated by: Lico Reno M.D. on 09/19/2025 at 13:45 Approved by: Lico Reno M.D. on 09/19/2025 at 13:56
[2025-09-19 12:50] LABS: Add Manual Diff / Slide Review NO; Hematocrit 36.3 % (41-53); Hemoglobin 12.4 g/dL (13.5-17.5); Lymphocytes Absolute Auto 2800 /uL (1100-4500); Mean Corpuscular HGB Conc 34.1 % (30-36); Mean Corpuscular Hemoglobin 32.0 PG (26-34); Mean Corpuscular Volume 94.0 fL (80-100); Platelet Count 305 X10^3/uL (150-400)
[2025-09-19 12:58] LABS: INR 2.1 (0.9-1.3); Prothrombin Time 22.9 SECONDS (9.4-12.5)
[2025-09-19 13:01] LABS: PTT Partial Thromboplastin Tim 36 SECONDS (25.1-36.5)
[2025-09-19 13:03] LABS: Alanine Aminotransferase 34 IU/L (<50); Albumin 4.4 g/dL (3.5-5.0); Albumin Globulin Ratio 1.3 (1.0-2.8); Alkaline Phosphatase 92 U/L (38-126); Blood Urea Nitrogen 26 mg/dL (9-20); Calcium 10.1 mg/dL (8.4-10.2); Carbon Dioxide 32 mmol/L (22-32); Chloride 98 mmol/L (98-107); Estimated Glomerular Filt Rate 59 mL/min (>60); Globulin 3.3 g/dL (1.7-4.1); Glucose 178 mg/dL (70-99); HEMOLYSIS < 15 (0-50); Lipase 69 U/L (23-300); Potassium 4.1 mmol/L (3.4-5.1); Sodium 139 mmol/L (137-145); Total Protein 7.7 g/dL (6.3-8.2)
--- NOTE | 2025-09-19 13:45 | PC.NURSE ---
Pt noted to be bradycardic on the monitor w/rate of 37. Radial pulse palpated w/rate of 35. Pt denies alternate symptoms. Remains AOx4. Pads placed on pt's chest as a precaution. NAUN August and Dr Melo aware.
--- NOTE | 2025-09-19 13:48 | EKG_ITS ---
[address] [address] [place] [address] Test Date: 2025-09-19 Pat Name: Constantino Sumner Department: Room: Gender: Male [employer]: : 1940 Requested By: Order Number: [id number] Reading MD: Harvey Lyles Measurements Intervals [place] Rate: 46 P: IN: QRS: -60 QRSD: 124 T: -13 QT: 546 QTc: 477 Interpretive Statements Wide QRS rhythm with occasional premature ventricular complexes Left anterior fascicular block Minimal voltage criteria for LVH, may be normal variant ( Shaw product ) Nonspecific T wave abnormality Electronically Signed On 09-21-2025 13:00:56 PST by Harvey Lyles
--- NOTE | 2025-09-19 13:59 | DI.RAD.S_ITS ---
PROCEDURE: XR CHEST 1V INDICATIONS: uti hematuria bradycardic TECHNIQUE: One view of the chest was acquired. COMPARISON: [facility], CT, CT ANGIO CHEST PE PROTOCOL, 07/23/2025, 10:04. [facility], CR, XR CHEST 1V, 07/23/2025, 8:22. [facility], CR, XR CHEST 1V, 09/14/2024, 10:20. FINDINGS: Surgical changes and devices: None. Lungs and pleura: Lungs are clear. No pleural effusions or pneumothorax. Mediastinum: Cardiac silhouette is enlarged. Bones and chest wall: No suspicious bony lesions. Overlying soft tissues appear unremarkable. IMPRESSION: No acute cardiopulmonary abnormality is seen. Approved by: Leno Anaya M.D. on 09/19/2025 at 14:45
--- NOTE | 2025-09-19 14:04 | DI.CT.S_ITS ---
PROCEDURE: CT ANGIO CHEST PE PROTOCOL INDICATIONS: concern PE, new [place] TECHNIQUE: After the administration of intravenous contrast, 2 mm thick sections acquired from the pulmonary apices to the posterior costophrenic angles. 3-dimensional maximum intensity projection (MIP) coronal and sagittal reformats were then acquired through the thorax. For radiation dose reduction, the following was used: automated exposure control, adjustment of mA and/or kV according to patient size. COMPARISON: [facility], CT, CT ANGIO CHEST PE PROTOCOL, 07/19/2024, 9:19. [facility], CT, CT ANGIO CHEST PE PROTOCOL, 07/23/2025, 10:04. FINDINGS: Image quality: Diagnostic. Pulmonary arteries: Pulmonary arteries are normal in size, and demonstrate no intraluminal filling defects to suggest central pulmonary embolism. Lower Neck: No enlarged lymph nodes. Thyroid: No thyroid nodules which require sonographic follow up, per consensus guidelines. Axillae: No enlarged lymph nodes. Chest Wall: Unremarkable. Bones: Unremarkable. Lungs and Pleura: No pneumothorax or pleural effusions. There is definite pulmonary metastatic disease which was not present in July,. It is possible that the largest single metastatic lesion, in the posterior right lung base on image 223 of current series 5, may have been obscured by pleural fluid on the recent prior study. It measures 1.6 x 1.1 cm. There is a lesion more anteriorly in the left lung base on the same image which was not present 2 months ago, measuring 0.8 cm, and is a new metastatic lesion in the right lung. 3 inferior basilar left pulmonary nodules are present on axial image 225, measuring 0.6, 1.0, and 0.8 cm respectively. These are all likely new as well. Multiple other pulmonary nodules are present. On the current study, there is no pulmonary edema. There is no pleural fluid identified. Heart: Heart size is normal. Moderate to severe coronary artery calcifications. Trace pericardial effusion. Thoracic Vessels: Mild aneurysmal dilatation of the ascending aorta, measuring 4.1 cm. Mediastinum and Bridget: No enlarged lymph nodes. Esophagus: No wall thickening. No hiatal hernia. Upper Abdomen: Visualized upper abdomen solid organs and bowel loops appear normal. IMPRESSION: 1. No acute pulmonary emboli. 2. Rapid progression of pulmonary metastatic disease. 3. Currently, there is no congestive heart failure. There is cardiomegaly and moderate to severe coronary artery calcification. Dictated by: Lico Reno M.D. on 09/19/2025 at 16:06 Approved by: Lico Reno M.D. on 09/19/2025 at 16:14
[2025-09-19 15:01] LABS: Creatine Kinase 25 U/L (55-170); Lactate (Lactic Acid) 1.9 mmol/L (0.7-2.1); Magnesium 2.4 mg/dL (1.6-2.3)
[2025-09-19] MEDS: SODIUM CHLORIDE 0.9% 1,000 ML 1000 ML IV (15:12)
[2025-09-19] MEDS: cefTRIAXone 2,000 MG in SODIUM CHLORIDE 0.9% 100 ML 200 MG IV (15:12)
[2025-09-19 15:14] LABS: NT-proBNP (BNP-Adult 18+) 311 pg/mL (<450); Troponin I 0.019 ng/mL (0.01-0.034)
[2025-09-19 15:20] LABS: Procalcitonin 0.110 ng/mL (<0.5)
--- NOTE | 2025-09-19 17:30 | P.HP_ITS ---
History of Present Illness History of Present Illness Date Patient Seen: 09/19/25 Chief complaint: Peeing blood, 4 days Narrative: Chief complaint: Five days Gross hematuria history of bladder cancer pyuria hematuria sinus bradycardia History of present illness: 09/19: 85-year-old 5 days of passing small clots Patient has a past history of bladder cancer followed by Dr. Conrad who is no longer practicing in the area a recent history of non STEMI congestive heart failure and atrial fibrillation RVR on amiodarone and Eliquis for rate control and stroke prophylaxis. He is complaining of some fatigue but no overt weakness findings in the emergency department significant for: Hematuria pyuria and bacteriuria on urinalysis PT INR 2.1 White count of 14.8 Electrolytes normal BUN 26 creatinine 1.2 which is improved from before CT chest abdomen pelvis: 1. There is a malignant right base of bladder mass. 2. Rapid interval development of extensive pulmonary metastatic disease. 3. 4.5 cm maximum diameter infrarenal abdominal aortic aneurysm. 4. Question possible malignant lesion involving the cecum and proximal ascending colon, not definite. CT angio of the chest Lungs and Pleura: No pneumothorax or pleural effusions. There is definite pulmonary metastatic disease which was not present in July,. It is possible that the largest single metastatic lesion, in the posterior right lung base on image 223 of current series 5, may have been obscured by pleural fluid on the recent prior study. It measures 1.6 x 1.1 cm. There is a lesion more anteriorly in the left lung base on the same image which was not present 2 months ago, measuring 0.8 cm, and is a new metastatic lesion in the right lung. 3 inferior basilar left pulmonary nodules are present on axial image 225, measuring 0.6, 1.0, and 0.8 cm respectively. These are all likely new as well. Multiple other pulmonary nodules are present. On the current study, there is no pulmonary edema. There is no pleural fluid identified. Review of systems: No fevers chills rigors No chest pain palpitations shortness for breath No change in appetite nausea vomiting diarrhea constipation No dysuria Physical examination: Elderly male in no acute distress HEENT unremarkable Heart rate and rhythm regular bradycardic Lungs clear Abdomen nontender Extremities no edema Assessment and plan: Gross hematuria without bladder outlet obstruction with suggestion of urinary tract infection and bladder neoplasm * Urinalysis urine culture blood culture * Empiric Rocephin 2 g given in ED * Consultation with Urology Dr. Myrick to see in the morning for cystoscopy * No need for bladder irrigation * Stopped Eliquis Cardiac arrhythmia with present bradycardia looks like sinus bradycardia history of atrial fibrillation on amiodarone * Stop amiodarone * Monitor cardiac telemetry Coronary disease status post non STEMI: * Continue all core measures and goal directed medical therapy History of bladder cancer * Cystoscopy tomorrow Dilated cardiomyopathy EF 20-25%: * Repeat echocardiogram tomorrow * Continue Lasix and goal-directed medical therapy DVT prophylaxis: * Currently still anticoagulated Code status: * Full code blue per discussion with patient and Disposition: * Observation stay 1-2 days of hospitalization Time based billing: * 55 minutes were involved in the evaluation of this patient including [id number] evaluation discussion with the patient discussion with the discussion with emergency provider consultation with Urology review of medical records review of objective findings including previous echocardiogram current laboratory evaluation current imaging and direct visualization of imaging and discussion with care team [facility] Medical History History of shortness of breath Left anterior fascicular block Atrial tachycardia Heart failure with mid-range ejection fraction Anesthesia complication Easy bruisability Bleeds easily Tobacco use 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 History of tobacco use History of bladder cancer Lower urinary tract symptoms Male circumcision Rheumatoid arthritis Kidney stones High blood pressure Cancer of bladder Surgical History S/P cervical spinal fusion History of ankle surgery (10/2024) H/O transurethral resection of bladder tumor (TURBT) (10/25/23) Hx of cystoscopy (01/11/23) Hx of appendectomy History of urologic surgery (04/23/22) Hx of cystoscopy History of transurethral resection of prostate H/O hernia repair Social History marital status: number of children: 4 household members: spouse Smoking Status: Former smoker Tobacco: How many years used: 50 alcohol intake: former Type(s) of exercise: independent ambulation Meds Home Medications and Allergies Home Medications ?Medication ?Instructions ?Recorded ?Confirmed ?Type CA PANTOTHENATE/FOLIC ACID/VIT 1 tab PO Q DAY ##0 07/1707/23/25 History (MULTIVITAMIN) aspirin 81 mg tablet,delayed 81 mg PO DAILY ##0 07/23/25 History release hydrocodone 10 mg-acetaminophen 2 tab PO BID 04/23/22 07/23/25 History 325 mg tablet albuterol sulfate 90 mcg/actuation 2 inh inhalation DIRECTED 10/25/23 07/23/25 History aerosol inhaler ipratropium 0.5 mg-albuterol 3 mg 3 ml inhalation BID #180 mL 02/29/24 07/23/25 Rx (2.5 mg base)/3 mL nebulization soln losartan 25 mg tablet 25 mg PO DAILY #30 tabs 03/1807/23/25 Rx beclomethasone dipropionate 80 1 inh inhalation BID #1 0.6 grams 08/14/24 07/23/25 Rx mcg/actuation HFA breath activated aerosol (Qvar RediHaler) budesonide 160 mcg-glycopyr 9 2 inh PO BID #10.7 grams 03/22/25 07/23/25 Rx mcg-formot 4.8 mcg/actuation HFA inhaler (Breztri Aerosphere) finasteride 5 mg tablet 5 mg PO DAILY #90 tabs 06/0307/23/25 Rx atorvastatin 20 mg tablet 20 mg PO QPM 07/23/25 History empagliflozin 10 mg tablet 10 mg PO DAILY 07/23/2505/10 History (Jardiance) amiodarone 200 mg tablet 200 mg PO BIDWM #60 tabs 10/10 Rx apixaban 5 mg tablet (Eliquis) 5 mg PO BID #60 tabs Rx furosemide 40 mg tablet 40 mg PO DAILY #30 tabs 07/17 12/11 Rx potassium chloride 20 mEq 20 meq PO DAILY #30 tabs 10/10 Rx tablet,extended release Allergies Allergy/AdvReac Type Severity Reaction Status Date / Time No Known Drug Allergies Allergy Verified 09/19/25 10:34 Exam Vital Signs (past 8 hours): - 09/19/25 10:34 09/19/25 12:17 09/19/25 12:18 Temperature 98.4 F Pulse Rate 53 L 51 L 47 L Respiratory Rate 17 24 Blood Pressure 132/62 Pulse Oximetry 96 94 95 Oxygen Delivery Method Room Air Oxygen Flow Rate 09/19/25 12:18 09/19/25 12:30 09/19/25 12:30 Temperature Pulse Rate 46 L Respiratory Rate 19 Blood Pressure 122/61 112/59 L Pulse Oximetry 99 Oxygen Delivery Method Oxygen Flow Rate 09/19/25 13:00 09/19/25 13:00 09/19/25 13:36 Temperature Pulse Rate 43 L 46 L Respiratory Rate 21 Blood Pressure 118/75 Pulse Oximetry 92 92 Oxygen Delivery Method Room Air Oxygen Flow Rate 09/19/25 13:37 09/19/25 13:37 09/19/25 14:00 Temperature Pulse Rate 37 L 35 L Respiratory Rate 24 21 Blood Pressure 107/53 L Pulse Oximetry 93 92 Oxygen Delivery Method Oxygen Flow Rate 09/19/25 14:02 09/19/25 14:02 09/19/25 14:30 Temperature Pulse Rate 36 L 37 L Respiratory Rate 17 19 Blood Pressure 122/59 L Pulse Oximetry 94 Oxygen Delivery Method Oxygen Flow Rate 09/19/25 14:53 09/19/25 14:53 09/19/25 15:00 Temperature Pulse Rate 40 L 91 H Respiratory Rate 20 17 Blood Pressure 140/66 Pulse Oximetry 94 Oxygen Delivery Method Oxygen Flow Rate 09/19/25 15:01 09/19/25 15:01 09/19/25 15:16 Temperature Pulse Rate 59 L 38 L Respiratory Rate 23 21 Blood Pressure 150/70 H Pulse Oximetry 94 Oxygen Delivery Method Oxygen Flow Rate 09/19/25 15:16 09/19/25 15:30 09/19/25 15:30 Temperature Pulse Rate 34 L Respiratory Rate 20 Blood Pressure 139/64 135/61 Pulse Oximetry 94 Oxygen Delivery Method Oxygen Flow Rate 09/19/25 15:45 09/19/25 15:45 09/19/25 16:00 Temperature Pulse Rate 35 L Respiratory Rate 17 Blood Pressure 125/58 L 130/60 Pulse Oximetry 92 Oxygen Delivery Method Oxygen Flow Rate 09/19/25 16:00 09/19/25 16:16 09/19/25 16:16 Temperature Pulse Rate 38 L 38 L Respiratory Rate 20 23 Blood Pressure 144/63 H Pulse Oximetry 97 98 Oxygen Delivery Method Oxygen Flow Rate 09/19/25 16:30 09/19/25 16:31 09/19/25 16:31 Temperature Pulse Rate 39 L 40 L Respiratory Rate 21 22 Blood Pressure 150/67 H Pulse Oximetry 94 96 Oxygen Delivery Method Oxygen Flow Rate 09/19/25 16:45 09/19/25 16:45 09/19/25 17:00 Temperature Pulse Rate 40 L 43 L Respiratory Rate 25 H 25 H Blood Pressure 152/65 H Pulse Oximetry 92 95 Oxygen Delivery Method Nasal Cannula Oxygen Flow Rate 1 09/19/25 17:00 Temperature Pulse Rate Respiratory Rate Blood Pressure 151/67 H Pulse Oximetry Oxygen Delivery Method Oxygen Flow Rate Oxygen Delivery Method Nasal Cannula Oxygen Flow Rate 1 Objective Labs 09/19/25 12:40 09/19/25 12:40 Labs: Laboratory Results - last 24 hr 09/19/25 09/19/25 09/19/25 10:49 12:40 14:30 WBC 14.8 H RBC 3.87 L Hgb 12.4 L Hct 36.3 L MCV 94.0 MCH 32.0 MCHC 34.1 RDW 15.2 H Plt Count 305 Neut % (Auto) 66.6 Lymph % (Auto) 18.8 L [place] % (Auto) 6.8 Eos % (Auto) 7.4 H Baso % (Auto) 0.4 Neut # (Auto) 9800 H Lymph # (Auto) 2800 [place] # (Auto) 1000 H Eos # (Auto) 1100 H Baso # (Auto) 100 PT 22.9 H INR 2.1 H APTT 36 Sodium 139 Potassium 4.1 Chloride 98 Carbon Dioxide 32 BUN 26 H Creatinine 1.21 Estimated GFR 59 L BUN/Creatinine Ratio 21.5 Glucose 178 H Lactate 1.9 Calcium 10.1 Magnesium 2.4 H Total Bilirubin 0.6 AST 35 ALT 34 Alkaline Phosphatase 92 Total Creatine Kinase 25 L Troponin I 0.019 NT-Pro-B Natriuret Pep 311 Total Protein 7.7 Albumin 4.4 Globulin 3.3 Albumin/Globulin Ratio 1.3 Lipase 69 Procalcitonin 0.110 Urine Color Red Urine Appearance Cloudy Urine pH 7.0 Ur Specific [place] 1.010 Urine Protein 3+ H Urine Glucose (UA) 3+ H Urine Ketones 2+ H Urine Occult Blood 3+ H Urine Nitrate Positive H Urine Bilirubin Negative Urine Urobilinogen >=8.0 Ur Leukocyte Esterase 2+ H Urine RBC 10-30/hpf H Urine WBC 10-30/hpf H Ur Squamous Epith Cells 0-1 /hpf Urine Bacteria Moderate (10-30) H Ur Culture Indicated? Specimen cultured Vol Urine Centrifuged 10ml (spun) Assessment & Plan Time-Based Coding :: [TOTAL MINUTES] spent with patient and on the chart (including review of chart, obtaining history, exam, reviewing outside data, placing orders, documenting exam and treatment plan, and counseling patient) on [DATE].
[2025-09-20 07:21] LABS: INR 1.4 (0.9-1.3); Prothrombin Time 15.7 SECONDS (9.4-12.5)
[2025-09-20 07:23] LABS: Blood Urea Nitrogen 21 mg/dL (9-20); Calcium 10.0 mg/dL (8.4-10.2); Carbon Dioxide 32 mmol/L (22-32); Chloride 102 mmol/L (98-107); Estimated Glomerular Filt Rate > 60 mL/min (>60); Glucose 103 mg/dL (70-99); HEMOLYSIS < 15 (0-50); Potassium 4.2 mmol/L (3.4-5.1); Sodium 141 mmol/L (137-145)
--- NOTE | 2025-09-20 07:46 | PM.CN.IH.1 ---
History of Present Illness Consult details Chief complaint: Peeing blood, 4 days Reason for consult: Gross hematuria Narrative: 85 y/o M presents to ER for evaluation of gross hematuria over the last several days. Of note, he has a h/o NSTEMI , COPD, CHF and AFib on Eliquis. 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 Conrad between 2021 and 2023 that were all notable for benign pathology. He admits that he was originally diagnosed w/ NMIBC more than 20 years ago. He has also been suffering from urinary frequency, hwoever, admits that he is able to fully empty his bladder. His evaluation in the ER was notable for a WBC of 14.8, sCr of 1.21, a questionably infected UA that was sent for UCx and a CT Abd/Pel that noted a 3.4cm mass along the right base of his bladder concerning for urothelial cell carcinoma as well as a few more small masses within his bladder concerning for blood clots. Urology was consulted for further management. Meds Home Medications and Allergies Home Medications ?Medication ?Instructions ?Recorded ?Confirmed ?Type CA PANTOTHENATE/FOLIC ACID/VIT 1 tab PO Q DAY ##0 07/31/12 07/23/25 History (MULTIVITAMIN) aspirin 81 mg tablet,delayed 81 mg PO DAILY ##0 07/31/12 07/23/25 History release hydrocodone 10 mg-acetaminophen 2 tab PO BID 04/23/22 09/19/25 History 325 mg tablet albuterol sulfate 90 mcg/actuation 2 inh inhalation DIRECTED 10/25/23 09/19/25 History aerosol inhaler ipratropium 0.5 mg-albuterol 3 mg 3 ml inhalation BID #180 mL 02/29/24 07/23/25 Rx (2.5 mg base)/3 mL nebulization soln losartan 25 mg tablet 25 mg PO DAILY #30 tabs 04/12/24 07/23/25 Rx beclomethasone dipropionate 80 1 inh inhalation BID #10.6 grams 08/14/24 07/23/25 Rx mcg/actuation HFA breath activated aerosol (Qvar RediHaler) budesonide 160 mcg-glycopyr 9 2 inh PO BID #10.7 grams 03/22/25 07/23/25 Rx mcg-formot 4.8 mcg/actuation HFA inhaler (Breztri Aerosphere) finasteride 5 mg tablet 5 mg PO DAILY #90 tabs 06/03/25 07/23/25 Rx atorvastatin 20 mg tablet 20 mg PO QPM 07/23/25 07/23/25 History empagliflozin 10 mg tablet 10 mg PO DAILY 07/23/25 07/23/25 History (Jardiance) apixaban 5 mg tablet (Eliquis) 5 mg PO BID #60 tabs 07/28/25 Rx furosemide 40 mg tablet 40 mg PO DAILY #30 tabs 07/28/25 Rx potassium chloride 20 mEq 20 meq PO DAILY #30 tabs 07/28/25 Rx tablet,extended release Allergies Allergy/AdvReac Type Severity Reaction Status Date / Time No Known Drug Allergies Allergy Verified 09/19/25 10:34 Review of Systems Review of Systems Narrative: A complete ROS was completed with all pertinent positives and negatives documented in HPI. All other systems were reviewed and are negative. Exam Vital Signs (past 8 hours): Oxygen Delivery Method Nasal Cannula Oxygen Flow Rate 0 Narrative Exam Narrative: GEN: Alert and oriented X3. No acute distress. Well-nourished. EYES: PERRLA, EOMI. HENT: Moist mucus membranes, no scleral icterus, normal neck ROM. RESP: Unlabored breathing, equal rise and fall of chest bilaterally, no cyanosis appreciated. CV: No peripheral edema, unremarkable heart rate. ABD: Soft, non-tender, non-distended, no palpable masses. EXT: No edema, clubbing or cyanosis. SKIN: No rashes or lesions. NEURO: No focal neurologic deficits, CN II-XII grossly intact. PSYCH: Cooperative, appropriate mood and affect. Objective Labs 09/19/25 12:40 09/20/25 06:25 Labs: Laboratory Results - last 24 hr 09/19/25 09/19/25 09/19/25 10:49 12:40 14:30 WBC 14.8 H RBC 3.87 L Hgb 12.4 L Hct 36.3 L MCV 94.0 MCH 32.0 MCHC 34.1 RDW 15.2 H Plt Count 305 Neut % (Auto) 66.6 Lymph % (Auto) 18.8 L [place] % (Auto) 6.8 Eos % (Auto) 7.4 H Baso % (Auto) 0.4 Neut # (Auto) 9800 H Lymph # (Auto) 2800 [place] # (Auto) 1000 H Eos # (Auto) 1100 H Baso # (Auto) 100 PT 22.9 H INR 2.1 H APTT 36 Sodium 139 Potassium 4.1 Chloride 98 Carbon Dioxide 32 BUN 26 H Creatinine 1.21 Estimated GFR 59 L BUN/Creatinine Ratio 21.5 Glucose 178 H Lactate 1.9 Calcium 10.1 Magnesium 2.4 H Total Bilirubin 0.6 AST 35 ALT 34 Alkaline Phosphatase 92 Total Creatine Kinase 25 L Troponin I 0.019 NT-Pro-B Natriuret Pep 311 Total Protein 7.7 Albumin 4.4 Globulin 3.3 Albumin/Globulin Ratio 1.3 Lipase 69 Procalcitonin 0.110 Urine Color Red Urine Appearance Cloudy Urine pH 7.0 Ur Specific [place] 1.010 Urine Protein 3+ H Urine Glucose (UA) 3+ H Urine Ketones 2+ H Urine Occult Blood 3+ H Urine Nitrate Positive H Urine Bilirubin Negative Urine Urobilinogen >=8.0 Ur Leukocyte Esterase 2+ H Urine RBC 10-30/hpf H Urine WBC 10-30/hpf H Ur Squamous Epith Cells 0-1 /hpf Urine Bacteria Moderate (10-30) H Ur Culture Indicated? Specimen cultured Vol Urine Centrifuged 10ml (spun) 09/20/25 06:25 WBC RBC Hgb Hct MCV MCH MCHC RDW Plt Count Neut % (Auto) Lymph % (Auto) [place] % (Auto) Eos % (Auto) Baso % (Auto) Neut # (Auto) Lymph # (Auto) [place] # (Auto) Eos # (Auto) Baso # (Auto) PT 15.7 H D INR 1.4 H APTT Sodium 141 Potassium 4.2 Chloride 102 Carbon Dioxide 32 BUN 21 H Creatinine 1.03 Estimated GFR > 60 BUN/Creatinine Ratio 20.4 Glucose 103 H Lactate Calcium 10.0 Magnesium Total Bilirubin AST ALT Alkaline Phosphatase Total Creatine Kinase Troponin I NT-Pro-B Natriuret Pep Total Protein Albumin Globulin Albumin/Globulin Ratio Lipase Procalcitonin Urine Color Urine Appearance Urine pH Ur Specific [place] Urine Protein Urine Glucose (UA) Urine Ketones Urine Occult Blood Urine Nitrate Urine Bilirubin Urine Urobilinogen Ur Leukocyte Esterase Urine RBC Urine WBC Ur Squamous Epith Cells Urine Bacteria Ur Culture Indicated? 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 History of tobacco use History of bladder cancer Lower urinary tract symptoms Male circumcision Rheumatoid arthritis Kidney stones High blood pressure Cancer of bladder Surgical History S/P cervical spinal fusion History of ankle surgery (10/2024) H/O transurethral resection of bladder tumor (TURBT) (10/25/23) Hx of cystoscopy (01/11/23) Hx of appendectomy History of urologic surgery (04/23/22) Hx of cystoscopy History of transurethral resection of prostate H/O hernia repair Social History marital status: number of children: 4 household members: spouse Tobacco & Substance Use Smoking Status: Former smoker Tobacco: How many years used: 50 alcohol intake: former Diet and Exercise Type(s) of exercise: independent ambulation Assessment & Plan Assessment and plan (1) Bladder mass: Status: Acute Plan: 85 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 His evaluation at ER was notable for a WBC of 14.8, sCr of 1.21 and a questionably infected UA that was sent for UCx and a CT Abd/Pel that noted a 3.4cm mass along the right base of his bladder concerning for urothelial cell carcinoma as well as a few more small masses within his bladder concerning for blood clots. Discussed that I am unable to perform a cystoscopy at the moment secondary to his gross hematuria (would leak to poor visibility), therefore, would recommend that he follow-up in Urology clinic in 10-14 days for a cystoscopy. Should a new mass be confirmed, would recommend we perform a TURBT. He does not need a barrera catheter at the moment as long as he is able to fully empty his bladder. Please reconsult Urology should additional questions and/or concerns arise. (2) Gross hematuria: Status: Acute Plan: Please see plan above under bladder mass. Time-Based Coding :: [TOTAL MINUTES] spent with patient and on the chart (including review of chart, obtaining history, exam, reviewing outside data, placing orders, documenting exam and treatment plan, and counseling patient) on [DATE]. PROFEE Charge Codes Inpatient or Observation consultation: [id number]
[2025-09-20] MEDS: LOSARTAN 25 MG TABLET PO (08:36)
[2025-09-20] MEDS: ASPIRIN EC 81 MG TABLET PO (08:36)
[2025-09-20] MEDS: POTASSIUM CHLORIDE 20 MEQ TAB PO (08:36)
[2025-09-20] MEDS: FINASTERIDE 5 MG TABLET PO (08:37)
--- NOTE | 2025-09-20 08:47 | CM.DANOTE ---
Initial DCP Assessment Note. Review EMR and PT Interview. Met with patient at bedside to discuss discharge needs.PT is alert x 4 sitting up in bed. No acute distress. Independent with DME. Patient usually uses WC at home. WC is able to hold oxygen tank. Lives with spouse. Payor:[facility] PCP: Summary & Plan:?85 y/o male arrived to ED via POV c/o blood in urine and pain void x 4 days. Admitted OBS. Dx. Hematuria. Plan: Urology consult. Diagnostics. Antibiotics. Discharge home when improved. Discharge Planning/Care Management CM Discharge Assessment Start: 09/19/25 18:35 Freq: Status: Active Protocol: Document 09/20/25 08:45 (Rec: 09/20/25 08:46 [id number]) Discharge Planning Assessment Assigned Discharge Bridget Preston RN Case Worker Provider Dr. Phillips Insurance [facility] Advance Directives? No Advance Directives No on File History Provided By Patient,Family Member,Medical Record Prior Living House Arrangements Household Members spouse Type of Drives own vehicle transporation used prior to admit Independent with ADL Yes 's Is patient alert and Yes oriented? Caregiver for No Another Community Services Oxygen Therapy used prior to admission: DME Already Rented / Bath Bench,Wheelchair,FWW / Walker,Cane,Oxygen Owned Comment Patient not able to recall the name of Oxygen supply company Comment HH TBD Barriers to No Discharge Discharge Plan Home Transportation Likely spouse to transport home at d/c Arrangement Referrals Initiated None needed Additional Comment Pending progress. Likely HH at minimum Review Status In Process Please Provide Date 09/20/25 Initial DC Assessment Was Performed Next Review Type Continued Stay Review
[2025-09-20] MEDS: FUROSEMIDE 40 MG TABLET PO (12:13)
[2025-09-20 15:00] VITALS: BP 135/76; PULSE 59; RESP 16; TEMP 36
[2025-09-20] MEDS: ATORVASTATIN 20 MG TABLET PO (18:23)
[2025-09-20 19:00] VITALS: BP 121/53; PULSE 55; RESP 20; TEMP 36.3; O2SAT 94
--- NOTE | 2025-09-20 19:00 | P.PN_ITS ---
Subjective Subjective Date Patient Seen: 09/20/25 Interval history: Chief complaint: Five days Gross hematuria history of bladder cancer pyuria hematuria sinus bradycardia History of present illness: 09/19: 85-year-old 5 days of passing small clots Patient has a past history of bladder cancer followed by Dr. Conrad who is no longer practicing in the area a recent history of non STEMI congestive heart failure and atrial fibrillation RVR on amiodarone and Eliquis for rate control and stroke prophylaxis. He is complaining of some fatigue but no overt weakness findings in the emergency department significant for: Hematuria pyuria and bacteriuria on urinalysis PT INR 2.1 White count of 14.8 Electrolytes normal BUN 26 creatinine 1.2 which is improved from before CT chest abdomen pelvis: 1. There is a malignant right base of bladder mass. 2. Rapid interval development of extensive pulmonary metastatic disease. 3. 4.5 cm maximum diameter infrarenal abdominal aortic aneurysm. 4. Question possible malignant lesion involving the cecum and proximal ascending colon, not definite. CT angio of the chest Lungs and Pleura: No pneumothorax or pleural effusions. There is definite pulmonary metastatic disease which was not present in July,. It is possible that the largest single metastatic lesion, in the posterior right lung base on image 223 of current series 5, may have been obscured by pleural fluid on the recent prior study. It measures 1.6 x 1.1 cm. There is a lesion more anteriorly in the left lung base on the same image which was not present 2 months ago, measuring 0.8 cm, and is a new metastatic lesion in the right lung. 3 inferior basilar left pulmonary nodules are present on axial image 225, measuring 0.6, 1.0, and 0.8 cm respectively. These are all likely new as well. Multiple other pulmonary nodules are present. On the current study, there is no pulmonary edema. There is no pleural fluid identified. Review of systems: No fevers chills rigors No chest pain palpitations shortness for breath No change in appetite nausea vomiting diarrhea constipation No dysuria Physical examination: Elderly male in no acute distress HEENT unremarkable Heart rate and rhythm regular bradycardic Lungs clear Abdomen nontender Extremities no edema Assessment and plan: Gross hematuria with bladder outlet obstruction with suggestion of urinary tract infection and bladder neoplasm (may have lung metastases) * Urinalysis urine culture blood culture * Empiric Rocephin 2 g given in continue 1 g daily * Consultation with Urology Dr. Myrick to see in the morning for cystoscopy * Three way catheter on continuous irrigation * Stopped Eliquis Cardiac arrhythmia with present bradycardia looks like sinus bradycardia history of atrial fibrillation on amiodarone * Stop amiodarone * Monitor cardiac telemetry Coronary disease status post non STEMI: * Continue all core measures and goal directed medical therapy History of bladder cancer * Cystoscopy as outpatient with Dr. Myrick Dilated cardiomyopathy EF 20-25%: * Continue Lasix and goal-directed medical therapy DVT prophylaxis: * Currently still anticoagulated Code status: * Full code blue per discussion with patient and Disposition: * Observation converted to inpatient stay 1-2 days of hospitalization Time based billing: * 35 minutes were involved in the evaluation of this patient including [id number] evaluation discussion with the patient discussion with the discussion with emergency provider consultation with Urology review of medical records review of objective findings including previous echocardiogram current laboratory evaluation current imaging and direct visualization of imaging and discussion with care team Exam Vital Signs (past 8 hours): - 09/20/25 15:00 Temperature 96.8 F L Pulse Rate 59 L Respiratory Rate 16 Blood Pressure 135/76 Oxygen Delivery Method Nasal Cannula Oxygen Flow Rate 0 Objective Labs 09/19/25 12:40 09/20/25 06:25 Labs: Laboratory Results - last 24 hr 09/20/25 06:25 PT 15.7 H D INR 1.4 H Sodium 141 Potassium 4.2 Chloride 102 Carbon Dioxide 32 BUN 21 H Creatinine 1.03 Estimated GFR > 60 BUN/Creatinine Ratio 20.4 Glucose 103 H Calcium 10.0 PFSH Medical History History of shortness of breath Left anterior fascicular block Atrial tachycardia Heart failure with mid-range ejection fraction Anesthesia complication Easy bruisability Bleeds easily Tobacco use 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 History of tobacco use History of bladder cancer Lower urinary tract symptoms Male circumcision Rheumatoid arthritis Kidney stones High blood pressure Cancer of bladder Surgical History S/P cervical spinal fusion History of ankle surgery (10/2024) H/O transurethral resection of bladder tumor (TURBT) (10/25/23) Hx of cystoscopy (01/11/23) Hx of appendectomy History of urologic surgery (04/23/22) Hx of cystoscopy History of transurethral resection of prostate H/O hernia repair Social History marital status: number of children: 4 household members: spouse Smoking Status: Former smoker Tobacco: How many years used: 50 alcohol intake: former Type(s) of exercise: independent ambulation Assessment & Plan Time-Based Coding :: [TOTAL MINUTES] spent with patient and on the chart (including review of chart, obtaining history, exam, reviewing outside data, placing orders, documenting exam and treatment plan, and counseling patient) on [DATE]. Quality VTE Deep Vein Thrombosis/Pulmonary Embolism Present on Admission: No
--- NOTE | 2025-09-21 09:44 | P.PN_ITS ---
Subjective Subjective Interval history: Summary: Five days Gross hematuria history of bladder cancer pyuria hematuria sinus bradycardia History of present illness: 09/19: 85-year-old 5 days of passing small clots Patient has a past history of bladder cancer followed by Dr. Conrad who is no longer practicing in the area a recent history of non STEMI congestive heart failure and atrial fibrillation RVR on amiodarone and Eliquis for rate control and stroke prophylaxis. He is complaining of some fatigue but no overt weakness findings in the emergency department significant for: Hematuria pyuria and bacteriuria on urinalysis PT INR 2.1 White count of 14.8 Electrolytes normal BUN 26 creatinine 1.2 which is improved from before CT chest abdomen pelvis: 1. There is a malignant right base of bladder mass. 2. Rapid interval development of extensive pulmonary metastatic disease. 3. 4.5 cm maximum diameter infrarenal abdominal aortic aneurysm. 4. Question possible malignant lesion involving the cecum and proximal ascending colon, not definite. CT angio of the chest Lungs and Pleura: No pneumothorax or pleural effusions. There is definite pulmonary metastatic disease which was not present in July,. It is possible that the largest single metastatic lesion, in the posterior right lung base on image 223 of current series 5, may have been obscured by pleural fluid on the recent prior study. It measures 1.6 x 1.1 cm. There is a lesion more anteriorly in the left lung base on the same image which was not present 2 months ago, measuring 0.8 cm, and is a new metastatic lesion in the right lung. 3 inferior basilar left pulmonary nodules are present on axial image 225, measuring 0.6, 1.0, and 0.8 cm respectively. These are all likely new as well. Multiple other pulmonary nodules are present. On the current study, there is no pulmonary edema. There is no pleural fluid identified. S: Had a lot of cramping overnight with some intermittent blood clots. Urine is clearing out today. Still being irrigated. O: Catheter with a three way. NAD, alert and oriented. Fluent speech. Lungs are clear, normal rate and effort. Heart is regular, no murmur gallop or rub. Abdomen is soft, non distended. Extremities are free of edema. A/P: 1. Gross hematuria with bladder outlet obstruction with suggestion of urinary tract infection and bladder neoplasm (may have lung metastases). Improving. * Urinalysis urine culture blood culture * Empiric Rocephin 2 g given in continue 1 g daily * Consultation with Urology Dr. Myrick to see in the morning for cystoscopy * Three way catheter on continuous irrigation * Stopped Eliquis 2. Cardiac arrhythmia with present bradycardia looks like sinus bradycardia history of atrial fibrillation on amiodarone. * Stop amiodarone * Monitor cardiac telemetry 3. Coronary disease status post non STEMI: * Continue all core measures and goal directed medical therapy 4. History of bladder cancer. Stable. * Cystoscopy as outpatient with Dr. Myrick. 5. 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 History of tobacco use History of bladder cancer Lower urinary tract symptoms Male circumcision Rheumatoid arthritis Kidney stones High blood pressure Cancer of bladder Surgical History S/P cervical spinal fusion History of ankle surgery (10/2024) H/O transurethral resection of bladder tumor (TURBT) (10/25/23) Hx of cystoscopy (01/11/23) Hx of appendectomy History of urologic surgery (04/23/22) Hx of cystoscopy History of transurethral resection of prostate H/O hernia repair Social History marital status: number of children: 4 household members: spouse Smoking Status: Former smoker Tobacco: How many years used: 50 alcohol intake: former Type(s) of exercise: independent ambulation Assessment & Plan Time-Based Coding :: [TOTAL MINUTES] spent with patient and on the chart (including review of chart, obtaining history, exam, reviewing outside data, placing orders, documenting exam and treatment plan, and counseling patient) on [DATE]. Quality VTE Deep Vein Thrombosis/Pulmonary Embolism Present on Admission: No
[2025-09-21 09:57] VITALS: BP 113/54; PULSE 64; RESP 16; TEMP 36; O2SAT 90
[2025-09-21] MEDS: LOSARTAN 25 MG TABLET PO (10:05)
[2025-09-21] MEDS: SODIUM CHLORIDE 0.9% FLUSH 10 ML IV ×2 (10:06→20:55)
[2025-09-21] MEDS: FINASTERIDE 5 MG TABLET PO (10:06)
[2025-09-21] MEDS: POTASSIUM CHLORIDE 20 MEQ TAB PO (10:06)
[2025-09-21] MEDS: FUROSEMIDE 40 MG TABLET PO (10:06)
[2025-09-21] MEDS: ASPIRIN EC 81 MG TABLET PO (10:06)
--- NOTE | 2025-09-21 16:07 | CM.DPNOTE ---
DCP note [employer]PORATE [employer]ATEGIST reviewed EMR per provider, will continue 3 way bladder irrigation at this time. either will do cystoscopy with Urology while admitted or in the OP setting post DC, pending urology decision. per RN, pt mobilizing at his baseline (WC at baseline able to transfer). no new CM needs at this time. historically, when admitted Aug 10, dc'd home with no additional CM needs. pt spouse transported home. P: Pending medical POC. anticipate home with spouse support and OP f/u. will continue to follow closely in case any additional DCP needs should arise ANDREW Coates
--- NOTE | 2025-09-21 18:13 | PC.NURSE ---
1800 - pt's bladder irrigation produces clear hematuria scale grade 1 for 5 hours without any clots or red urine producing. contacted and he said we could try decrease rate by 50%. Currently CBI running at 50% decreased rate, no red urine or clots observed.
[2025-09-21] MEDS: ATORVASTATIN 20 MG TABLET PO (18:54)
[2025-09-21 20:00] VITALS: BP 105/56; PULSE 62; RESP 20; TEMP 36.4; O2SAT 92
[2025-09-21 22:05] VITALS: BP 104/50; PULSE 59; O2SAT 95
[2025-09-21 22:36] VITALS: BP 104/51; PULSE 53
[2025-09-22 06:25] LABS: Add Manual Diff / Slide Review NO; Hematocrit 34.0 % (41-53); Hemoglobin 11.3 g/dL (13.5-17.5); Lymphocytes Absolute Auto 2900 /uL (1100-4500); Mean Corpuscular HGB Conc 33.4 % (30-36); Mean Corpuscular Hemoglobin 31.7 PG (26-34); Mean Corpuscular Volume 94.8 fL (80-100); Platelet Count 334 X10^3/uL (150-400)
[2025-09-22 06:35] LABS: Alanine Aminotransferase 35 IU/L (<50); Albumin 4.4 g/dL (3.5-5.0); Albumin Globulin Ratio 1.3 (1.0-2.8); Alkaline Phosphatase 100 U/L (38-126); Blood Urea Nitrogen 28 mg/dL (9-20); Calcium 9.9 mg/dL (8.4-10.2); Carbon Dioxide 28 mmol/L (22-32); Chloride 99 mmol/L (98-107); Estimated Glomerular Filt Rate 49 mL/min (>60); Globulin 3.4 g/dL (1.7-4.1); Glucose 141 mg/dL (70-99); HEMOLYSIS < 15 (0-50); Magnesium 2.2 mg/dL (1.6-2.3); Potassium 4.2 mmol/L (3.4-5.1); Sodium 137 mmol/L (137-145); Total Protein 7.8 g/dL (6.3-8.2)
[2025-09-22 08:17] VITALS: BP 133/72; PULSE 44; RESP 18; TEMP 35.9; O2SAT 97
[2025-09-22] MEDS: ASPIRIN EC 81 MG TABLET PO (08:19)
[2025-09-22] MEDS: LOSARTAN 25 MG TABLET PO (08:19)
[2025-09-22] MEDS: FINASTERIDE 5 MG TABLET PO (08:19)
[2025-09-22] MEDS: POTASSIUM CHLORIDE 20 MEQ TAB PO (08:19)
[2025-09-22] MEDS: FUROSEMIDE 40 MG TABLET PO (08:20)
[2025-09-22] MEDS: SODIUM CHLORIDE 0.9% FLUSH 10 ML IV ×2 (08:21→20:46)
--- NOTE | 2025-09-22 08:32 | P.PN_ITS ---
Subjective Subjective Interval history: Summary: Five days Gross hematuria history of bladder cancer pyuria hematuria sinus bradycardia History of present illness: 09/19: 85-year-old 5 days of passing small clots Patient has a past history of bladder cancer followed by Dr. Conrad who is no longer practicing in the area a recent history of non STEMI congestive heart failure and atrial fibrillation RVR on amiodarone and Eliquis for rate control and stroke prophylaxis. He is complaining of some fatigue but no overt weakness findings in the emergency department significant for: Hematuria pyuria and bacteriuria on urinalysis PT INR 2.1 White count of 14.8 Electrolytes normal BUN 26 creatinine 1.2 which is improved from before CT chest abdomen pelvis: 1. There is a malignant right base of bladder mass. 2. Rapid interval development of extensive pulmonary metastatic disease. 3. 4.5 cm maximum diameter infrarenal abdominal aortic aneurysm. 4. Question possible malignant lesion involving the cecum and proximal ascending colon, not definite. CT angio of the chest Lungs and Pleura: No pneumothorax or pleural effusions. There is definite pulmonary metastatic disease which was not present in July,. It is possible that the largest single metastatic lesion, in the posterior right lung base on image 223 of current series 5, may have been obscured by pleural fluid on the recent prior study. It measures 1.6 x 1.1 cm. There is a lesion more anteriorly in the left lung base on the same image which was not present 2 months ago, measuring 0.8 cm, and is a new metastatic lesion in the right lung. 3 inferior basilar left pulmonary nodules are present on axial image 225, measuring 0.6, 1.0, and 0.8 cm respectively. These are all likely new as well. Multiple other pulmonary nodules are present. On the current study, there is no pulmonary edema. There is no pleural fluid identified. 09/21: ongoing hematuria and pain, improved towards end of the day. S: Minimal clots since yesterday, urine is mostly clear. Irrigation rate has been decreased. Still having a lot of intermittent burning and pain, likely from the catheter. O: BP 133/72, HR 44, RR 18. Sen catheter with a three way. NAD, alert and oriented. Fluent speech. Lungs are clear, normal rate and effort. Heart is regular, no murmur gallop or rub. Abdomen is soft, non distended. Extremities are free of edema. A/P: 1. Gross hematuria with bladder outlet obstruction with suggestion of urinary tract infection and bladder neoplasm (may have lung metastases). Improving. * Urinalysis urine culture blood culture * Empiric Rocephin 2 g given in continue 1 g daily * Consultation with Urology Dr. Myrick to see in the morning for cystoscopy * Three way catheter on continuous irrigation * Stopped Eliquis 2. Cardiac arrhythmia with present bradycardia looks like sinus bradycardia history of atrial fibrillation on amiodarone. * Stop amiodarone * Monitor cardiac telemetry 3. Coronary disease status post non STEMI: * Continue all core measures and goal directed medical therapy 4. History of bladder cancer. Stable. * Cystoscopy as outpatient with Dr. Myrick. * 5. Dilated cardiomyopathy EF 20-25% (chronic systolic heart failure): * Continue Lasix and goal-directed medical therapy 6. Bradycardia (asymptomatic), new. Monitor. PLAN: -continue irrigation, decrease rate over next several hours. -monitor bleeding (mostly resolved) -Holding Apixaban. -discuss with Urology regarding possible cysto Tuesday. Exam Vital Signs (past 8 hours): - 09/22/25 08:17 Temperature 96.6 F L Pulse Rate 44 L Respiratory Rate 18 Blood Pressure 133/72 Pulse Oximetry 97 Oxygen Delivery Method Nasal Cannula Oxygen Flow Rate 0 Objective Labs 09/22/25 06:00 09/22/25 06:00 Labs: Laboratory Results - last 24 hr 09/22/25 06:00 WBC 18.0 H RBC 3.58 L Hgb 11.3 L Hct 34.0 L MCV 94.8 MCH 31.7 MCHC 33.4 RDW 15.1 H Plt Count 334 Neut % (Auto) 71.8 Lymph % (Auto) 16.0 L [place] % (Auto) 8.6 Eos % (Auto) 3.0 Baso % (Auto) 0.6 Neut # (Auto) 07277 H Lymph # (Auto) 2900 [place] # (Auto) 1600 H Eos # (Auto) 500 H Baso # (Auto) 100 Sodium 137 Potassium 4.2 Chloride 99 Carbon Dioxide 28 BUN 28 H Creatinine 1.41 H Estimated GFR 49 L BUN/Creatinine Ratio 19.9 Glucose 141 H Calcium 9.9 Magnesium 2.2 Total Bilirubin 0.5 AST 44 ALT 35 Alkaline Phosphatase 100 Total Protein 7.8 Albumin 4.4 Globulin 3.4 Albumin/Globulin Ratio 1.3 PFSH Medical History History of shortness of breath Left anterior fascicular block Atrial tachycardia Heart failure with mid-range ejection fraction Anesthesia complication Easy bruisability Bleeds easily Tobacco use 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 History of tobacco use History of bladder cancer Lower urinary tract symptoms Male circumcision Rheumatoid arthritis Kidney stones High blood pressure Cancer of bladder Surgical History S/P cervical spinal fusion History of ankle surgery (10/2024) H/O transurethral resection of bladder tumor (TURBT) (10/25/23) Hx of cystoscopy (01/11/23) Hx of appendectomy History of urologic surgery (04/23/22) Hx of cystoscopy History of transurethral resection of prostate H/O hernia repair Social History marital status: number of children: 4 household members: spouse Smoking Status: Former smoker Tobacco: How many years used: 50 alcohol intake: former Type(s) of exercise: independent ambulation Assessment & Plan Time-Based Coding :: [TOTAL MINUTES] spent with patient and on the chart (including review of chart, obtaining history, exam, reviewing outside data, placing orders, documenting exam and treatment plan, and counseling patient) on [DATE]. Quality VTE Deep Vein Thrombosis/Pulmonary Embolism Present on Admission: No
--- NOTE | 2025-09-22 11:37 | PC.NURSE ---
1137 - recommended to slow down 50% of the current rate of CBI, rate was slowed down, pt tolerated well, no change of the pattern of pain
--- NOTE | 2025-09-22 13:47 | CM.DPC ---
DCP note [employer] reviewed EMR per RN, indep in room, getting better (irrigation having less blood than yesterday). per provider, going to reach out to Urology about doing Cystoscopy Tuesday prior to dc home. no new DCP needs or safety concerns identified at this time P: anticipate home with spouse when medically stable and OP f/u as needed. no identified safety barriers to home at this time. will continue to follow closely should any arise ANDREW Coates
[2025-09-22] MEDS: ATORVASTATIN 20 MG TABLET PO (16:59)
[2025-09-22] MEDS: LOPERAMIDE 2 MG CAPSULE PO (16:59)
[2025-09-22 19:00] VITALS: BP 118/76; PULSE 66; RESP 18; TEMP 36.2; O2SAT 97
[2025-09-23] MEDS: FAMOTIDINE 20 MG/2 ML VIAL IV ×2 (01:58→08:14)
--- NOTE | 2025-09-23 07:50 | P.PN_ITS ---
Subjective Subjective Date Patient Seen: 09/23/25 Interval history: Summary: Five days Gross hematuria history of bladder cancer pyuria hematuria sinus bradycardia History of present illness: 09/19: 85-year-old 5 days of passing small clots Patient has a past history of bladder cancer followed by Dr. Conrad who is no longer practicing in the area a recent history of non STEMI congestive heart failure and atrial fibrillation RVR on amiodarone and Eliquis for rate control and stroke prophylaxis. He is complaining of some fatigue but no overt weakness findings in the emergency department significant for: Hematuria pyuria and bacteriuria on urinalysis PT INR 2.1 White count of 14.8 Electrolytes normal BUN 26 creatinine 1.2 which is improved from before CT chest abdomen pelvis: 1. There is a malignant right base of bladder mass. 2. Rapid interval development of extensive pulmonary metastatic disease. 3. 4.5 cm maximum diameter infrarenal abdominal aortic aneurysm. 4. Question possible malignant lesion involving the cecum and proximal ascending colon, not definite. CT angio of the chest Lungs and Pleura: No pneumothorax or pleural effusions. There is definite pulmonary metastatic disease which was not present in July,. It is possible that the largest single metastatic lesion, in the posterior right lung base on image 223 of current series 5, may have been obscured by pleural fluid on the recent prior study. It measures 1.6 x 1.1 cm. There is a lesion more anteriorly in the left lung base on the same image which was not present 2 months ago, measuring 0.8 cm, and is a new metastatic lesion in the right lung. 3 inferior basilar left pulmonary nodules are present on axial image 225, measuring 0.6, 1.0, and 0.8 cm respectively. These are all likely new as well. Multiple other pulmonary nodules are present. On the current study, there is no pulmonary edema. There is no pleural fluid identified. 09/21: ongoing hematuria and pain, improved towards end of the day. 09/22: Minimal clots since yesterday, urine is mostly clear. Irrigation rate has been decreased. Still having a lot of intermittent burning and pain, likely from the catheter. 09/23: Very light pink urine. Complains of diarrhea. Produces minimal amounts of very soft, non watery, stool brown color. C diff test will be done. Will be receiving bedside cystoscopy this evening. Hemoglobin 11.3 on 09/22. INR 1.4. Creatinine 1.41. Sen catheter with a three way irrigation. NAD, alert and oriented. Fluent speech. Lungs are clear, normal rate and effort. Heart is regular rate and rhythm, no murmur gallop or rub. Abdomen is soft, obese, non distended, nontender. Extremities are free of edema. A/P: 1. Gross hematuria with bladder outlet obstruction with suggestion of urinary tract infection and bladder neoplasm (may have lung metastases). Improving. * Urinalysis urine culture blood culture all no growth * Empiric Rocephin 2 g given in ED, continue 1 g daily * Consultation with Urology Dr. Myrick for cystoscopy * Three way catheter on continuous irrigation * Stopped Eliquis 2. Cardiac arrhythmia with present bradycardia looks like sinus bradycardia history of atrial fibrillation on amiodarone. * Stop verapamil, resume amiodarone * Monitor cardiac telemetry 3. Coronary disease status post non STEMI: * Continue all core measures and goal directed medical therapy 4. History of bladder cancer. Stable. * Cystoscopy as inpatient/outpatient with Dr. Myrick. * 5. Dilated cardiomyopathy EF 20-25% (chronic systolic heart failure): * Continue Lasix and goal-directed medical therapy 6. Bradycardia (asymptomatic), new. Monitor. PLAN: -continue irrigation, per urology -check C diff due to soft, near liquid stools -monitor bleeding (mostly resolved) -Holding Apixaban. -resume amiodarone -bedside cystoscopy with Urology this afternoon. Exam Vital Signs (past 8 hours): Oxygen Delivery Method Nasal Cannula Oxygen Flow Rate 0 Objective Labs 09/22/25 06:00 09/22/25 06:00 [facility] Medical History History of shortness of breath Left anterior fascicular block Atrial tachycardia Heart failure with mid-range ejection fraction Anesthesia complication Easy bruisability Bleeds easily Tobacco use 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 History of tobacco use History of bladder cancer Lower urinary tract symptoms Male circumcision Rheumatoid arthritis Kidney stones High blood pressure Cancer of bladder Surgical History S/P cervical spinal fusion History of ankle surgery (10/2024) H/O transurethral resection of bladder tumor (TURBT) (10/25/23) Hx of cystoscopy (01/11/23) Hx of appendectomy History of urologic surgery (04/23/22) Hx of cystoscopy History of transurethral resection of prostate H/O hernia repair Social History marital status: number of children: 4 household members: spouse Smoking Status: Former smoker Tobacco: How many years used: 50 alcohol intake: former Type(s) of exercise: independent ambulation Assessment & Plan Time-Based Coding :: [TOTAL MINUTES] spent with patient and on the chart (including review of chart, obtaining history, exam, reviewing outside data, placing orders, documenting exam and treatment plan, and counseling patient) on [DATE]. Quality VTE Deep Vein Thrombosis/Pulmonary Embolism Present on Admission: No
[2025-09-23 08:14] VITALS: BP 130/63; PULSE 64
[2025-09-23] MEDS: LOSARTAN 25 MG TABLET PO (08:14)
[2025-09-23] MEDS: ASPIRIN EC 81 MG TABLET PO (08:14)
[2025-09-23] MEDS: FINASTERIDE 5 MG TABLET PO (08:15)
[2025-09-23] MEDS: FUROSEMIDE 40 MG TABLET PO (08:15)
[2025-09-23] MEDS: POTASSIUM CHLORIDE 20 MEQ TAB PO (08:15)
[2025-09-23] MEDS: SODIUM CHLORIDE 0.9% FLUSH 10 ML IV ×2 (08:16→22:10)
[2025-09-23 08:52] VITALS: BP 130/63; PULSE 64; RESP 18; TEMP 36.7; O2SAT 93
--- NOTE | 2025-09-23 11:35 | PC.NURSE ---
Pt c/o significant pain on penis at the urethra due to the presence of barrera catheter/CBI. Reports 12/10 pain, scheduled pain meds administered with minor relief. Pt is quite concerned about ongoing hematuria; urine will be clear and yellow and briefly become more pink with position changes or going to the restroom. Pt also very concerned about scant bleeding from urethra and states it looks and feels like raw hamburger. Pt having loose BM's and wanting to sit on toilet frequently because of decreased urtheral pain and ongoing loose stools. Will continue to monitor.
[2025-09-23] MEDS: LOPERAMIDE 2 MG CAPSULE PO (12:04)
--- NOTE | 2025-09-23 15:07 | CM.DPNOTE ---
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 medrano EOD today per chart review no new needs at this time p: home with spouse when medically stable, no identified barriers to safe dc home at this time will cont to follow as needed for dcp ANDREW Coates
[2025-09-23 15:20] LABS: Add Manual Diff / Slide Review NO; Hematocrit 33.9 % (41-53); Hemoglobin 11.5 g/dL (13.5-17.5); Lymphocytes Absolute Auto 2600 /uL (1100-4500); Mean Corpuscular HGB Conc 34.0 % (30-36); Mean Corpuscular Hemoglobin 32.1 PG (26-34); Mean Corpuscular Volume 94.5 fL (80-100); Platelet Count 343 X10^3/uL (150-400)
[2025-09-23 15:29] LABS: Clostridium Difficile Tox PCR Negative for C. diff (Negative)
[2025-09-23 15:34] LABS: Blood Urea Nitrogen 26 mg/dL (9-20); Calcium 10.3 mg/dL (8.4-10.2); Carbon Dioxide 29 mmol/L (22-32); Chloride 100 mmol/L (98-107); Estimated Glomerular Filt Rate 58 mL/min (>60); Glucose 118 mg/dL (70-99); HEMOLYSIS 23 (0-50); Potassium 5.0 mmol/L (3.4-5.1); Sodium 139 mmol/L (137-145)
--- NOTE | 2025-09-23 15:44 | PC.NURSE ---
Addendum entered by Shaila Ferrell RN 09/23/25 19:19: Patient had his cystoscopy, did this around 1700. He states that a mass has been found. He has the three irrigation barrera back in. Patient has gotten vicodin, oxycodone, and dilaudid x1 for severe discomfort to urethra. He put the barrera back in with 35cc of NS in balloon. Original Note: Patients urine has remained clear for the most part of todays shift. If he gets up to the toilet or with position changes his urine will get more pink. He has been up to the bathroom and sitting on the toilet multiple times today. He had a small smear in the hat, stool sample sent down for c.diff and this is negative. Patient had one small clot in his tubing. This RN did increase bladder irrigation a couple of times to get the pink coloring out of the tube. He has went through about 1 bag and a half of the 3L bags on NS. He complains of most of his pain to the urethra where the barrera is inserted into him. Area does have some blood to it at times. Patient has had kenn care multiple times. He is sitting up in his recliner and visiting with his at this time. He was just given 10mg of po oxycodone and will be getting a cystoscopy around 1700 or so in his room. He is resting comfortably now.
--- NOTE | 2025-09-23 17:22 | P.PCN_ITS ---
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 His evaluation at ER was notable for a WBC of 14.8, sCr of 1.21 and a questionably infected UA that was sent for UCx and a CT Abd/Pel that noted a 3.4cm mass along the right base of his bladder concerning for urothelial cell carcinoma as well as a few more small masses within his bladder concerning for blood clots. Discussed the need for a cystoscopy to evaluate for a bladder mass. Following informed consent, proper positioning and standard sterile prep technique, 10cc of topical lidocaine gel was inserted into the urethra and a penile clamp was placed to allow for local anesthetic. The 16Fr flexible cystoscope was inserted into his urethra and easily advanced into his bladder. He was noted to have bilateral coaptating lateral prostatic lobes without an intravesical median lobe. Complete cystoscopy was then performed, he did have a few small clots within his bladder that decreased visibility slightly. He was noted to have a 3cm mass along his right lateral bladder wall concerning for urothelial cell carcinoma. Bilateral ureteral orifices were noted to be orthotopic in nature. He was noted to have two large diverticulum along his right lateral bladder wall, both of which had no concerning masses or lesions. No stones were present within his bladder. The cystoscope was then removed from his bladder/urethra. He tolerated the procedure well without any complications and a new 24Fr 3-way hematuria catheter was easily inserted into his bladder. 30cc of sterile water was utilized for balloon insufflation. 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
--- NOTE | 2025-09-23 17:25 | PM.CN.IH.1 ---
History of Present Illness Consult details Date Patient Seen: 09/23/25 Time Patient Seen: 17:00 Chief complaint: Peeing blood, 4 days Reason for consult: Cystoscopy, barrera catheter management Narrative: 85 y/o M presented to ER on 19 Sep 2025 for evaluation of gross hematuria over the last several days. Of note, he has a h/o NSTEMI , COPD, CHF and AFib on Eliquis. 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 Conrad between 2021 and 2023 that were all notable for benign pathology. He admits that he was originally diagnosed w/ NMIBC more than 20 years ago. He has also been suffering from urinary frequency, hwoever, admits that he is able to fully empty his bladder. His evaluation in the ER was notable for a WBC of 14.8, sCr of 1.21, a questionably infected UA that was sent for UCx and a CT Abd/Pel that noted a 3.4cm mass along the right base of his bladder concerning for urothelial cell carcinoma as well as a few more small masses within his bladder concerning for blood clots. He was started on CBI for clot obstruction on 20 Sep 2025. Discussed the need for a cystoscopy to evaluate for the aforementioned mass. Meds Home Medications and Allergies Home Medications ?Medication ?Instructions ?Recorded ?Confirmed ?Type CA PANTOTHENATE/FOLIC ACID/VIT 1 tab PO Q DAY ##0 07/31/12 09/23/25 History (MULTIVITAMIN) aspirin 81 mg tablet,delayed 81 mg PO DAILY ##0 07/31/12 09/23/25 History release hydrocodone 10 mg-acetaminophen 2 tab PO BID 04/23/22 09/19/25 History 325 mg tablet albuterol sulfate 90 mcg/actuation 2 inh inhalation DIRECTED 10/25/23 09/19/25 History aerosol inhaler ipratropium 0.5 mg-albuterol 3 mg 3 ml inhalation BID #180 mL 02/29/24 09/23/25 Rx (2.5 mg base)/3 mL nebulization soln losartan 25 mg tablet 25 mg PO DAILY #30 tabs 04/12/24 09/23/25 Rx beclomethasone dipropionate 80 1 inh inhalation BID #10.6 grams 08/14/24 09/23/25 Rx mcg/actuation HFA breath activated aerosol (Qvar RediHaler) budesonide 160 mcg-glycopyr 9 2 inh PO BID #10.7 grams 03/22/25 09/23/25 Rx mcg-formot 4.8 mcg/actuation HFA inhaler (Breztri Aerosphere) finasteride 5 mg tablet 5 mg PO DAILY #90 tabs 06/03/25 09/23/25 Rx atorvastatin 20 mg tablet 20 mg PO QPM 07/23/25 09/23/25 History empagliflozin 10 mg tablet 10 mg PO DAILY 07/23/25 09/23/25 History (Jardiance) apixaban 5 mg tablet (Eliquis) 5 mg PO BID #60 tabs 07/28/25 09/23/25 Rx furosemide 40 mg tablet 40 mg PO DAILY #30 tabs 07/28/25 09/23/25 Rx potassium chloride 20 mEq 20 meq PO DAILY #30 tabs 07/28/25 09/23/25 Rx tablet,extended release amiodarone 200 mg tablet 100 mg PO BID 09/23/25 09/23/25 History diltiazem HCl 180 mg 180 mg PO DAILY 09/23/25 09/23/25 History capsule,extended release 24 hr Allergies Allergy/AdvReac Type Severity Reaction Status Date / Time No Known Drug Allergies Allergy Verified 09/19/25 10:34 Review of Systems Review of Systems Narrative: A complete ROS was completed with all pertinent positives and negatives documented in HPI. All other systems were reviewed and are negative. Exam Vital Signs (past 8 hours): Oxygen Delivery Method Nasal Cannula Oxygen Flow Rate 0 Narrative Exam Narrative: GEN: Alert and oriented X3. No acute distress. Well-nourished. EYES: PERRLA, EOMI. HENT: Moist mucus membranes, no scleral icterus, normal neck ROM. RESP: Unlabored breathing, equal rise and fall of chest bilaterally, no cyanosis appreciated. CV: No peripheral edema, unremarkable heart rate. ABD: Soft, non-tender, non-distended, no palpable masses. : Circumcised penis, no urethral discharge, no meatal stenosis. EXT: No edema, clubbing or cyanosis. SKIN: No rashes or lesions. NEURO: No focal neurologic deficits, CN II-XII grossly intact. PSYCH: Cooperative, appropriate mood and affect. Objective Labs 09/23/25 15:12 09/23/25 15:12 Labs: Laboratory Results - last 24 hr 09/23/25 09/23/25 14:25 15:12 WBC 16.6 H RBC 3.59 L Hgb 11.5 L Hct 33.9 L MCV 94.5 MCH 32.1 MCHC 34.0 RDW 15.6 H Plt Count 343 Neut % (Auto) 74.4 Lymph % (Auto) 15.5 L [place] % (Auto) 7.2 Eos % (Auto) 2.2 Baso % (Auto) 0.7 Neut # (Auto) 54699 H Lymph # (Auto) 2600 [place] # (Auto) 1200 H Eos # (Auto) 400 Baso # (Auto) 100 Sodium 139 Potassium 5.0 Chloride 100 Carbon Dioxide 29 BUN 26 H Creatinine 1.24 Estimated GFR 58 L BUN/Creatinine Ratio 21.0 Glucose 118 H Calcium 10.3 H C. difficile Tox (PCR) Negative for c. 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 History of tobacco use History of bladder cancer Lower urinary tract symptoms Male circumcision Rheumatoid arthritis Kidney stones High blood pressure Cancer of bladder Surgical History S/P cervical spinal fusion History of ankle surgery (10/2024) H/O transurethral resection of bladder tumor (TURBT) (10/25/23) Hx of cystoscopy (01/11/23) Hx of appendectomy History of urologic surgery (04/23/22) Hx of cystoscopy History of transurethral resection of prostate H/O hernia repair Social History marital status: number of children: 4 household members: spouse Tobacco & Substance Use Smoking Status: Former smoker Tobacco: How many years used: 50 alcohol intake: former Diet and Exercise Type(s) of exercise: independent ambulation Assessment & Plan Assessment and plan (1) Bladder mass: Status: Acute Plan: 85 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 His evaluation at ER was notable for a WBC of 14.8, sCr of 1.21 and a questionably infected UA that was sent for UCx and a CT Abd/Pel that noted a 3.4cm mass along the right base of his bladder concerning for urothelial cell carcinoma as well as a few more small masses within his bladder concerning for blood clots. His CBI was run over the weekend and is continuing to clear. Discussed that his cystoscopy today was notable for a 3cm mass along his right lateral bladder wall concerning for urothelial cell carcinoma. Discussed the need for a cystoscopy and TURBT under general anesthesia. Discussed risks of the procedure to include but not limited to pain, bleeding, infection, injury to urethra/prostate/bladder/ureteral orifice, need for a ureteral stent, prolonged catheterization, and possible open repair of ureteral and/or bladder injury. Discussed that I will reach out to his Staff [employer] Officer regarding Cardiac clearance. He will likely be discharged home with his barrera catheter in place. He should continue to hold his Eliquis until his surgery. (2) Gross hematuria: Status: Acute Plan: Please see plan above under bladder mass. Time-Based Coding :: [TOTAL MINUTES] spent with patient and on the chart (including review of chart, obtaining history, exam, reviewing outside data, placing orders, documenting exam and treatment plan, and counseling patient) on [DATE]. PROFEE Charge Codes Inpatient or Observation consultation: 36464
[2025-09-23] MEDS: ATORVASTATIN 20 MG TABLET PO (17:33)
[2025-09-23 19:00] VITALS: BP 100/55; PULSE 63; RESP 20; TEMP 36.2; O2SAT 93
[2025-09-24 05:24] LABS: Add Manual Diff / Slide Review NO; Hematocrit 30.0 % (41-53); Hemoglobin 10.2 g/dL (13.5-17.5); Lymphocytes Absolute Auto 2800 /uL (1100-4500); Mean Corpuscular HGB Conc 34.0 % (30-36); Mean Corpuscular Hemoglobin 31.8 PG (26-34); Mean Corpuscular Volume 93.8 fL (80-100); Platelet Count 340 X10^3/uL (150-400)
[2025-09-24 05:37] LABS: Blood Urea Nitrogen 25 mg/dL (9-20); Calcium 9.7 mg/dL (8.4-10.2); Carbon Dioxide 30 mmol/L (22-32); Chloride 101 mmol/L (98-107); Estimated Glomerular Filt Rate > 60 mL/min (>60); Glucose 99 mg/dL (70-99); HEMOLYSIS < 15 (0-50); Potassium 4.2 mmol/L (3.4-5.1); Sodium 137 mmol/L (137-145)
--- NOTE | 2025-09-24 07:10 | P.PN_ITS ---
Subjective Subjective Date Patient Seen: 09/24/25 Interval history: Summary: Five days Gross hematuria history of bladder cancer pyuria hematuria sinus bradycardia History of present illness: 09/19: 85-year-old 5 days of passing small clots Patient has a past history of bladder cancer followed by Dr. Conrad who is no longer practicing in the area a recent history of non STEMI congestive heart failure and atrial fibrillation RVR on amiodarone and Eliquis for rate control and stroke prophylaxis. He is complaining of some fatigue but no overt weakness findings in the emergency department significant for: Hematuria pyuria and bacteriuria on urinalysis PT INR 2.1 White count of 14.8 Electrolytes normal BUN 26 creatinine 1.2 which is improved from before CT chest abdomen pelvis: 1. There is a malignant right base of bladder mass. 2. Rapid interval development of extensive pulmonary metastatic disease. 3. 4.5 cm maximum diameter infrarenal abdominal aortic aneurysm. 4. Question possible malignant lesion involving the cecum and proximal ascending colon, not definite. CT angio of the chest Lungs and Pleura: No pneumothorax or pleural effusions. There is definite pulmonary metastatic disease which was not present in July,. It is possible that the largest single metastatic lesion, in the posterior right lung base on image 223 of current series 5, may have been obscured by pleural fluid on the recent prior study. It measures 1.6 x 1.1 cm. There is a lesion more anteriorly in the left lung base on the same image which was not present 2 months ago, measuring 0.8 cm, and is a new metastatic lesion in the right lung. 3 inferior basilar left pulmonary nodules are present on axial image 225, measuring 0.6, 1.0, and 0.8 cm respectively. These are all likely new as well. Multiple other pulmonary nodules are present. On the current study, there is no pulmonary edema. There is no pleural fluid identified. 09/21: ongoing hematuria and pain, improved towards end of the day. 09/22: Minimal clots since yesterday, urine is mostly clear. Irrigation rate has been decreased. Still having a lot of intermittent burning and pain, likely from the catheter. 09/23: Very light pink urine. Complains of diarrhea. Produces minimal amounts of very soft, non watery, stool brown color. C diff test will be done. Will be receiving bedside cystoscopy this evening. Hemoglobin 11.3 on 09/22. INR 1.4. Creatinine 1.41. 09/24: Urine continues to be very light pink in the catheter bag. He continues to experience fecal urgency and urethral discomfort with the catheter. Various opioids are being used to help him with this pain. Cystoscopic resection of his 3 cm bladder tumor was planned for today but anesthesia declined due to his cardiac status. We investigated transferring him to hospitals that provide both Urology and in-house Cardiology but no beds have been available. The recommendation was to resume the Eliquis, discharge home if bleeding does not recur, resume attempts to transfer if bleeding increases on the anticoagulation again. Sen catheter with a three way irrigation. NAD, alert and oriented. Fluent speech. Lungs: Normal respiratory effort Heart not examined today Abdomen is soft and obese. Sen catheter present in the urethra. Extremities are free of edema. A/P: 1. Gross hematuria with bladder outlet obstruction with suggestion of urinary tract infection and bladder neoplasm (Also with lung metastases). Improving. * Urinalysis urine culture blood culture all no growth * Empiric Rocephin 2 g given in ED, continue 1 g daily * Consultation with Urology Dr. Myrick for cystoscopy * Three way catheter on continuous irrigation * Stopped Eliquis initially then resumed on 09/24 * Anesthesia declined urology planned to do with cystoscopic reason excision of a bladder tumor here. They prefer that this surgery occur in a location where cardiology is available in house. 2. Cardiac arrhythmia with present bradycardia looks like sinus bradycardia history of atrial fibrillation on amiodarone. * Stopped verapamil, resumed amiodarone * Monitor cardiac telemetry 3. Coronary disease status post non STEMI: * Continue all core measures and goal directed medical therapy 4. History of bladder cancer. Stable. * Cystoscopy done at bedside on 09/23 revealed 3 cm bladder mass. Diagnostic resection with operative cystoscopy was planned but declined by anesthesia. * 5. Dilated cardiomyopathy EF 20-25% (chronic systolic heart failure): * Continue Lasix and goal-directed medical therapy 6. Bradycardia (asymptomatic), new. Monitor. PLAN: -continue irrigation, per urology -C diff checked, negative, due to soft/liquid stools. -monitor bleeding with resumption of apixaban -resumed amiodarone -multiple discussions with ultimate conclusion that anesthesia would prefer to not challenge his cardiac function given the EF of 20-25%. Referral centers did not have beds. We will instead resume anticoagulation, with plan of discharge home and outpatient procedure biopsy to be arranged if bleeding does not recur. If bleeding does recur would again attempt transfer to location that has both in-house Urology and Cardiology. Exam Vital Signs (past 8 hours): Oxygen Delivery Method Room Air Oxygen Flow Rate 0 Objective Labs 09/24/25 05:00 09/24/25 05:00 Labs: Laboratory Results - last 24 hr 09/23/25 09/23/25 09/24/25 14:25 15:12 05:00 WBC 16.6 H 14.7 H RBC 3.59 L 3.20 L Hgb 11.5 L 10.2 L Hct 33.9 L 30.0 L MCV 94.5 93.8 MCH 32.1 31.8 MCHC 34.0 34.0 RDW 15.6 H 14.9 H Plt Count 343 340 Neut % (Auto) 74.4 65.7 Lymph % (Auto) 15.5 L 18.9 L [place] % (Auto) 7.2 9.6 Eos % (Auto) 2.2 4.9 H Baso % (Auto) 0.7 0.9 Neut # (Auto) 42236 H 9700 H Lymph # (Auto) 2600 2800 [place] # (Auto) 1200 H 1400 H Eos # (Auto) 400 700 H Baso # (Auto) 100 100 Sodium 139 137 Potassium 5.0 4.2 Chloride 100 101 Carbon Dioxide 29 30 BUN 26 H 25 H Creatinine 1.24 1.16 Estimated GFR 58 L > 60 BUN/Creatinine Ratio 21.0 21.6 Glucose 118 H 99 Calcium 10.3 H 9.7 C. difficile Tox (PCR) Negative for c. 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 History of tobacco use History of bladder cancer Lower urinary tract symptoms Male circumcision Rheumatoid arthritis Kidney stones High blood pressure Cancer of bladder Surgical History S/P cervical spinal fusion History of ankle surgery (10/2024) H/O transurethral resection of bladder tumor (TURBT) (10/25/23) Hx of cystoscopy (01/11/23) Hx of appendectomy History of urologic surgery (04/23/22) Hx of cystoscopy History of transurethral resection of prostate H/O hernia repair Social History marital status: number of children: 4 household members: spouse Smoking Status: Former smoker Tobacco: How many years used: 50 alcohol intake: former Type(s) of exercise: independent ambulation Assessment & Plan Time-Based Coding :: [TOTAL MINUTES] spent with patient and on the chart (including review of chart, obtaining history, exam, reviewing outside data, placing orders, documenting exam and treatment plan, and counseling patient) on [DATE]. Quality VTE Deep Vein Thrombosis/Pulmonary Embolism Present on Admission: No
[2025-09-24 08:39] VITALS: BP 112/53; PULSE 49; RESP 14; TEMP 36.4; O2SAT 86
--- NOTE | 2025-09-24 08:39 | PM.CN ---
History of Present Illness Consult details Date Patient Seen: 09/24/25 Time Patient Seen: 08:40 Chief complaint: Peeing blood, 4 days Reason for consult: Anesthesia evaluation Requesting provider: Jacky Read Home Medications and Allergies Home Medications ?Medication ?Instructions ?Recorded ?Confirmed ?Type CA PANTOTHENATE/FOLIC ACID/VIT 1 tab PO Q DAY ##0 07/31/12 09/23/25 History (MULTIVITAMIN) aspirin 81 mg tablet,delayed 81 mg PO DAILY ##0 07/31/12 09/23/25 History release hydrocodone 10 mg-acetaminophen 2 tab PO BID 04/23/22 09/19/25 History 325 mg tablet albuterol sulfate 90 mcg/actuation 2 inh inhalation DIRECTED 10/25/23 09/19/25 History aerosol inhaler ipratropium 0.5 mg-albuterol 3 mg 3 ml inhalation BID #180 mL 02/29/24 09/23/25 Rx (2.5 mg base)/3 mL nebulization soln losartan 25 mg tablet 25 mg PO DAILY #30 tabs 04/12/24 09/23/25 Rx beclomethasone dipropionate 80 1 inh inhalation BID #10.6 grams 08/14/24 09/23/25 Rx mcg/actuation HFA breath activated aerosol (Qvar RediHaler) budesonide 160 mcg-glycopyr 9 2 inh PO BID #10.7 grams 03/22/25 09/23/25 Rx mcg-formot 4.8 mcg/actuation HFA inhaler (Breztri Aerosphere) finasteride 5 mg tablet 5 mg PO DAILY #90 tabs 06/03/25 09/23/25 Rx atorvastatin 20 mg tablet 20 mg PO QPM 07/23/25 09/23/25 History empagliflozin 10 mg tablet 10 mg PO DAILY 07/23/25 09/23/25 History (Jardiance) apixaban 5 mg tablet (Eliquis) 5 mg PO BID #60 tabs 07/28/25 09/23/25 Rx furosemide 40 mg tablet 40 mg PO DAILY #30 tabs 07/28/25 09/23/25 Rx potassium chloride 20 mEq 20 meq PO DAILY #30 tabs 07/28/25 09/23/25 Rx tablet,extended release amiodarone 200 mg tablet 100 mg PO BID 09/23/25 09/23/25 History diltiazem HCl 180 mg 180 mg PO DAILY 09/23/25 09/23/25 History capsule,extended release 24 hr Allergies Allergy/AdvReac Type Severity Reaction Status Date / Time No Known Drug Allergies Allergy Verified 09/19/25 10:34 Review of Systems Review of Systems ROS: Yes All systems reviewed with the patient and are negative except as otherwise documented Constitutional Constitutional: Reports system reviewed and no additional complaints, except as documented and Reports weight loss Eyes Eyes: Reports system reviewed and no additional complaints, except as documented ENT Ears, Nose, Mouth, and Throat: Yes system reviewed and no additional complaints, except as documented and Yes dry mouth Cardiovascular Cardiovascular: Reports system reviewed and no additional complaints, except as documented, Reports irregular heart rhythm, Reports dyspnea on exertion and Reports slow heart rate Respiratory Respiratory: Reports dyspnea on exertion and Reports other (Endorses frequent use of home O2 (2L overnight and as needed)) Gastrointestinal Gastrointestinal: Reports system reviewed and no additional complaints, except as documented and Reports loose stools Genitourinary Genitourinary: Reports as per HPI Musculoskeletal Musculoskeletal: Reports system reviewed and no additional complaints, except as documented Integumentary/Breasts Skin/Breast: Reports system reviewed and no additional complaints, except as documented Neurologic Neurologic: Reports system reviewed and no additional complaints, except as documented Psychiatric Psychiatric: Reports system reviewed and no additional complaints, except as documented Endocrine Endocrine: Reports system reviewed and no additional complaints, except as documented Exam Vital Signs (past 8 hours): Oxygen Delivery Method Room Air Oxygen Flow Rate 0 Objective ECG Impression: sinus bradycardia with PVCs Imaging Echo, CT, ECG reviewed: Radiologist's impression: Reports reviewed Echo: Radiologist's impression: 07/24/2025 Interpretation Summary The left ventricle is moderately dilated. The ejection fraction is estimated to be 20-25%. Left ventricular function has markedly worsened compared to the previous exam. There is severe global hypokinesis of the left ventricle. Diastolic function could not be accurately assessed due to atrial fibrillation. The right ventricle is normal size. Right ventricular systolic function is mildly reduced. Right ventricular systolic pressure is estimated to be 38 mmHg plus the clinically estimated CVP which cannot be estimated on this exam. The left atrium is moderately dilated. There is no Doppler evidence for an interatrial shunt. Lipomatous hypertrophy of the interatrial septum is noted and chronic since prior study. There is mild mitral regurgitation. There is discrete nodular thickening of the right coronary cusp. There is no aortic valve stenosis. The ascending aorta is mildly enlarged. CT scan - chest: Radiologist's impression: PROCEDURE: CT ANGIO CHEST PE PROTOCOL 09/19/2025 INDICATIONS: concern PE, new mets TECHNIQUE: After the administration of intravenous contrast, 2 mm thick sections acquired from the pulmonary apices to the posterior costophrenic angles. 3-dimensional maximum intensity projection (MIP) coronal and sagittal reformats were then acquired through the thorax. For radiation dose reduction, the following was used: automated exposure control, adjustment of mA and/or kV according to patient size. COMPARISON: [facility], CT, CT ANGIO CHEST PE PROTOCOL, 07/19/2024, 9:19. [facility], CT, CT ANGIO CHEST PE PROTOCOL, 07/23/2025, 10:04. FINDINGS: Image quality: Diagnostic. Pulmonary arteries: Pulmonary arteries are normal in size, and demonstrate no intraluminal filling defects to suggest central pulmonary embolism. Lower Neck: No enlarged lymph nodes. Thyroid: No thyroid nodules which require sonographic follow up, per consensus guidelines. Axillae: No enlarged lymph nodes. Chest Wall: Unremarkable. Bones: Unremarkable. Lungs and Pleura: No pneumothorax or pleural effusions. There is definite pulmonary metastatic disease which was not present in July,. It is possible that the largest single metastatic lesion, in the posterior right lung base on image 223 of current series 5, may have been obscured by pleural fluid on the recent prior study. It measures 1.6 x 1.1 cm. There is a lesion more anteriorly in the left lung base on the same image which was not present 2 months ago, measuring 0.8 cm, and is a new metastatic lesion in the right lung. 3 inferior basilar left pulmonary nodules are present on axial image 225, measuring 0.6, 1.0, and 0.8 cm respectively. These are all likely new as well. Multiple other pulmonary nodules are present. On the current study, there is no pulmonary edema. There is no pleural fluid identified. Heart: Heart size is normal. Moderate to severe coronary artery calcifications. Trace pericardial effusion. Thoracic Vessels: Mild aneurysmal dilatation of the ascending aorta, measuring 4.1 cm. Mediastinum and Bridget: No enlarged lymph nodes. Esophagus: No wall thickening. No hiatal hernia. Upper Abdomen: Visualized upper abdomen solid organs and bowel loops appear normal. IMPRESSION: 1. No acute pulmonary emboli. 2. Rapid progression of pulmonary metastatic disease. 3. Currently, there is no congestive heart failure. There is cardiomegaly and moderate to severe coronary artery calcification. Lico Reno M.D. on 09/19/2025 at 16:06 Labs 09/24/25 05:00 09/24/25 05:00 Labs: Laboratory Results - last 24 hr 09/23/25 09/23/25 09/24/25 14:25 15:12 05:00 WBC 16.6 H 14.7 H RBC 3.59 L 3.20 L Hgb 11.5 L 10.2 L Hct 33.9 L 30.0 L MCV 94.5 93.8 MCH 32.1 31.8 MCHC 34.0 34.0 RDW 15.6 H 14.9 H Plt Count 343 340 Neut % (Auto) 74.4 65.7 Lymph % (Auto) 15.5 L 18.9 L [place] % (Auto) 7.2 9.6 Eos % (Auto) 2.2 4.9 H Baso % (Auto) 0.7 0.9 Neut # (Auto) 34792 H 9700 H Lymph # (Auto) 2600 2800 [place] # (Auto) 1200 H 1400 H Eos # (Auto) 400 700 H Baso # (Auto) 100 100 Sodium 139 137 Potassium 5.0 4.2 Chloride 100 101 Carbon Dioxide 29 30 BUN 26 H 25 H Creatinine 1.24 1.16 Estimated GFR 58 L > 60 BUN/Creatinine Ratio 21.0 21.6 Glucose 118 H 99 Calcium 10.3 H 9.7 C. difficile Tox (PCR) Negative for c. 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 History of tobacco use History of bladder cancer Lower urinary tract symptoms Male circumcision Rheumatoid arthritis Kidney stones High blood pressure Cancer of bladder Surgical History S/P cervical spinal fusion History of ankle surgery (10/2024) H/O transurethral resection of bladder tumor (TURBT) (10/25/23) Hx of cystoscopy (01/11/23) Hx of appendectomy History of urologic surgery (04/23/22) Hx of cystoscopy History of transurethral resection of prostate H/O hernia repair Social History marital status: number of children: 4 household members: spouse Tobacco & Substance Use Smoking Status: Former smoker Tobacco: How many years used: 50 alcohol intake: former Diet and Exercise Type(s) of exercise: independent ambulation Assessment & Plan Assessment & Plan narrative: Due to this patient's multiple medical comorbidities, specifically his cardiac function, he is not safe to proceed with elective surgery at this facility at this time. I recommend that he be transferred to a facility with a lab support tech and the ability to post-operatively care for any cardiac complications that may arise during the perioperative period. Time-Based Coding :: [30] spent with patient and on the chart (including review of chart, obtaining history, exam, reviewing outside data, placing orders, documenting exam and treatment plan, and counseling patient) on [09/24/2025].
[2025-09-24 08:45] VITALS: O2SAT 93
[2025-09-24] MEDS: ASPIRIN EC 81 MG TABLET PO (08:49)
[2025-09-24] MEDS: FAMOTIDINE 20 MG/2 ML VIAL IV (08:49)
[2025-09-24] MEDS: POTASSIUM CHLORIDE 20 MEQ TAB PO (08:49)
[2025-09-24] MEDS: FINASTERIDE 5 MG TABLET PO (08:49)
[2025-09-24] MEDS: FUROSEMIDE 40 MG TABLET PO (08:49)
[2025-09-24] MEDS: SODIUM CHLORIDE 0.9% FLUSH 10 ML IV ×2 (08:50→21:47)
--- NOTE | 2025-09-24 09:24 | PC.NURSE ---
Pt NPO this AM for possible resection of bladder mass. HR in high 40s and O2 sats to be found in mid-80's this AM so placed on 2L O2 nasal canula. Pt continues to have painful bladder spasms and cries out and moans loudly. Reports continuous pain of 6.5-7/10 in back, bladder and urethra which increases to 12/10 during bladder spasms. Given prn dilaudid and pt had a short (<30 mins) period of sleeping before spasms began again. Otherwise doing reasonably well. Alert & oriented x4. Diarrhea seems to have stopped. Will continue to monitor.
[2025-09-24 11:42] VITALS: BP 111/70; PULSE 54; RESP 16; TEMP 36.7; O2SAT 92
[2025-09-24 11:54] VITALS: O2SAT 92
--- NOTE | 2025-09-24 12:53 | PM.CN.IH.1 ---
History of Present Illness Consult details Date Patient Seen: 09/24/25 Time Patient Seen: 07:40 Chief complaint: Peeing blood, 4 days Reason for consult: Gross hematuria, barrera catheter management Narrative: 85 y/o M presented to ER on 19 Sep 2025 for evaluation of gross hematuria over the last several days. Of note, he has a h/o NSTEMI , COPD, CHF and AFib on Eliquis. 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 Conrad between 2021 and 2023 that were all notable for benign pathology. He admits that he was originally diagnosed w/ NMIBC more than 20 years ago. He has also been suffering from urinary frequency, hwoever, admits that he is able to fully empty his bladder. His evaluation in the ER was notable for a WBC of 14.8, sCr of 1.21, a questionably infected UA that was sent for UCx and a CT Abd/Pel that noted a 3.4cm mass along the right base of his bladder concerning for urothelial cell carcinoma as well as a few more small masses within his bladder concerning for blood clots. He was started on CBI for clot obstruction on 20 Sep 2025. His cystoscopy on 23 Sep 2025 was notable for a 3cm mass along his right lateral bladder wall concerning for urothelial cell carcinoma (visibility was poor secondary to a clot within his bladder). Meds Home Medications and Allergies Home Medications ?Medication ?Instructions ?Recorded ?Confirmed ?Type CA PANTOTHENATE/FOLIC ACID/VIT 1 tab PO Q DAY ##0 07/31/12 09/23/25 History (MULTIVITAMIN) aspirin 81 mg tablet,delayed 81 mg PO DAILY ##0 07/31/12 09/23/25 History release hydrocodone 10 mg-acetaminophen 2 tab PO BID 04/23/22 09/19/25 History 325 mg tablet albuterol sulfate 90 mcg/actuation 2 inh inhalation DIRECTED 10/25/23 09/19/25 History aerosol inhaler ipratropium 0.5 mg-albuterol 3 mg 3 ml inhalation BID #180 mL 02/29/24 09/23/25 Rx (2.5 mg base)/3 mL nebulization soln losartan 25 mg tablet 25 mg PO DAILY #30 tabs 04/12/24 09/23/25 Rx beclomethasone dipropionate 80 1 inh inhalation BID #10.6 grams 08/14/24 09/23/25 Rx mcg/actuation HFA breath activated aerosol (Qvar RediHaler) budesonide 160 mcg-glycopyr 9 2 inh PO BID #10.7 grams 03/22/25 09/23/25 Rx mcg-formot 4.8 mcg/actuation HFA inhaler (Breztri Aerosphere) finasteride 5 mg tablet 5 mg PO DAILY #90 tabs 06/03/25 09/23/25 Rx atorvastatin 20 mg tablet 20 mg PO QPM 07/23/25 09/23/25 History empagliflozin 10 mg tablet 10 mg PO DAILY 07/23/25 09/23/25 History (Jardiance) apixaban 5 mg tablet (Eliquis) 5 mg PO BID #60 tabs 07/28/25 09/23/25 Rx furosemide 40 mg tablet 40 mg PO DAILY #30 tabs 07/28/25 09/23/25 Rx potassium chloride 20 mEq 20 meq PO DAILY #30 tabs 07/28/25 09/23/25 Rx tablet,extended release amiodarone 200 mg tablet 100 mg PO BID 09/23/25 09/23/25 History diltiazem HCl 180 mg 180 mg PO DAILY 09/23/25 09/23/25 History capsule,extended release 24 hr Allergies Allergy/AdvReac Type Severity Reaction Status Date / Time No Known Drug Allergies Allergy Verified 09/19/25 10:34 Review of Systems Review of Systems Narrative: A complete ROS was completed with all pertinent positives and negatives documented in HPI. All other systems were reviewed and are negative. Exam Vital Signs (past 8 hours): - 09/24/25 08:39 09/24/25 08:45 09/24/25 11:42 Temperature 97.6 F 98.1 F Pulse Rate 49 L 54 L Respiratory Rate 14 16 Blood Pressure 112/53 L 111/70 Pulse Oximetry 86 L 93 92 Oxygen Delivery Method Oxygen Flow Rate 2 2 09/24/25 11:54 Temperature Pulse Rate Respiratory Rate Blood Pressure Pulse Oximetry 92 Oxygen Delivery Method Nasal Cannula Oxygen Flow Rate 2 Oxygen Delivery Method Nasal Cannula Oxygen Flow Rate 2 Narrative Exam Narrative: GEN: Alert and oriented X3. No acute distress. Well-nourished. EYES: PERRLA, EOMI. HENT: Moist mucus membranes, no scleral icterus, normal neck ROM. RESP: Unlabored breathing, equal rise and fall of chest bilaterally, no cyanosis appreciated. CV: No peripheral edema, unremarkable heart rate. ABD: Soft, non-tender, non-distended, no palpable masses. : Barrera catheter secured and draining relatively clear urine on moderate drip of CBI. EXT: No edema, clubbing or cyanosis. SKIN: No rashes or lesions. NEURO: No focal neurologic deficits, CN II-XII grossly intact. PSYCH: Cooperative, appropriate mood and affect. Objective Labs 09/24/25 05:00 09/24/25 05:00 Labs: Laboratory Results - last 24 hr 09/23/25 09/23/25 09/24/25 14:25 15:12 05:00 WBC 16.6 H 14.7 H RBC 3.59 L 3.20 L Hgb 11.5 L 10.2 L Hct 33.9 L 30.0 L MCV 94.5 93.8 MCH 32.1 31.8 MCHC 34.0 34.0 RDW 15.6 H 14.9 H Plt Count 343 340 Neut % (Auto) 74.4 65.7 Lymph % (Auto) 15.5 L 18.9 L [place] % (Auto) 7.2 9.6 Eos % (Auto) 2.2 4.9 H Baso % (Auto) 0.7 0.9 Neut # (Auto) 88781 H 9700 H Lymph # (Auto) 2600 2800 [place] # (Auto) 1200 H 1400 H Eos # (Auto) 400 700 H Baso # (Auto) 100 100 Sodium 139 137 Potassium 5.0 4.2 Chloride 100 101 Carbon Dioxide 29 30 BUN 26 H 25 H Creatinine 1.24 1.16 Estimated GFR 58 L > 60 BUN/Creatinine Ratio 21.0 21.6 Glucose 118 H 99 Calcium 10.3 H 9.7 C. difficile Tox (PCR) Negative for c. 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 History of tobacco use History of bladder cancer Lower urinary tract symptoms Male circumcision Rheumatoid arthritis Kidney stones High blood pressure Cancer of bladder Surgical History S/P cervical spinal fusion History of ankle surgery (10/2024) H/O transurethral resection of bladder tumor (TURBT) (10/25/23) Hx of cystoscopy (01/11/23) Hx of appendectomy History of urologic surgery (04/23/22) Hx of cystoscopy History of transurethral resection of prostate H/O hernia repair Social History marital status: number of children: 4 household members: spouse Tobacco & Substance Use Smoking Status: Former smoker Tobacco: How many years used: 50 alcohol intake: former Diet and Exercise Type(s) of exercise: independent ambulation Assessment & Plan Assessment and plan (1) Bladder mass: Status: Acute Plan: 85 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 His evaluation at ER was notable for a WBC of 14.8, sCr of 1.21 and a questionably infected UA that was sent for UCx and a CT Abd/Pel that noted a 3.4cm mass along the right base of his bladder concerning for urothelial cell carcinoma as well as a few more small masses within his bladder concerning for blood clots. His CBI was run over the weekend and is continuing to clear. Discussed that his cystoscopy on 23 Sep 2025 was notable for a 3cm mass along his right lateral bladder wall concerning for urothelial cell carcinoma, although visibility was poor secondary to a blood clot within the bladder. Discussed the need for a cystoscopy and TURBT under general anesthesia. Discussed risks of the procedure to include but not limited to pain, bleeding, infection, injury to urethra/prostate/bladder/ureteral orifice, need for a ureteral stent, prolonged catheterization, and possible open repair of ureteral and/or bladder injury. Unfortunately, he was deemed to be too high-risk for [facility], therefore, Anesthesia recommended transfer to a higher echelon of care. (2) Gross hematuria: Status: Acute Plan: Please see plan above under bladder mass. Time-Based Coding :: [TOTAL MINUTES] spent with patient and on the chart (including review of chart, obtaining history, exam, reviewing outside data, placing orders, documenting exam and treatment plan, and counseling patient) on [DATE]. PROFEE Charge Codes Inpatient or Observation consultation: 04188
--- NOTE | 2025-09-24 14:58 | CM.DPNOTE ---
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 per hospitalist, will attempt to transfer per discharge coordinator later in afternoon, no beds available at transfer facilities. anticipate dc tomorrow with OP urology f/u P: dc home tomorrow with OP f/u with urology and spouse support. no identified safety barriers to safe dc home at this time will continue to follow closely in case any needs arise ANRDEW Coates
[2025-09-24] MEDS: APIXABAN 5 MG TABLET PO ×2 (15:12→20:22)
[2025-09-24] MEDS: ATORVASTATIN 20 MG TABLET PO (18:02)
[2025-09-24 20:10] VITALS: BP 130/52; PULSE 59; RESP 16; TEMP 37.1; O2SAT 92
[2025-09-24] MEDS: BACLOFEN 10 MG TABLET 5 MG PO (21:24)
[2025-09-25] MEDS: BACLOFEN 10 MG TABLET 5 MG PO (05:34)
[2025-09-25 07:00] VITALS: BP 110/61; PULSE 52; RESP 17; TEMP 37.1; O2SAT 93
--- NOTE | 2025-09-25 07:43 | PM.CN.IH.1 ---
History of Present Illness Consult details Date Patient Seen: 09/25/25 Time Patient Seen: 07:30 Chief complaint: Peeing blood, 4 days Reason for consult: Gross hematuria, barrera catheter management Narrative: 85 y/o M presented to ER on 19 Sep 2025 for evaluation of gross hematuria over the last several days. Of note, he has a h/o NSTEMI , COPD, CHF and AFib on Eliquis. 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 Conrad between 2021 and 2023 that were all notable for benign pathology. He admits that he was originally diagnosed w/ NMIBC more than 20 years ago. He has also been suffering from urinary frequency, hwoever, admits that he is able to fully empty his bladder. His evaluation in the ER was notable for a WBC of 14.8, sCr of 1.21, a questionably infected UA that was sent for UCx and a CT Abd/Pel that noted a 3.4cm mass along the right base of his bladder concerning for urothelial cell carcinoma as well as a few more small masses within his bladder concerning for blood clots. He was started on CBI for clot obstruction on 20 Sep 2025. His cystoscopy on 23 Sep 2025 was notable for a 3cm mass along his right lateral bladder wall concerning for urothelial cell carcinoma (visibility was poor secondary to a clot within his bladder). His Eliquis has been held for days and his bleeding has subsided. It was restarted yesterday without issues. He would strongly prefer to have his catheter removed. Meds Home Medications and Allergies Home Medications ?Medication ?Instructions ?Recorded ?Confirmed ?Type CA PANTOTHENATE/FOLIC ACID/VIT 1 tab PO Q DAY ##0 07/31/12 09/23/25 History (MULTIVITAMIN) aspirin 81 mg tablet,delayed 81 mg PO DAILY ##0 07/31/12 09/23/25 History release hydrocodone 10 mg-acetaminophen 2 tab PO BID 04/23/22 09/19/25 History 325 mg tablet albuterol sulfate 90 mcg/actuation 2 inh inhalation DIRECTED 10/25/23 09/19/25 History aerosol inhaler ipratropium 0.5 mg-albuterol 3 mg 3 ml inhalation BID #180 mL 05/15/24 12/08/25 Rx (2.5 mg base)/3 mL nebulization soln losartan 25 mg tablet 25 mg PO DAILY #30 tabs 04/12/24 09/23/25 Rx beclomethasone dipropionate 80 1 inh inhalation BID #10.6 grams 08/14/24 09/23/25 Rx mcg/actuation HFA breath activated aerosol (Qvar RediHaler) budesonide 160 mcg-glycopyr 9 2 inh PO BID #10.7 grams 03/22/25 09/23/25 Rx mcg-formot 4.8 mcg/actuation HFA inhaler (Breztri Aerosphere) finasteride 5 mg tablet 5 mg PO DAILY #90 tabs 06/03/25 09/23/25 Rx atorvastatin 20 mg tablet 20 mg PO QPM 07/23/25 09/23/25 History empagliflozin 10 mg tablet 10 mg PO DAILY 07/23/25 09/23/25 History (Jardiance) apixaban 5 mg tablet (Eliquis) 5 mg PO BID #60 tabs 07/28/25 09/23/25 Rx furosemide 40 mg tablet 40 mg PO DAILY #30 tabs 07/28/25 09/23/25 Rx potassium chloride 20 mEq 20 meq PO DAILY #30 tabs 07/28/25 09/23/25 Rx tablet,extended release amiodarone 200 mg tablet 100 mg PO BID 09/23/25 09/23/25 History diltiazem HCl 180 mg 180 mg PO DAILY 09/23/25 09/23/25 History capsule,extended release 24 hr Allergies Allergy/AdvReac Type Severity Reaction Status Date / Time No Known Drug Allergies Allergy Verified 09/19/25 10:34 Review of Systems Review of Systems Narrative: A complete ROS was completed with all pertinent positives and negatives documented in HPI. All other systems were reviewed and are negative. Exam Vital Signs (past 8 hours): Oxygen Delivery Method Nasal Cannula Oxygen Flow Rate 2 Narrative Exam Narrative: GEN: Alert and oriented X3. No acute distress. Well-nourished. EYES: PERRLA, EOMI. HENT: Moist mucus membranes, no scleral icterus, normal neck ROM. RESP: Unlabored breathing, equal rise and fall of chest bilaterally, no cyanosis appreciated. CV: No peripheral edema, unremarkable heart rate. ABD: Soft, non-tender, non-distended, no palpable masses. : Barrera catheter removed this AM. EXT: No edema, clubbing or cyanosis. SKIN: No rashes or lesions. NEURO: No focal neurologic deficits, CN II-XII grossly intact. PSYCH: Cooperative, appropriate mood and affect. 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 History of tobacco use History of bladder cancer Lower urinary tract symptoms Male circumcision Rheumatoid arthritis Kidney stones High blood pressure Cancer of bladder Surgical History S/P cervical spinal fusion History of ankle surgery (10/2024) H/O transurethral resection of bladder tumor (TURBT) (10/25/23) Hx of cystoscopy (01/11/23) Hx of appendectomy History of urologic surgery (04/23/22) Hx of cystoscopy History of transurethral resection of prostate H/O hernia repair Social History marital status: number of children: 4 household members: spouse Tobacco & Substance Use Smoking Status: Former smoker Tobacco: How many years used: 50 alcohol intake: former Diet and Exercise Type(s) of exercise: independent ambulation Assessment & Plan Assessment and plan (1) Bladder mass: Status: Acute Plan: 85 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 His evaluation at ER was notable for a WBC of 14.8, sCr of 1.21 and a questionably infected UA that was sent for UCx and a CT Abd/Pel that noted a 3.4cm mass along the right base of his bladder concerning for urothelial cell carcinoma as well as a few more small masses within his bladder concerning for blood clots. His CBI was run over the weekend and is continuing to clear. Discussed that his cystoscopy on 23 Sep 2025 was notable for a 3cm mass along his right lateral bladder wall concerning for urothelial cell carcinoma, although visibility was poor secondary to a blood clot within the bladder. Discussed the need for a cystoscopy and TURBT under general anesthesia. Discussed risks of the procedure to include but not limited to pain, bleeding, infection, injury to urethra/prostate/bladder/ureteral orifice, need for a ureteral stent, prolonged catheterization, and possible open repair of ureteral and/or bladder injury. Unfortunately, he was deemed to be too high-risk for [facility], therefore, Anesthesia recommended transfer to a higher echelon of care. As his bleeding has stopped, his catheter was removed. Will place an urgent outpatient referral for cystoscopy. As long as he can urinate, he can discharge home. (2) Gross hematuria: Status: Acute Plan: Please see plan above under bladder mass. Time-Based Coding :: [TOTAL MINUTES] spent with patient and on the chart (including review of chart, obtaining history, exam, reviewing outside data, placing orders, documenting exam and treatment plan, and counseling patient) on [DATE]. PROFEE Charge Codes Inpatient or Observation consultation: 29108
[2025-09-25] MEDS: ASPIRIN EC 81 MG TABLET PO (10:08)
[2025-09-25] MEDS: POTASSIUM CHLORIDE 20 MEQ TAB PO (10:08)
[2025-09-25] MEDS: FINASTERIDE 5 MG TABLET PO (10:08)
[2025-09-25] MEDS: APIXABAN 5 MG TABLET PO ×2 (10:08→20:32)
[2025-09-25] MEDS: FUROSEMIDE 40 MG TABLET PO (10:09)
[2025-09-25] MEDS: SODIUM CHLORIDE 0.9% FLUSH 10 ML IV ×2 (10:10→20:32)
[2025-09-25] MEDS: FAMOTIDINE 20 MG/2 ML VIAL IV (10:10)
--- NOTE | 2025-09-25 10:31 | P.PN_ITS ---
Subjective Subjective Interval history: Summary: Five days Gross hematuria history of bladder cancer pyuria hematuria sinus bradycardia History of present illness: 09/19: 85-year-old 5 days of passing small clots Patient has a past history of bladder cancer followed by Dr. Conrad who is no longer practicing in the area a recent history of non STEMI congestive heart failure and atrial fibrillation RVR on amiodarone and Eliquis for rate control and stroke prophylaxis. He is complaining of some fatigue but no overt weakness findings in the emergency department significant for: Hematuria pyuria and bacteriuria on urinalysis PT INR 2.1 White count of 14.8 Electrolytes normal BUN 26 creatinine 1.2 which is improved from before CT chest abdomen pelvis: 1. There is a malignant right base of bladder mass. 2. Rapid interval development of extensive pulmonary metastatic disease. 3. 4.5 cm maximum diameter infrarenal abdominal aortic aneurysm. 4. Question possible malignant lesion involving the cecum and proximal ascending colon, not definite. CT angio of the chest Lungs and Pleura: No pneumothorax or pleural effusions. There is definite pulmonary metastatic disease which was not present in July,. It is possible that the largest single metastatic lesion, in the posterior right lung base on image 223 of current series 5, may have been obscured by pleural fluid on the recent prior study. It measures 1.6 x 1.1 cm. There is a lesion more anteriorly in the left lung base on the same image which was not present 2 months ago, measuring 0.8 cm, and is a new metastatic lesion in the right lung. 3 inferior basilar left pulmonary nodules are present on axial image 225, measuring 0.6, 1.0, and 0.8 cm respectively. These are all likely new as well. Multiple other pulmonary nodules are present. On the current study, there is no pulmonary edema. There is no pleural fluid identified. 09/21: ongoing hematuria and pain, improved towards end of the day. 09/22: Minimal clots since yesterday, urine is mostly clear. Irrigation rate has been decreased. Still having a lot of intermittent burning and pain, likely from the catheter. 09/23: Very light pink urine. Complains of diarrhea. Produces minimal amounts of very soft, non watery, stool brown color. C diff test will be done. Will be receiving bedside cystoscopy this evening. Hemoglobin 11.3 on 09/22. INR 1.4. Creatinine 1.41. 09/24: Urine continues to be very light pink in the catheter bag. He continues to experience fecal urgency and urethral discomfort with the catheter. Various opioids are being used to help him with this pain. Cystoscopic resection of his 3 cm bladder tumor was planned for today but anesthesia declined due to his cardiac status. We investigated transferring him to hospitals that provide both Urology and in-house Cardiology but no beds have been available. The recommendation was to resume the Eliquis, discharge home if bleeding does not recur, resume attempts to transfer if bleeding increases on the anticoagulation again. 09/25: Bladder mass confirmed 09 24, catheter removed 09 25. Able to urinate but with lot of dysuria And some hematuria. S: Still having burning with urination. No fevers. O: T 98.8?, BP 110/61, pulse 52, respiration 17, SpO2 93% room air. Sen out. NAD, alert and oriented. Fluent speech. Lungs: Normal respiratory effort Heart not examined today Abdomen is soft and obese. Sen catheter present in the urethra. Extremities are free of edema. A/P: 1. Gross hematuria with bladder outlet obstruction with suggestion of urinary tract infection and bladder neoplasm (Also with lung metastases). Improving. * Urinalysis urine culture blood culture all no growth * Empiric Rocephin 2 g given in ED, continue 1 g daily * Consultation with Urology Dr. Myrick for cystoscopy * Three way catheter on continuous irrigation * Stopped Eliquis initially then resumed on 09/24 * Anesthesia declined urology planned to do with cystoscopic reason excision of a bladder tumor here. They prefer that this surgery occur in a location where cardiology is available in house. 2. Cardiac arrhythmia with present bradycardia looks like sinus bradycardia history of atrial fibrillation on amiodarone. * Stopped verapamil, resumed amiodarone * Monitor cardiac telemetry 3. Coronary disease status post non STEMI: * Continue all core measures and goal directed medical therapy 4. History of bladder cancer. Stable. * Cystoscopy done at bedside on 09/23 revealed 3 cm bladder mass. Diagnostic resection with operative cystoscopy was planned but declined by anesthesia. 5. Dilated cardiomyopathy EF 20-25% (chronic systolic heart failure): * Continue Lasix and goal-directed medical therapy 6. Bradycardia (asymptomatic), new. Monitor. PLAN: -continue irrigation, per urology -C diff checked, negative, due to soft/liquid stools. -monitor bleeding with resumption of apixaban -resumed amiodarone -multiple discussions with ultimate conclusion that anesthesia would prefer to not challenge his cardiac function given the EF of 20-25%. Referral centers did not have beds. We will instead resume anticoagulation, with plan of discharge home and outpatient procedure biopsy to be arranged if bleeding does not recur. If bleeding does recur would again attempt transfer to location that has both in-house Urology and Cardiology. -we will monitor his progress throughout the day and see if he does well in his able to discharge later in the afternoon. 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 History of tobacco use History of bladder cancer Lower urinary tract symptoms Male circumcision Rheumatoid arthritis Kidney stones High blood pressure Cancer of bladder Surgical History S/P cervical spinal fusion History of ankle surgery (10/2024) H/O transurethral resection of bladder tumor (TURBT) (10/25/23) Hx of cystoscopy (01/11/23) Hx of appendectomy History of urologic surgery (04/23/22) Hx of cystoscopy History of transurethral resection of prostate H/O hernia repair Social History marital status: number of children: 4 household members: spouse Smoking Status: Former smoker Tobacco: How many years used: 50 alcohol intake: former Type(s) of exercise: independent ambulation Assessment & Plan Time-Based Coding :: [TOTAL MINUTES] spent with patient and on the chart (including review of chart, obtaining history, exam, reviewing outside data, placing orders, documenting exam and treatment plan, and counseling patient) on [DATE]. Quality VTE Deep Vein Thrombosis/Pulmonary Embolism Present on Admission: No
[2025-09-25 11:20] VITALS: PULSE 54
[2025-09-25] MEDS: LOSARTAN 25 MG TABLET PO (11:20)
[2025-09-25] MEDS: AMIODARONE 200 MG TABLET 100 MG PO ×2 (11:20→20:31)
--- NOTE | 2025-09-25 15:20 | PC.NURSE ---
1515: Pt was found on the floor. Vital signs checked. Patient denied hitting head but reported landing on bottom. Skin is red and blanchable around the area. Charge nurse and Dr. Lyles Notified. Telemetry monitoring. Pt transferred to bed via walker and gaitbelt. Provider assessed pt at bedside. New Fall risk assessment completed. Bed Alarm in use.
[2025-09-25 15:59] VITALS: BP 113/58; PULSE 54; O2SAT 95
[2025-09-25] MEDS: ATORVASTATIN 20 MG TABLET PO (16:55)
[2025-09-25 19:00] VITALS: BP 108/52; PULSE 78; RESP 16; TEMP 36.1; O2SAT 97
[2025-09-26] VITALS (9 sets, daily range): BP systolic 91–125; BP diastolic 48–70; PULSE 43–65; RESP 16–19; TEMP 35.9–36.9; O2SAT 93–97
[2025-09-26 05:11] LABS: Add Manual Diff / Slide Review NO; Hematocrit 30.2 % (41-53); Hemoglobin 10.3 g/dL (13.5-17.5); Lymphocytes Absolute Auto 3000 /uL (1100-4500); Mean Corpuscular HGB Conc 34.0 % (30-36); Mean Corpuscular Hemoglobin 31.9 PG (26-34); Mean Corpuscular Volume 93.7 fL (80-100); Platelet Count 351 X10^3/uL (150-400)
[2025-09-26 05:22] LABS: Blood Urea Nitrogen 24 mg/dL (9-20); Calcium 9.5 mg/dL (8.4-10.2); Carbon Dioxide 33 mmol/L (22-32); Chloride 98 mmol/L (98-107); Estimated Glomerular Filt Rate > 60 mL/min (>60); Glucose 112 mg/dL (70-99); HEMOLYSIS < 15 (0-50); Potassium 3.4 mmol/L (3.4-5.1); Sodium 137 mmol/L (137-145)
[2025-09-26] MEDS: LOSARTAN 25 MG TABLET PO (09:38)
[2025-09-26] MEDS: AMIODARONE 200 MG TABLET 100 MG PO (09:38)
[2025-09-26] MEDS: FUROSEMIDE 40 MG TABLET PO (09:38)
[2025-09-26] MEDS: FINASTERIDE 5 MG TABLET PO (09:39)
[2025-09-26] MEDS: ASPIRIN EC 81 MG TABLET PO (09:39)
[2025-09-26] MEDS: APIXABAN 5 MG TABLET PO (09:39)
[2025-09-26] MEDS: POTASSIUM CHLORIDE 20 MEQ TAB PO (09:39)
[2025-09-26] MEDS: FAMOTIDINE 20 MG/2 ML VIAL IV (09:39)
[2025-09-26] MEDS: SODIUM CHLORIDE 0.9% FLUSH 10 ML IV ×2 (09:40→20:35)
--- NOTE | 2025-09-26 13:35 | PC.NURSE ---
[id number] DR WILKS AT BEDSIDE DISCUSSING POC WITH PT IN LENGTH. AWARE OF RED CLOUDY URINE. PLAN TO D/C BLOOD THINNER.
--- NOTE | 2025-09-26 14:09 | P.PN_ITS ---
Subjective Subjective Interval history: Summary: Five days Gross hematuria history of bladder cancer pyuria hematuria sinus bradycardia History of present illness: 09/19: 85-year-old 5 days of passing small clots Patient has a past history of bladder cancer followed by Dr. Conrad who is no longer practicing in the area a recent history of non STEMI congestive heart failure and atrial fibrillation RVR on amiodarone and Eliquis for rate control and stroke prophylaxis. He is complaining of some fatigue but no overt weakness findings in the emergency department significant for: Hematuria pyuria and bacteriuria on urinalysis PT INR 2.1 White count of 14.8 Electrolytes normal BUN 26 creatinine 1.2 which is improved from before CT chest abdomen pelvis: 1. There is a malignant right base of bladder mass. 2. Rapid interval development of extensive pulmonary metastatic disease. 3. 4.5 cm maximum diameter infrarenal abdominal aortic aneurysm. 4. Question possible malignant lesion involving the cecum and proximal ascending colon, not definite. CT angio of the chest Lungs and Pleura: No pneumothorax or pleural effusions. There is definite pulmonary metastatic disease which was not present in July,. It is possible that the largest single metastatic lesion, in the posterior right lung base on image 223 of current series 5, may have been obscured by pleural fluid on the recent prior study. It measures 1.6 x 1.1 cm. There is a lesion more anteriorly in the left lung base on the same image which was not present 2 months ago, measuring 0.8 cm, and is a new metastatic lesion in the right lung. 3 inferior basilar left pulmonary nodules are present on axial image 225, measuring 0.6, 1.0, and 0.8 cm respectively. These are all likely new as well. Multiple other pulmonary nodules are present. On the current study, there is no pulmonary edema. There is no pleural fluid identified. 09/21: ongoing hematuria and pain, improved towards end of the day. 09/22: Minimal clots since yesterday, urine is mostly clear. Irrigation rate has been decreased. Still having a lot of intermittent burning and pain, likely from the catheter. 09/23: Very light pink urine. Complains of diarrhea. Produces minimal amounts of very soft, non watery, stool brown color. C diff test will be done. Will be receiving bedside cystoscopy this evening. Hemoglobin 11.3 on 09/22. INR 1.4. Creatinine 1.41. 09/24: Urine continues to be very light pink in the catheter bag. He continues to experience fecal urgency and urethral discomfort with the catheter. Various opioids are being used to help him with this pain. Cystoscopic resection of his 3 cm bladder tumor was planned for today but anesthesia declined due to his cardiac status. We investigated transferring him to hospitals that provide both Urology and in-house Cardiology but no beds have been available. The recommendation was to resume the Eliquis, discharge home if bleeding does not recur, resume attempts to transfer if bleeding increases on the anticoagulation again. 09/25: Bladder mass confirmed 09 24, catheter removed 09 25. Able to urinate but with lot of dysuria And some hematuria. 09/26: Recurrence of pink urine but no obstruction. Getting stronger, able to move around independently. Urine becoming more bloody throughout the course of the day. Discussed stopping anticoagulation with the patient. Really does not seem that he can remain on anticoagulation without having persistent or worsening hematuria. Even though he was low EF and atrial fibrillation with risk of embolization he is really not able to stabilize his hematuria. Discussed this with Urology and they had tried earlier to do a hospital in the hospital transfer without success. The idea of doing a procedure here was found upon by anesthesia with the patient was high cardiac risk profile. S: No dysuria. No fevers. O: T 96.7?, BP 107/56, pulse 55, respiration 16, SpO2 97% room air. Sen out. NAD, alert and oriented. Fluent speech. Lungs: Normal respiratory effort Heart not examined today Abdomen is soft and obese. Sen catheter present in the urethra. Extremities are free of edema. A/P: 1. Gross hematuria with bladder outlet obstruction with suggestion of urinary tract infection and bladder neoplasm (Also with lung metastases). Improving. 2. Cardiac arrhythmia with present bradycardia looks like sinus bradycardia history of atrial fibrillation on amiodarone. * Stopped verapamil, resumed amiodarone * Monitor cardiac telemetry 3. Coronary disease status post non STEMI: * Continue all core measures and goal directed medical therapy 4. History of bladder cancer. Stable. * Cystoscopy done at bedside on 09/23 revealed 3 cm bladder mass. Diagnostic resection with operative cystoscopy was planned but declined by anesthesia. 5. Dilated cardiomyopathy EF 20-25% (chronic systolic heart failure): * Continue Lasix and goal-directed medical therapy 6. Bradycardia (asymptomatic), new. Monitor. PLAN: -Sen out, monitor hematuria. -stop anticoagulation. I discussed with the patient I think the only real plan he will have is to stop anticoagulation to see if his hematuria resolves with the point that he can discharge and actually pursue an outpatient follow up plan with Urology at [facility]. I did ask Urology today if there was anything they can do to help expedite handoff of urologic care and it sounds as though there were no current options. Exam Vital Signs (past 8 hours): - 09/26/25 07:00 09/26/25 11:38 09/26/25 12:45 Temperature 98 F 96.7 F L Pulse Rate 43 L 55 L Respiratory Rate 16 16 Blood Pressure 112/56 L 91/48 L 95/52 L Pulse Oximetry 95 97 Oxygen Flow Rate 0 0 09/26/25 14:05 Temperature Pulse Rate Respiratory Rate Blood Pressure 107/56 L Pulse Oximetry Oxygen Flow Rate Oxygen Delivery Method Nasal Cannula Oxygen Flow Rate 0 Objective Labs 09/26/25 04:35 09/26/25 04:35 Labs: Laboratory Results - last 24 hr 09/26/25 04:35 WBC 14.6 H RBC 3.22 L Hgb 10.3 L Hct 30.2 L MCV 93.7 MCH 31.9 MCHC 34.0 RDW 14.7 Plt Count 351 Neut % (Auto) 64.4 Lymph % (Auto) 20.8 L [place] % (Auto) 9.0 Eos % (Auto) 5.0 H Baso % (Auto) 0.8 Neut # (Auto) 9400 H Lymph # (Auto) 3000 [place] # (Auto) 1300 H Eos # (Auto) 700 H Baso # (Auto) 100 Sodium 137 Potassium 3.4 Chloride 98 Carbon Dioxide 33 H BUN 24 H Creatinine 1.15 Estimated GFR > 60 BUN/Creatinine Ratio 20.9 Glucose 112 H Calcium 9.5 PFSH Medical History History of shortness of breath Left anterior fascicular block Atrial tachycardia Heart failure with mid-range ejection fraction Anesthesia complication Easy bruisability Bleeds easily Tobacco use 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 History of tobacco use History of bladder cancer Lower urinary tract symptoms Male circumcision Rheumatoid arthritis Kidney stones High blood pressure Cancer of bladder Surgical History S/P cervical spinal fusion History of ankle surgery (10/2024) H/O transurethral resection of bladder tumor (TURBT) (10/25/23) Hx of cystoscopy (01/11/23) Hx of appendectomy History of urologic surgery (04/23/22) Hx of cystoscopy History of transurethral resection of prostate H/O hernia repair Social History marital status: number of children: 4 household members: spouse Tobacco: How many years used: 50 alcohol intake: former Type(s) of exercise: independent ambulation Assessment & Plan Time-Based Coding :: [TOTAL MINUTES] spent with patient and on the chart (including review of chart, obtaining history, exam, reviewing outside data, placing orders, documenting exam and treatment plan, and counseling patient) on [DATE]. Quality VTE Deep Vein Thrombosis/Pulmonary Embolism Present on Admission: No
[2025-09-26] MEDS: ATORVASTATIN 20 MG TABLET PO (17:07)
[2025-09-26] MEDS: LOPERAMIDE 2 MG CAPSULE PO (17:52)
[2025-09-27] VITALS (7 sets, daily range): BP systolic 108–149; BP diastolic 48–78; PULSE 41–63; RESP 16–20; TEMP 36–36.9; O2SAT 91–96
[2025-09-27] MEDS: ACETAMINOPHEN 325 MG TABLET 650 MG PO (04:07)
[2025-09-27] MEDS: ASPIRIN EC 81 MG TABLET PO (10:12)
[2025-09-27] MEDS: POTASSIUM CHLORIDE 20 MEQ TAB PO (10:13)
[2025-09-27] MEDS: FINASTERIDE 5 MG TABLET PO (10:13)
[2025-09-27] MEDS: FAMOTIDINE 20 MG TABLET PO (10:13)
[2025-09-27] MEDS: SODIUM CHLORIDE 0.9% FLUSH 10 ML IV ×2 (10:13→20:15)
[2025-09-27] MEDS: AMIODARONE 200 MG TABLET 100 MG PO ×2 (10:31→20:14)
[2025-09-27] MEDS: LOPERAMIDE 2 MG CAPSULE PO (14:49)
--- NOTE | 2025-09-27 17:23 | P.PN_ITS ---
Subjective Subjective Interval history: HPI 85-year-old male with a remote history of bladder cancer (followed by Dr. Conrad who has no longer practicing), recent NSTEMI, CHF, and AFib with RVR on amiodarone and Eliquis. The patient presented with 5 days of gross hematuria and sinus bradycardia. At presentation, urinalysis notable for hematuria, pyuria and bacteriuria. He had a leukocytosis of 14.8 and normal BUN and creatinine. CT demonstrated a malignant right base of bladder mass, rapid interval development of extensive pulmonary metastatic disease and a 4 point 5 cm infrarenal abdominal aortic aneurysm. There was also question of a possible malignant lesion involving the cecum and proximal ascending colon. CTA of the chest showed definite pulmonary metastatic disease which was not present in July 2024. Hospital course has been complicated by initial partial resolution of hematuria but then recurrence of bright red blood and clots on 09/26/2025. Eliquis was initially held, then resumed on 09/24, then held on 09/26 due to worsening hematuria. He was evaluated by Urology and initially they had planned for cystoscopic resection of this 3 cm bladder tumor but then anesthesia declined due to the patient's cardiac status Dr. Lyles investigated transferring him to other local hospitals with both Urology and Cardiology but there were no beds available. The Sen catheter was removed on 09/25 and the patient has been voiding without difficulty but with dysuria Subjective Afebrile, normotensive and bradycardic at 41 Alert and oriented, well-nourished, well-developed, mildly ill-appearing Regular rate and rhythm, no murmurs Clear to auscultation bilaterally Soft, nontender, nondistended positive bowel sounds Warm without edema Pleasant and cooperative Labs Persistent leukocytosis at 14.6, otherwise no clinically significant abnormalities. Imaging No new imaging A&P Bladder cancer with pulmonary metastasis Gross hematuria, resolving Bladder outlet obstruction, resolved Patient voiding without difficulty. He was slowly resolving with discontinuation of Eliquis. Bedside cystoscopy on 09/23 revealed a 3 cm bladder mass. Operative resection declined by anesthesia due to cardiac risk. * Outpatient urology follow-up in [place] * Continue to hold Eliquis due to hematuria -this was discussed between Dr. Lyles and the patient * Anticipate discharge tomorrow if hematuria continues to improve Sinus bradycardia Atrial fibrillation on amiodarone * Stopped verapamil * Continue amiodarone * Discontinue telemetry CAD, status post NSTEMI Dilated cardiomyopathy, EF 20-25% Chronic systolic CHF * Continue all core measures and goal directed medical therapy for CAD * Continue Lasix ankle directed medical therapy for CHF Exam Vital Signs (past 8 hours): - 09/27/25 09:27 09/27/25 10:13 09/27/25 12:00 Temperature 97.4 F L Pulse Rate 50 L 63 Respiratory Rate 19 16 Blood Pressure 108/48 L 112/48 L Pulse Oximetry 91 96 Oxygen Flow Rate 0 2 09/27/25 16:00 Temperature 96.8 F L Pulse Rate 41 L Respiratory Rate 19 Blood Pressure 149/78 H Pulse Oximetry 96 Oxygen Flow Rate 0 Oxygen Delivery Method Room Air Oxygen Flow Rate 0 Objective Labs 09/26/25 04:35 09/26/25 04:35 PFS Medical History History of shortness of breath Left anterior fascicular block Atrial tachycardia Heart failure with mid-range ejection fraction Anesthesia complication Easy bruisability Bleeds easily Tobacco use 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 History of tobacco use History of bladder cancer Lower urinary tract symptoms Male circumcision Rheumatoid arthritis Kidney stones High blood pressure Cancer of bladder Surgical History S/P cervical spinal fusion History of ankle surgery (10/2024) H/O transurethral resection of bladder tumor (TURBT) (10/25/23) Hx of cystoscopy (01/11/23) Hx of appendectomy History of urologic surgery (04/23/22) Hx of cystoscopy History of transurethral resection of prostate H/O hernia repair Social History marital status: number of children: 4 household members: spouse Tobacco: How many years used: 50 alcohol intake: former Type(s) of exercise: independent ambulation Assessment & Plan Time-Based Coding :: [TOTAL MINUTES] spent with patient and on the chart (including review of chart, obtaining history, exam, reviewing outside data, placing orders, documenting exam and treatment plan, and counseling patient) on [DATE]. Quality VTE Deep Vein Thrombosis/Pulmonary Embolism Present on Admission: No
[2025-09-27] MEDS: ATORVASTATIN 20 MG TABLET PO (18:01)
--- NOTE | 2025-09-28 07:22 | P.DS_ITS ---
History of Present Illness History of Present Illness Date Patient Seen: 09/28/25 Time Patient Seen: 07:24 Chief complaint: Peeing blood, 4 days Narrative: HPI 85-year-old male with a remote history of bladder cancer (followed by Dr. Conrad who has no longer practicing), recent NSTEMI, CHF, and AFib with RVR on amiodarone and Eliquis. The patient presented with 5 days of gross hematuria and sinus bradycardia. At presentation, urinalysis notable for hematuria, pyuria and bacteriuria. He had a leukocytosis of 14.8 and normal BUN and creatinine. CT demonstrated a malignant right base of bladder mass, rapid interval development of extensive pulmonary metastatic disease and a 4 point 5 cm infrarenal abdominal aortic aneurysm. There was also question of a possible malignant lesion involving the cecum and proximal ascending colon. CTA of the chest showed definite pulmonary metastatic disease which was not present in July 2024. Hospital course has been complicated by initial partial resolution of hematuria but then recurrence of bright red blood and clots on 09/26/2025. Eliquis was initially held, then resumed on 09/24, then held on 09/26 due to worsening hematuria. He was evaluated by Urology and initially they had planned for cystoscopic resection of this 3 cm bladder tumor but then anesthesia declined due to the patient's cardiac status Dr. Lyles investigated transferring him to other local hospitals with both Urology and Cardiology but there were no beds available. The Sen catheter was removed on 09/25 and the patient has been voiding without difficulty but still has mild dysuria. The urine has cleared overnight and is now yellow in color without any obvious gross hematuria. Objective Afebrile, normotensive and bradycardic at 56 Alert and oriented, well-nourished, well-developed, no acute distress Regular rate and rhythm, no murmurs Clear to auscultation bilaterally Soft, nontender, nondistended positive bowel sounds Warm without edema Pleasant and cooperative Labs: Labs from 09/26 showed hemoglobin 10.3 and hematocrit 30.2, creatinine improved to 1.15 Imaging: CT abdomen and pelvis demonstrates a malignant mass at the bladder right base, interval development of extensive pulmonary metastatic disease, incidental finding of 4.5 cm infrarenal abdominal aortic aneurysm, possible malignant lesion involving the cecum and proximal ascending colon. CT a of the chest is without pneumothorax, effusion, or PE. There is extensive metastatic disease with the largest lesion 1.1 x 1.6 cm. EKG: With wide QRS, left anterior fascicular block, bradycardic at 46 A&P Bladder cancer with pulmonary metastasis Gross hematuria, resolving Bladder outlet obstruction, resolved Patient is hematuria resolved over the course of several days with discontinuation of Eliquis. Eliquis was then resumed at the recommendation of Cardiology but hematuria quickly recurred. Eliquis needed to be discontinued again and the patient's hematuria has now resolved. Bedside cystoscopy on 09/23 revealed a 3 cm bladder mass. Urology initially considered operative intervention but operative resection was declined by anesthesia due to the patient's cardiac risk. The patient is now voiding without difficulty and urine remains yellow. Outpatient urology follow-up has been coordinated by Dr. Lyles and the patient will be seen in [place]. I spoke with the patient about oncology follow-up. He is unsure if he wants to see Oncology at [facility] or down in [place] where he has the urology follow-up. He will coordinate this with his primary care provider after discharge. The patient should not resume Eliquis after discharge but may continue to take aspirin 81 mg daily. Sinus bradycardia Atrial fibrillation on amiodarone As an outpatient, patient was on verapamil and amiodarone. He was persistently bradycardic so verapamil was discontinued. He is maintained on amiodarone for rhythm control. CAD, status post NSTEMI Dilated cardiomyopathy, EF 20-25% Chronic systolic CHF These conditions were all clinically stable while the patient was hospitalized. He will discharge on all his usual medications for goal-directed medical therapy of both coronary artery disease and congestive heart failure. Discharge planning The patient will discharge today in stable condition. He should follow up with his primary care provider within 2 weeks. Urology follow-up in [facility] has been coordinated by Dr. Lyles. The patient will also need Oncology follow-up and this can be coordinated with his primary care provider. Time based billing > 30 minutes were spent in chart review, patient evaluation, and coordination of discharge. Discharge Providers Provider Date of admission: 09/21/25 14:55 Discharge Date: 09/28/25 Primary care physician: Zac Phillips MD Consults: Urology, Oncology Discharge provider: Mellissa Escalante MD Exam Vital Signs (past 8 hours): Oxygen Delivery Method Room Air,Nasal Cannula Oxygen Flow Rate 0 Objective Labs 09/26/25 04:35 09/26/25 04:35 [facility], [facility] Medical History History of shortness of breath Left anterior fascicular block Atrial tachycardia Heart failure with mid-range ejection fraction Anesthesia complication Easy bruisability Bleeds easily Tobacco use 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 History of tobacco use History of bladder cancer Lower urinary tract symptoms Male circumcision Rheumatoid arthritis Kidney stones High blood pressure Cancer of bladder Surgical History S/P cervical spinal fusion History of ankle surgery (10/2024) H/O transurethral resection of bladder tumor (TURBT) (10/25/23) Hx of cystoscopy (01/11/23) Hx of appendectomy History of urologic surgery (04/23/22) Hx of cystoscopy History of transurethral resection of prostate H/O hernia repair Social History marital status: number of children: 4 household members: spouse Tobacco: How many years used: 50 alcohol intake: former Type(s) of exercise: independent ambulation Discharge Plan Discharge Plan Patient Disposition: Home Discharge orders & Medications Prescriptions: Continued aspirin 81 mg Tablet,Delayed Release (Dr/Ec) 81 mg PO DAILY Qty: 0 CA PANTOTHENATE/FOLIC ACID/VIT (MULTIVITAMIN) 1 tab PO Q DAY Qty: 0 Breztri Aerosphere 160-9-4.8 mcg/actuation HFA aerosol inhaler 2 inh PO BID Qty: 10.7 11RF finasteride 5 mg tablet 5 mg PO DAILY Qty: 90 0RF albuterol sulfate 90 mcg/actuation HFA aerosol inhaler 2 inh inhalation DIRECTED losartan 25 mg tablet 25 mg PO DAILY Qty: 30 0RF amiodarone 200 mg tablet 100 mg PO BID hydrocodone-acetaminophen 10-325 mg tablet 2 tab PO BID Patient Comments: TAKE 2 TABLETS BY MOUTH TWICE DAILY NEEDED Qvar RediHaler 80 mcg/actuation HFA aerosol breath activated 1 inh inhalation BID Qty: 10.6 0RF atorvastatin 20 mg tablet 20 mg PO QPM Jardiance 10 mg tablet 10 mg PO DAILY furosemide 40 mg Tablet 40 mg PO DAILY Qty: 30 0RF potassium chloride 20 mEq tablet extended release 20 meq PO DAILY Qty: 30 0RF ipratropium-albuterol 0.5 mg-3 mg(2.5 mg base)/3 mL solution for nebulization 3 ml inhalation BID Qty: 180 11RF Discontinued diltiazem HCl 180 mg capsule,extended release 24hr 180 mg PO DAILY Eliquis 5 mg Tablet 5 mg PO BID Qty: 60 0RF Follow up/Referrals: Zac Phillips MD [Primary Care Provider, Internal Medicine] Activity Restrictions/Additional Instructions: Activity as tolerated Discharge Health Status Multidrug resistant organism: No MDRO Diet/Activity/Treatments Diet: Diet as Tolerated Activity: As tolerated Visit Report/Discharge Packet Stand Alone Forms: Patient Portal/API, Stroke Signs & Symptoms Discharge Data Primary Care Provider: Zac Phillips Quality VTE Deep Vein Thrombosis/Pulmonary Embolism Present on Admission: No
[2025-09-28] MEDS: FINASTERIDE 5 MG TABLET PO (08:49)
[2025-09-28] MEDS: FUROSEMIDE 40 MG TABLET PO (08:49)
[2025-09-28] MEDS: POTASSIUM CHLORIDE 20 MEQ TAB PO (08:49)
[2025-09-28] MEDS: AMIODARONE 200 MG TABLET 100 MG PO (08:49)
[2025-09-28] MEDS: FAMOTIDINE 20 MG TABLET PO (08:49)
[2025-09-28] MEDS: ASPIRIN EC 81 MG TABLET PO (08:49)
[2025-09-28 09:00] VITALS: BP 148/57; PULSE 84; RESP 20; TEMP 36.7; O2SAT 93
[2025-09-28 09:01] VITALS: BP 148/57; PULSE 60
[2025-09-28] MEDS: LOSARTAN 25 MG TABLET PO (09:01)
[2025-09-28] MEDS: SODIUM CHLORIDE 0.9% FLUSH 10 ML IV (09:01)
--- NOTE | 2025-09-28 13:53 | PC.NURSE ---
discharge reviewed with patient and his . They have no further questions or concerns at this time. Instructed to call [facility] and his PCP Tuesday to schedule follow up appointments and receive referral from urology for specialists. Patient escorted out via wheelchair with his to dc to home.
== END 2025-09-28 13:55 | disposition home or self-care (01) | DRG 687 ==
LOC: ED 17:16 → AC 17:32
PROVIDERS: Emergency Medicine; Family Medicine; Internal Medicine; Admitting Provider Internal Medicine; Emergency Provider Physician Assistant; PCP Internal Medicine; Referring Provider Physician Assistant; Visit Provider Internal Medicine
DX: C67.2 Malignant neoplasm of lateral wall of bladder (principal); C78.00 Secondary malignant neoplasm of unspecified lung; D68.32 Hemorrhagic disorder due to extrinsic circulating anticoagulants; N39.0 Urinary tract infection, site not specified; I42.0 Dilated cardiomyopathy; I50.22 Chronic systolic (congestive) heart failure; R31.0 Gross hematuria; I48.91 Unspecified atrial fibrillation; I25.10 Atherosclerotic heart disease of native coronary artery without angina pectoris; R00.1 Bradycardia, unspecified; R19.7 Diarrhea, unspecified; N32.0 Bladder-neck obstruction; J44.9 Chronic obstructive pulmonary disease, unspecified; I25.2 Old myocardial infarction; Z79.01 Long term (current) use of anticoagulants; Z87.891 Personal history of nicotine dependence; Z79.51 Long term (current) use of inhaled steroids
CPT/HCPCS: 36415; 51798; 71045; 71275; 74177; 80048; 80053; 81001; 82550; 83605; 83690; 83735; 83880; 84145; 84484; 85025; 85610; 85730; 87040; 87086; 87493; 93005; 94762; 96361; 96365; 99284; 99285; G0378; A9270; J0696; J1171; J7030; J7050; Q9967